=== PATIENT | female | born 1955 | race Caucasian/White ===

== ENCOUNTER → 2017-08-05 | Outpatient (CLI) | payer OTHER ==
[~2017-08-05] MED LIST: OXYC1CAP PO
[2017-08-05 12:03] LABS: AUTOMATED NEUTROPHIL # 6.1 TH/MM3 (1.8-7.7); BASOPHIL # 0.1 TH/MM3 (0-0.2); BASOPHIL % 0.9 % (0.0-2.0); EOSINOPHIL # 0.4 TH/MM3 (0-0.4); HEMATOCRIT 36.7 % (35.0-46.0); HEMOGLOBIN 12.4 GM/DL (11.6-15.3); LYMPH % 21.8 % (9.0-44.0); MEAN CELL VOLUME 89.9 FL (80.0-100.0); MEAN CORPUSCULAR HEMOGLOBIN 30.4 PG (27.0-34.0); MEAN CORPUSCULAR HGB CONC 33.9 % (32.0-36.0); MEAN PLATELET VOLUME 7.5 FL (7.0-11.0); MONO % 6.4 % (0.0-8.0); MONOCYTE # 0.6 TH/MM3 (0-0.9); NEUT % 66.9 % (16.0-70.0); PLATELET COUNT 339 TH/MM3 (150-450); RED BLOOD COUNT 4.08 MIL/MM3 (4.00-5.30); RED CELL DISTRIBUTION WIDTH 15.2 % (11.6-17.2); WHITE BLOOD COUNT 9.1 TH/MM3 (4.0-11.0)
[2017-08-05 12:08] LABS: INTERNATIONAL NORMALIZED RATIO 0.9 RATIO; PROTHROMBIN TIME - PATIENT 9.4 SEC (9.8-11.6)
[2017-08-05 12:22] LABS: BICARBONATE 25.8 MEQ/L (21.0-32.0); CALCIUM 8.8 MG/DL (8.5-10.1); CREATININE 0.81 MG/DL (0.50-1.00)
[2017-08-05 12:51] LABS: BILIRUBIN, URINE NEG (NEG); BLOOD, URINE SMALL (NEG); CALCIUM OXALATE CRYSTALS,URINE MANY /hpf; GLUCOSE,URINE NEG (NEG); HYALINE CAST, URINE 1 /lpf (RARE); KETONE, URINE NEG (NEG); MUCUS URINE MOD /lpf (OCC); NITRITE,URINE NEG (NEG); SQUAMOUS EPITHELIAL CELL URINE 4 /hpf (0-5); URINE COLOR YELLOW (YELLW/STRAW); URINE LEUKOCYTE ESTERASE NEG (NEG)
== END ==
LOC: CPRE 10:59
PROVIDERS: ATTEND Orthopaedic Surgery
DX: Z01.812 Encounter for preprocedural laboratory examination (principal)
CPT/HCPCS: 36415; 80048; 81001; 85025; 85610

== ENCOUNTER → 2017-08-06 | Day surgery (SDC) | payer OTHER ==
--- NOTE | 2017-08-04 17:47 | MH ---
cc: Robbin Gonzalez MD DATE OF ADMISSION: 08/06/2017 ADMITTING DIAGNOSES: Osteoarthritis left hip, pain left hip, gait disturbance, status post left total hip arthroplasty, wound dehiscence left hip. HISTORY OF PRESENT ILLNESS: The patient is a 61-year-old white female who had undergone a left total hip arthroplasty in June of this year for a history of osteoarthritis of the left hip with associated pain and gait disturbance. The patient was noted to have tolerated her operative procedure well and her initial postoperative course unremarkable. She was transferred to a rehab facility, where she continued with progressive mobilization, but on or about 2 weeks postoperatively, she began to develop some drainage from her wound site. She was evaluated in the office thereafter and she was found to have a minimal dehiscence of the inferior aspect of her incision, for which she was initiated into local treatment of her wound and monitored thereafter. Unfortunately, the drainage persisted, during which time the patient did remain afebrile and was later placed on a prophylactic course of antibiotics. Because of the persistence of her drainage and her failure to respond to continued conservative management, recommendation was subsequently made to undergo a thorough debridement and irrigation of her wound site with secondary closure. The patient was in full agreement to this recommendation and thus scheduled for admission at this time in order that the above be accomplished. PAST MEDICAL HISTORY, HOSPITALIZATIONS AND SURGERIES: In addition to her left total hip arthroplasty include laparoscopic cholecystectomy, bilateral carpal tunnel release, arthroscopic surgery right knee, tonsillectomy, colonoscopy. The patient denies any active medical illnesses, but had a history of thrombophlebitis of her right lower extremity extending back almost 18 years. MEDICATIONS: She takes no prescribed medications on a routine basis. ALLERGIES: THERE ARE NO INDICATED DRUG ALLERGIES. REVIEW OF SYSTEMS: No headache, seizure, or syncope. No sinus congestion or epistaxis. Diminished auditory acuity. No tinnitus. No bleeding gums or dysphagia. She does wear complete dentures. No cough, shortness of breath, upper respiratory infection, pneumonia, or tuberculosis. No angina or heart disease. Appetite good. Bowel movements regular. No hepatitis, ulcers, or hemorrhoids. No urinary tract infection, no kidney stones. No history of previous fractures. No psychiatric illness. Remaining review of systems is unremarkable and noncontributory. FAMILY HISTORY: 18 years, this being a fourth marriage. 79 years of age. He is in poor health with a history of heart disease and previous open heart surgery, diabetes, and below-knee amputee. She has 1 son and 1 daughter by previous marriage, both described as being in good health. Family history is positive for diabetes, lung and colon cancer. 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 She completed a high school education. Admits to an active use of tobacco since 1972 averaging slightly less than 1 pack per day. Denies ethanol consumption. PHYSICAL EXAMINATION: Height 5 feet 4 inches, weight 240 pounds. An alert, oriented, and responsive 61-year-old white female, sitting quietly upon examination table with no apparent distress. HEENT: Pupils are equally round and reactive to light. Extraocular movements full. Sclerae clear. External nares clear. External auditory canals clear. Edentulous. Mucous membranes pink and moist. Pharynx clear. NECK: Supple. Active range of motion without appreciable pain. Carotid pulses palpable bilaterally. Trachea midline. Thyroid without enlargement. LUNGS: Clear to auscultation and percussion. No CVA tenderness. No discomfort throughout the dorsal lumbar spine. HEART: Regular rhythm. No murmur or gallop. ABDOMEN: Soft, nontender. Bowel sounds present. PELVIC: Per primary care physician. EXTREMITIES: Left hip, localized dehiscence about the inferior aspect of an incision along the posterolateral aspect of the hip measuring at least 2-3 cm in magnitude. Serosanguineous drainage from the wound site. No associated fluctuance. No bordering erythema. No appreciable pain elicited. NEUROLOGIC: Cranial nerves 2-12 grossly intact. IMPRESSION: Osteoarthritis left hip, pain left hip, gait disturbance, status post left total hip arthroplasty, wound dehiscence left hip. PLAN: Wound debridement and irrigation with secondary closure of the wound site. The nature of the planned surgical procedure, the potential complications and risks associated, the expectations of surgery, and the consent form were thoroughly reviewed with the patient prior to admission to the hospital. In addition, it was emphasized to the patient that should the planned procedure fail to improve her symptoms and she is subsequently diagnosed as having a septic joint, the need for further disposition would be anticipated. The patient has indicated her full understanding in this regard and given consent to proceed with treatment as outlined. MD JESSA Urbano/TI , 05:16 PM , 05:45 PM
[~2017-08-06] VITALS: Ht 162.6 cm; Wt 108.5 kg
[~2017-08-06] MED LIST changes: +*RESP: ALBUTEROL 2.5 MG/3 ML NEB (PRN) PERIprocedural Use ONLY NEB ONE; +ACETAMINOPHEN 1000 MG/100 ML 100 ML IV ONE; +CHLORHEXIDINE GLUCONATE 2 % 1 PACK (2 CLOTHS) TOPICAL PRN; +DEXAMETHASONE SOD PHOS 4 MG/ML VIAL IV ONE; +DO NOT ADM ANY ANTICOAGULANT DRUGS PRN; +FAMOTIDINE 20 MG/2 ML VIAL IV ONE; +GENTAMICIN SULFATE 80 MG/2 ML VIAL ONE; +GLYCOPYRROLATE 1 MG/5 ML SYRINGE IV PUSH ONE; +LACTATED RINGER'S 1000 ML INJ 1,000 ML IV ONE; +LACTATED RINGER'S 1000 ML IV PRN; +LIDOCAINE HCL 1% PF 5 ML SYRINGE OTHER ONE; +METOPROLOL TARTRATE 25 MG TAB PO PRN; +MIDAZOLAM HCL 2 MG/2 ML VIAL IV ONE; +MIDAZOLAM HCL 2 MG/2 ML VIAL ONE; +MORPHINE SULFATE 10 MG/ML INJ IM PRN; +MORPHINE SULFATE 2 MG/ML INJ ONE; +NEOSTIGMINE 5 MG/5 ML SYRINGE IV PUSH ONE; +ONDANSETRON HCL 4 MG/2 ML VIAL IV ONE; +PHENYLEPH/NS 1000 MCG/10 ML SYR IV ONE; +POVIDONE IODINE 5% (ANTISEPSIS KIT) 4 APPLICATIONS EACH NARE PRN; +POVIDONE IODINE 7.5% SCRUB 118 ML BOTTLE TOPICAL SCH; +PROMETHAZINE INJ 25 MG/ML VIAL IM PRN; +PROPOFOL 200 MG/20 ML AMP IV ONE; +ROCURONIUM INJ 50 MG/5 ML SYRINGE IV PUSH ONE; +SODIUM CHLORID 0.9% 500 ML IV PRN; +ceFAZolin INJ 1,000 MG VIAL IV ONE; +ePHEDrine/NS 25 MG/5 ML SYRINGE IV ONE; +oxyCODONE/ACETAMINOPHEN 7.5 MG/325 MG TAB PO PRN
--- NOTE | 2017-08-06 11:50 | MP ---
cc: Robbin Gonzalez MD DATE OF OPERATION: 08/06/2017 PREOPERATIVE DIAGNOSIS: Wound dehiscence left hip, status post left total hip arthroplasty. POSTOPERATIVE DIAGNOSIS: Wound dehiscence left hip, status post left total hip arthroplasty. PROCEDURE: Wound debridement and irrigation with secondary wound closure, left hip. SURGEON: Robbin Gonzalez MD ANESTHESIA: General endotracheal. INDICATION: A 61-year-old white female who had undergone a left total hip arthroplasty within the previous 4 weeks for a history of osteoarthritis with associated pain and gait disturbance all involving her left hip. She had tolerated her operative procedure well, and her postoperative course was initially unremarkable. She was transferred to a rehab facility where she continued with progressive mobilization, but approximately 2 weeks postoperatively, she began to develop some drainage from her wound site. She was thereafter evaluated in the office, and at that time was noted to have a minimal dehiscence along the inferior aspect of her incision, through which she was initiated into local wound care treatment and monitored thereafter. Unfortunately, the drainage persisted, for which the patient did remain afebrile and was later placed on a prophylactic course with antibiotics. Because of the persistence of her drainage and her failure to respond to continued conservative management, recommendation was made to undergo a thorough wound debridement and irrigation with secondary wound closure. The patient was in full agreement to this recommendation and thus scheduled for admission at this time. FORMAT: Following induction of satisfactory general anesthesia by endotracheal intubation as completed per the department of anesthesia, the patient was positioned upon the operating table in a right lateral decubitus fashion. The left hip and lower extremity proper were isolated with a U-drape, thereafter being prepped with Betadine solute and draped into a sterile field in the routine manner. Prior to initiation of the actual procedure, the standard timeout protocol was completed. All parameters were appropriately addressed and confirmed by operating room personnel. A previous surgical scar along the lateral aspect of the left hip including a proximally 2-3 cm area of wound dehiscence was excised in a sharp manner with a removal of the inferior 2/3 of the previous surgical scar. The incision was thereafter developed, underlying subcutaneous tissue with hemostasis remaining maintained by electrocautery. Upon entering the deeper subcutaneous layer, a wound culture was obtained and submitted to the lab, the results of which were negative for any evidence of bacterial contamination. Thereafter, a generalized evacuation, wound debridement including a hematoma and what appeared to be some associated necrotic tissue was thoroughly debrided from the confines of the wound. The wound was noted to be contained to the subcutaneous layer with limited involvement of the underlying muscular layer but no suggestion for violation of the underlying hip joint. Following the debridement, the wound was thoroughly irrigated with 9 L of pulsating antibiotic solution. Finally, debridement was completed thereafter and hemostasis maintained. Closure was thereafter accomplished in a layer-type fashion with the deeper tissues being reapproximated with a running 0 Vicryl suture and remaining portion of the wound closed in layers with skin margin being reapproximated with a running subcuticular 3-0 Vicryl suture, over which Steri-Strips were applied. Xeroform gauze and a bulky dry sterile dressing were placed. The patient was repositioned into a supine orientation and anesthesia was thus discontinued. She was thereafter transferred to a hospital stretcher and returned to the recovery room in satisfactory condition, having tolerated her operative procedure well. Estimated blood loss was approximately 50 mL as determined per anesthesia. MD JESSA Urbano/ZINA , 11:30 AM , 11:48 AM
[2017-08-06 13:20] VITALS: BP 107/62; PULSE 83; RESP 16; TEMP 98.3; O2SAT 97
== END | disposition home or self-care (01) ==
LOC: HSDC 07:09
PROVIDERS: ATTEND Orthopaedic Surgery
DX: T81.30XA Disruption of wound, unspecified, initial encounter (principal); M16.12 Unilateral primary osteoarthritis, left hip; Z96.642 Presence of left artificial hip joint
CPT/HCPCS: 00400; 13160; 87205; 88304; J0131; J0690; J1100; J1580; J2250; J2270; J2370; J2405; J2710; J3010; J7120; J7613; 88305

== ENCOUNTER → 2017-09-04 | Outpatient (CLI) | payer OTHER ==
[~2017-09-04] MED LIST changes: -*RESP: ALBUTEROL 2.5 MG/3 ML NEB (PRN) PERIprocedural Use ONLY NEB ONE; -ACETAMINOPHEN 1000 MG/100 ML 100 ML IV ONE; +ASPI-183 PO; -CHLORHEXIDINE GLUCONATE 2 % 1 PACK (2 CLOTHS) TOPICAL PRN; +CLIN300C5 PO; -DEXAMETHASONE SOD PHOS 4 MG/ML VIAL IV ONE; -DO NOT ADM ANY ANTICOAGULANT DRUGS PRN; -FAMOTIDINE 20 MG/2 ML VIAL IV ONE; -GENTAMICIN SULFATE 80 MG/2 ML VIAL ONE; -GLYCOPYRROLATE 1 MG/5 ML SYRINGE IV PUSH ONE; -LACTATED RINGER'S 1000 ML INJ 1,000 ML IV ONE; -LACTATED RINGER'S 1000 ML IV PRN; -LIDOCAINE HCL 1% PF 5 ML SYRINGE OTHER ONE; -METOPROLOL TARTRATE 25 MG TAB PO PRN; -MIDAZOLAM HCL 2 MG/2 ML VIAL IV ONE; -MIDAZOLAM HCL 2 MG/2 ML VIAL ONE; -MORPHINE SULFATE 10 MG/ML INJ IM PRN; -MORPHINE SULFATE 2 MG/ML INJ ONE; -NEOSTIGMINE 5 MG/5 ML SYRINGE IV PUSH ONE; -ONDANSETRON HCL 4 MG/2 ML VIAL IV ONE; +OXYC1TAB63 PO; -PHENYLEPH/NS 1000 MCG/10 ML SYR IV ONE; -POVIDONE IODINE 5% (ANTISEPSIS KIT) 4 APPLICATIONS EACH NARE PRN; -POVIDONE IODINE 7.5% SCRUB 118 ML BOTTLE TOPICAL SCH; -PROMETHAZINE INJ 25 MG/ML VIAL IM PRN; -PROPOFOL 200 MG/20 ML AMP IV ONE; -ROCURONIUM INJ 50 MG/5 ML SYRINGE IV PUSH ONE; -SODIUM CHLORID 0.9% 500 ML IV PRN; +WALKER WHEELS/F1 MIS; -ceFAZolin INJ 1,000 MG VIAL IV ONE; -ePHEDrine/NS 25 MG/5 ML SYRINGE IV ONE; -oxyCODONE/ACETAMINOPHEN 7.5 MG/325 MG TAB PO PRN
[2017-09-04 15:19] LABS: AMORPHOUS SEDIMENT, URINE RARE; BILIRUBIN, URINE NEG (NEG); BLOOD, URINE TRACE (NEG); CALCIUM OXALATE CRYSTALS,URINE MANY /hpf; GLUCOSE,URINE NEG (NEG); HYALINE CAST, URINE 12 /lpf (RARE); KETONE, URINE NEG (NEG); MUCUS URINE MANY /lpf (OCC); NITRITE,URINE NEG (NEG); PH, URINE 5.5 (5.0-8.5); SQUAMOUS EPITHELIAL CELL URINE 2 /hpf (0-5); URINE COLOR YELLOW (YELLW/STRAW); URINE LEUKOCYTE ESTERASE NEG (NEG)
[2017-09-04 15:20] LABS: AUTOMATED NEUTROPHIL # 5.3 TH/MM3 (1.8-7.7); BASOPHIL # 0.1 TH/MM3 (0-0.2); BASOPHIL % 1.2 % (0.0-2.0); EOSINOPHIL # 0.4 TH/MM3 (0-0.4); EOSINOPHIL % 4.4 % (0.0-4.0); HEMATOCRIT 37.2 % (35.0-46.0); HEMOGLOBIN 12.1 GM/DL (11.6-15.3); LYMPH % 27.9 % (9.0-44.0); LYMPHOCYTE # 2.5 TH/MM3 (1.0-4.8); MEAN CELL VOLUME 82.9 FL (80.0-100.0); MEAN CORPUSCULAR HGB CONC 32.5 % (32.0-36.0); MEAN PLATELET VOLUME 7.6 FL (7.0-11.0); MONO % 7.8 % (0.0-8.0); MONOCYTE # 0.7 TH/MM3 (0-0.9); NEUT % 58.7 % (16.0-70.0); PLATELET COUNT 432 TH/MM3 (150-450); RED BLOOD COUNT 4.48 MIL/MM3 (4.00-5.30); RED CELL DISTRIBUTION WIDTH 15.7 % (11.6-17.2); WHITE BLOOD COUNT 9.1 TH/MM3 (4.0-11.0)
[2017-09-04 15:34] LABS: BICARBONATE 29.3 MEQ/L (21.0-32.0)
[2017-09-04 15:35] LABS: INTERNATIONAL NORMALIZED RATIO 0.9 RATIO; PROTHROMBIN TIME - PATIENT 9.6 SEC (9.8-11.6)
== END ==
LOC: CPRE 14:42
PROVIDERS: ATTEND Orthopaedic Surgery
DX: Z01.812 Encounter for preprocedural laboratory examination (principal); M16.52 Unilateral post-traumatic osteoarthritis, left hip
CPT/HCPCS: 36415; 80051; 81001; 85025; 85610

== ENCOUNTER 2017-09-07 20:01 | Emergency (ER) | payer OTHER ==
[~2017-09-07] VITALS: Ht 162.6 cm; Wt 96.0 kg
[~2017-09-07 20:01] MED LIST changes: -ASPI-183 PO; -CLIN300C5 PO; -OXYC1TAB63 PO; -WALKER WHEELS/F1 MIS
[2017-09-07 20:43] VITALS: BP 118/63; PULSE 103; RESP 18; TEMP 100.2; O2SAT 96
[2017-09-07 21:13] VITALS: BP 165/78; PULSE 94; RESP 20; O2SAT 96
[2017-09-07] MEDS ORDERED: PIPERACIL-TAZO 4.5 GM PREMIX 100 ML IV STA (21:32)
[2017-09-07] MEDS ORDERED: VANCOMYCIN INJ 1,000 MG in SODIUM CHLOR 0.9% 250 ML INJ 250 ML IV STA (21:32)
[2017-09-07 21:44] LABS: AUTOMATED NEUTROPHIL # 8.3 TH/MM3 (1.8-7.7); BASOPHIL # 0.1 TH/MM3 (0-0.2); BASOPHIL % 1.2 % (0.0-2.0); EOSINOPHIL # 0.3 TH/MM3 (0-0.4); EOSINOPHIL % 2.1 % (0.0-4.0); HEMATOCRIT 40.3 % (35.0-46.0); HEMOGLOBIN 13.2 GM/DL (11.6-15.3); LYMPH % 18.2 % (9.0-44.0); LYMPHOCYTE # 2.1 TH/MM3 (1.0-4.8); MEAN CELL VOLUME 81.9 FL (80.0-100.0); MEAN CORPUSCULAR HEMOGLOBIN 26.7 PG (27.0-34.0); MEAN CORPUSCULAR HGB CONC 32.6 % (32.0-36.0); MEAN PLATELET VOLUME 7.7 FL (7.0-11.0); MONOCYTE # 0.8 TH/MM3 (0-0.9); NEUT % 71.5 % (16.0-70.0); PLATELET COUNT 492 TH/MM3 (150-450); RED BLOOD COUNT 4.93 MIL/MM3 (4.00-5.30); RED CELL DISTRIBUTION WIDTH 16.2 % (11.6-17.2); WHITE BLOOD COUNT 11.6 TH/MM3 (4.0-11.0)
[2017-09-07] MEDS ORDERED: IBUPROFEN 800 MG TAB PO ONE (21:45)
[2017-09-07 21:57] LABS: ALBUMIN 3.4 GM/DL (3.4-5.0); AST (GOT) 18 U/L (15-37); BICARBONATE 27.9 MEQ/L (21.0-32.0); BLOOD UREA NITROGEN 9 MG/DL (7-18); CALCIUM 9.7 MG/DL (8.5-10.1); CHLORIDE 98 MEQ/L (98-107); CREATININE 0.77 MG/DL (0.50-1.00); GLOMERULAR FILTRATION RATE 76 ML/MIN (>89); GLUCOSE,RANDOM 122 MG/DL (74-106); SODIUM (NA) 132 MEQ/L (136-145)
[2017-09-07 21:58] LABS: ALT (GPT) 14 U/L (10-53)
[2017-09-07 22:01] LABS: ALKALINE PHOSPHATASE 138 U/L (45-117); PROTHROMBIN TIME - PATIENT 9.8 SEC (9.8-11.6); TOTAL BILIRUBIN ADULT 0.3 MG/DL (0.2-1.0); TOTAL PROTEIN 8.9 GM/DL (6.4-8.2)
--- NOTE | 2017-09-07 22:32 | PD ---
HPI Chief Complaint: Wound/Suture/Staple Re-Check Time Seen by Provider: 21:13 Travel History International Travel<30 days: No Contact w/Intl Traveler<30days: No Traveled to known affect area: No History of Present Illness HPI Patient is a 61-year-old female presenting to the emergency department for evaluation of left hip pain, fever, drainage. Patient states she had a hip replacement on [address] gonzalez. She states while she was in rehab immediately after the surgery the incision opened up. She had an I&D at the beginning of July. She states for several weeks she has had yellow/orange drainage. She reports max temp of 100.4 at home intermittently. She denies any shortness of breath, chest pain, abdominal pain. Patient has been unable to bear weight, this has gotten worse today. She is currently reports her pain is a 10 out of 10, she took her normal pain medication approximately 1 hour prior to arrival. Patient states she was on Keflex which was completed approximately a week and a half ago. Symptom onset was gradual, symptoms have been ongoing for several weeks. Symptoms are somewhat alleviated with pain medication. Pain is exacerbated with movement. Pain is aching in nature. PFSH Past Medical History Cancer: No Cardiovascular Problems: Yes (MURMUR) Diabetes: No Diminished Hearing: No Endocrine: No Gastrointestinal Disorders: Yes (UMBILICAL HERNIA) Genitourinary: No Hepatitis: No Hiatal Hernia: No Immune Disorder: No Medical other: Yes (blood clots in right leg in 1999) Musculoskeletal: Yes (OA, LEFT HIP PAIN) Neurologic: No Psychiatric: No Reproductive: No Respiratory: No Immunizations Current: Yes Thyroid Disease: No Tetanus Vaccination: Unknown Influenza Vaccination: No ?: Not Past Surgical History Abdominal Surgery: Yes (CHOLECYSTECTOMY) AICD: No Cardiac Surgery: No Ear Surgery: No Endocrine Surgery: No Eye Surgery: No Genitourinary Surgery: No Gynecologic Surgery: Yes (TUBAL LIGATION) Joint Replacement: Yes (LEFT HIP) Neurologic Surgery: No Oral Surgery: No Pacemaker: No Thoracic Surgery: No Other Surgery: Yes Social History Alcohol Use: No Tobacco Use: No Substance Use: No Allergies-Medications (Allergen,Severity, Reaction): Coded Allergies: No Known Allergies (Unverified , 09/07/17) Reported Meds & Prescriptions Reported Meds & Active Scripts Active Clindamycin (Clindamycin HCl) 300 Mg Cap 300 Mg PO TID Reported Oxycodone (Oxycodone HCl) 5 Mg Cap 5 Mg PO Q4H PRN Review of Systems Except as stated in HPI: all other systems reviewed are Neg Musculoskeletal: Positive: Myalgias, Arthralgias, Pain Skin: Positive Change in Pigmentation, Positive Lesions Physical Exam Narrative GENERAL: Obese, well-developed, alert female. Presenting in no acute distress. SKIN: Warm and dry. Incision to left lateral hip, there are 5 circular lesions with mucopurulent drainage noted. All less than half a centimeter wide. There is a visible stitch to the lower aspect of the incision. No induration or warmth noted. Moderately tender to palpation. HEAD: Atraumatic. Normocephalic. EYES: Pupils equal and round. No scleral icterus. No injection or drainage. ENT: No nasal bleeding or discharge. Mucous membranes pink and moist. NECK: Trachea midline. No JVD. CARDIOVASCULAR: Regular rate and rhythm. RESPIRATORY: No accessory muscle use. Clear to auscultation. Breath sounds equal bilaterally. GASTROINTESTINAL: Abdomen soft, non-tender, nondistended. Hepatic and splenic margins not palpable. MUSCULOSKELETAL: Extremities without clubbing, cyanosis, or edema. No obvious deformities. NEUROLOGICAL: Awake and alert. No obvious cranial nerve deficits. Motor grossly within normal limits. Five out of 5 muscle strength in the arms and legs. Normal speech. PSYCHIATRIC: Appropriate mood and affect; insight and judgment normal. Data Data Last Documented VS Vital Signs Date Time Temp Pulse Resp B/P (MAP) Pulse Ox O2 Delivery O2 Flow Rate FiO2 09/07/17 21:13 94 20 165/78 (107) 96 Room Air 09/07/17 20:43 100.2 Orders Orders Sepsis Workup Initiated (09/07/17 ) Complete Blood Count With Diff (09/07/17 21:22) Comprehensive Metabolic Panel (09/07/17 21:22) Prothrombin Time / Inr (Pt) (09/07/17 21:22) Act Partial Throm Time (Ptt) (09/07/17 21:22) Lactic Acid Sepsis Protocol (09/07/17 21:22) Urinalysis - C+S If Indicated (09/07/17 21:22) Blood Culture (09/07/17 21:22) Blood Glucose (09/07/17 21:22) Ecg Monitoring (09/07/17 21:22) Iv Access Insert/Monitor (09/07/17 21:22) Oximetry (09/07/17 21:22) Oxygen Administration (09/07/17 21:22) Wound Culture And Gram Stain (09/07/17 21:22) Hip, Uni(Ap&Lat) W Ap Pelvis (09/07/17 ) Ibuprofen (Motrin) (09/07/17 21:45) Piperacil-Tazo 4.5 Gm Premix (Zosyn 4.5 (09/07/17 21:32) Vancomycin Inj (Vancomycin Inj) (09/07/17 21:32) Sodium Chlor 0.9% 1000 Ml Inj (Ns 1000 M (09/07/17 23:00) Ed Discharge Order (09/07/17 23:13) Labs Laboratory Tests Test 09/07/17 21:30 White Blood Count 11.6 TH/MM3 Red Blood Count 4.93 MIL/MM3 Hemoglobin 13.2 GM/DL Hematocrit 40.3 % Mean Corpuscular Volume 81.9 FL Mean Corpuscular Hemoglobin 26.7 PG Mean Corpuscular Hemoglobin Concent 32.6 % Red Cell Distribution Width 16.2 % Platelet Count 492 TH/MM3 Mean Platelet Volume 7.7 FL Neutrophils (%) (Auto) 71.5 % Lymphocytes (%) (Auto) 18.2 % Monocytes (%) (Auto) 7.0 % Eosinophils (%) (Auto) 2.1 % Basophils (%) (Auto) 1.2 % Neutrophils # (Auto) 8.3 TH/MM3 Lymphocytes # (Auto) 2.1 TH/MM3 Monocytes # (Auto) 0.8 TH/MM3 Eosinophils # (Auto) 0.3 TH/MM3 Basophils # (Auto) 0.1 TH/MM3 CBC Comment DIFF FINAL Differential Comment Prothrombin Time 9.8 SEC Prothromb Time International Ratio 1.0 RATIO Activated Partial Thromboplast Time 26.9 SEC Blood Urea Nitrogen 9 MG/DL Creatinine 0.77 MG/DL Random Glucose 122 MG/DL Total Protein 8.9 GM/DL Albumin 3.4 GM/DL Calcium Level 9.7 MG/DL Alkaline Phosphatase 138 U/L Aspartate Amino Transf (AST/SGOT) 18 U/L Alanine Aminotransferase (ALT/SGPT) 14 U/L Total Bilirubin 0.3 MG/DL Sodium Level 132 MEQ/L Potassium Level 3.6 MEQ/L Chloride Level 98 MEQ/L Carbon Dioxide Level 27.9 MEQ/L Anion Gap 6 MEQ/L Estimat Glomerular Filtration Rate 76 ML/MIN Lactic Acid Level 1.2 mmol/L [facility] Medical Decision Making Medical Screen Exam Complete: Yes Emergency Medical Condition: Yes Medical Record Reviewed: Yes Interpretation(s) Laboratory Tests Test 09/07/17 21:30 White Blood Count 11.6 TH/MM3 Red Blood Count 4.93 MIL/MM3 Hemoglobin 13.2 GM/DL Hematocrit 40.3 % Mean Corpuscular Volume 81.9 FL Mean Corpuscular Hemoglobin 26.7 PG Mean Corpuscular Hemoglobin Concent 32.6 % Red Cell Distribution Width 16.2 % Platelet Count 492 TH/MM3 Mean Platelet Volume 7.7 FL Neutrophils (%) (Auto) 71.5 % Lymphocytes (%) (Auto) 18.2 % Monocytes (%) (Auto) 7.0 % Eosinophils (%) (Auto) 2.1 % Basophils (%) (Auto) 1.2 % Neutrophils # (Auto) 8.3 TH/MM3 Lymphocytes # (Auto) 2.1 TH/MM3 Monocytes # (Auto) 0.8 TH/MM3 Eosinophils # (Auto) 0.3 TH/MM3 Basophils # (Auto) 0.1 TH/MM3 CBC Comment DIFF FINAL Differential Comment Prothrombin Time 9.8 SEC Prothromb Time International Ratio 1.0 RATIO Activated Partial Thromboplast Time 26.9 SEC Blood Urea Nitrogen 9 MG/DL Creatinine 0.77 MG/DL Random Glucose 122 MG/DL Total Protein 8.9 GM/DL Albumin 3.4 GM/DL Calcium Level 9.7 MG/DL Alkaline Phosphatase 138 U/L Aspartate Amino Transf (AST/SGOT) 18 U/L Alanine Aminotransferase (ALT/SGPT) 14 U/L Total Bilirubin 0.3 MG/DL Sodium Level 132 MEQ/L Potassium Level 3.6 MEQ/L Chloride Level 98 MEQ/L Carbon Dioxide Level 27.9 MEQ/L Anion Gap 6 MEQ/L Estimat Glomerular Filtration Rate 76 ML/MIN Lactic Acid Level 1.2 mmol/L Vital Signs Date Time Temp Pulse Resp B/P (MAP) Pulse Ox O2 Delivery O2 Flow Rate FiO2 09/07/17 21:13 94 20 165/78 (107) 96 Room Air 09/07/17 20:43 100.2 103 18 118/63 (81) 96 Differential Diagnosis Cellulitis versus abscess versus sepsis versus other Narrative Course Patient presented for evaluation of left hip pain and drainage, upon review of medical records Dr. gonzalez is planning on performing a resection arthroplasty of the left hip with insertion of a cement spacer. Incision does not appear cellulitic, there are areas of ulcerations with scant purulent drainage. Labs and imaging ordered and pending, IV access established, patient placed on telemetry monitoring continuous pulse oximetry. Patient has a low-grade temp, Motrin was ordered for this. Patient will be started on empiric antibiotics including Zosyn and vancomycin at this time. Patient is resting comfortably, her is at bedside. She declined pain medication at this time. CBC with a white count of 11.6 Chemistry with no acute findings Lactic acid 1.2 X-ray of the hip shows no acute disease. Patient already has a plan in place for follow-up care with Dr. Gonzalez. Blood culture and wound culture pending. Patient will be discharged home, she is to follow-up with Dr. Gonzalez tomorrow. Patient will be started on clindamycin at this time. Patient ambulated to the bathroom in the emergency department. She was able to bear weight on her left leg. Sepsis Criteria SIRS Criteria (2 or more): Temp > 100.9 or < 96.8, Heart rate over 90 Sepsis Criteria (SIRS+source): Infect source susp/known Physician Communication Physician Communication Discussed with my attending physician. Diagnosis Primary Impression: Wound infection after surgery Qualified Codes: T81.4XXS - Infection following a procedure, sequela Referrals: Robbin Gonzalez MD 1 day Patient Instructions: Acute Wounds (DC), General Instructions Additional Instructions: Follow-up with Dr. gonzalez in the morning Return to emergency department for any new or worsening symptoms Take antibiotics as directed Change dressings twice daily and as needed for soiling Med/Other Pt SpecificInfo: Prescription(s) given Scripts Clindamycin (Clindamycin) 300 Mg Cap 300 MG PO TID for Infection, #21 CAP 0 Refills Prov: Mi Ventura 09/07/17 Disposition: 01 DISCHARGE HOME Condition: Stable Mi Ventura Sep 07, 2017 22:32
--- NOTE | 2017-09-07 22:37 | RADRPT ---
EXAM DATE/TIME: 09/07/2017 21:39 [facility] COMPARISON: No previous studies available for comparison. INDICATIONS : Left hip pain, surgery in June. MEDICAL HISTORY : None. SURGICAL HISTORY : Left hip replacement ENCOUNTER: Initial ACUITY: 1 day PAIN SCORE: 8/10 LOCATION: Left hip FINDINGS: There is total prosthesis seen on the left. This appears well placed. A fracture is not seen. CONCLUSION: No acute abnormality seen. Martir Guillory MD on September 07, 2017 at 22:34 Board Certified Radiologist. This report was verified electronically.
[2017-09-07] MEDS ORDERED: SODIUM CHLOR 0.9% 1000 ML INJ 1,000 ML IV ONE (23:00)
[2017-09-07] MEDS ORDERED: CLIN300C5 PO (23:11)
== END 2017-09-08 01:50 | disposition home or self-care (01) ==
LOC: NEPC 20:01
DX: T81.4XXA Infection following a procedure, initial encounter (principal); M25.552 Pain in left hip; A49.02 Methicillin resistant Staphylococcus aureus infection, unspecified site; R01.1 Cardiac murmur, unspecified
CPT/HCPCS: 73502; 80053; 83605; 85025; 85610; 85730; 86403; 87040; 87070; 87186; 96365; 96375; 99284; J2543; J3370; J7030; J7050; 87205

== ENCOUNTER 2017-09-09 11:51 | Inpatient (IN) | payer OTHER ==
--- NOTE | 2017-09-04 11:44 | MH ---
cc: Robbin Gonzalez MD, Norman B MD DATE OF ADMISSION: 09/09/2017 ADMITTING DIAGNOSIS: Sepsis of the left hip status post total hip arthroplasty. HISTORY OF PRESENT ILLNESS: The patient is a 61-year-old white female who underwent a left total hip arthroplasty in 06/2017 for history of osteoarthritis of her left hip. She had tolerated her operative procedure well and her initial postoperative course was unremarkable. She had been transferred to a rehab facility where she continued with progressive mobilization, but in the early postoperative period she did develop some drainage about her wound site with minimal wound dehiscence for which she was followed on an outpatient basis. She was treated with local wound care and was placed on a prophylactic course of antibiotics. Because of persistent drainage, she was admitted to the hospital on 08/06/2017 and, at that time, underwent an incision and drainage procedure of her left hip area with revision of her surgical incision. At the time of that procedure, intraoperative cultures were negative for any evidence of bacterial contamination and the findings at the time of surgery appeared to suggest that the involvement of the left hip wound was more superficial in nature and did not appear to violate the hip joint. Initially, the patient did experience some trend of improvement and was continued to be followed on an outpatient basis. Unfortunately, she began to develop some recurrent drainage about her hip area and, at that time, was placed back onto a course of oral antibiotics and continued to be monitored on an outpatient basis. Her laboratory studies remained concerning in that her sedimentation rate was at 53 and her white blood count at 7.1 and a C-reactive protein of 123.8. The patient continued to be monitored in this regard and was maintained on oral antibiotics in the form of Keflex 500 mg 4 times daily. A followup laboratory evaluation noted that her sedimentation rate remained unchanged at 53 and her white blood count was elevated to 9.9. Her C-reactive protein dropped to 49.9, but remained above the upper limit of normal. The patient remained symptomatic with residual drainage about her left hip wound for which findings were felt to be consistent with a septic process and, in this regard, it was recommended that the patient proceed with a resection arthroplasty of her left hip and insertion of a cement spacer. The patient was in agreement to this recommendation and currently is being admitted to the hospital in order that the above be accomplished. CURRENT MEDICATIONS: Recently included Keflex as described above, but has been stopped prior to this operative procedure. She has also been taking oxycodone 10/325 on a p.r.n. basis for pain management. ALLERGIES: SHE DENIES ANY KNOWN DRUG ALLERGIES. REVIEW OF SYSTEMS: Unremarkable for a history of headaches, seizure or syncope. There is no sinus congestion or epistaxis. Diminished auditory acuity. No tinnitus. No bleeding gums or dysphagia. She wears complete dentures. No cough, shortness of breath, upper respiratory infection, pneumonia, or tuberculosis. No angina or heart disease. Appetite is good. Bowel movements are regular. No hepatitis, ulcers or hemorrhoids. No urinary tract infection, no kidney stones, no history of fractures. No psychiatric illness. Her remaining review of systems is unremarkable and noncontributory. PAST MEDICAL HISTORY, HOSPITALIZATIONS AND SURGERIES: In addition to her procedures as described above have included a laparoscopic cholecystectomy, bilateral carpal tunnel release, arthroscopic surgery of the right knee, tonsillectomy, colonoscopy. The patient denies active medical illness. There is a positive history of thrombophlebitis of her right lower extremity many years ago. FAMILY HISTORY: The patient has been 18 years, this being a fourth marriage. Her is 79 years of age, in poor health with history of heart disease and status post open heart surgery, diabetes and below-knee amputee. She has 1 son and 1 daughter by a previous marriage both described as being in good health. FAMILY HISTORY: Positive for diabetes, lung and colon cancer. 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 She completed a high school education. She admits to active use of tobacco since 1972, averaging less than 1 pack per day. Denies ethanol consumption. PHYSICAL EXAMINATION: VITAL SIGNS: Height 5 feet 4 inches, weight 235 pounds. GENERAL: An alert, oriented, and responsive 61-year-old white female sitting quietly upon the examination table with no obvious distress. HEAD, EARS, EYES, NOSE, AND THROAT: Pupils are equally round and reactive to light. Extraocular movements full. Sclerae are clear. External nares clear. External auditory canals clear. Edentulous. Mucous membranes pink and moist. Pharynx clear. NECK: Supple. Active range of motion with no significant pain. Carotid pulse is palpable bilaterally. Trachea midline. Thyroid without enlargement. LUNGS: Clear to auscultation and percussion. No CVA tenderness. No discomfort involving the dorsolumbar spine. HEART: Regular rate and rhythm. No murmur or gallop. ABDOMEN: Soft, nontender, bowel sounds present. PELVIC: Per primary care physician. EXTREMITIES: Left hip - there is an intact surgical wound with a minimal 2 cm area of dehiscence along the inferior aspect of the incision with minimal serous drainage being noted. No significant erythema and no associated fluctuance. There is satisfactory mobility of the hip joint with no sensation of instability. Mild antalgic gait. NEUROLOGIC: Cranial nerves 2-12 grossly intact. IMPRESSION: Sepsis, left hip, status post total hip arthroplasty. PLAN: Resection arthroplasty, left hip, with insertion of cement spacer. The nature of the planned surgical procedure, the potential complications and risks associated, the expectations of surgery and the consent form were thoroughly reviewed with the patient prior to her admission to the hospital. Ana Cristina has indicated her full understanding regarding all of the above and given consent to proceed with treatment as outlined. Medical evaluation and clearance for surgery has been completed by her primary care physician, Dr. Shaina Bryant. MD JESSA Urbano//steven , 04:56 PM , 05:24 PM
[~2017-09-09] VITALS: Ht 162.6 cm; Wt 102.3 kg
[~2017-09-09 11:51] MED LIST changes: +CLIN300C5 PO; +VANCOMYCIN INJ 2,000 MG in SODIUM CHLORID 0.9% 500 ML INJ 500 ML IV SCH
[2017-09-09] MEDS ORDERED: PROPOFOL 200 MG/20 ML AMP IV ONE (12:00)
[2017-09-09] MEDS ORDERED: LIDOCAINE HCL 1% PF 5 ML SYRINGE OTHER ONE (12:00)
[2017-09-09] MEDS ORDERED: DEXAMETHASONE SOD PHOS 4 MG/ML VIAL IV ONE (12:00)
[2017-09-09] MEDS ORDERED: GLYCOPYRROLATE 1 MG/5 ML SYRINGE IV PUSH ONE (12:00)
[2017-09-09] MEDS ORDERED: ePHEDrine/NS 25 MG/5 ML SYRINGE IV ONE (12:00)
[2017-09-09] MEDS ORDERED: ROCURONIUM INJ 50 MG/5 ML SYRINGE IV PUSH ONE (12:00)
[2017-09-09] MEDS ORDERED: LACTATED RINGER'S 1000 ML INJ 2,000 ML IV ONE (12:00)
[2017-09-09] MEDS ORDERED: ONDANSETRON HCL 4 MG/2 ML VIAL IV PUSH ONE (12:00)
[2017-09-09] MEDS ORDERED: PHENYLEPH/NS 1000 MCG/10 ML SYR IV ONE (12:00)
[2017-09-09] MEDS ORDERED: NEOSTIGMINE 5 MG/5 ML SYRINGE IV PUSH ONE (12:00)
[2017-09-09] MEDS ORDERED: POVIDONE IODINE 7.5% SCRUB 118 ML BOTTLE TOPICAL SCH (12:45)
[2017-09-09] MEDS ORDERED: CHLORHEXIDINE GLUCONATE 4% SOLN 120 ML BTL TOPICAL SCH (12:45)
[2017-09-09] MEDS ORDERED: LACTATED RINGER'S 1000 ML IV PRN (12:45)
[2017-09-09] MEDS ORDERED: INSULIN HUMAN REGULAR 1,000 UNITS/10 ML VIAL SQ PRN (12:45)
[2017-09-09] MEDS ORDERED: POVIDONE IODINE 5% (ANTISEPSIS KIT) 4 APPLICATIONS EACH NARE PRN (12:45)
[2017-09-09] MEDS ORDERED: CHLORHEXIDINE GLUCONATE 2 % 1 PACK (2 CLOTHS) TOPICAL PRN (12:45)
[2017-09-09] MEDS ORDERED: SODIUM CHLORID 0.9% 500 ML IV PRN (12:45)
[2017-09-09] MEDS ORDERED: METOPROLOL TARTRATE 25 MG TAB PO PRN (12:45)
[2017-09-09] MEDS ORDERED: ACETAMINOPHEN 1000 MG/100 ML 100 ML IV ONE (12:52)
[2017-09-09] MEDS ORDERED: TRANEXAMIC ACID 1 GM PRIOR TO PROCEDURE IV SCH ×2 (13:00)
[2017-09-09] MEDS ORDERED: ceFAZolin INJ 1,000 MG VIAL ONE (13:02)
[2017-09-09] MEDS ORDERED: TOBRAMYCIN 1200 MG VIAL (for ortho/sterile core) OTHER ONE (13:02)
[2017-09-09] MEDS ORDERED: VANCOMYCIN HCL 1000 MG VIAL ONE ×2 (14:28→18:20)
[2017-09-09] MEDS ORDERED: Vancomycin Consult Pharmacy 1 EA OTHER SCH (16:00)
--- NOTE | 2017-09-09 16:03 | PD.CONS ---
History of Present Illness Service ID Consult Requested By Dr Gonzalez Reason for Consult Prosthetic hip septic arthritis Primary Care Physician Parisa Bundy D.O. Diagnoses: History of Present Illness 61 yo morbidly obese female with DJD sp L hip arthroplasty in jun Initially healed, but later developped dehiscence and drainage along with the pain worsening with weight bearing In July she underwent I+D, cultures were negative She took 2 week sof Keflex with no improvement She presented to Dr Gonzalez office and he aspirated the hip Culture is positive for coag positive staph blood cultures are negative @ 2 days and Xray was unremarkable She is to undergo removal of preostheiss ias the fiste stage of 2 stage procedure She endorses low grade fever, malaise Review of Systems Except as stated in HPI: all other systems reviewed are Neg Past Family Social History Allergies: Coded Allergies: No Known Allergies (Unverified , 09/07/17) Past Medical History obesity DJD Past Surgical History laparoscopic cholecystectomy, bilateral carpal tunnel release, arthroscopic surgery of the right knee, tonsillectomy, colonoscopy Active Ordered Medications Medications where reviewed in EMR Antibiotics Include: none Family History noncontributory reviewd with pt Social History + tobacco 7 sig/day denies ETOH no illicits Physical Exam Physical Exam CONSTITUTIONAL/GENERAL: This is an adequately nourished patient, in no apparent distress. TUBES/LINES/DRAINS: SKIN: No jaundice, rashes, or lesions. Skin temperature appropriate. Not diaphoretic. HEAD: Atraumatic. Normocephalic. EYES: Pupils equal and round and reactive. Extraocular motions intact. No scleral icterus. No injection or drainage. Fundi not examined. ENT: Hearing grossly normal. Nose without bleeding or purulent drainage. Throat without visible erythema, exudates, masses, or lesions. NECK: Trachea midline. Supple, nontender. CARDIOVASCULAR: Regular rate and rhythm without murmurs, gallops, or rubs. No JVD. Peripheral pulses symmetric. RESPIRATORY/CHEST: Symmetric, unlabored respirations. Clear to auscultation. Breath sounds equal bilaterally. No wheezes, rales, or rhonchi. GASTROINTESTINAL: Abdomen soft, non-tender, nondistended. No hepato-splenomegaly , or palpable masses. No guarding. Bowel sounds present. GENITOURINARY: Without palpable bladder distension. MUSCULOSKELETAL: Extremities without clubbing, cyanosis, or edema. No joint tenderness or effusion noted. No calf tenderness. No mottling or clubbing. STATUS LOCALIS: incision has areas of dehiscence with some rolon necrotic tissu , leaking odorless serosangious fluid + alannah to palpation + small amount of edema and erythema around LYMPHATICS: No palpable cervical or supraclavicular adenopathy. NEUROLOGICAL: Awake and alert. Motor and sensory grossly within normal limits. Follows commands. Clear speech. Moves all extremities. PSYCHIATRIC: No obvious anxiety/depression. no apparent hallucinations or other psychotic thought process. Assessment and Plan Assessment and Plan Prosthetic joint septic arthritis, L hip, coag positive staph - agree with the plan for 2 stage procedure - will start vancomycin - will fu clx Discussed Condition With Kim Todd MD Sep 09, 2017 16:03
[2017-09-09] MEDS ORDERED: TRANEXAMIC ACID INJ 1,000 MG in SODIUM CHLORIDE 0.9% INJ 100 ML IV SCH (16:49)
[2017-09-09] MEDS ORDERED: DO NOT ADM ANY ANTICOAGULANT DRUGS PRN (17:05)
[2017-09-09] MEDS ORDERED: MIDAZOLAM HCL 2 MG/2 ML VIAL ONE (17:10)
[2017-09-09] MEDS ORDERED: oxyCODONE/ACETAMINOPHEN 5 MG/325 MG TAB PO PRN (17:15)
[2017-09-09] MEDS ORDERED: DOCUSATE SODIUM 100 MG CAP PO PRN (17:15)
[2017-09-09] MEDS ORDERED: VANCOMYCIN INJ 1,000 MG in SODIUM CHLOR 0.9% 250 ML INJ 250 ML IV SCH (17:15)
[2017-09-09] MEDS ORDERED: NALOXONE HCL 0.4 MG/ML AMP IV PUSH PRN (17:15)
[2017-09-09] MEDS ORDERED: ZOLPIDEM TARTRATE 5 MG TAB PO PRN (17:15)
[2017-09-09] MEDS ORDERED: Post-op Orders (for Pharmacy) XX ONE (17:15)
[2017-09-09] MEDS ORDERED: PHARMACY INFORMATION XX ONE (17:15)
[2017-09-09] MEDS ORDERED: ACETAMINOPHEN 325 MG TAB PO PRN (17:15)
[2017-09-09] MEDS ORDERED: *morphine SULFATE 8 MG/ML PERIprocedure ONLY ONE ×2 (17:24→17:39)
[2017-09-09 17:28] LABS: HEMATOCRIT 32.6 % (35.0-46.0); HEMOGLOBIN 10.6 GM/DL (11.6-15.3)
--- NOTE | 2017-09-09 17:41 | RADRPT ---
EXAM DATE/TIME: 09/09/2017 18:23 [facility] COMPARISON: HIP LEFT (AP&LAT 2/3VWS) W AP PELVIS, September 07, 2017, 21:39. INDICATIONS : Post OP left hip. MEDICAL HISTORY : None. SURGICAL HISTORY : None. ENCOUNTER: Initial ACUITY: 1 day PAIN SCORE: Non-responsive. LOCATION: Left hip FINDINGS: Examination of the hip demonstrates apparent revision of the left total hip arthroplasty. Both the fe moral and acetabular components appear to be appropriately positioned. No obvious fracture but there is a cerclage around the proximal big sandy femur. CONCLUSION: Revision of the left total hip arthroplasty as detailed above. No fracture. Damian Regalado MD on September 09, 2017 at 17:38 Board Certified Radiologist. This report was verified electronically.
[2017-09-09 17:45] LABS: CREATININE 0.57 MG/DL (0.50-1.00)
[2017-09-09] MEDS: MORPHINE SULFATE 30 MG/30 ML PCA IV SCH ×2 (17:57→19:49)
[2017-09-09] MEDS: DEXT 5%-NACL 0.45% 1000 ML INJ 1,000 ML IV SCH (17:59)
[2017-09-09] MEDS ORDERED: VANCOMYCIN 1 GM/200 ML PREMIX IV ONE (18:00)
[2017-09-09] MEDS ORDERED: VANCOMYCIN INJ 2,000 MG in SODIUM CHLORID 0.9% 500 ML INJ 500 ML IV ONE (18:00)
--- NOTE | 2017-09-09 18:11 | MP ---
cc: Robbin Gonzalez MD DATE OF OPERATION: 09/09/2017 PREOPERATIVE DIAGNOSIS: Septic left hip, status post total hip arthroplasty. POSTOPERATIVE DIAGNOSIS: Septic left hip, status post total hip arthroplasty. PROCEDURE PERFORMED: Resection arthroplasty, left hip with insertion of cement spacer. SURGEON: Robbin Gonzalez MD ANESTHESIA: General endotracheal. INDICATIONS: A 61-year-old white female who had undergone a left total hip arthroplasty in June of this year for history of osteoarthritis. She had tolerated her operative procedure well and her initial postoperative course was unremarkable. She was transferred to a rehab facility where she continue with progressive mobilization, but in the early postoperative period, she developed some drainage of her wound with a minimal dehiscence, for which she was followed on an outpatient basis being treated with local wound care and placed on a prophylactic course of oral antibiotics. Because of persistent drainage, she was admitted to the hospital in July and at that time, underwent an incision and drainage procedure of the left hip with revision of her surgical scar. At the time of the procedure, intraoperative cultures were negative for any evidence of bacterial contamination and findings at the time of the surgery appeared to be suggestive of a more superficial involvement of the wound and did not appear to violate the hip joint. The patient initially noted some trend of improvement while continuing to be followed on an outpatient basis. Unfortunately, she began to develop recurrent drainage about her hip and was placed back onto a course of oral antibiotics and continuing to be monitored on an outpatient basis. Her laboratory studies remained concerning with elevated sedimentation rate of 53, white count 7.1, C-reactive protein of 123.8. As the patient was continued to be monitored while maintained on oral antibiotics, repeat studies noted no change in her sedimentation rate. Her white count was elevated at 9.9. Her C-reactive protein actually dropped to 49.9, but remained above the upper limits of normal. Based upon these findings, it was felt that her clinical picture was consistent with a septic process of the left hip, for which the recommendation was made to proceed with a resection arthroplasty and insertion of a cement spacer. The patient was in agreement to this recommendation and was scheduled for admission at this time in order that the above be accomplished. DESCRIPTION OF PROCEDURE: Following the induction of satisfactory general anesthesia by endotracheal intubation as completed per the Department of Anesthesia, the patient was positioned upon the operating table in a right lateral decubitus fashion. The left hip and lower extremity proper were isolated with a U-drape, thereafter being prepped with Betadine solution and draped into a sterile field in the routine manner. Prior to initiation of the actual procedure, the standard timeout protocol was completed, all parameters being appropriately addressed and confirmed by operating room personnel. The previous surgical scar was excised in its entirety and submitted as part of the pathological specimen. Progressive dissection through underlying subcutaneous tissue was initiated thereafter and a pocket of purulent material was encountered with culture being obtained for laboratory analysis. By progressive dissection down to the underlying muscular layer, significant fibrotic tissue was encountered. Progressive dissection facilitated exposure of the posterior capsular region. A limited capsulectomy was accomplished facilitating entry into the joint space. With adequate exposure obtained, an open dislocation of the hip joint was completed. The femoral head was disassociated from the trunnion and thereafter limited debridement proximally facilitated extraction of the femoral component. Attention was redirected to the acetabular region. Additional reactive tissue was progressively resected facilitating exposure of the acetabular cup in a 360-degree orientation. The acetabular liner was extracted from the confines of the acetabular shell utilizing a curved osteotome. A single fixation screw was removed from the shell region and thereafter, the shell was extracted from the confines of the acetabulum. Generalized debridement was accomplished and the acetabulum was reamed from 46 through 48 mm, the 48 sizing determined to be satisfactory. Attention was redirected to the proximal femur. The canal was progressively rasped and broached from 9 through 13 mm. The 13 mm stem was determined to be satisfactory. With all trial components being removed, the wound was copiously irrigated with pulsating antibiotic solution and thereafter, construction of the Stage[employer] Select implant was completed utilizing a 13 mm hip stem component and a 48 mm head cement spacer component. The component was fabricated utilizing a single batch of Palacos bone cement for each component with 1 gm of Ancef and 1.6 gm of vancomycin utilized per batch of cement. With cement fixation completed, the implant was noted to be fully cured and thereafter, the canal was re-irrigated and dried, and the 13 mm StageOne Select cement spacer stem was inserted. A limited crack in the calcar was observed, for which a single 2.0 mm cable was secured in place. The 48 mm cement head with -6 mm neck length adapter was attached, an open reduction completed and range of motion assessment noted good stability of the hip joint. Final irrigation was accomplished with hemostasis maintained. The posterior capsular region, which was primarily composed of fibrotic tissue, was reapproximated with a running 0 Vicryl suture. Hemovac drain tubes were inserted. The remaining portion of the wound was closed in layers in the routine manner, skin margins being reapproximated with a running subcuticular 3-0 Vicryl suture, over which Steri-Strips were applied. Xeroform gauze and a bulky dry sterile dressing were placed. The patient was repositioned into a supine orientation where an abduction splint was attached. Anesthesia was discontinued. She was thereafter transferred to a hospital bed and returned to the recovery room in satisfactory condition, having tolerated her operative procedure well. Estimated blood loss was approximately 1000 mL as determined per anesthesia. All implants were of the [employer]. MD JESSA Urbano/ESVIN , 05:02 PM , 06:11 PM
[2017-09-09] MEDS ORDERED: VANCOMYCIN INJ 1,000 MG in SODIUM CHLOR 0.9% 250 ML INJ 250 ML IV ONE (18:30)
[2017-09-09] MEDS: oxyCODONE/ACETAMINOPHEN 5 MG/325 MG TAB PO PRN (19:30)
[2017-09-09 20:00] VITALS: BP 104/56; PULSE 68; RESP 15; TEMP 97.6; O2SAT 94
[2017-09-09] MEDS: PCA - TOTAL MG MORPHINE DELIVERED PER SHIFT SCH (22:00)
[2017-09-10] VITALS (8 sets, daily range): BP systolic 100–121; BP diastolic 55–58; PULSE 80–94; RESP 18–19; TEMP 97.7–98.6; O2SAT 90–97
[2017-09-10] MEDS: oxyCODONE/ACETAMINOPHEN 5 MG/325 MG TAB PO PRN ×2 (02:05→11:05)
[2017-09-10] MEDS: DEXT 5%-NACL 0.45% 1000 ML INJ 1,000 ML IV SCH ×3 (02:06→17:14)
[2017-09-10] MEDS: VANCOMYCIN INJ 2,000 MG in SODIUM CHLORID 0.9% 500 ML INJ 500 ML IV SCH ×2 (05:44→17:14)
[2017-09-10] MEDS: PCA - TOTAL MG MORPHINE DELIVERED PER SHIFT SCH ×2 (05:55→13:47)
[2017-09-10] MEDS ORDERED: ASPI-183 PO (06:15)
[2017-09-10] MEDS ORDERED: OXYC1TAB63 PO (06:15)
--- NOTE | 2017-09-10 06:18 | HHI.FF ---
Face to Face Verification Diagnosis: (1) Septic hip Physical Therapy Gait training Hip: Total hip, Protocol: Left, Abduction pillow while in bed Left LE Weight Bearing: WB as tolerated Left LE Range of Motion: Active ROM Nursing Dressing Changes: Daily dressing change I have seen patient Ana Cristina Patino on 09/10/17. My clinical findings support the need for the requested home health care services because: Limited ability to care for self High risk of falls I certify that my clinical findings support that this patient is homebound because: Post-op weakness Unsteady gait/balance Unsafe to leave home unassisted Robbin Gonzalez MD Sep 10, 2017 06:18
[2017-09-10] MEDS ORDERED: WALKER WHEELS/F1 MIS (06:21)
[2017-09-10] MEDS: MORPHINE SULFATE 30 MG/30 ML PCA IV SCH (08:26)
[2017-09-10 09:45] LABS: HEMATOCRIT 25.2 % (35.0-46.0); HEMOGLOBIN 8.1 GM/DL (11.6-15.3)
[2017-09-10 10:13] LABS: CREATININE 0.58 MG/DL (0.50-1.00)
[2017-09-10] MEDS ORDERED: MORPHINE SULFATE 4 MG/ML INJ ONE (11:17)
--- NOTE | 2017-09-10 12:57 | PD.CONS ---
[facility] Request[facility] By DR STU GONZALEZ MD Reason for Consult MEDICAL MANAGEMENT Primary Care Physician Parisa Bundy D.O. 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 Patient previously underwent a left total hip arthroplasty in June 2017 for history of osteoarthritis of her left hip. Patient was noted to have some drainage around the wound site with minimal wound dehiscence was followed by Dr. Gonzalez regarding this. Patient was treated with antibiotics and local wound care. Patient was readmitted to the hospital on August 06, 2017 underwent an incision and drainage procedure of left hip area with revision of her surgical incision cultures were negative for any evidence of bacterial contamination. Patient had another recurrent drainage around her hip area was placed on oral antibiotics. Patient came back into the hospital for septic issues. Proceeded with resection arthroplasty of her left hip and insertion of cement spacer has had that done yesterday. Review of Systems Constitutional: DENIES: Diaphoretic episodes, Fatigue, Fever, Weight gain, Weight loss, Chills, Dizziness, Change in appetite, Night Sweats Endocrine: DENIES: Abnorml menstrual pattern, Heat/cold intolerance, Polydipsia , Polyuria, Polyphagia Eyes: DENIES: Blurred vision, Diplopia, Eye inflammation, Eye pain, Vision loss , Photosensitivity, Double Vision Ears, nose, mouth, throat: DENIES: Tinnitus, Hearing loss, Vertigo, Nasal discharge, Oral lesions, Throat pain, Hoarseness, Ear Pain, Running Nose Respiratory: DENIES: Apneas, Cough, Snoring, Wheezing, Hemoptysis, Sputum production, Shortness of breath Cardiovascular: DENIES: Chest pain, Palpitations, Syncope, Dyspnea on Exertion , PND, Lower Extremity Edema, Orthopnea, Claudication Gastrointestinal: DENIES: Abdominal pain, Black stools, Bloody stools, Constipation, Diarrhea, Nausea, Vomiting Genitourinary: DENIES: Abnormal vaginal bleeding, Dysmenorrhea, Dyspareunia, Sexual dysfunction, Vaginal discharge Musculoskeletal: COMPLAINS OF: Joint pain, Joint Swelling, DENIES: Muscle aches , Stiffness, Back pain, Neck pain Integumentary: DENIES: Abnormal pigmentation, Pruritus, Rash, Nail changes, Breast masses Hematologic/lymphatic: DENIES: Bruising, Lymphadenopathy Immunologic/allergic: DENIES: Eczema, Urticaria Neurologic: COMPLAINS OF: Abnormal gait, DENIES: Headache, Localized weakness, Paresthesias, Seizures, Speech Problems, Tremor, Poor Balance Psychiatric: DENIES: Anxiety, Confusion, Mood changes, Depression, Hallucinations, Agitation Except as stated in HPI: all other systems reviewed are Neg Past Family Social History Allergies: Coded Allergies: No Known Allergies (Unverified , 09/07/17) Past Medical History Thrombophlebitis of right lower extremity Multiple issues with the hip Past Surgical History Laparoscopic cholecystectomy Bilateral carpal tunnel release Arthroscopic surgery of the right knee Tonsillectomy Colonoscopy Reported Medications Reported Meds & Active Scripts Active Walker with Front Wheels (Device) 1 Mis Mis Ea .XX DIRECTED use as directed Aspirin 325 Mg Tab 325 Mg PO BID Oxycodone-Acetaminophen 5-325 (Oxycodone HCl/Acetaminophen) 5 Mg-325 Mg Tablet 2 Tab PO Q4H PRN 30 Days Reported Oxycodone (Oxycodone HCl) 5 Mg Cap 5 Mg PO Q4H PRN Active Ordered Medications Current Medications Lactated Ringer's 1,000 ml @ 30 mls/hr Q24H PRN IV SEE LABEL COMMENTS Last administered on 09/09/17at 12:30; Start 09/09/17 at 12:45; Stop 09/12/17 at 12:44 Sodium Chloride 500 ml @ 30 mls/hr [id number] PRN IV SEE LABEL COMMENTS; Start at 12:45; Stop 09/12/17 at 12:44 Metoprolol Tartrate (Lopressor) 25 mg CORPORATE DEVELOPMENT MANAGER PRN PO SEE LABEL COMMENTS; Start 09/09/17 at 12:45; Stop 09/12/17 at 12:44 Povidone Iodine (Betadine 5% Antisepsis Kit) 1 applic CORPORATE DEVELOPMENT MANAGER PRN EACH NARE SEE LABEL COMMENTS Last administered on 09/09/17at 12:30; Start 09/09/17 at 12:45 ; Stop 09/12/17 at 12:44 Chlorhexidine Gluconate (Chlorhexidine 2% Cloth) 3 pack CORPORATE DEVELOPMENT MANAGER PRN TOPICAL SEE LABEL COMMENTS Last administered on 09/09/17at 12:20; Start 09/09/17 at 12:45 ; Stop 09/12/17 at 12:44 Insulin Human Regular (NovoLIN R INJ) See Protocol Table ... CORPORATE DEVELOPMENT MANAGER PRN SQ SEE PROTOCOL TABLE; Start 09/09/17 at 12:45; Stop 09/12/17 at 12:44 Tranexamic Acid 1000 mg/Sodium Chloride 110 ml @ 220 mls/hr ONCE IV Last administered on 09/09/17at 13:29; Start 09/09/17 at 13:00; Stop 09/09/17 at 19:00 ; Status DC Povidone Iodine (Betadine 7.5% Scrub) 1 applic ONCE TOPICAL ; Start 09/09/17 at 12:45; Stop 09/12/17 at 12:44 Chlorhexidine Gluconate (Hibiclens 4% Top Soln) 1 applic ONCE TOPICAL ; Start at 12:45; Stop 09/12/17 at 12:44 Acetaminophen 100 ml @ As Directed STK-MED ONCE IV ; Start 09/09/17 at 12:52; Stop 09/09/17 at 12:53; Status DC Tobramycin Sulfate (Nebcin Inj) 3,600 mg STK-MED ONCE OTHER Last administered on 09/09/17at 14:30; Start 09/09/17 at 13:02; Stop 09/09/17 at 13:03; Status DC Cefazolin Sodium (Ancef Inj) 2,000 mg STK-MED ONCE .ROUTE Last administered on 09/09/17at 14:30; Start 09/09/17 at 13:02; Stop 09/09/17 at 13:03; Status DC Vancomycin HCl (Vancomycin Inj) 1,000 mg STK-MED ONCE .ROUTE Last administered on 09/09/17at 14:34; Start 09/09/17 at 14:28; Stop 09/09/17 at 14:29; Status DC Pharmacy Profile Note 0 ml @ 0 mls/hr UNSCH OTHER ; Start 09/09/17 at 16:00 Vancomycin HCl 2000 mg/Sodium Chloride 520 ml @ 250 mls/hr ONCE ONCE IV ; Start 09/09/17 at 18:00; Stop 09/09/17 at 20:04; Status Cancel Midazolam HCl (Versed Inj) 2 mg STK-MED ONCE .ROUTE ; Start 09/09/17 at 17:10; Stop 09/09/17 at 17:11; Status DC Fentanyl Citrate (fentaNYL INJ) 300 mcg STK-MED ONCE .ROUTE ; Start 09/09/17 at 17:11; Stop 09/09/17 at 17:12; Status DC Dextrose/Sodium Chloride 1,000 ml @ 125 mls/hr Q8H IV Last administered on at 02:06; Start 09/09/17 at 17:04 Vancomycin HCl 1000 mg/Sodium Chloride 250 ml @ 250 mls/hr Q12H IV ; Start at 17:15; Stop 09/09/17 at 18:07; Status DC Miscellaneous Information (Post-op Orders (for Pharmacy)) STAT ONCE XX ; Start 09/09/17 at 17:15; Stop 09/09/17 at 17:54; Status DC Rivaroxaban (Xarelto) 10 mg Q24H PO ; Start 09/10/17 at 17:00 Miscellaneous Medication ([facility] Information) ONCE ONCE XX ; Start at 17:15; Stop 09/09/17 at 17:56; Status DC Oxycodone/ Acetaminophen (Percocet 5-325 Mg) 1 tab Q4H PRN PO PAIN LESS THAN 5 ON SCALE; Start 09/09/17 at 17:15 Oxycodone/ Acetaminophen (Percocet 5-325 Mg) 2 tab Q4H PRN PO PAIN SCALE 5 TO 10 Last administered on 09/10/17at 11:05; Start 09/09/17 at 17:15 Acetaminophen (Tylenol) 650 mg Q6H PRN PO FEVER > 101; Start 09/09/17 at 17:15 Tranexamic Acid 1000 mg/Sodium Chloride 110 ml @ 200 mls/hr UNSCH IV Last administered on 09/09/17at 18:05; Start 09/09/17 at 16:49; Stop 09/09/17 at 18:01 ; Status DC Ondansetron HCl (Zofran Inj) 4 mg Q6H PRN IVP NAUSEA OR VOMITING; Start at 17:15 Docusate Sodium (Colace) 100 mg BID PRN PO CONSTIPATION; Start 09/09/17 at 17: 15 Zolpidem Tartrate (Ambien) 5 mg HS PRN PO SLEEP; Start 09/09/17 at 17:15 Naloxone HCl (Narcan Inj) 0.4 mg UNSCH PRN IV PUSH RESPIRATORY RATE LESS THAN 10; Start 09/09/17 at 17:15 Morphine Sulfate (Morphine 1 Mg/ ml FIREFIGHTER MARINE) 30 mg UNSCH IV Last administered on at 08:26; Start 09/09/17 at 17:15; Stop 09/11/17 at 17:14 FIREFIGHTER MARINE Dosage Infused (Pha) 1 Q8HR .XX Last administered on 09/10/17at 05:55; Start 09/09/17 at 22:00 Morphine Sulfate (*morphine INJ PERIprocedure ONLY) 8 mg STK-MED ONCE .ROUTE Last administered on 09/09/17at 17:24; Start 09/09/17 at 17:24; Stop 09/09/17 at 17:25; Status DC Miscellaneous Information ALL NURSING DEPARTME... UNSCH PRN .XX SEE LABEL COMMENTS; Start 09/09/17 at 17:05; Stop 09/10/17 at 17:04 Morphine Sulfate (*morphine INJ PERIprocedure ONLY) 8 mg STK-MED ONCE .ROUTE Last administered on 09/09/17at 17:39; Start 09/09/17 at 17:39; Stop 09/09/17 at 17:40; Status DC Vancomycin/Sodium Chloride 200 ml @ 200 mls/hr NOW ONCE IV ; Start 09/09/17 at 18:00; Stop 09/09/17 at 18:59; Status Cancel Vancomycin HCl 2000 mg/Sodium Chloride 520 ml @ 250 mls/hr Q12H IV ; Start at 06:00; Stop 09/09/17 at 18:19; Status DC Miscellaneous Information SPECIFIC LAB TO BE ESHA... ONCE ONCE .XX ; Start 09/11 at 05:45; Stop 09/11/17 at 05:46 Vancomycin HCl 2000 mg/Sodium Chloride 520 ml @ 250 mls/hr Q12H IV Last administered on 09/10/17at 05:44; Start 09/10/17 at 06:00 Vancomycin HCl (Vancomycin Inj) 1,000 mg STK-MED ONCE .ROUTE ; Start 09/09/17 at 18:20; Stop 09/09/17 at 18:21; Status DC Vancomycin HCl 1000 mg/Sodium Chloride 250 ml @ 250 mls/hr NOW ONCE IV Last administered on 09/09/17at 18:30; Start 09/09/17 at 18:30; Stop 09/09/17 at 19:29 ; Status DC Morphine Sulfate (Morphine Inj) 4 mg STK-MED ONCE .ROUTE ; Start 09/10/17 at 11: 17; Stop 09/10/17 at 11:18; Status DC Lactated Ringer's 2,000 ml @ As Directed STK-MED ONCE IV ; Start 09/09/17 at 12 :00; Stop 09/10/17 at 12:44; Status DC Lidocaine HCl (Xylocaine-Mpf 1% Inj) 5 ml STK-MED ONCE OTHER ; Start 09/09/17 at 12:00; Stop 09/10/17 at 12:44; Status DC Rocuronium [place] (Zemuron Inj) 100 mg STK-MED ONCE IV PUSH ; Start 09/09/17 at 12:00; Stop 09/10/17 at 12:44; Status DC Neostigmine Methylsulfate (Prostigmine Inj) 5 mg STK-MED ONCE IV PUSH ; Start at 12:00; Stop 09/10/17 at 12:44; Status DC Glycopyrrolate (Robinul Inj) 1 mg STK-MED ONCE IV PUSH ; Start 09/09/17 at 12:00 ; Stop 09/10/17 at 12:44; Status DC Phenylephrine HCl (Neosynephrine/ NS 1000 Mcg/10ml Syr) 1,000 mcg STK-MED ONCE IV ; Start 09/09/17 at 12:00; Stop 09/10/17 at 12:44; Status DC Ephedrine Sulfate (ePHEDrine/NS 25 MG/5 ML SYR) 25 mg STK-MED ONCE IV ; Start at 12:00; Stop 09/10/17 at 12:44; Status DC Dexamethasone Sodium Phosphate (Decadron Inj) 8 mg STK-MED ONCE IV ; Start 09/09 at 12:00; Stop 09/10/17 at 12:44; Status DC Ondansetron HCl (Zofran Inj) 4 mg STK-MED ONCE IV PUSH ; Start 09/09/17 at 12:00 ; Stop 09/10/17 at 12:44; Status DC Propofol (Diprivan 200 Mg/20 ml Inj) 200 mg STK-MED ONCE IV ; Start 09/09/17 at 12:00; Stop 09/10/17 at 12:44; Status DC Family History Diabetes as well as lung and colon cancer Social History Lives with her Tobacco about a pack a day for 45 years Denies any illicits Physical Exam Vital Signs Vital Signs Date Time Temp Pulse Resp B/P (MAP) Pulse Ox O2 Delivery O2 Flow Rate FiO2 09/10/17 08:31 18 09/10/17 08:26 18 09/10/17 07:46 98.3 94 18 100/55 (70) 91 09/10/17 05:55 18 09/10/17 04:00 97.7 83 18 121/57 (78) 97 09/10/17 00:05 97.8 80 19 116/57 (76) 95 09/09/17 22:00 18 09/09/17 20:00 98.3 78 13 103/51 (68) 99 Nasal Cannula 2 09/09/17 20:00 97.6 68 15 104/56 (72) 94 09/09/17 19:49 17 09/09/17 19:00 85 16 106/54 (71) 94 Nasal Cannula 2 09/09/17 18:30 68 15 116/58 (77) 97 Nasal Cannula 2 09/09/17 18:00 78 12 118/58 (78) 94 Nasal Cannula 2 09/09/17 17:57 16 09/09/17 17:45 80 15 115/79 (91) 96 Nasal Cannula 2 09/09/17 17:30 87 16 113/80 (91) 96 Nasal Cannula 2 09/09/17 17:15 81 15 128/50 (76) 100 Nasal Cannula 3 09/09/17 16:59 98.0 90 20 133/62 (85) 99 Nasal Cannula 3 Physical Exam GENERAL: This is a well-nourished, well-developed patient, in moderate distress. SKIN: No rashes, ecchymoses or lesions. Cool and dry. HEAD: Atraumatic. Normocephalic. No temporal or scalp tenderness. EYES: Pupils equal round and reactive. Extraocular motions intact. No scleral icterus. No injection or drainage. ENT: Nose without bleeding, purulent drainage or septal hematoma. Throat without erythema, tonsillar hypertrophy or exudate. Uvula midline. Airway patent. NECK: Trachea midline. No JVD or lymphadenopathy. Supple, nontender, no meningeal signs. CARDIOVASCULAR: Regular rate and rhythm without murmurs, gallops, or rubs. S1- S2 no S3 or S4 RESPIRATORY: Clear to auscultation. Breath sounds equal bilaterally. No wheezes , rales, or rhonchi. GASTROINTESTINAL: Abdomen soft, non-tender, nondistended. No hepato-splenomegaly , or palpable masses. No guarding. Obese MUSCULOSKELETAL: Extremities without clubbing, cyanosis, or edema. No joint tenderness, effusion, or edema noted. No calf tenderness. Negative Homans sign bilaterally. Hip is dressed on the left NEUROLOGICAL: Awake and alert. Cranial nerves II through XII intact. Motor and sensory grossly within normal limits. 4 out of 5 muscle strength in all muscle groups. Normal speech. Insight and judgment is good Mood and behaviors are appropriate Laboratory Laboratory Tests Test 09/09/17 17:11 09/10/17 09:17 Hemoglobin 10.6 8.1 Hematocrit 32.6 25.2 Blood Urea Nitrogen 5 5 Creatinine 0.57 0.58 Estimat Glomerular Filtration Rate 108 106 Date/Time Source Procedure Growth Status 09/09/17 14:50 Wound Hip Fungal Smear - Final NO FUNGAL ELEMENTS SEEN. Resulted 09/09/17 14:50 Wound Hip Fungal Culture Pending Resulted Result Diagram: 09/10/17 0917 09/10/17 0917 Imaging Last Impressions Hip X-Ray 09/09/17 1704 Signed Impressions: Service Date/Time: Saturday, September 09, 2017 18:23 - CONCLUSION: Revision of the left total hip arthroplasty as detailed above. No fracture. Damian Regalado MD Assessment and Plan Assessment and Plan Status post left hip spacer placement for suspected septic arthritis of the left hip Will defer to orthopedics and infectious disease Coag positive Staphylococcus positive Staphylococcus Status post prosthesis removal Degenerative joint disease Tobacco abuse recommend smoking cessation Continue antibiotics per infectious disease has been started on vancomycin already by them A.m. labs PT and OT to eval and treat Code Status Full code Discussed Condition With RN and patient and case management Fabien Lao DO Sep 10, 2017 12:57
[2017-09-10] MEDS: HYDROmorphone HCL PF 2 MG/ML VIAL IV PRN (15:12)
[2017-09-10] MEDS: CARISOPRODOL 350 MG TAB PO PRN ×2 (17:13→18:29)
[2017-09-10] MEDS: RIVAROXABAN 10 MG TAB PO SCH (17:15)
[2017-09-10] MEDS: HYDROmorphone HCL 4 MG TAB PO PRN (20:06)
[2017-09-10] MEDS: ONDANSETRON HCL 4 MG/2 ML VIAL IVP PRN (22:38)
[2017-09-11] VITALS: BP 133/78; PULSE 89; RESP 18; TEMP 98.3; O2SAT 96
[2017-09-11] MEDS: HYDROmorphone HCL 4 MG TAB PO PRN ×4 (00:19→17:06)
[2017-09-11] MEDS: CARISOPRODOL 350 MG TAB PO PRN (00:19)
[2017-09-11] MEDS: DEXT 5%-NACL 0.45% 1000 ML INJ 1,000 ML IV SCH ×3 (02:10→16:54)
[2017-09-11] MEDS: HYDROmorphone HCL PF 2 MG/ML VIAL IV PRN ×2 (02:49→23:36)
[2017-09-11 04:00] VITALS: BP 138/59; PULSE 114; RESP 18; TEMP 98.5; O2SAT 93
[2017-09-11] MEDS ORDERED: PHARMACY ORDERED LAB ONE (05:45)
[2017-09-11] MEDS: VANCOMYCIN INJ 2,000 MG in SODIUM CHLORID 0.9% 500 ML INJ 500 ML IV SCH (05:56)
[2017-09-11 06:42] LABS: AUTOMATED NEUTROPHIL # 10.2 TH/MM3 (1.8-7.7); BASOPHIL # 0.1 TH/MM3 (0-0.2); BASOPHIL % 0.6 % (0.0-2.0); EOSINOPHIL # 0.5 TH/MM3 (0-0.4); EOSINOPHIL % 3.6 % (0.0-4.0); HEMATOCRIT 26.4 % (35.0-46.0); HEMOGLOBIN 8.5 GM/DL (11.6-15.3); LYMPH % 10.4 % (9.0-44.0); LYMPHOCYTE # 1.4 TH/MM3 (1.0-4.8); MEAN CELL VOLUME 83.2 FL (80.0-100.0); MEAN CORPUSCULAR HEMOGLOBIN 26.8 PG (27.0-34.0); MEAN CORPUSCULAR HGB CONC 32.3 % (32.0-36.0); MEAN PLATELET VOLUME 7.9 FL (7.0-11.0); MONO % 7.6 % (0.0-8.0); NEUT % 77.8 % (16.0-70.0); PLATELET COUNT 381 TH/MM3 (150-450); RED BLOOD COUNT 3.17 MIL/MM3 (4.00-5.30); RED CELL DISTRIBUTION WIDTH 15.8 % (11.6-17.2)
[2017-09-11 07:13] LABS: ALBUMIN 2.2 GM/DL (3.4-5.0); ALT (GPT) 10 U/L (10-53); AST (GOT) 18 U/L (15-37); BICARBONATE 29.1 MEQ/L (21.0-32.0); BLOOD UREA NITROGEN 8 MG/DL (7-18); CALCIUM 8.6 MG/DL (8.5-10.1); CHLORIDE 101 MEQ/L (98-107); CREATININE 1.39 MG/DL (0.50-1.00); GLOMERULAR FILTRATION RATE 39 ML/MIN (>89); GLUCOSE,RANDOM 127 MG/DL (74-106); MAGNESIUM 1.8 MG/DL (1.5-2.5); PHOSPHORUS 3.9 MG/DL (2.5-4.9); SODIUM (NA) 137 MEQ/L (136-145)
[2017-09-11 07:21] LABS: ALKALINE PHOSPHATASE 93 U/L (45-117); TOTAL BILIRUBIN ADULT 0.2 MG/DL (0.2-1.0); TOTAL PROTEIN 6.1 GM/DL (6.4-8.2)
[2017-09-11 08:00] VITALS: BP 121/64; PULSE 100; RESP 18; TEMP 100.1; O2SAT 92
--- NOTE | 2017-09-11 11:27 | HHI.PR ---
Subjective Remarks Follow up hip surgery. Patient seen and seems to be in pain. She states she needs her medication. Denies any chest pain. She states she is refusing PT because she does not feel well. Objective Vitals Vital Signs Date Time Temp Pulse Resp B/P (MAP) Pulse Ox O2 Delivery O2 Flow Rate FiO2 09/11/17 08:00 100.1 100 18 121/64 (83) 92 09/11/17 08:00 92 Nasal Cannula 2.00 09/11/17 04:00 98.5 114 18 138/59 (85) 93 09/11/17 00:00 98.3 89 18 133/78 (96) 96 09/10/17 20:00 98.6 89 18 119/56 (77) 96 09/10/17 18:04 93 21 09/10/17 16:00 98.5 92 18 103/58 (73) 92 09/10/17 13:47 16 09/10/17 12:00 98.2 91 18 119/56 (77) 90 09/10/17 11:30 93 I/O 09/10/17 09/10/17 09/10/17 09/11/17 09/11/17 09/11/17 07:00 15:00 23:00 07:00 15:00 23:00 Intake Total 1240 ml 1029 ml 960 ml 1432 ml Output Total 1000 ml 40 ml 20 ml 200 ml Balance 240 ml 1029 ml 920 ml 1412 ml -200 ml Intake Oral 240 ml 960 ml 240 ml IV Total 1000 ml 1029 ml 1192 ml Output Urine Total 1000 ml 200 ml Drainage Total 40 ml 20 ml # Voids 1 3 # Bowel Movements 0 0 0 Result Diagram: 09/11/17 0500 09/11/17 0500 Imaging Objective Remarks GENERAL: In moderate amount of pain, noncompliant with physical therapy SKIN: Warm and dry. HEAD: Atraumatic. Normocephalic. EYES: Pupils equal and round. No scleral icterus. No injection or drainage. ENT: No nasal bleeding or discharge. Mucous membranes pink and moist. NECK: Trachea midline. No JVD. CARDIOVASCULAR: Regular rate and rhythm. RESPIRATORY: No accessory muscle use. Clear to auscultation. Breath sounds equal bilaterally. GASTROINTESTINAL: Abdomen soft, non-tender, nondistended. Hepatic and splenic margins not palpable. MUSCULOSKELETAL: Extremities without clubbing, cyanosis, or edema. No obvious deformities. NEUROLOGICAL: Awake and alert. No obvious cranial nerve deficits. Motor grossly within normal limits. Limited range of motion of the right hip normal speech. PSYCHIATRIC: Appropriate mood and affect; insight and judgment normal. Medications and IVs Current Medications Medications (Trade) Dose Ordered Sig/Hemanth Route Start Time Stop Time Status Last Admin Lactated Ringer's 1,000 ml @ 30 mls/hr Q24H PRN IV 09/09/17 12:45 09/12/17 12:44 09/09/17 12:30 Sodium Chloride 500 ml @ 30 mls/hr [id number] PRN IV 09/09/17 12:45 09/12/17 12:44 (Lopressor) 25 mg EMBROIDERY SPECIALIST PRN PO 09/09/17 12:45 09/12/17 12:44 (Betadine 5% Antisepsis Kit) 1 applic EMBROIDERY SPECIALIST PRN EACH NARE 09/09/17 12:45 09/12/17 12:44 09/09/17 12:30 (Chlorhexidine 2% Cloth) 3 pack EMBROIDERY SPECIALIST PRN TOPICAL 09/09/17 12:45 09/12/17 12:44 09/09/17 12:20 (NovoLIN R INJ) See Protocol Table ... EMBROIDERY SPECIALIST PRN SQ 09/09/17 12:45 09/12/17 12:44 (Betadine 7.5% Scrub) 1 applic ONCE TOPICAL 09/09/17 12:45 09/12/17 12:44 (Hibiclens 4% Top Soln) 1 applic ONCE TOPICAL 09/09/17 12:45 09/12/17 12:44 Dextrose/Sodium Chloride 1,000 ml @ 125 mls/hr Q8H IV 09/09/17 17:04 09/11/17 02:10 (Xarelto) 10 mg Q24H PO 09/10/17 17:00 09/10/17 17:15 (Tylenol) 650 mg Q6H PRN PO 09/09/17 17:15 09/11/17 09:00 (Zofran Inj) 4 mg Q6H PRN IVP 09/09/17 17:15 09/10/17 22:38 (Colace) 100 mg BID PRN PO 09/09/17 17:15 (Ambien) 5 mg HS PRN PO 09/09/17 17:15 (Dilaudid) 4 mg Q4H PRN PO 09/10/17 14:00 09/11/17 11:31 (Dilaudid Pf Inj) 2 mg Q3H PRN IV 09/10/17 14:15 09/11/17 02:49 (Soma) 350 mg Q6H PRN PO 09/10/17 14:15 09/11/17 00:19 Daptomycin 800 mg/ Sodium Chloride 100 ml @ 200 mls/hr Q24H IV 09/11/17 14:00 Urinary Catheter: No Vascular Central Line Catheter: No A/P Problem List: (1) Septic hip ICD Code: M00.9 - Pyogenic arthritis, unspecified (2) MITCH (acute kidney injury) ICD Code: N17.9 - Acute kidney failure, unspecified (3) Constipation ICD Code: K59.00 - Constipation, unspecified Assessment and Plan Status post left hip spacer placement for suspected septic arthritis of the left hip -Orthopedics following, recommend 50% weightbearing, daily dressing changes and to follow-up in 2 weeks -ID was consulted for sepsis, currently following -Coag positive Staphylococcus positive Staphylococcus -Status post prosthesis removal -Blood cultures ordered by infectious disease -Continue antibiotics per infectious disease, vancomycin has been changed to daptomycin, patient will possibly need a PICC if discharged on daptomycin -Continue physical therapy MITCH, creatine 1.3, likely due to dehydration but possible due to vancomycin -NS for IVF ordered -Labs in AM Tobacco abuse -recommend smoking cessation Constipation, likely due to pain medication -Scheduled Colace BID Discharge Planning Orthopedics plan to discharge patient to SNF on Friday Melba Davis Sep 11, 2017 11:26
[2017-09-11 11:50] VITALS: BP 149/72; PULSE 100; RESP 18; TEMP 98; O2SAT 94
--- NOTE | 2017-09-11 12:23 | HHI.PR ---
Addendum to Inpatient Note Additional Information creatinine up to 1.39 - will switch to dapto and fu Kim Ba MD Sep 11, 2017 12:23
[2017-09-11] MEDS: DAPTOmycin INJ 800 MG in SODIUM CHLORIDE 0.9% INJ 100 ML IV SCH (14:38)
[2017-09-11 16:00] VITALS: BP 160/63; PULSE 94; RESP 18; TEMP 98.5; O2SAT 94
[2017-09-11] MEDS: RIVAROXABAN 10 MG TAB PO SCH (16:54)
[2017-09-11] MEDS: ONDANSETRON HCL 4 MG/2 ML VIAL IVP PRN (17:06)
--- NOTE | 2017-09-11 17:29 | HHI.IDPN ---
Subjective Subjective Remarks ID Xcover for Dr. Crawford Patient seen and examined with Dr. Hernandez 61 yo morbidly obese female with DJD sp L hip arthroplasty in jun Initially healed, but later developped dehiscence and drainage along with the pain worsening with weight bearing In July she underwent I+D, cultures were negative She took 2 week sof Keflex with no improvement She presented to Dr Gonzalez office and he aspirated the hip Culture is positive for coag positive staph blood cultures are negative @ 2 days and Xray was unremarkable She is to undergo removal of preostheiss ias the fiste stage of 2 stage procedure Notes reviewed D/W nursing staff, patient not eating, drinking very little + fever and leukocytosis patient has nausea and vomiting. No BM in 4 days c/o of pain everywhere Cr bumped up to 1.39 Left hip wound cx positive for MRSA and group D enterococcus Blood cx pending Antibiotics IV Daptomycin Lines PIV with no e/o infection Past Medical History obesity, BMI 38.2 DJD (Radha Love) Allergies: Coded Allergies: No Known Allergies (Unverified , 09/07/17) Objective . Vital Signs Date Time Temp Pulse Resp B/P (MAP) Pulse Ox O2 Delivery O2 Flow Rate FiO2 09/11/17 11:50 98.0 100 18 149/72 (97) 94 09/11/17 08:00 100.1 100 18 121/64 (83) 92 09/11/17 08:00 92 Nasal Cannula 2.00 09/11/17 04:00 98.5 114 18 138/59 (85) 93 09/11/17 00:00 98.3 89 18 133/78 (96) 96 09/10/17 20:00 98.6 89 18 119/56 (77) 96 09/10/17 18:04 93 21 09/11/17 09/11/17 09/12/17 15:00 23:00 07:00 Output Total 200 ml Balance -200 ml Output Urine Total 200 ml . Laboratory Tests Test 09/09/17 17:11 09/10/17 09:17 09/11/17 05:00 Hemoglobin 10.6 GM/DL 8.1 GM/DL 8.5 GM/DL Hematocrit 32.6 % 25.2 % 26.4 % White Blood Count 13.0 TH/MM3 Red Blood Count 3.17 MIL/MM3 Mean Corpuscular Volume 83.2 FL Mean Corpuscular Hemoglobin 26.8 PG Mean Corpuscular Hemoglobin Concent 32.3 % Red Cell Distribution Width 15.8 % Platelet Count 381 TH/MM3 Mean Platelet Volume 7.9 FL Neutrophils (%) (Auto) 77.8 % Lymphocytes (%) (Auto) 10.4 % Monocytes (%) (Auto) 7.6 % Eosinophils (%) (Auto) 3.6 % Basophils (%) (Auto) 0.6 % Neutrophils # (Auto) 10.2 TH/MM3 Lymphocytes # (Auto) 1.4 TH/MM3 Monocytes # (Auto) 1.0 TH/MM3 Eosinophils # (Auto) 0.5 TH/MM3 Basophils # (Auto) 0.1 TH/MM3 CBC Comment DIFF FINAL Differential Comment Laboratory Tests Test 09/09/17 17:11 09/10/17 09:17 09/11/17 05:00 Blood Urea Nitrogen 5 MG/DL 5 MG/DL 8 MG/DL Creatinine 0.57 MG/DL 0.58 MG/DL 1.39 MG/DL Estimat Glomerular Filtration Rate 108 ML/MIN 106 ML/MIN 39 ML/MIN Random Glucose 127 MG/DL Total Protein 6.1 GM/DL Albumin 2.2 GM/DL Calcium Level 8.6 MG/DL Phosphorus Level 3.9 MG/DL Magnesium Level 1.8 MG/DL Alkaline Phosphatase 93 U/L Aspartate Amino Transf (AST/SGOT) 18 U/L Alanine Aminotransferase (ALT/SGPT) 10 U/L Total Bilirubin 0.2 MG/DL Sodium Level 137 MEQ/L Potassium Level 3.7 MEQ/L Chloride Level 101 MEQ/L Carbon Dioxide Level 29.1 MEQ/L Anion Gap 7 MEQ/L Free Thyroxine 1.30 NG/DL Thyroid Stimulating Hormone 3rd Gen 4.270 uIU/ML Microbiology Date/Time Source Procedure Growth Status 09/11/17 14:01 Blood Peripheral Aerobic Blood Culture Pending Received 09/11/17 14:01 Blood Peripheral Anaerobic Blood Culture Pending Received 09/11/17 13:56 Blood Peripheral Aerobic Blood Culture Pending Received 09/11/17 13:56 Blood Peripheral Anaerobic Blood Culture Pending Received 09/09/17 14:50 Wound Hip Fungal Smear - Final NO FUNGAL ELEMENTS SEEN. Resulted 09/09/17 14:50 Wound Hip Fungal Culture Pending Resulted 09/09/17 14:50 Wound Hip Acid Fast Stain - Final NO ACID FAST BACILLI SEEN Resulted 09/09/17 14:50 Wound Hip Mycobacterial Culture Pending Resulted 09/09/17 14:50 Wound Hip Gram Stain - Final Resulted 09/09/17 14:50 Wound Culture - Preliminary S. Aureus Mrsa Group D Enterococcus Resulted 09/09/17 14:50 Wound Hip Fungal Smear - Final NO FUNGAL ELEMENTS SEEN. Resulted 09/09/17 14:50 Wound Hip Fungal Culture Pending Resulted 09/09/17 14:50 Wound Hip Acid Fast Stain - Final NO ACID FAST BACILLI SEEN Resulted 09/09/17 14:50 Wound Hip Mycobacterial Culture Pending Resulted 09/09/17 14:50 Wound Hip Gram Stain - Final Complete 09/09/17 14:50 Wound Culture - Final S. Aureus Mrsa Complete 09/09/17 14:50 Wound Hip Fungal Smear - Final NO FUNGAL ELEMENTS SEEN. Resulted 09/09/17 14:50 Wound Hip Fungal Culture Pending Resulted 09/09/17 14:50 Wound Hip Acid Fast Stain - Final NO ACID FAST BACILLI SEEN Resulted 09/09/17 14:50 Wound Hip Mycobacterial Culture Pending Resulted 09/09/17 14:50 Wound Hip Gram Stain - Final Resulted 09/09/17 14:50 Wound Culture - Preliminary S. Aureus Mrsa Group D Enterococcus Resulted Imaging Last Impressions Hip X-Ray 09/09/17 1704 Signed Impressions: Service Date/Time: Saturday, September 09, 2017 18:23 - CONCLUSION: Revision of the left total hip arthroplasty as detailed above. No fracture. Damian Regalado MD Physical Exam CONSTITUTIONAL/GENERAL: Obese WDWN female, INAD. Awake. Lying supine in hospital bed. SKIN: Warm and dry. No rash. HEAD: Atraumatic. Normocephalic. EYES: Pupils equal and round and reactive. Extraocular motions intact. No scleral icterus. No injection or drainage. ENT: Nose without bleeding or purulent drainage. Throat without visible erythema , exudates, masses, or lesions. Dark vomitus noted, patient eating chocolate pudding. NECK: Trachea midline. Supple, nontender. CARDIOVASCULAR: Regular rate and rhythm without murmurs, gallops, or rubs. RESPIRATORY/CHEST: Nonlabored. Anterior auscultation reveals clear breath sounds. GASTROINTESTINAL: Abdomen soft, nondistended, diffusely tender to palpation. MUSCULOSKELETAL: Left hip dressing C/D/I per nursing staff, drain discontinued earlier today. (+)calf tenderness to palpation L>R NEUROLOGICAL: Awake and alert. Motor and sensory grossly within normal limits. Follows commands. Normal speech. PSYCHIATRIC: Calm and cooperative (Radha Love) Assessment & Plan Remarks Sepsis with elevated white count of 13.0, fever 100.1 and tachycardia Prosthetic joint septic arthritis, L hip, coag positive staph -On IVF -s/p resection arthroplasty, left hip with insertion of cement spacer. -wound cx positive for MRSA and group D enterococcus --blood cultures pending Acute renal failure on IV Vanco with elevated eosinophils -concern for AIN -Vancomycin stopped and changed to IV Daptomycin BLE edema/tenderness, r/o DVT Abdominal pain with constipation, no BM in 4 days Obesity with BMI 38.2 RECOMMENDATIONS: Patient developed fevers and elevated creatinine while on IV Vanco Vanco discontinued and changed to IV Daptomycin Monitor UOP Avoid nephrotoxic agents Monitor creatinine, if continued worsening may need Nephrology consultation Obtain KUB Obtain bilateral LE dopplers to r/o DVT Monitor clinical progress Further recommendations to follow (Radha Love) Remarks The exam, history, and the medical decision-making described in the above note were completed with the assistance of the mid-level provider. I reviewed and agree with the findings presented. I attest that I had a [id number] encounter with the patient on the same day, and personally performed and documented my assessment and findings in the medical record. Complains of pain in left thigh RN called me for fevers, tachy and WBC elevation: Sepsis alert. Cr increased, CBC with increased eosinophils. UO ok. decreased PO intake. No BM in 4 days Had vomited Exam: Left thigh dressing intact and clean Drain removed. No rash Gown soaked with vomitus. Recs Continue Dapto IV Follow Cr and UO. Check Doppler LE. Check KUB: to r/o ileus. (Franny Hernandez MD) Radha Love Sep 11, 2017 17:29 Franny Hernandez MD Sep 11, 2017 18:11
[2017-09-11 18:05] LABS: HEMOGLOBIN A1C 6.4 % (4.3-6.0)
--- NOTE | 2017-09-11 18:27 | RADRPT ---
EXAM DATE/TIME: 09/11/2017 18:16 [facility] COMPARISON: No previous studies available for comparison. INDICATIONS : Abdominal pain. MEDICAL HISTORY : None. SURGICAL HISTORY : Total Left hip ENCOUNTER: Initial ACUITY: 3 days PAIN SCORE: 10/10 LOCATION: Abdomen FINDINGS: Pronounced gaseous distention of the stomach and colon with mild gaseous distention of multiple visua lized small bowel loops. Surgical clips present right upper quadrant from previous cholecystectomy. L eft total hip arthroplasty. No suspicious calcific densities noted. CONCLUSION: Moderate gaseous distention of bowel, mainly stomach and colon. Appearance most consistent with adyna mile ileus Martir Wesley MD on September 11, 2017 at 18:24 Board Certified Radiologist. This report was verified electronically.
[2017-09-11 20:00] VITALS: BP 162/73; PULSE 89; RESP 18; TEMP 98.9; O2SAT 96
--- NOTE | 2017-09-11 22:51 | RADRPT ---
EXAM DATE/TIME: 09/11/2017 22:19 [facility] COMPARISON: ABDOMEN KUB ONLY, September 11, 2017, 18:16. INDICATIONS : NG tube placement. MEDICAL HISTORY : None. SURGICAL HISTORY : Total Left hip ENCOUNTER: Initial ACUITY: 1 day PAIN SCORE: 0/10 LOCATION: abdomen FINDINGS: NG tube descends into the stomach. Stomach is decompressed. There is mild gaseous distention of the c olon. CONCLUSION: NG tube in the stomach which is now decompressed. Martir Wesley MD on September 11, 2017 at 22:46 Board Certified Radiologist. This report was verified electronically.
--- NOTE | 2017-09-11 23:43 | RADRPT ---
EXAM DATE/TIME: 09/11/2017 22:51 [facility] COMPARISON: No previous studies available for comparison. INDICATIONS : Thrombosis. MEDICAL HISTORY : Osteoarthritis. SURGICAL HISTORY : Cholecystectomy.Tonsillectomy. Left hip arthroplasty. Bilateral Carpal Tunnel release. Colonoscopy. ENCOUNTER: Initial ACUITY: 1 day PAIN SCORE: 9/10 LOCATION: Bilateral legs. TECHNIQUE: Venous ultrasound of the left and right leg was performed from the inguinal ligament to the proximal calf. Real-time, color Doppler and spectral tracing, compression and augmentation techniques were us ed. FINDINGS: RIGHT LEG: There is normal compressibility of the deep venous system from the inguinal region to the proximal ca lf. No echogenic clot is seen in the lumen of the common femoral, femoral, popliteal, and posterior tibial veins. There is a normal response of the venous system to proximal and distal augmentation an d respiration. In the popliteal fossa is a simple Mederos's cyst that measures 2.9-2.3 x 0.7 cm. LEFT LEG: There is normal compressibility of the deep venous system from the inguinal region to the proximal ca lf. No echogenic clot is seen in the lumen of the common femoral, femoral, popliteal, and posterior tibial veins. There is a normal response of the venous system to proximal and distal augmentation an d respiration. CONCLUSION: 1. No DVT. 2. Small simple right Mederos's cyst. Karsten Singh Jr., MD on September 11, 2017 at 23:40 Board Certified Radiologist. This report was verified electronically.
[2017-09-12] VITALS (7 sets, daily range): BP systolic 96–136; BP diastolic 52–69; PULSE 86–97; RESP 11–18; TEMP 97.3–98.9; O2SAT 93–98
[2017-09-12 06:07] LABS: AUTOMATED NEUTROPHIL # 12.4 TH/MM3 (1.8-7.7); BASOPHIL % 0.3 % (0.0-2.0); EOSINOPHIL # 0.3 TH/MM3 (0-0.4); EOSINOPHIL % 2.2 % (0.0-4.0); HEMATOCRIT 24.8 % (35.0-46.0); HEMOGLOBIN 8.1 GM/DL (11.6-15.3); LYMPH % 7.2 % (9.0-44.0); LYMPHOCYTE # 1.1 TH/MM3 (1.0-4.8); MEAN CELL VOLUME 80.6 FL (80.0-100.0); MEAN CORPUSCULAR HEMOGLOBIN 26.3 PG (27.0-34.0); MEAN CORPUSCULAR HGB CONC 32.6 % (32.0-36.0); MEAN PLATELET VOLUME 7.5 FL (7.0-11.0); MONO % 6.9 % (0.0-8.0); NEUT % 83.4 % (16.0-70.0); PLATELET COUNT 432 TH/MM3 (150-450); RED BLOOD COUNT 3.08 MIL/MM3 (4.00-5.30); RED CELL DISTRIBUTION WIDTH 16.3 % (11.6-17.2); WHITE BLOOD COUNT 14.8 TH/MM3 (4.0-11.0)
[2017-09-12] MEDS: SODIUM CHLOR 0.9% 1000 ML INJ 1,000 ML IV SCH ×2 (06:10→16:50)
[2017-09-12] MEDS: HYDROmorphone HCL PF 2 MG/ML VIAL IV PRN ×5 (06:19→21:51)
[2017-09-12 06:25] LABS: BICARBONATE 25.6 MEQ/L (21.0-32.0); CALCIUM 8.6 MG/DL (8.5-10.1); CREATININE 2.93 MG/DL (0.50-1.00)
--- NOTE | 2017-09-12 07:13 | RADRPT ---
EXAM DATE/TIME: 09/12/2017 06:45 [facility] COMPARISON: HIP LEFT AP ONLY WO AP PELVIS, September 09, 2017, 18:23. INDICATIONS : Status post resection arthroplasty with insertion of cement spacer. MEDICAL HISTORY : None. SURGICAL HISTORY : None. ENCOUNTER: Subsequent ACUITY: 1 day PAIN SCORE: Non-responsive. LOCATION: Left Hip FINDINGS: Single view of the left hip demonstrates stable appearance of a total left hip prosthesis. Prosthesis appears appropriate in position. Adjacent osseous structures are unremarkable. CONCLUSION: Stable exam.. Abigail Spencer MD on September 12, 2017 at 7:10 Board Certified Radiologist. This report was verified electronically.
[2017-09-12] MEDS: DOCUSATE SODIUM 100 MG CAP PO SCH ×2 (09:00→21:00)
[2017-09-12] MEDS: DEXT 5%-NACL 0.45% 1000 ML INJ 1,000 ML IV SCH ×2 (09:04→17:04)
--- NOTE | 2017-09-12 09:51 | HHI.IDPN ---
Subjective Subjective Remarks ID Xcover for Dr. Crawford Patient seen and examined on behalf of Dr. Hernandez 61 yo morbidly obese female with DJD sp L hip arthroplasty in jun Initially healed, but later developed dehiscence and drainage along with the pain worsening with weight bearing In July she underwent I+D, cultures were negative She took 2 weeks of Keflex with no improvement She presented to Dr Gonzalez office and he aspirated the hip Culture is positive for coag positive staph blood cultures are negative @ 2 days and Xray was unremarkable She is to undergo removal of prosthesis as the first stage of 2 stage procedure Notes reviewed KUB +adynamic ileus, patient made NPO, NGT placed, repeat KUB shows stomach decompressed patient feels better this morning left hip pain controlled No N/V overnight or this morning abdominal pain has improved no fever or chills no rash she has flatus when being moved/turned still no BM in 4 days afebrile WBC up to 14.8 Cr bumped up to 2.93 Left hip wound cx positive for MRSA and Enterococcus faecalis Blood cx pending Antibiotics IV Daptomycin Current Medications Medications (Trade) Dose Ordered Sig/Hemanth Route Start Time Stop Time Status Last Admin Lactated Ringer's 1,000 ml @ 30 mls/hr Q24H PRN IV 09/09/17 12:45 09/12/17 12:44 09/09/17 12:30 Sodium Chloride 500 ml @ 30 mls/hr [id number] PRN IV 09/09/17 12:45 09/12/17 12:44 (Lopressor) 25 mg PARTS ORDER AND STOCK CLERK PRN PO 09/09/17 12:45 09/12/17 12:44 (Betadine 5% Antisepsis Kit) 1 applic PARTS ORDER AND STOCK CLERK PRN EACH NARE 09/09/17 12:45 09/12/17 12:44 09/09/17 12:30 (Chlorhexidine 2% Cloth) 3 pack PARTS ORDER AND STOCK CLERK PRN TOPICAL 09/09/17 12:45 09/12/17 12:44 09/09/17 12:20 (NovoLIN R INJ) See Protocol Table ... PARTS ORDER AND STOCK CLERK PRN SQ 09/09/17 12:45 09/12/17 12:44 (Betadine 7.5% Scrub) 1 applic ONCE TOPICAL 09/09/17 12:45 09/12/17 12:44 (Hibiclens 4% Top Soln) 1 applic ONCE TOPICAL 09/09/17 12:45 09/12/17 12:44 Dextrose/Sodium Chloride 1,000 ml @ 125 mls/hr Q8H IV 09/09/17 17:04 09/11/17 16:54 (Xarelto) 10 mg Q24H PO 09/10/17 17:00 09/11/17 16:54 (Tylenol) 650 mg Q6H PRN PO 09/09/17 17:15 09/11/17 09:00 (Zofran Inj) 4 mg Q6H PRN IVP 09/09/17 17:15 09/11/17 17:06 (Ambien) 5 mg HS PRN PO 09/09/17 17:15 (Dilaudid) 4 mg Q4H PRN PO 09/10/17 14:00 09/11/17 17:06 (Dilaudid Pf Inj) 2 mg Q3H PRN IV 09/10/17 14:15 09/12/17 06:19 (Soma) 350 mg Q6H PRN PO 09/10/17 14:15 09/11/17 00:19 Daptomycin 800 mg/ Sodium Chloride 100 ml @ 200 mls/hr Q24H IV 09/11/17 14:00 09/11/17 14:38 Sodium Chloride 1,000 ml @ 84 mls/hr [id number] IV 09/11/17 18:15 (Colace) 100 mg BID PO 09/11/17 21:00 Lines PIV with no e/o infection Past Medical History obesity, BMI 38.2 CHAGO (Radha Love) Allergies: Coded Allergies: No Known Allergies (Unverified , 09/07/17) Objective . Vital Signs Date Time Temp Pulse Resp B/P (MAP) Pulse Ox O2 Delivery O2 Flow Rate FiO2 09/12/17 08:00 98.6 97 17 113/59 (77) 93 09/12/17 07:30 Room Air 09/12/17 00:00 98.9 97 18 136/62 (86) 94 09/11/17 21:56 Nasal Cannula 2.00 09/11/17 20:00 98.9 89 18 162/73 (102) 96 09/11/17 16:00 94 Nasal Cannula 2.00 09/11/17 16:00 98.5 94 18 160/63 (95) 94 09/11/17 12:00 94 2.00 09/11/17 11:50 98.0 100 18 149/72 (97) 94 . Laboratory Tests Test 09/11/17 05:00 09/12/17 05:36 White Blood Count 13.0 TH/MM3 14.8 TH/MM3 Red Blood Count 3.17 MIL/MM3 3.08 MIL/MM3 Hemoglobin 8.5 GM/DL 8.1 GM/DL Hematocrit 26.4 % 24.8 % Mean Corpuscular Volume 83.2 FL 80.6 FL Mean Corpuscular Hemoglobin 26.8 PG 26.3 PG Mean Corpuscular Hemoglobin Concent 32.3 % 32.6 % Red Cell Distribution Width 15.8 % 16.3 % Platelet Count 381 TH/MM3 432 TH/MM3 Mean Platelet Volume 7.9 FL 7.5 FL Neutrophils (%) (Auto) 77.8 % 83.4 % Lymphocytes (%) (Auto) 10.4 % 7.2 % Monocytes (%) (Auto) 7.6 % 6.9 % Eosinophils (%) (Auto) 3.6 % 2.2 % Basophils (%) (Auto) 0.6 % 0.3 % Neutrophils # (Auto) 10.2 TH/MM3 12.4 TH/MM3 Lymphocytes # (Auto) 1.4 TH/MM3 1.1 TH/MM3 Monocytes # (Auto) 1.0 TH/MM3 1.0 TH/MM3 Eosinophils # (Auto) 0.5 TH/MM3 0.3 TH/MM3 Basophils # (Auto) 0.1 TH/MM3 0.0 TH/MM3 CBC Comment DIFF FINAL DIFF FINAL Differential Comment Laboratory Tests Test 09/11/17 05:00 09/12/17 05:36 Blood Urea Nitrogen 8 MG/DL 19 MG/DL Creatinine 1.39 MG/DL 2.93 MG/DL Random Glucose 127 MG/DL 145 MG/DL Total Protein 6.1 GM/DL Albumin 2.2 GM/DL Calcium Level 8.6 MG/DL 8.6 MG/DL Phosphorus Level 3.9 MG/DL Magnesium Level 1.8 MG/DL Alkaline Phosphatase 93 U/L Aspartate Amino Transf (AST/SGOT) 18 U/L Alanine Aminotransferase (ALT/SGPT) 10 U/L Total Bilirubin 0.2 MG/DL Sodium Level 137 MEQ/L 137 MEQ/L Potassium Level 3.7 MEQ/L 3.6 MEQ/L Chloride Level 101 MEQ/L 104 MEQ/L Carbon Dioxide Level 29.1 MEQ/L 25.6 MEQ/L Anion Gap 7 MEQ/L 7 MEQ/L Estimat Glomerular Filtration Rate 39 ML/MIN 16 ML/MIN Hemoglobin A1c 6.4 % Free Thyroxine 1.30 NG/DL Thyroid Stimulating Hormone 3rd Gen 4.270 uIU/ML Microbiology Date/Time Source Procedure Growth Status 09/11/17 14:01 Blood Peripheral Aerobic Blood Culture Pending Received 09/11/17 14:01 Blood Peripheral Anaerobic Blood Culture Pending Received 09/11/17 13:56 Blood Peripheral Aerobic Blood Culture Pending Received 09/11/17 13:56 Blood Peripheral Anaerobic Blood Culture Pending Received 09/09/17 14:50 Wound Hip Fungal Smear - Final NO FUNGAL ELEMENTS SEEN. Resulted 09/09/17 14:50 Wound Hip Fungal Culture Pending Resulted 09/09/17 14:50 Wound Hip Acid Fast Stain - Final NO ACID FAST BACILLI SEEN Resulted 09/09/17 14:50 Wound Hip Mycobacterial Culture Pending Resulted 09/09/17 14:50 Wound Hip Gram Stain - Final Complete 09/09/17 14:50 Wound Culture - Final S. Aureus Mrsa Enterococcus Faecalis Complete 09/09/17 14:50 Wound Hip Fungal Smear - Final NO FUNGAL ELEMENTS SEEN. Resulted 09/09/17 14:50 Wound Hip Fungal Culture Pending Resulted 09/09/17 14:50 Wound Hip Acid Fast Stain - Final NO ACID FAST BACILLI SEEN Resulted 09/09/17 14:50 Wound Hip Mycobacterial Culture Pending Resulted 09/09/17 14:50 Wound Hip Gram Stain - Final Complete 09/09/17 14:50 Wound Culture - Final S. Aureus Mrsa Complete 09/09/17 14:50 Wound Hip Fungal Smear - Final NO FUNGAL ELEMENTS SEEN. Resulted 09/09/17 14:50 Wound Hip Fungal Culture Pending Resulted 09/09/17 14:50 Wound Hip Acid Fast Stain - Final NO ACID FAST BACILLI SEEN Resulted 09/09/17 14:50 Wound Hip Mycobacterial Culture Pending Resulted 09/09/17 14:50 Wound Hip Gram Stain - Final Resulted 09/09/17 14:50 Wound Culture - Preliminary S. Aureus Mrsa Group D Enterococcus Resulted Imaging Last Impressions Hip X-Ray 09/12/17 0000 Signed Impressions: Service Date/Time: Tuesday, September 12, 2017 06:45 - CONCLUSION: Stable exam.. Abigail Spencer MD Abdomen X-Ray 09/11/17 1729 Signed Impressions: Service Date/Time: August 18:16 - CONCLUSION: Moderate gaseous distention of bowel, mainly stomach and colon. Appearance most consistent with adynamic ileus Martir Wesley MD Lower Extremity Ultrasound 09/11/17 0000 Signed Impressions: Service Date/Time: August 22:51 - CONCLUSION: 1. No DVT. 2. Small simple right Medreos's cyst. Karsten Singh Jr., MD Physical Exam CONSTITUTIONAL/GENERAL: Obese WDWN female, INAD. Awake and alert. Sitting up in bedside chair. Looks much better today. SKIN: Warm and dry. No rash. HEAD: Atraumatic. Normocephalic. EYES: Pupils equal and round and reactive. Extraocular motions intact. No scleral icterus. No injection or drainage. ENT: Nose without bleeding or purulent drainage. Throat without visible erythema , exudates, masses, or lesions. Dry mucus membranes. No oral thrush. NECK: Trachea midline. Supple, nontender. CARDIOVASCULAR: Regular rate and rhythm without murmurs, gallops, or rubs. RESPIRATORY/CHEST: Nonlabored. Good air entry. No wheezing, rhonchi appreciated. GASTROINTESTINAL: Abdomen soft, nondistended, nontender. (+)Hypoactive BS MUSCULOSKELETAL: Left hip dressing C/D/I per nursing staff. No LE edema appreciated. Calves supple. NEUROLOGICAL: Awake and alert. Motor and sensory grossly within normal limits. Nonfocal. Normal speech. PSYCHIATRIC: Calm and cooperative PIV site with no e/o infection (Radha Love) Assessment & Plan Remarks Sepsis with elevated white count of 13.0, fever 100.1 and tachycardia Prosthetic joint septic arthritis, L hip, coag positive staph -On IVF -s/p resection arthroplasty, left hip with insertion of cement spacer. -wound cx positive for MRSA and Enterococcus Faecalis -blood cultures pending Acute renal failure on IV Vanco with elevated eosinophils -concern for AIN -Vancomycin stopped and changed to IV Daptomycin -creatinine worsening, now 2.93 BLE edema/tenderness, r/o DVT -dopplers negative Abdominal pain with constipation, no BM in 5 days -KUB +adynamic ileus, NPO, NGT placed -patient improved but only passing flatus when moved, no BM as of yet Obesity with BMI 38.2 Anemia, acute postoperative blood loss Hyperglycemia, elevated A1C, ?diabetes RECOMMENDATIONS: Patient developed fevers and elevated creatinine while on IV Vanco Vanco discontinued and changed to IV Daptomycin Creatinine worsening, Consult Nephrology, continue to monitor BMP. Obtain UA, urine eosinophils and vanc level Monitor UOP Avoid nephrotoxic agents - recommend holding Xarelto until kidney fxn improves check CK level White count elevated, no fever, repeat CBC in am to monitor trend. Follow up on BCX results. Monitor for BM Monitor clinical progress Further recommendations to follow (Radha Loev) Remarks The exam, history, and the medical decision-making described in the above note were completed with the assistance of the mid-level provider. I reviewed and agree with the findings presented. I attest that I had a [id number] encounter with the patient on the same day, and personally performed and documented my assessment and findings in the medical record. Poor oral intake. Was on very low IVF prior to increase late in pm yday. Episode of vomiting yday. Abd distended and tender. Xray Abd with Ileus. NG tube did not help. GI consulted. Cr increased. Nephrology consult recommended earlier. Renal issues appears to be multifactorial: patient had very poor oral intake so prerenal component. Eosinophils increased in CBC ? AIN. Vanc level on higher side but above factors could have contributed to the accumulation as well. Vanco stopped yday and patient switched to Dapto. Due to declining UO Nephro consult placed earlier. At time of my visit patient was coughing violently. Concern for aspiration. A/P to additionally include Acute ARF: multifactorial (prerenal, AIN, Vanco, ? obstructive component) Ileus: vomiting yday, abd distention. GI consult for ? relistor. Continue Dapto IV follow UO and CR, CK to adjust dose. Check CXR now to see if aspirated and asp pneumonia coverage needed. to cover for me this weekend. (Franny Hernandez MD) Radha Love Sep 12, 2017 09:51 Franny Hernandez MD Sep 12, 2017 15:05
--- NOTE | 2017-09-12 10:24 | HHI.PR ---
Subjective Remarks Patient is somnolent, medicated for pain with Dilaudid. She moans to palpation of her stomach. Objective Vitals Vital Signs Date Time Temp Pulse Resp B/P (MAP) Pulse Ox O2 Delivery O2 Flow Rate FiO2 09/12/17 08:00 98.6 97 17 113/59 (77) 93 09/12/17 07:30 Room Air 09/12/17 00:00 98.9 97 18 136/62 (86) 94 09/11/17 21:56 Nasal Cannula 2.00 09/11/17 20:00 98.9 89 18 162/73 (102) 96 09/11/17 16:00 94 Nasal Cannula 2.00 09/11/17 16:00 98.5 94 18 160/63 (95) 94 09/11/17 12:00 94 2.00 09/11/17 11:50 98.0 100 18 149/72 (97) 94 I/O 09/11/17 09/11/17 09/11/17 09/12/17 09/12/17 09/12/17 07:00 15:00 23:00 07:00 15:00 23:00 Intake Total 1432 ml 650 ml 0 ml Output Total 20 ml 200 ml 200 ml Balance 1412 ml -200 ml 650 ml -200 ml Intake Oral 240 ml 650 ml 0 ml IV Total 1192 ml Output Urine Total 200 ml Gastric Drainage Total 200 ml Drainage Total 20 ml # Voids 3 4 2 # Bowel Movements 0 0 0 Result Diagram: 09/12/17 0536 09/12/17 0536 Imaging Last Impressions Renal Ultrasound 09/12/17 0000 Signed Impressions: Service Date/Time: Tuesday, September 12, 2017 10:03 - CONCLUSION: 1. Distended urinary bladder. 2. Slight prominence right renal pelvis. Harlan Cornejo MD Hip X-Ray 09/12/17 0000 Signed Impressions: Service Date/Time: Tuesday, September 12, 2017 06:45 - CONCLUSION: Stable exam.. Abigail Spencer MD Abdomen X-Ray 09/11/17 1729 Signed Impressions: Service Date/Time: August 18:16 - CONCLUSION: Moderate gaseous distention of bowel, mainly stomach and colon. Appearance most consistent with adynamic ileus Martir Wesley MD Lower Extremity Ultrasound 09/11/17 0000 Signed Impressions: Service Date/Time: August 22:51 - CONCLUSION: 1. No DVT. 2. Small simple right Mederos's cyst. Karsten Singh Jr., MD Objective Remarks GENERAL: Sleepy with pain meds SKIN: Warm and dry. HEAD: Atraumatic. Normocephalic. EYES: Pupils equal and round. No scleral icterus. No injection or drainage. ENT: No nasal bleeding or discharge. Mucous membranes pink and moist. NECK: Trachea midline. No JVD. CARDIOVASCULAR: Regular rate and rhythm. RESPIRATORY: No accessory muscle use. Clear to auscultation. Breath sounds equal bilaterally. GASTROINTESTINAL: Abdomen soft, tender, distended. Hepatic and splenic margins not palpable. MUSCULOSKELETAL: Extremities without clubbing, cyanosis, or edema. No obvious deformities. NEUROLOGICAL: Somnolent from pain meds. No obvious cranial nerve deficits. Motor grossly within normal limits. Limited range of motion of the right hip normal speech. PSYCHIATRIC: Appropriate mood and affect; insight and judgment normal. Medications and IVs Current Medications Medications (Trade) Dose Ordered Sig/Hemanth Route Start Time Stop Time Status Last Admin Dextrose/Sodium Chloride 1,000 ml @ 125 mls/hr Q8H IV 09/09/17 17:04 09/11/17 16:54 (Xarelto) 10 mg Q24H PO 09/10/17 17:00 09/11/17 16:54 (Tylenol) 650 mg Q6H PRN PO 09/09/17 17:15 09/11/17 09:00 (Zofran Inj) 4 mg Q6H PRN IVP 09/09/17 17:15 09/11/17 17:06 (Ambien) 5 mg HS PRN PO 09/09/17 17:15 (Dilaudid) 4 mg Q4H PRN PO 09/10/17 14:00 09/11/17 17:06 (Dilaudid Pf Inj) 2 mg Q3H PRN IV 09/10/17 14:15 09/12/17 10:38 (Soma) 350 mg Q6H PRN PO 09/10/17 14:15 09/11/17 00:19 Daptomycin 800 mg/ Sodium Chloride 100 ml @ 200 mls/hr Q24H IV 4/19/18 14:00 09/11/17 14:38 Sodium Chloride 1,000 ml @ 100 mls/hr Q10H IV 09/11/17 18:15 (Colace) 100 mg BID PO 09/11/17 21:00 09/12/17 09:00 Urinary Catheter: No Vascular Central Line Catheter: No A/P Problem List: (1) Septic hip ICD Code: M00.9 - Pyogenic arthritis, unspecified (2) MITCH (acute kidney injury) ICD Code: N17.9 - Acute kidney failure, unspecified (3) Constipation ICD Code: K59.00 - Constipation, unspecified Assessment and Plan Status post left hip spacer placement for suspected septic arthritis of the left hip -Orthopedics following, recommend 50% weightbearing, daily dressing changes and to follow-up in 2 weeks -ID was consulted for sepsis, currently following -Coag positive Staphylococcus positive Staphylococcus -Status post prosthesis removal -Blood cultures ordered by infectious disease -Continue antibiotics per infectious disease, vancomycin has been changed to daptomycin, patient will possibly need a PICC if discharged on daptomycin -Continue physical therapy MITCH, creatine 1.3-->2.9, likely due to dehydration but possible due to vancomycin, ID concern for acute interstitial nephritis -NS for IVF ordered -Kidney US ordered, reviewed and shows distended bladder -ID consulted nephrology and UA -Insert arzola for retention Tobacco abuse -recommend smoking cessation Ileus, likely due to pain medication, post surgical -NGT to LIWS -NPO -IVF for hydration -Consult GI for recommendations Discharge Planning Orthopedics plan to discharge patient to SNF on Friday Melba Davis Sep 12, 2017 10:24
[2017-09-12] MEDS ORDERED: SOD PHOSPHATE/SOD BIPHOSPHATE (ADULT) ENEMA 133ML RECTAL ONE (10:30)
--- NOTE | 2017-09-12 11:30 | RADRPT ---
EXAM DATE/TIME: 09/12/2017 10:03 [facility] COMPARISON: No previous studies available for comparison. INDICATIONS : Increased BUN/Creatinine. MEDICAL HISTORY : Osteoarthritis. SURGICAL HISTORY : Cholecystectomy.Tonsillectomy. Left hip arthroplasty. Bilateral Carpal Tunnel release. Colonoscopy. ENCOUNTER: Initial ACUITY: 1 day PAIN SCORE: 10/10 LOCATION: Bilateral flank MEASUREMENTS: RIGHT KIDNEY: 12.2 x 5.7 x 6.5 cm LEFT KIDNEY: 11.6 x 6.5 x 5.8 cm FINDINGS: RIGHT KIDNEY: Renal cortex is normal in thickness and echotexture. No hydronephrosis, stone, or mass. Slight prom inence of the renal pelvis. LEFT KIDNEY: Renal cortex is normal in thickness and echotexture. No hydronephrosis, stone, or mass. BLADDER: Distended urinary bladder with estimated volume of 153 cc. CONCLUSION: 1. Distended urinary bladder. 2. Slight prominence right renal pelvis. Harlan Cornejo MD on September 12, 2017 at 11:18 Board Certified Radiologist. This report was verified electronically.
--- NOTE | 2017-09-12 13:32 | PD.CONS ---
HPI Service Nephrology Consult Requested By STEPHEN Love Reason for Consult AR[facility] Primary Care Physician Unknown History of Present Illness The patient is a 61 yo [place] female who was admitted on 09/09 for left hip resection arthroplasty & placement of cement spacer secondary to infected joint. She underwent arthroplasty initially 06/2017 and developed draining from surgical incision. She was given oral antibiotics, but draining persisted. On 08/06/17 underwent I&D of incision, but unfortunately site continued to drain so it was recommended that she have hardware removed. Wound culture positive for MRSA and Enterococcus and was started on IV Vancomycin. Toxic levels in 09/11 so this was stopped and she was started on Daptomycin. On admission, her SCr was normal at 0.58 (0.78 back in July 2017) SCr paul to 1.39 on 09/11 and again to 2.93 at time of consult. Noted that she developed an ileus and had NG tube placed 09/11 We have been consulted for evaluation of ARF The patient herself is quite medicated and history unable to be obtained from her, so most of information obtained from previous notes. (Courtney Brandon) Review of Systems ROS Limitations: Clinical Condition (Courtney Brandon) Past Family Social History Allergies: Coded Allergies: No Known Allergies (Unverified , 09/07/17) Past Medical History Thrombophlebitis of right lower extremity Multiple issues with the hip Past Surgical History Laparoscopic cholecystectomy Bilateral carpal tunnel release Arthroscopic surgery of the right knee Tonsillectomy Colonoscopy Arthroplasty L hip with subsequent removal of hardware and placement of spacer Reported Medications Aspirin 325 Mg Tab 325 Mg PO BID Oxycodone-Acetaminophen 5-325 (Oxycodone HCl/Acetaminophen) 5 Mg-325 Mg Tablet 2 Tab PO Q4H PRN 30 Days Oxycodone (Oxycodone HCl) 5 Mg Cap 5 Mg PO Q4H PRN Active Ordered Medications Current Medications Medications (Trade) Dose Ordered Sig/Hemanth Route Start Time Stop Time Status Last Admin Dextrose/Sodium Chloride 1,000 ml @ 125 mls/hr Q8H IV 09/09/17 17:04 09/11/17 16:54 (Xarelto) 10 mg Q24H PO 09/10/17 17:00 09/11/17 16:54 (Tylenol) 650 mg Q6H PRN PO 09/09/17 17:15 09/11/17 09:00 (Zofran Inj) 4 mg Q6H PRN IVP 09/09/17 17:15 09/11/17 17:06 (Ambien) 5 mg HS PRN PO 09/09/17 17:15 (Dilaudid) 4 mg Q4H PRN PO 09/10/17 14:00 09/11/17 17:06 (Dilaudid Pf Inj) 2 mg Q3H PRN IV 09/10/17 14:15 09/12/17 10:38 (Soma) 350 mg Q6H PRN PO 09/10/17 14:15 09/11/17 00:19 Daptomycin 800 mg/ Sodium Chloride 100 ml @ 200 mls/hr Q24H IV 09/11/17 14:00 09/11/17 14:38 Sodium Chloride 1,000 ml @ 100 mls/hr Q10H IV 09/11/17 18:15 (Colace) 100 mg BID PO 09/11/17 21:00 09/12/17 09:00 Family History NC to current complaint Social History Lives locally with her . Tobacco use No EtOH No illicits (Courtney Brandon) Physical Exam Vital Signs Vital Signs Date Time Temp Pulse Resp B/P (MAP) Pulse Ox O2 Delivery O2 Flow Rate FiO2 09/12/17 08:00 98.6 97 17 113/59 (77) 93 09/12/17 07:30 Room Air 09/12/17 00:00 98.9 97 18 136/62 (86) 94 09/11/17 21:56 Nasal Cannula 2.00 09/11/17 20:00 98.9 89 18 162/73 (102) 96 09/11/17 16:00 94 Nasal Cannula 2.00 09/11/17 16:00 98.5 94 18 160/63 (95) 94 Physical Exam GENERAL: Layin in bed resting. Is arousable to verbal stimuli, but immediately falls back to sleep SKIN: Warm and dry. HEAD: Atraumatic. Normocephalic. EYES: Pupils equal and round. No scleral icterus. No injection or drainage. ENT: No nasal bleeding or discharge. Mucous membranes pink and moist. NECK: Trachea midline. No JVD. CARDIOVASCULAR: Regular rate and rhythm. RESPIRATORY: No accessory muscle use. Breath sounds equal bilaterally. Faint expiratory wheezing RUL GASTROINTESTINAL: Abdomen tender to palpation. Grimaces with light palpation. Distended MUSCULOSKELETAL: Extremities without clubbing, cyanosis, or edema. No obvious deformities. NEUROLOGICAL: Drowsy PSYCHIATRIC: Drowsy Laboratory Laboratory Tests Test 09/12/17 05:36 White Blood Count 14.8 Red Blood Count 3.08 Hemoglobin 8.1 Hematocrit 24.8 Mean Corpuscular Volume 80.6 Mean Corpuscular Hemoglobin 26.3 Mean Corpuscular Hemoglobin Concent 32.6 Red Cell Distribution Width 16.3 Platelet Count 432 Mean Platelet Volume 7.5 Neutrophils (%) (Auto) 83.4 Lymphocytes (%) (Auto) 7.2 Monocytes (%) (Auto) 6.9 Eosinophils (%) (Auto) 2.2 Basophils (%) (Auto) 0.3 Neutrophils # (Auto) 12.4 Lymphocytes # (Auto) 1.1 Monocytes # (Auto) 1.0 Eosinophils # (Auto) 0.3 Basophils # (Auto) 0.0 CBC Comment DIFF FINAL Differential Comment Blood Urea Nitrogen 19 Creatinine 2.93 Random Glucose 145 Calcium Level 8.6 Sodium Level 137 Potassium Level 3.6 Chloride Level 104 Carbon Dioxide Level 25.6 Anion Gap 7 Estimat Glomerular Filtration Rate 16 Total Creatine Kinase 32 Random Vancomycin Level 43.9 Date/Time Source Procedure Growth Status 09/11/17 14:01 Blood Peripheral Aerobic Blood Culture - Preliminary NO GROWTH IN 1 DAY Resulted 09/11/17 14:01 Blood Peripheral Anaerobic Blood Culture - Preliminary NO GROWTH IN 1 DAY Resulted 09/09/17 14:50 Wound Hip Fungal Smear - Final NO FUNGAL ELEMENTS SEEN. Resulted 09/09/17 14:50 Wound Hip Fungal Culture Pending Resulted (Courtney Brandon) Result Diagram: 09/12/17 0536 09/12/17 0536 Imaging Last Impressions Renal Ultrasound 09/12/17 0000 Signed Impressions: Service Date/Time: Tuesday, September 12, 2017 10:03 - CONCLUSION: 1. Distended urinary bladder. 2. Slight prominence right renal pelvis. Harlan Cornejo MD Hip X-Ray 09/12/17 0000 Signed Impressions: Service Date/Time: Tuesday, September 12, 2017 06:45 - CONCLUSION: Stable exam.. Abigail Spencer MD Abdomen X-Ray 09/11/17 0728 Signed Impressions: Service Date/Time: August 18:16 - CONCLUSION: Moderate gaseous distention of bowel, mainly stomach and colon. Appearance most consistent with adynamic ileus Martir Wesley MD Lower Extremity Ultrasound 09/11/17 0000 Signed Impressions: Service Date/Time: August 22:51 - CONCLUSION: 1. No DVT. 2. Small simple right Mederos's cyst. Karsten Singh Jr., MD (Courtney Brandon) Assessment and Plan Problem List: (1) MITCH (acute kidney injury) ICD Codes: N17.9 - Acute kidney failure, unspecified Plan: Potentially related to vancomycin toxicity given timing of decline. Also noted a slight prominence to right kidney on renal US with a distended bladder, so she may have an underlying obstructive component as well. Potentially some degree of volume depletion as well as she does mention nausea and has a ileus Vanc has been discontinued Agree with IVF Solano ordered Will repeat renal panel in the AM Medications should be adjusted for the patient's renal decline. Avoid nephrotoxic medications including NSAIDs and iodinated contrast dyes. Avoid gadolinium when GFR <30. (2) Ileus ICD Codes: K56.7 - Ileus, unspecified Plan: post surgical NG tube placed (3) Septic hip ICD Codes: M00.9 - Pyogenic arthritis, unspecified Plan: Abx as per ID BCx pending from 09/11 (4) Anemia ICD Codes: D64.9 - Anemia, unspecified Plan: Repeat CBC with Fe panel (Courtney Brandon) Assessment and Plan Solano catheter in place and a significant amount of urine has been obtained so far. Remains to be determined whether or not the patient had obstructive uropathy versus intrinsic kidney injury related to vancomycin. The exam, history, and the medical decision-making described in the above note were completed with the assistance of the PA-C. I reviewed and agree with the findings presented. I attest that I had a [id number] encounter with the patient on the same day, and personally performed and documented my assessment and findings in the medical record. (Aide Armstrong MD) Courtney Brandon Sep 12, 2017 13:32 Aide Armstrong MD Sep 12, 2017 16:55
[2017-09-12] MEDS: DAPTOmycin INJ 800 MG in SODIUM CHLORIDE 0.9% INJ 100 ML IV SCH (15:17)
--- NOTE | 2017-09-12 15:33 | RADRPT ---
EXAM DATE/TIME: 09/12/2017 14:57 [facility] COMPARISON: No previous studies available for comparison. INDICATIONS : Infiltrate. MEDICAL HISTORY : Osteoarthritis. SURGICAL HISTORY : Cholecystectomy. Tonsillectomy. left hip surgery ENCOUNTER: Initial ACUITY: 4 - 6 days PAIN SCORE: 0/10 LOCATION: Bilateral chest FINDINGS: A single view of the chest demonstrates minimal left basilar density. Endotracheal tube in distal eso phagus. The cardiomediastinal contours are unremarkable. Osseous structures are intact. CONCLUSION: Minimal left basilar density. Endotracheal tube in distal esophagus. Harlan Cornejo MD on September 12, 2017 at 15:21 Board Certified Radiologist. This report was verified electronically.
--- NOTE | 2017-09-12 16:30 | PD.CONS ---
HPI History of Present Illness This is a 61 year old F who had a total hip arthroplasty done in June of this year, was in rehab and had dehiscence to surgical site and drainage, was treated outpatient and due to continued drainage had an incision and drainage done in July. Following I&D pt continued to have drainage from site, was managed outpatient, however due to concerning labs and continued symptoms was admitted for resection arthroplasty of her left hip and insertion of a cement spacer. Pt now on third day of admission. Our service has been consulted to evaluate pt for abdominal distention, no BM in multiple days and imaging consistent with ileus. Patient appears very uncomfortable during my exam, and minimally answering questions. She does report previous EGD and colonoscopy but does not state when or who did the procedures. Will defer further history until patient more comfortable and able to answer questions. Currently with NG tube to LIWS, pt states no relief with this. (Roxane Monte) PFSH Past Medical History Unable to obtain Past Surgical History Laparoscopic cholecystectomy bilateral carpal tunnel release arthroscopic surgery right knee tonsillectomy colonoscopy EGD Total hip arthroplasty (Roxane Monte) Coded Allergies: No Known Allergies (Unverified , 09/07/17) Review of Systems Gastrointestinal: COMPLAINS OF: Abdominal pain, Constipation, Swelling of Abdomen (Roxane Monte) GI Exam Vitals I&O Vital Signs Date Time Temp Pulse Resp B/P (MAP) Pulse Ox O2 Delivery O2 Flow Rate FiO2 09/12/17 12:00 97.3 90 18 124/60 (81) 97 09/12/17 08:00 98.6 97 17 113/59 (77) 93 09/12/17 07:30 Room Air 09/12/17 00:00 98.9 97 18 136/62 (86) 94 09/11/17 21:56 Nasal Cannula 2.00 09/11/17 20:00 98.9 89 18 162/73 (102) 96 I/O 09/11/17 09/11/17 09/11/17 09/12/17 09/12/17 09/12/17 07:00 15:00 23:00 07:00 15:00 23:00 Intake Total 1432 ml 650 ml 0 ml 200 ml Output Total 20 ml 200 ml 200 ml Balance 1412 ml -200 ml 650 ml -200 ml 200 ml Intake Oral 240 ml 650 ml 0 ml IV Total 1192 ml 200 ml Output Urine Total 200 ml Gastric Drainage Total 200 ml Drainage Total 20 ml # Voids 3 4 2 # Bowel Movements 0 0 0 Imaging Last Impressions Renal Ultrasound 09/12/17 0000 Signed Impressions: Service Date/Time: Tuesday, September 12, 2017 10:03 - CONCLUSION: 1. Distended urinary bladder. 2. Slight prominence right renal pelvis. Harlan Cornejo MD Hip X-Ray 09/12/17 0000 Signed Impressions: Service Date/Time: Tuesday, September 12, 2017 06:45 - CONCLUSION: Stable exam.. Abigail Spencer MD Chest X-Ray 09/12/17 0000 Signed Impressions: Service Date/Time: Tuesday, September 12, 2017 14:57 - CONCLUSION: Minimal left basilar density. Endotracheal tube in distal esophagus. Harlan Cornejo MD Abdomen X-Ray 09/11/17 1729 Signed Impressions: Service Date/Time: August 18:16 - CONCLUSION: Moderate gaseous distention of bowel, mainly stomach and colon. Appearance most consistent with adynamic ileus Martir Wesley MD Lower Extremity Ultrasound 09/11/17 0000 Signed Impressions: Service Date/Time: August 22:51 - CONCLUSION: 1. No DVT. 2. Small simple right Mederos's cyst. Karsten Singh Jr., MD Laboratory Test 09/12/17 05:36 White Blood Count 14.8 TH/MM3 Red Blood Count 3.08 MIL/MM3 Hemoglobin 8.1 GM/DL Hematocrit 24.8 % Mean Corpuscular Volume 80.6 FL Mean Corpuscular Hemoglobin 26.3 PG Mean Corpuscular Hemoglobin Concent 32.6 % Red Cell Distribution Width 16.3 % Platelet Count 432 TH/MM3 Mean Platelet Volume 7.5 FL Neutrophils (%) (Auto) 83.4 % Lymphocytes (%) (Auto) 7.2 % Monocytes (%) (Auto) 6.9 % Eosinophils (%) (Auto) 2.2 % Basophils (%) (Auto) 0.3 % Neutrophils # (Auto) 12.4 TH/MM3 Lymphocytes # (Auto) 1.1 TH/MM3 Monocytes # (Auto) 1.0 TH/MM3 Eosinophils # (Auto) 0.3 TH/MM3 Basophils # (Auto) 0.0 TH/MM3 CBC Comment DIFF FINAL Differential Comment Blood Urea Nitrogen 19 MG/DL Creatinine 2.93 MG/DL Random Glucose 145 MG/DL Calcium Level 8.6 MG/DL Sodium Level 137 MEQ/L Potassium Level 3.6 MEQ/L Chloride Level 104 MEQ/L Carbon Dioxide Level 25.6 MEQ/L Anion Gap 7 MEQ/L Estimat Glomerular Filtration Rate 16 ML/MIN Total Creatine Kinase 32 U/L Random Vancomycin Level 43.9 COMMENT Date/Time Source Procedure Growth Status 09/11/17 14:01 Blood Peripheral Aerobic Blood Culture - Preliminary NO GROWTH IN 1 DAY Resulted 09/11/17 14:01 Blood Peripheral Anaerobic Blood Culture - Preliminary NO GROWTH IN 1 DAY Resulted 09/09/17 14:50 Wound Hip Fungal Smear - Final NO FUNGAL ELEMENTS SEEN. Resulted 09/09/17 14:50 Wound Hip Fungal Culture Pending Resulted Physical Examination HEENT: Normocephalic; atraumatic CHEST: Shallow, tachypneic CARDIAC: RRR ABDOMEN: Distended, soft, bowel sounds active SKIN: Normal; no rash; no jaundice. 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 Appearance most consistent with adynamic ileus Pt now with NGT to LIWS with 300 mL of brown colored drainage No BM documented in multiple days. On opioid medication. Pt appears uncomfortable and minimally answering questions so history is hard to obtain. Does report EGD and colonoscopy in the past. - Distended urinary bladder- possibly contributory- Solano catheter per attending Plan: - NGT to LIWS - Red rectal tube to gravity for decompression - Trial Relistor - NPO - Repeat KUB in AM - Solano catheter per attending - Further recommendations based on clinical course Patient has been seen and examined by myself and Dr. Cross and this note is written on her behalf (Roxane Monte) Physician Comments seen, examined agree with above if not better ct abdomen/pelvis, colonoscopy for decompression (Pat Cross MD) Roxane Monte Sep 12, 2017 16:30 Pat Cross MD Sep 12, 2017 17:02
[2017-09-12] MEDS ORDERED: METHYLNALTREXONE BROMIDE 12 MG/0.6 ML VIAL SQ ONE (16:45)
[2017-09-12] MEDS: RIVAROXABAN 10 MG TAB PO SCH (17:00)
[2017-09-12 17:18] LABS: COMPLEMENT C4 25 MG/DL (10-40); IRON (FE) 12 MCG/DL (50-170); PHOSPHORUS 4.7 MG/DL (2.5-4.9)
[2017-09-12 17:29] LABS: % SATURATION IRON PROFILE 4.8 % (20-50); FERRITIN 95 NG/ML (8-252); IMMUNOGLOBULIN A 226 MG/DL (85-468); IMMUNOGLOBULIN G 640 MG/DL (650-1610); IMMUNOGLOBULIN M 42 MG/DL (45-276); KAPPA LAMBDA RATIO 2.61 (1.57-3.93); KAPPA LIGHT CHAIN 201 MG/DL (170-370); LAMBDA LIGHT CHAIN 77 MG/DL (90-210); TOTAL IRON BINDING CAPACITY 248 MCG/DL (250-450)
[2017-09-13] VITALS (20 sets, daily range): BP systolic 87–148; BP diastolic 45–68; PULSE 72–90; RESP 11–21; TEMP 98–99.2; O2SAT 93–100
[2017-09-13] MEDS: DEXT 5%-NACL 0.45% 1000 ML INJ 1,000 ML IV SCH ×4 (01:03→23:34)
[2017-09-13] MEDS: SODIUM CHLOR 0.9% 1000 ML INJ 1,000 ML IV SCH ×3 (04:54→22:50)
--- NOTE | 2017-09-13 05:05 | RADRPT ---
EXAM DATE/TIME: 09/13/2017 04:04 [facility] COMPARISON: ABDOMEN SINGLE VIEW, September 11, 2017, 22:19. ABDOMEN KUB ONLY, September 11, 2017, 18:16. INDICATIONS : Abdominal distention. MEDICAL HISTORY : Osteoarthritis. SURGICAL HISTORY : Cholecystectomy. Tonsillectomy. left hip arthroplasty ENCOUNTER: Subsequent ACUITY: 4 - 6 days PAIN SCORE: 0/10 LOCATION: Bilateral abdomen FINDINGS: 2 portable supine views of the abdomen show interval placement of a nasogastric tube and rectal tube. Gas is seen throughout a normal caliber colon. The stomach is decompressed. No dilated loops of smal l or large bowel observed on the current study. Surgical clips overlie the right upper quadrant. No o rganomegaly observed. Left hip prosthesis. CONCLUSION: No dilated loops of bowel the current study. Gas throughout normal caliber colon. Karsten Singh Jr., MD on September 13, 2017 at 5:02 Board Certified Radiologist. This report was verified electronically.
[2017-09-13 07:24] LABS: AUTOMATED NEUTROPHIL # 9.4 TH/MM3 (1.8-7.7); BASOPHIL % 0.3 % (0.0-2.0); EOSINOPHIL # 0.6 TH/MM3 (0-0.4); EOSINOPHIL % 4.9 % (0.0-4.0); LYMPH % 10.5 % (9.0-44.0); LYMPHOCYTE # 1.3 TH/MM3 (1.0-4.8); MEAN CELL VOLUME 82.3 FL (80.0-100.0); MEAN CORPUSCULAR HGB CONC 32.8 % (32.0-36.0); MEAN PLATELET VOLUME 7.5 FL (7.0-11.0); MONO % 7.3 % (0.0-8.0); MONOCYTE # 0.9 TH/MM3 (0-0.9); PLATELET COUNT 380 TH/MM3 (150-450); RED BLOOD COUNT 2.47 MIL/MM3 (4.00-5.30); RED CELL DISTRIBUTION WIDTH 16.4 % (11.6-17.2); WHITE BLOOD COUNT 12.2 TH/MM3 (4.0-11.0)
[2017-09-13 07:43] LABS: BICARBONATE 24.9 MEQ/L (21.0-32.0); CALCIUM 8.4 MG/DL (8.5-10.1); CREATININE 2.35 MG/DL (0.50-1.00)
[2017-09-13 08:12] LABS: HEMATOCRIT 20.3 % (35.0-46.0); HEMOGLOBIN 6.7 GM/DL (11.6-15.3)
[2017-09-13] MEDS ORDERED: diphenhydrAMINE HCL 25 MG CAP PO PRN (08:45)
--- NOTE | 2017-09-13 08:52 | HHI.PR ---
Subjective Remarks Pt feels ok. Denies any pain at this time. Denies any nausea, no abdominal pain Discussed w RN, pt hasn't had a BM. Hb dropped to 6.7. Objective Vitals Vital Signs Date Time Temp Pulse Resp B/P (MAP) Pulse Ox O2 Delivery O2 Flow Rate FiO2 09/13/17 08:38 100 Nasal Cannula 2.00 09/13/17 06:00 79 09/13/17 04:00 98.4 79 11 91/54 (66) 100 09/13/17 04:00 79 09/13/17 02:00 90 09/13/17 00:00 99.2 83 11 93/49 (64) 99 09/13/17 00:00 83 09/12/17 22:00 87 09/12/17 20:00 98.6 86 11 96/52 (67) 97 09/12/17 20:00 86 09/12/17 19:00 96 Nasal Cannula 3.00 09/12/17 18:38 97 Nasal Cannula 3.00 09/12/17 16:00 98.9 90 18 128/69 (88) 98 09/12/17 12:00 97.3 90 18 124/60 (81) 97 09/12/17 09:40 98 Nasal Cannula 3.00 I/O 09/12/17 09/12/17 09/12/17 09/13/17 09/13/17 09/13/17 07:00 15:00 23:00 07:00 15:00 23:00 Intake Total 0 ml 200 ml 500 ml Output Total 200 ml 3100 ml 1500 ml Balance -200 ml 200 ml -2600 ml -1500 ml Intake Oral 0 ml IV Total 200 ml 500 ml Output Urine Total 3100 ml 1450 ml Gastric Drainage Total 200 ml 50 ml # Voids 2 # Bowel Movements 0 0 Result Diagram: 09/13/17 0502 09/13/17 0502 Imaging Last Impressions Abdomen X-Ray 09/13/17 0600 Signed Impressions: Service Date/Time: Wednesday, September 13, 2017 04:04 - CONCLUSION: No dilated loops of bowel the current study. Gas throughout normal caliber colon. Karsten Singh Jr., MD Renal Ultrasound 09/12/17 0000 Signed Impressions: Service Date/Time: Tuesday, September 12, 2017 10:03 - CONCLUSION: 1. Distended urinary bladder. 2. Slight prominence right renal pelvis. Harlan Cornejo MD Hip X-Ray 09/12/17 0000 Signed Impressions: Service Date/Time: Tuesday, September 12, 2017 06:45 - CONCLUSION: Stable exam.. Abigail Spencer MD Chest X-Ray 09/12/17 0000 Signed Impressions: Service Date/Time: Tuesday, September 12, 2017 14:57 - CONCLUSION: Minimal left basilar density. Endotracheal tube in distal esophagus. Harlan Cornejo MD Lower Extremity Ultrasound 09/11/17 0000 Signed Impressions: Service Date/Time: August 22:51 - CONCLUSION: 1. No DVT. 2. Small simple right Mederos's cyst. Karsten Singh Jr., MD Objective Remarks GENERAL: Sleepy with pain meds SKIN: dressing over left lower ext, d/c/i CARDIOVASCULAR: Regular rate and rhythm. RESPIRATORY: No accessory muscle use. Clear to auscultation. Breath sounds equal bilaterally. GASTROINTESTINAL: Abdomen soft, non distended, nontender at this time. MUSCULOSKELETAL: Extremities without edema. No obvious deformities. NEUROLOGICAL: Somnolent from pain meds. Limited range of motion of the right hip, normal speech. A/P Problem List: (1) Septic hip ICD Code: M00.9 - Pyogenic arthritis, unspecified (2) MITCH (acute kidney injury) ICD Code: N17.9 - Acute kidney failure, unspecified (3) Constipation ICD Code: K59.00 - Constipation, unspecified Assessment and Plan Status post left hip spacer placement for suspected septic arthritis of the left hip -Orthopedics following, recommend 50% weightbearing, daily dressing changes and to follow-up in 2 weeks -ID following for sepsis. BP's low normal -Coag positive Staphylococcus positive Staphylococcus -Status post prosthesis removal -Blood cultures neg x 1 -Continue antibiotics per infectious disease, vancomycin has been changed to daptomycin, patient will possibly need a PICC if discharged on daptomycin -Continue physical therapy -Pain management per ortho, recommend decreasing/adjusting pain meds as pt somnolent. severe Anemia post op: Hb dropped to 6.7. Will transfuse 2 units PRBC now. MITCH, creatine 1.3-->2.9-->2.35, likely due to dehydration but possible due to vancomycin, ?obstruction, ID concern for acute interstitial nephritis -NS for IVF ordered -Kidney US ordered, reviewed and shows distended bladder -Nephrology following. -Solano in place. Tobacco abuse -recommend smoking cessation Ileus, likely due to pain medication, post surgical -NGT to LIWS -NPO -IVF for hydration - GI following. appreciate recs Discharge Planning continue to monitor closely. Reina Barber MD Sep 13, 2017 08:52
[2017-09-13] MEDS ORDERED: SODIUM CHLOR 0.9% 250 ML INJ 250 ML IV ONE (09:00)
--- NOTE | 2017-09-13 09:22 | HHI.IDPN ---
Subjective Subjective Remarks ID Xcover for Dr. Crawford 61 yo morbidly obese female with DJD sp L hip arthroplasty in jun Initially healed, but later developed dehiscence and drainage along with the pain worsening with weight bearing In July she underwent I+D, cultures were negative She took 2 weeks of Keflex with no improvement She presented to Dr Gonzalez office and he aspirated the hip Culture is positive for coag positive staph blood cultures are negative @ 2 days and Xray was unremarkable She is to undergo removal of prosthesis as the first stage of 2 stage procedure Notes reviewed Temps ok Has developed abdominal distension NGT in place - has coffee ground fluid AXR this morning better - no dilated bowel seen Left hip pain controlled Abdominal pain has improved No BM No rash or itching WBC better Creatinine decreasing Good UO BP ok Left hip wound cx positive for MRSA and Enterococcus faecalis Blood C/S negative so far CXR minimal L basilar density Antibiotics IV Daptomycin Current Medications Medications (Trade) Dose Ordered Sig/Hemanth Route Start Time Stop Time Status Last Admin Dextrose/Sodium Chloride 1,000 ml @ 125 mls/hr Q8H IV 09/09/17 17:04 09/11/17 16:54 (Xarelto) 10 mg Q24H PO 09/10/17 17:00 09/12/17 17:00 (Tylenol) 650 mg Q6H PRN PO 09/09/17 17:15 09/11/17 09:00 (Zofran Inj) 4 mg Q6H PRN IVP 09/09/17 17:15 09/11/17 17:06 (Ambien) 5 mg HS PRN PO 09/09/17 17:15 (Dilaudid) 4 mg Q4H PRN PO 09/10/17 14:00 09/11/17 17:06 (Dilaudid Pf Inj) 2 mg Q3H PRN IV 09/10/17 14:15 09/12/17 21:51 (Soma) 350 mg Q6H PRN PO 09/10/17 14:15 09/11/17 00:19 Daptomycin 800 mg/ Sodium Chloride 100 ml @ 200 mls/hr Q24H IV 09/11/17 14:00 09/12/17 15:17 Sodium Chloride 1,000 ml @ 100 mls/hr Q10H IV 09/11/17 18:15 09/13/17 04:54 (Colace) 100 mg BID PO 09/11/17 21:00 09/12/17 09:00 Sodium Chloride 250 ml @ 15 mls/hr ONCE ONCE IV 09/13/17 09:00 09/14/17 01:39 (Tylenol) 650 mg Q4H PRN PO 09/13/17 08:45 09/14/17 08:44 (Benadryl) 25 mg Q4H PRN PO 09/13/17 08:45 09/14/17 08:44 Lines PIV with no e/o infection Past Medical History obesity, BMI 38.2 DJD Allergies: Coded Allergies: No Known Allergies (Unverified , 09/07/17) Objective . Vital Signs Date Time Temp Pulse Resp B/P (MAP) Pulse Ox O2 Delivery O2 Flow Rate FiO2 09/13/17 08:38 100 Nasal Cannula 2.00 09/13/17 06:00 79 09/13/17 04:00 98.4 79 11 91/54 (66) 100 09/13/17 04:00 79 09/13/17 02:00 90 09/13/17 00:00 99.2 83 11 93/49 (64) 99 09/13/17 00:00 83 09/12/17 22:00 87 09/12/17 20:00 98.6 86 11 96/52 (67) 97 09/12/17 20:00 86 09/12/17 19:00 96 Nasal Cannula 3.00 09/12/17 18:38 97 Nasal Cannula 3.00 09/12/17 16:00 98.9 90 18 128/69 (88) 98 09/12/17 12:00 97.3 90 18 124/60 (81) 97 09/12/17 09:40 98 Nasal Cannula 3.00 . Laboratory Tests Test 09/12/17 05:36 09/13/17 05:02 White Blood Count 14.8 TH/MM3 12.2 TH/MM3 Red Blood Count 3.08 MIL/MM3 2.47 MIL/MM3 Hemoglobin 8.1 GM/DL 6.7 GM/DL Hematocrit 24.8 % 20.3 % Mean Corpuscular Volume 80.6 FL 82.3 FL Mean Corpuscular Hemoglobin 26.3 PG 27.0 PG Mean Corpuscular Hemoglobin Concent 32.6 % 32.8 % Red Cell Distribution Width 16.3 % 16.4 % Platelet Count 432 TH/MM3 380 TH/MM3 Mean Platelet Volume 7.5 FL 7.5 FL Neutrophils (%) (Auto) 83.4 % 77.0 % Lymphocytes (%) (Auto) 7.2 % 10.5 % Monocytes (%) (Auto) 6.9 % 7.3 % Eosinophils (%) (Auto) 2.2 % 4.9 % Basophils (%) (Auto) 0.3 % 0.3 % Neutrophils # (Auto) 12.4 TH/MM3 9.4 TH/MM3 Lymphocytes # (Auto) 1.1 TH/MM3 1.3 TH/MM3 Monocytes # (Auto) 1.0 TH/MM3 0.9 TH/MM3 Eosinophils # (Auto) 0.3 TH/MM3 0.6 TH/MM3 Basophils # (Auto) 0.0 TH/MM3 0.0 TH/MM3 CBC Comment DIFF FINAL DIFF FINAL Differential Comment Laboratory Tests Test 09/12/17 05:36 09/12/17 16:39 09/13/17 05:02 Blood Urea Nitrogen 19 MG/DL 21 MG/DL Creatinine 2.93 MG/DL 2.35 MG/DL Random Glucose 145 MG/DL 100 MG/DL Calcium Level 8.6 MG/DL 8.4 MG/DL Sodium Level 137 MEQ/L 143 MEQ/L Potassium Level 3.6 MEQ/L 3.4 MEQ/L Chloride Level 104 MEQ/L 109 MEQ/L Carbon Dioxide Level 25.6 MEQ/L 24.9 MEQ/L Anion Gap 7 MEQ/L 9 MEQ/L Estimat Glomerular Filtration Rate 16 ML/MIN 21 ML/MIN Total Creatine Kinase 32 U/L Phosphorus Level 4.7 MG/DL Iron Level 12 MCG/DL Total Iron Binding Capacity 248 MCG/DL Percent Iron Saturation 4.8 % Ferritin 95 NG/ML Total Protein 5.7 GM/DL 25-Hydroxy Vitamin D Total 8.8 ng/ML Parathyroid Hormone (Intact) 54.3 PG/ML Magnesium Level 2.0 MG/DL Microbiology Date/Time Source Procedure Growth Status 09/11/17 14:01 Blood Peripheral Aerobic Blood Culture - Preliminary NO GROWTH IN 1 DAY Resulted 09/11/17 14:01 Blood Peripheral Anaerobic Blood Culture - Preliminary NO GROWTH IN 1 DAY Resulted 09/11/17 13:56 Blood Peripheral Aerobic Blood Culture - Preliminary NO GROWTH IN 1 DAY Resulted 09/11/17 13:56 Blood Peripheral Anaerobic Blood Culture - Preliminary NO GROWTH IN 1 DAY Resulted Imaging Last Impressions Hip X-Ray 09/12/17 0000 Signed Impressions: Service Date/Time: Tuesday, September 12, 2017 06:45 - CONCLUSION: Stable exam.. Abigail Spencer MD Abdomen X-Ray 09/11/17 1729 Signed Impressions: Service Date/Time: August 18:16 - CONCLUSION: Moderate gaseous distention of bowel, mainly stomach and colon. Appearance most consistent with adynamic ileus Martir Wesley MD Lower Extremity Ultrasound 09/11/17 0000 Signed Impressions: Service Date/Time: August 22:51 - CONCLUSION: 1. No DVT. 2. Small simple right Mederos's cyst. Karsten Singh Jr., MD Physical Exam CONSTITUTIONAL/GENERAL: Awakens easily, NAD SKIN: Warm and dry. No rash. HEAD: Atraumatic. Normocephalic. EYES: Pupils equal and round and reactive. Extraocular motions intact. No scleral icterus. No injection or drainage. ENT: Nose with NGT in place, has coffee ground fluid. Dry mucus membranes. No oral thrush. NECK: Trachea midline. Supple, nontender. CARDIOVASCULAR: Regular rate and rhythm without murmurs, gallops, or rubs. RESPIRATORY/CHEST: Nonlabored. Good air entry. No wheezing, rhonchi appreciated. GASTROINTESTINAL: Abdomen soft, nondistended, nontender. (+)Hypoactive BS MUSCULOSKELETAL: Left hip dressing dry and intact. No LE edema appreciated. No calf tenderness NEUROLOGICAL: Awake and alert. Motor and sensory grossly within normal limits. Nonfocal. Normal speech. 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 Acute renal failure on IV Vanco with elevated eosinophils -concern for AIN -Vancomycin stopped and changed to IV Daptomycin - good UO, creatinine lower Abdominal pain with constipation, no BM in 5 days - KUB +adynamic ileus, NPO, NGT placed - patient improved but only passing flatus when moved, no BM as of yet - AXR better Obesity with BMI 38.2 Anemia, acute postoperative blood loss Hyperglycemia, elevated A1C, ?diabetes RECOMMENDATIONS: Patient developed fevers and elevated creatinine while on IV Vanco Vanco discontinued and changed to IV Daptomycin Continue Daptomycin - follow CPK Nephrology following GI following for ileus - AXR better Follow CBC Follow C/S Monitor clinical progress Maricarmen Dotson MD Sep 13, 2017 09:22
[2017-09-13] MEDS: FUROSEMIDE 20 MG/2 ML VIAL IV PUSH ONE ×2 (10:02→21:41)
[2017-09-13] MEDS: ACETAMINOPHEN 325 MG TAB PO PRN ×2 (10:03→16:42)
[2017-09-13] MEDS: DOCUSATE SODIUM 100 MG CAP PO SCH ×2 (10:04→21:41)
[2017-09-13 13:42] LABS: AMORPHOUS SEDIMENT, URINE RARE; BACTERIA, URINE OCC /hpf; BILIRUBIN, URINE NEG (NEG); BLOOD, URINE NEG (NEG); GLUCOSE,URINE NEG (NEG); KETONE, URINE NEG (NEG); MUCUS URINE FEW /lpf (OCC); NITRITE,URINE NEG (NEG); SQUAMOUS EPITHELIAL CELL URINE <1 /hpf (0-5); URINE COLOR COLORLESS (YELLW/STRAW); URINE LEUKOCYTE ESTERASE MOD (NEG)
[2017-09-13] MEDS: DAPTOmycin INJ 800 MG in SODIUM CHLORIDE 0.9% INJ 100 ML IV SCH (14:57)
--- NOTE | 2017-09-13 15:50 | HHI.NPPN ---
Subjective History of Present Illness The patient is a 61 yo [place] female who was admitted on 09/09 for left hip resection arthroplasty & placement of cement spacer secondary to infected joint. She underwent arthroplasty initially 06/2017 and developed draining from surgical incision. She was given oral antibiotics, but draining persisted. On 08/06/17 underwent I&D of incision, but unfortunately site continued to drain so it was recommended that she have hardware removed. Wound culture positive for MRSA and Enterococcus and was started on IV Vancomycin. Toxic levels in 09/11 so this was stopped and she was started on Daptomycin. On admission, her SCr was normal at 0.58 (0.78 back in July 2017) SCr paul to 1.39 on 09/11 and again to 2.93 at time of consult. Noted that she developed an ileus and had NG tube placed 09/11 We have been consulted for evaluation of ARF Interval History Patient's creatinine level has improved and there was a brisk urine output after placement of Solano catheter. Patient still somewhat lethargic complaining of feeling generally weak. Objective Data Data 09/13/17 09/14/17 19:00 07:00 Intake Total 1812 ml Output Total 3400 ml Balance -1588 ml Intake Oral 30 ml IV Total 1782 ml Output Urine Total 3400 ml # Bowel Movements 0 Vital Signs Date Time Temp Pulse Resp B/P (MAP) Pulse Ox O2 Delivery O2 Flow Rate FiO2 09/13/17 08:38 100 Nasal Cannula 2.00 09/13/17 06:00 79 09/13/17 04:00 98.4 79 11 91/54 (66) 100 09/13/17 04:00 79 09/13/17 02:00 90 09/13/17 00:00 99.2 83 11 93/49 (64) 99 09/13/17 00:00 83 09/12/17 22:00 87 09/12/17 20:00 98.6 86 11 96/52 (67) 97 09/12/17 20:00 86 09/12/17 19:00 96 Nasal Cannula 3.00 09/12/17 18:38 97 Nasal Cannula 3.00 09/12/17 16:00 98.9 90 18 128/69 (88) 98 -: 09/13/17 0502 09/13/17 0502 Microbiology 09/13/17 Urine Culture, Received Pending Tubes & Lines: Solano Physical Exam General Appearance: No Acute Distress, Comfortable Pulmonary Resp Exam: Clear Bilaterally, Breath Sounds Equal, No Distress Cardiology CV Exam: Regular, Normal Sinus Rhythm Integumentary Skin Exam: Clear, Warm Extremeties Extremities Exam: No Edema Neurologic Neuro Exam: Awake Assessment/Plan Discussed Condition With: Patient Problem List: (1) MITCH (acute kidney injury) ICD Codes: N17.9 - Acute kidney failure, unspecified Plan: Given brisk urine output after Solano catheter placement with improvement in creatinine level I believe that the patient's renal insufficiency was primarily related to bladder outlet obstruction. Continue Solano catheter drainage. No other recommendations at this time. Continue to monitor renal disease and volume status. If patient's renal function continues to improve we will see patient on a as needed basis. Could consider urology opinion prior to Solano removal. Will defer to primary care physician in this regard. Medications should be adjusted for the patient's renal decline. Avoid nephrotoxic medications including NSAIDs and iodinated contrast dyes. Avoid gadolinium when GFR <30. (2) Ileus ICD Codes: K56.7 - Ileus, unspecified Plan: post surgical NG tube placed (3) Septic hip ICD Codes: M00.9 - Pyogenic arthritis, unspecified Plan: Abx as per ID BCx pending from 09/11 (4) Anemia ICD Codes: D64.9 - Anemia, unspecified Plan: Repeat CBC with Fe panel Aide Armstrong MD Sep 13, 2017 15:50
--- NOTE | 2017-09-13 16:33 | HHI.GIFU ---
Subjective Remarks Pt was transferred to [facility] last night She appears much more comfortable this morning Still with NGT to LIWS and rectal tube to gravity Has not had a BM (Roxane Monte) Objective Vitals I&O Vital Signs Date Time Temp Pulse Resp B/P (MAP) Pulse Ox O2 Delivery O2 Flow Rate FiO2 09/13/17 08:38 100 Nasal Cannula 2.00 09/13/17 06:00 79 09/13/17 04:00 98.4 79 11 91/54 (66) 100 09/13/17 04:00 79 09/13/17 02:00 90 09/13/17 00:00 99.2 83 11 93/49 (64) 99 09/13/17 00:00 83 09/12/17 22:00 87 09/12/17 20:00 98.6 86 11 96/52 (67) 97 09/12/17 20:00 86 09/12/17 19:00 96 Nasal Cannula 3.00 09/12/17 18:38 97 Nasal Cannula 3.00 I/O 09/12/17 09/12/17 09/12/17 09/13/17 09/13/17 09/13/17 07:00 15:00 23:00 07:00 15:00 23:00 Intake Total 0 ml 200 ml 500 ml 1812 ml Output Total 200 ml 3100 ml 1500 ml 3400 ml Balance -200 ml 200 ml -2600 ml -1500 ml -1588 ml Intake Oral 0 ml 30 ml IV Total 200 ml 500 ml 1782 ml Output Urine Total 3100 ml 1450 ml 3400 ml Gastric Drainage Total 200 ml 50 ml # Voids 2 # Bowel Movements 0 0 0 Laboratory Laboratory Tests Test 09/12/17 16:39 09/13/17 05:02 09/13/17 11:25 Phosphorus Level 4.7 Iron Level 12 Total Iron Binding Capacity 248 Percent Iron Saturation 4.8 Ferritin 95 Total Protein 5.7 25-Hydroxy Vitamin D Total 8.8 Parathyroid Hormone (Intact) 54.3 Immunoglobulin G Total 640 Immunoglobulin A 226 Immunoglobulin M 42 Immunoglobulin [place]/Lambda Ratio 2.61 Complement C3 144 Complement C4 25 [place] Light Chain Analysis 201 Lambda Light Chain Analysis 77 Hepatitis C IgG Antibody NONREACTIVE White Blood Count 12.2 Red Blood Count 2.47 Hemoglobin 6.7 Hematocrit 20.3 Mean Corpuscular Volume 82.3 Mean Corpuscular Hemoglobin 27.0 Mean Corpuscular Hemoglobin Concent 32.8 Red Cell Distribution Width 16.4 Platelet Count 380 Mean Platelet Volume 7.5 Neutrophils (%) (Auto) 77.0 Lymphocytes (%) (Auto) 10.5 Monocytes (%) (Auto) 7.3 Eosinophils (%) (Auto) 4.9 Basophils (%) (Auto) 0.3 Neutrophils # (Auto) 9.4 Lymphocytes # (Auto) 1.3 Monocytes # (Auto) 0.9 Eosinophils # (Auto) 0.6 Basophils # (Auto) 0.0 CBC Comment DIFF FINAL Differential Comment Blood Urea Nitrogen 21 Creatinine 2.35 Random Glucose 100 Calcium Level 8.4 Magnesium Level 2.0 Sodium Level 143 Potassium Level 3.4 Chloride Level 109 Carbon Dioxide Level 24.9 Anion Gap 9 Estimat Glomerular Filtration Rate 21 Urine Color COLORLESS Urine Turbidity CLEAR Urine pH 6.0 Urine Specific [place] 1.004 Urine Protein NEG Urine Glucose (UA) NEG Urine Ketones NEG Urine Occult Blood NEG Urine Nitrite NEG Urine Bilirubin NEG Urine Urobilinogen LESS THAN 2.0 Urine Leukocyte Esterase MOD Urine RBC 3 Urine WBC 10 Urine Squamous Epithelial Cells <1 Urine Amorphous Sediment RARE Urine Bacteria OCC Urine Mucus FEW Microscopic Urinalysis Comment CULTURE INDICATED Urine Eosinophils NONE SEEN Urine Random Creatinine LESS THAN 5 Urine Random Total Protein 5 Urine Protein/Creatinine Ratio 1.00 Date/Time Source Procedure Growth Status 09/11/17 14:01 Blood Peripheral Aerobic Blood Culture - Preliminary NO GROWTH IN 2 DAYS Resulted 09/11/17 14:01 Blood Peripheral Anaerobic Blood Culture - Preliminary NO GROWTH IN 2 DAYS Resulted 09/13/17 11:25 Urine Clean Catch Urine Culture Pending Received 09/09/17 14:50 Wound Hip Fungal Smear - Final NO FUNGAL ELEMENTS SEEN. Resulted 09/09/17 14:50 Wound Hip Fungal Culture Pending Resulted Imaging Last Impressions Abdomen X-Ray 09/13/17 0600 Signed Impressions: Service Date/Time: Wednesday, September 13, 2017 04:04 - CONCLUSION: No dilated loops of bowel the current study. Gas throughout normal caliber colon. Karsten Singh Jr., MD Renal Ultrasound 09/12/17 0000 Signed Impressions: Service Date/Time: Tuesday, September 12, 2017 10:03 - CONCLUSION: 1. Distended urinary bladder. 2. Slight prominence right renal pelvis. Harlan Cornejo MD Hip X-Ray 09/12/17 0000 Signed Impressions: Service Date/Time: Tuesday, September 12, 2017 06:45 - CONCLUSION: Stable exam.. Abigail Spencer MD Chest X-Ray 09/12/17 0000 Signed Impressions: Service Date/Time: Tuesday, September 12, 2017 14:57 - CONCLUSION: Minimal left basilar density. Endotracheal tube in distal esophagus. Harlan Cornejo MD Lower Extremity Ultrasound 09/11/17 0000 Signed Impressions: Service Date/Time: August 22:51 - CONCLUSION: 1. No DVT. 2. Small simple right Mederos's cyst. Karsten Singh Jr., MD Physical Exam HEENT: Normocephalic; atraumatic CHEST: Even/unlabored CARDIAC: RRR ABDOMEN: Soft, nondistended, nontender; bowel sounds active- rectal tube to arzola bag with no output SKIN: Normal; no rash; no jaundice. BUSINESS REPRESENTATIVE: Lethargic, answers questions appropriately (Roxane Monte) Assessment and Plan Plan Assessment: - Abdominal distention with imaging consistent with ileus Pt S/P resection arthroplasty of her left hip and insertion of a cement spacer KUB (09/11) --> Moderate gaseous distention of bowel, mainly stomach and colon. Appearance most consistent with adynamic ileus Pt now with NGT to LIWS with 300 mL of brown colored drainage No BM documented in multiple days. On opioid medication. Pt appears uncomfortable and minimally answering questions so history is hard to obtain. Does report EGD and colonoscopy multiple years ago, states both exams were normal. - Distended urinary bladder- possibly contributory- Arzola catheter per attending (09/13) Pt appears much more comfortable today. Still with NGT to LIWS and rectal tube to gravity with no stool output. Now with Arzola catheter Repeat KUB (09/13) --> No dilated loops of small bowel. Gas throughout normal caliber colon. Drop in H/H noted over night- no obvious GIB- tx per attending Plan: - CT abdomen and pelvis W/O IV contrast - NPO - NGT to LIWS - Red rectal tube to gravity - Based on CT findings can consider clamping NGT and advancing to clear liquid diet - Further recommendations based on clinical course Patient has been seen and examined by myself and Dr. Singh and this note is written on his behalf (Roxane Monte) Physician Comments Patient seen and examined Agree with above Continue with current supportive care Monitor labs Await CT Further recommendations shall depend on findings and hospital course (Bird Singh MD) Roxane Monte Sep 13, 2017 16:33 Bird Singh MD Sep 13, 2017 22:09
[2017-09-13] MEDS: RIVAROXABAN 10 MG TAB PO SCH (17:00)
[2017-09-13] MEDS ORDERED: BENZOCAINE 20% ORAL SPR 60 ML CAN OROPHARYNG PRN (20:30)
[2017-09-13] MEDS ORDERED: FUROSEMIDE 20 MG/2 ML VIAL IV PUSH SCH (21:30)
[2017-09-14] VITALS (19 sets, daily range): BP systolic 130–176; BP diastolic 65–85; PULSE 63–82; RESP 16–18; TEMP 98.2–98.7; O2SAT 92–98
[2017-09-14 07:20] LABS: AUTOMATED NEUTROPHIL # 8.7 TH/MM3 (1.8-7.7); BASOPHIL % 0.4 % (0.0-2.0); EOSINOPHIL # 0.8 TH/MM3 (0-0.4); HEMATOCRIT 30.2 % (35.0-46.0); HEMOGLOBIN 9.9 GM/DL (11.6-15.3); LYMPH % 9.1 % (9.0-44.0); LYMPHOCYTE # 1.1 TH/MM3 (1.0-4.8); MEAN CELL VOLUME 81.4 FL (80.0-100.0); MEAN CORPUSCULAR HEMOGLOBIN 26.8 PG (27.0-34.0); MEAN CORPUSCULAR HGB CONC 32.9 % (32.0-36.0); MONO % 8.1 % (0.0-8.0); MONOCYTE # 0.9 TH/MM3 (0-0.9); NEUT % 75.4 % (16.0-70.0); PLATELET COUNT 454 TH/MM3 (150-450); RED BLOOD COUNT 3.71 MIL/MM3 (4.00-5.30); RED CELL DISTRIBUTION WIDTH 16.3 % (11.6-17.2); WHITE BLOOD COUNT 11.6 TH/MM3 (4.0-11.0)
[2017-09-14 07:50] LABS: BICARBONATE 28.7 MEQ/L (21.0-32.0); CALCIUM 8.7 MG/DL (8.5-10.1); CREATININE 1.67 MG/DL (0.50-1.00)
[2017-09-14] MEDS ORDERED: POTASSIUM CHLORIDE 20 MEQ CONTROLLED RELEASE TAB PO ONE (09:00)
[2017-09-14] MEDS: DEXT 5%-NACL 0.45% 1000 ML INJ 1,000 ML IV SCH (09:04)
--- NOTE | 2017-09-14 09:17 | RADRPT ---
EXAM DATE/TIME: 09/14/2017 08:47 [facility] COMPARISON: No previous studies available for comparison. INDICATIONS : Abdominal distention, status post recent hip surgery. ORAL CONTRAST: No oral contrast ingested. RADIATION DOSE: 16.93 CTDIvol (mGy) MEDICAL HISTORY : Cardiovascular disease. Blood clots rt leg SURGICAL HISTORY : Cholecystectomy. Implanted device, Umbiblical hernia ENCOUNTER: Initial ACUITY: 1 day PAIN SCALE: 7/10 LOCATION: diffuse abdomen TECHNIQUE: Volumetric scanning of the abdomen and pelvis was performed. Using automated exposure control and ad justment of the mA and/or kV according to patient size, radiation dose was kept as low as reasonably achievable to obtain optimal diagnostic quality images. DICOM format image data is available electro nically for review and comparison. FINDINGS: LOWER LUNGS: There are minimal pleural effusions with mild consolidation in the left posterior lung base. LIVER: Homogeneous density without lesion. There is no dilation of the biliary tree. There is mild hepatic steatosis. The patient is status post cholecystectomy with surgical clips present. SPLEEN: Normal size without lesion. PANCREAS: Within normal limits. KIDNEYS: Normal in size and shape. There is no mass, stone, or hydronephrosis. ADRENAL GLANDS: Within normal limits. VASCULAR: There is no aortic aneurysm. BOWEL/MESENTERY: No oral contrast was given limiting the sensitivity of the exam. A nasogastric tube is seen coursing into the stomach with the tip in the proximal duodenum.. Scattered diverticula are noted in the colo n. There are multiple loops of nondilated air-containing small bowel several small air-fluid levels. There is no focal wall thickening or inflammatory change. The terminal ileum appears unremarkable. Th ere is no free intraperitoneal air or fluid. A rectal catheter is present. ABDOMINAL WALL: There is an anterior abdominal wall hernia just the right of midline containing mesenteric fat. This best seen on axial image #54. RETROPERITONEUM: There is no lymphadenopathy. BLADDER: No wall thickening or mass. A Solano catheter is present as well as a small amount of air. REPRODUCTIVE: Within normal limits. INGUINAL: There is no lymphadenopathy or hernia. MUSCULOSKELETAL: Status post left hip arthroplasty with streak artifact. There are mild degenerative changes. CONCLUSION: 1. Mild diverticulosis with nonspecific, nonobstructive bowel gas pattern most characteristic of a mi ld ileus. 2. Minimal pleural effusions with mild consolidation in the left lower lobe. 3. Status post cholecystectomy. 4. Small anterior abdominal wall hernia containing mesenteric fat. 5. Rectal tube in place as well as nasogastric tube in place with the tip proximal duodenum. Yunior Olivarez MD on September 14, 2017 at 9:04 Board Certified Radiologist. This report was verified electronically.
[2017-09-14] MEDS: DOCUSATE SODIUM 100 MG CAP PO SCH ×2 (09:59→21:00)
[2017-09-14] MEDS: SODIUM CHLOR 0.9% 1000 ML INJ 1,000 ML IV SCH ×3 (09:59→20:13)
--- NOTE | 2017-09-14 11:20 | HHI.GIFU ---
Subjective Remarks Pt resting in bed States feeling better today NGT currently clamped Rectal tube remains in place (Roxane Monte) Objective Vitals I&O Vital Signs Date Time Temp Pulse Resp B/P (MAP) Pulse Ox O2 Delivery O2 Flow Rate FiO2 09/14/17 10:48 73 09/14/17 09:19 95 Nasal Cannula 3.00 09/14/17 09:00 66 09/14/17 08:30 97 Nasal Cannula 2.00 09/14/17 08:30 78 09/14/17 08:30 98.2 66 16 148/74 (98) 97 09/14/17 00:00 81 09/14/17 00:00 82 16 130/65 (86) 92 09/13/17 22:03 98.4 78 16 128/64 93 09/13/17 22:00 87 09/13/17 22:00 Nasal Cannula 3.00 09/13/17 22:00 78 16 148/68 (94) 96 09/13/17 21:47 98.4 76 16 94 09/13/17 20:43 Nasal Cannula 3.00 09/13/17 19:00 78 13 129/60 (83) 97 09/13/17 19:00 78 09/13/17 18:11 18 09/13/17 18:00 77 11 117/55 (75) 98 09/13/17 18:00 77 09/13/17 17:12 98.8 81 16 122/60 99 09/13/17 17:00 81 09/13/17 17:00 98.8 81 16 122/60 (80) 97 09/13/17 14:00 80 09/13/17 14:00 80 15 116/57 (76) 99 09/13/17 13:00 83 09/13/17 13:00 83 21 129/63 (85) 98 09/13/17 12:00 79 15 113/57 (75) 98 09/13/17 12:00 79 I/O 09/13/17 09/13/17 09/13/17 09/14/17 09/14/17 09/14/17 07:00 15:00 23:00 07:00 15:00 23:00 Intake Total 2062 ml 650 ml Output Total 1500 ml 3600 ml Balance -1500 ml -1538 ml 650 ml Intake Oral 30 ml IV Total 1782 ml Packed Cells 400 ml Blood Product IV Normal Saline Flush 250 ml 250 ml Output Urine Total 1450 ml 3600 ml Gastric Drainage Total 50 ml # Bowel Movements 0 0 0 Laboratory Laboratory Tests Test 09/13/17 11:25 09/14/17 06:40 Urine Color COLORLESS Urine Turbidity CLEAR Urine pH 6.0 Urine Specific [place] 1.004 Urine Protein NEG Urine Glucose (UA) NEG Urine Ketones NEG Urine Occult Blood NEG Urine Nitrite NEG Urine Bilirubin NEG Urine Urobilinogen LESS THAN 2.0 Urine Leukocyte Esterase MOD Urine RBC 3 Urine WBC 10 Urine Squamous Epithelial Cells <1 Urine Amorphous Sediment RARE Urine Bacteria OCC Urine Mucus FEW Microscopic Urinalysis Comment CULTURE INDICATED Urine Eosinophils NONE SEEN Urine Random Creatinine LESS THAN 5 Urine Random Total Protein 5 Urine Protein/Creatinine Ratio 1.00 White Blood Count 11.6 Red Blood Count 3.71 Hemoglobin 9.9 Hematocrit 30.2 Mean Corpuscular Volume 81.4 Mean Corpuscular Hemoglobin 26.8 Mean Corpuscular Hemoglobin Concent 32.9 Red Cell Distribution Width 16.3 Platelet Count 454 Mean Platelet Volume 7.0 Neutrophils (%) (Auto) 75.4 Lymphocytes (%) (Auto) 9.1 Monocytes (%) (Auto) 8.1 Eosinophils (%) (Auto) 7.0 Basophils (%) (Auto) 0.4 Neutrophils # (Auto) 8.7 Lymphocytes # (Auto) 1.1 Monocytes # (Auto) 0.9 Eosinophils # (Auto) 0.8 Basophils # (Auto) 0.0 CBC Comment DIFF FINAL Differential Comment Blood Urea Nitrogen 22 Creatinine 1.67 Random Glucose 105 Calcium Level 8.7 Sodium Level 144 Potassium Level 2.7 Chloride Level 103 Carbon Dioxide Level 28.7 Anion Gap 12 Estimat Glomerular Filtration Rate 31 Date/Time Source Procedure Growth Status 09/11/17 14:01 Blood Peripheral Aerobic Blood Culture - Preliminary NO GROWTH IN 3 DAYS Resulted 09/11/17 14:01 Blood Peripheral Anaerobic Blood Culture - Preliminary NO GROWTH IN 3 DAYS Resulted 09/13/17 11:25 Urine Clean Catch Urine Culture Pending Received 09/09/17 14:50 Wound Hip Fungal Smear - Final NO FUNGAL ELEMENTS SEEN. Resulted 09/09/17 14:50 Wound Hip Fungal Culture Pending Resulted Imaging Last Impressions Abdomen/Pelvis CT 09/14/17 0000 Signed Impressions: Service Date/Time: Thursday, September 14, 2017 08:47 - CONCLUSION: 1. Mild diverticulosis with nonspecific, nonobstructive bowel gas pattern most characteristic of a mild ileus. 2. Minimal pleural effusions with mild consolidation in the left lower lobe. 3. Status post cholecystectomy. 4. Small anterior abdominal wall hernia containing mesenteric fat. 5. Rectal tube in place as well as nasogastric tube in place with the tip proximal duodenum. Yunior Olivarez MD Abdomen X-Ray 09/13/17 0600 Signed Impressions: Service Date/Time: Wednesday, September 13, 2017 04:04 - CONCLUSION: No dilated loops of bowel the current study. Gas throughout normal caliber colon. Karsten Singh Jr., MD Renal Ultrasound 09/12/17 0000 Signed Impressions: Service Date/Time: Tuesday, September 12, 2017 10:03 - CONCLUSION: 1. Distended urinary bladder. 2. Slight prominence right renal pelvis. Harlan Cornejo MD Hip X-Ray 09/12/17 0000 Signed Impressions: Service Date/Time: Tuesday, September 12, 2017 06:45 - CONCLUSION: Stable exam.. Abigail Spencer MD Chest X-Ray 09/12/17 0000 Signed Impressions: Service Date/Time: Tuesday, September 12, 2017 14:57 - CONCLUSION: Minimal left basilar density. Endotracheal tube in distal esophagus. Harlan Cornejo MD Lower Extremity Ultrasound 09/11/17 0000 Signed Impressions: Service Date/Time: August 22:51 - CONCLUSION: 1. No DVT. 2. Small simple right Mederos's cyst. Karsten Singh Jr., MD Physical Exam HEENT: Normocephalic; atraumatic CHEST: Even/unlabored CARDIAC: RRR ABDOMEN: Soft, nondistended, nontender; bowel sounds active- rectal tube to arzola bag with no output. NGT clamped SKIN: Normal; no rash; no jaundice. WEIGHT LOSS COUNSELOR: Alert and oriented x 3 (Roxane Monte) Assessment and Plan Plan Assessment: - Abdominal distention with imaging consistent with ileus Pt S/P resection arthroplasty of her left hip and insertion of a cement spacer KUB (09/11) --> Moderate gaseous distention of bowel, mainly stomach and colon. Appearance most consistent with adynamic ileus Pt now with NGT to LIWS with 300 mL of brown colored drainage No BM documented in multiple days. On opioid medication. Pt appears uncomfortable and minimally answering questions so history is hard to obtain. Does report EGD and colonoscopy multiple years ago, states both exams were normal. - Distended urinary bladder- possibly contributory- Arzola catheter per attending (09/13) Pt appears much more comfortable today. Still with NGT to LIWS and rectal tube to gravity with no stool output. Now with Arzola catheter Repeat KUB (09/13) --> No dilated loops of small bowel. Gas throughout normal caliber colon. Drop in H/H noted over night- no obvious GIB- tx per attending (09/15) Pt reports she feels better today. NGT currently clamped. Still with rectal tube to gravity CT abdomen and pelvis W/O IV contrast (09/14) --> . Mild diverticulosis with nonspecific, nonobstructive bowel gas pattern most characteristic of a mild ileus. Minimal pleural effusions with mild consolidation in the left lower lobe. Status post cholecystectomy. Small anterior abdominal wall hernia containing mesenteric fat. Rectal tube in place as well as nasogastric tube in place with the tip proximal duodenum. Receive 2 U PRBCs yesterday, H/H improved from 6.7/20.3 to 9.9/30.2 Plan: - NGT clamped - Start on clear liquid diet - If tolerating can DC NG and rectal tube - Monitor stool count - Relistor can be considered given opioids during hospitalization - Further recommendations based on clinical course Patient has been seen and examined by myself and Dr. Singh and this note is written on his behalf (Roxane Monte) Physician Comments Patient seen and examined Agree with above Continue with current supportive care Monitor labs (Bird Singh MD) Roxane Monte Sep 14, 2017 11:20 Bird Singh MD Sep 15, 2017 00:30
[2017-09-14] MEDS: MORPHINE SULFATE 2 MG/ML SYRINGE IV PRN ×2 (11:38→20:13)
[2017-09-14] MEDS: DAPTOmycin INJ 800 MG in SODIUM CHLORIDE 0.9% INJ 100 ML IV SCH (13:27)
--- NOTE | 2017-09-14 14:44 | HHI.IDPN ---
Subjective Subjective Remarks ID Xcover for Dr. Crawford 61 yo morbidly obese female with DJD sp L hip arthroplasty in jun Initially healed, but later developed dehiscence and drainage along with the pain worsening with weight bearing In July she underwent I+D, cultures were negative She took 2 weeks of Keflex with no improvement She presented to Dr Gonzalez office and he aspirated the hip Culture is positive for coag positive staph blood cultures are negative @ 2 days and Xray was unremarkable She is to undergo removal of prosthesis as the first stage of 2 stage procedure Notes reviewed Temps ok Abdomen feels better NGT in place -clamped Left hip pain controlled No BM No rash or itching WBC better Creatinine decreasing Good UO BP ok Left hip wound cx positive for MRSA and Enterococcus faecalis Blood C/S negative so far CXR minimal L basilar density Antibiotics IV Daptomycin Current Medications Medications (Trade) Dose Ordered Sig/Hemanth Route Start Time Stop Time Status Last Admin (Xarelto) 10 mg Q24H PO 09/10/17 17:00 09/13/17 17:00 (Tylenol) 650 mg Q6H PRN PO 09/09/17 17:15 09/11/17 09:00 (Zofran Inj) 4 mg Q6H PRN IVP 09/09/17 17:15 09/11/17 17:06 (Ambien) 5 mg HS PRN PO 09/09/17 17:15 (Soma) 350 mg Q6H PRN PO 09/10/17 14:15 09/11/17 00:19 Daptomycin 800 mg/ Sodium Chloride 100 ml @ 200 mls/hr Q24H IV 09/11/17 14:00 09/14/17 13:27 Sodium Chloride 1,000 ml @ 100 mls/hr Q10H IV 09/11/17 18:15 09/14/17 09:59 (Colace) 100 mg BID PO 09/11/17 21:00 09/14/17 09:59 (Morphine Inj) 2 mg Q2H PRN IV 09/13/17 09:45 09/14/17 11:38 (Hurricaine 20% Oral Spr) 1 spray Q2H PRN OROPHARYNG 09/13/17 20:30 Lines PIV with no e/o infection Past Medical History obesity, BMI 38.2 DJD Allergies: Coded Allergies: No Known Allergies (Unverified , 09/07/17) Objective . Vital Signs Date Time Temp Pulse Resp B/P (MAP) Pulse Ox O2 Delivery O2 Flow Rate FiO2 09/14/17 14:25 73 09/14/17 13:19 78 09/14/17 11:44 16 09/14/17 11:30 69 09/14/17 11:30 97 Nasal Cannula 2.00 09/14/17 11:30 98.4 69 16 166/78 (107) 97 09/14/17 10:48 73 09/14/17 09:19 95 Nasal Cannula 3.00 09/14/17 09:00 66 09/14/17 08:30 97 Nasal Cannula 2.00 09/14/17 08:30 78 09/14/17 08:30 98.2 66 16 148/74 (98) 97 09/14/17 00:00 81 09/14/17 00:00 82 16 130/65 (86) 92 09/13/17 22:03 98.4 78 16 128/64 93 09/13/17 22:00 87 09/13/17 22:00 Nasal Cannula 3.00 09/13/17 22:00 78 16 148/68 (94) 96 09/13/17 21:47 98.4 76 16 94 09/13/17 20:43 Nasal Cannula 3.00 09/13/17 19:00 78 13 129/60 (83) 97 09/13/17 19:00 78 09/13/17 18:11 18 09/13/17 18:00 77 11 117/55 (75) 98 09/13/17 18:00 77 09/13/17 17:12 98.8 81 16 122/60 99 09/13/17 17:00 81 09/13/17 17:00 98.8 81 16 122/60 (80) 97 09/14/17 09/14/17 09/15/17 15:00 23:00 07:00 Intake Total 100 ml Balance 100 ml IV Total 100 ml # Bowel Movements 0 . Laboratory Tests Test 09/13/17 05:02 09/14/17 06:40 White Blood Count 12.2 TH/MM3 11.6 TH/MM3 Red Blood Count 2.47 MIL/MM3 3.71 MIL/MM3 Hemoglobin 6.7 GM/DL 9.9 GM/DL Hematocrit 20.3 % 30.2 % Mean Corpuscular Volume 82.3 FL 81.4 FL Mean Corpuscular Hemoglobin 27.0 PG 26.8 PG Mean Corpuscular Hemoglobin Concent 32.8 % 32.9 % Red Cell Distribution Width 16.4 % 16.3 % Platelet Count 380 TH/MM3 454 TH/MM3 Mean Platelet Volume 7.5 FL 7.0 FL Neutrophils (%) (Auto) 77.0 % 75.4 % Lymphocytes (%) (Auto) 10.5 % 9.1 % Monocytes (%) (Auto) 7.3 % 8.1 % Eosinophils (%) (Auto) 4.9 % 7.0 % Basophils (%) (Auto) 0.3 % 0.4 % Neutrophils # (Auto) 9.4 TH/MM3 8.7 TH/MM3 Lymphocytes # (Auto) 1.3 TH/MM3 1.1 TH/MM3 Monocytes # (Auto) 0.9 TH/MM3 0.9 TH/MM3 Eosinophils # (Auto) 0.6 TH/MM3 0.8 TH/MM3 Basophils # (Auto) 0.0 TH/MM3 0.0 TH/MM3 CBC Comment DIFF FINAL DIFF FINAL Differential Comment Laboratory Tests Test 09/12/17 16:39 09/13/17 05:02 09/14/17 06:40 Phosphorus Level 4.7 MG/DL Iron Level 12 MCG/DL Total Iron Binding Capacity 248 MCG/DL Percent Iron Saturation 4.8 % Ferritin 95 NG/ML Total Protein 5.7 GM/DL 25-Hydroxy Vitamin D Total 8.8 ng/ML Parathyroid Hormone (Intact) 54.3 PG/ML Blood Urea Nitrogen 21 MG/DL 22 MG/DL Creatinine 2.35 MG/DL 1.67 MG/DL Random Glucose 100 MG/DL 105 MG/DL Calcium Level 8.4 MG/DL 8.7 MG/DL Magnesium Level 2.0 MG/DL Sodium Level 143 MEQ/L 144 MEQ/L Potassium Level 3.4 MEQ/L 2.7 MEQ/L Chloride Level 109 MEQ/L 103 MEQ/L Carbon Dioxide Level 24.9 MEQ/L 28.7 MEQ/L Anion Gap 9 MEQ/L 12 MEQ/L Estimat Glomerular Filtration Rate 21 ML/MIN 31 ML/MIN Microbiology Date/Time Source Procedure Growth Status 09/13/17 11:25 Urine Clean Catch Urine Culture - Preliminary NO GROWTH IN 24 HOURS. Resulted Imaging Last Impressions Hip X-Ray 4/20/18 0000 Signed Impressions: Service Date/Time: Tuesday, September 12, 2017 06:45 - CONCLUSION: Stable exam.. Abigail Spencer MD Abdomen X-Ray 09/11/17 1729 Signed Impressions: Service Date/Time: August 18:16 - CONCLUSION: Moderate gaseous distention of bowel, mainly stomach and colon. Appearance most consistent with adynamic ileus Martir Wesley MD Lower Extremity Ultrasound 09/11/17 0000 Signed Impressions: Service Date/Time: August 22:51 - CONCLUSION: 1. No DVT. 2. Small simple right Mederos's cyst. Karsten Singh Jr., MD Physical Exam CONSTITUTIONAL/GENERAL: Awake and alert, NAD SKIN: Warm and dry. No rash. HEAD: Atraumatic. Normocephalic. EYES: Pupils equal and round and reactive. Extraocular motions intact. No scleral icterus. No injection or drainage. ENT: Nose with NGT in place, currently clamped. Dry oral mucosa. No oral thrush. NECK: Trachea midline. Supple, nontender. CARDIOVASCULAR: Regular rate and rhythm without murmurs, gallops, or rubs. RESPIRATORY/CHEST: Nonlabored. Good air entry. No wheezing, rhonchi appreciated. GASTROINTESTINAL: Abdomen soft, nondistended, nontender. (+)Hypoactive BS MUSCULOSKELETAL: Left hip dressing dry and intact. No LE edema appreciated. No calf tenderness NEUROLOGICAL: Awake and alert. Motor and sensory grossly within normal limits. Nonfocal. Normal speech. 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 Acute renal failure on IV Vanco with elevated eosinophils -concern for AIN -Vancomycin stopped and changed to IV Daptomycin - good UO, creatinine lower Abdominal pain with constipation, no BM in 5 days - KUB +adynamic ileus, NPO, NGT placed - patient improved but only passing flatus when moved, no BM as of yet - AXR better Obesity with BMI 38.2 Anemia, acute postoperative blood loss Hyperglycemia, elevated A1C, ?diabetes RECOMMENDATIONS: Vanco discontinued and changed to IV Daptomycin Continue Daptomycin - follow CPK Nephrology following GI following for ileus - AXR better - NG tube currently clamped Follow CBC Follow C/S Monitor clinical progress Maricarmen Dotson MD Sep 14, 2017 14:44
[2017-09-14] MEDS ORDERED: POTASSIUM CHLORIDE 10 MEQ CONTROLLED RELEASE TAB PO ONE (17:15)
[2017-09-14] MEDS: RIVAROXABAN 10 MG TAB PO SCH (17:21)
--- NOTE | 2017-09-14 18:15 | HHI.PR ---
Subjective Remarks Patient states she still feels very weak, she finds her NG tube and knowing, she would like to try to eat more solid foods and clear liquid diet. Objective Vitals Vital Signs Date Time Temp Pulse Resp B/P (MAP) Pulse Ox O2 Delivery O2 Flow Rate FiO2 09/14/17 18:04 69 09/14/17 17:15 74 09/14/17 16:40 71 09/14/17 15:05 98.7 71 16 163/75 (104) 98 09/14/17 15:05 98 Nasal Cannula 2.00 09/14/17 15:05 69 09/14/17 14:25 73 09/14/17 13:19 78 09/14/17 11:44 16 09/14/17 11:30 69 09/14/17 11:30 97 Nasal Cannula 2.00 09/14/17 11:30 98.4 69 16 166/78 (107) 97 09/14/17 10:48 73 09/14/17 09:19 95 Nasal Cannula 3.00 09/14/17 09:00 66 09/14/17 08:30 97 Nasal Cannula 2.00 09/14/17 08:30 78 09/14/17 08:30 98.2 66 16 148/74 (98) 97 09/14/17 00:00 81 09/14/17 00:00 82 16 130/65 (86) 92 09/13/17 22:03 98.4 78 16 128/64 93 09/13/17 22:00 87 09/13/17 22:00 Nasal Cannula 3.00 09/13/17 22:00 78 16 148/68 (94) 96 09/13/17 21:47 98.4 76 16 94 09/13/17 20:43 Nasal Cannula 3.00 09/13/17 19:00 78 13 129/60 (83) 97 09/13/17 19:00 78 09/13/17 18:11 18 I/O 09/13/17 09/13/17 09/13/17 09/14/17 09/14/17 09/14/17 07:00 15:00 23:00 07:00 15:00 23:00 Intake Total 2062 ml 650 ml 100 ml 690 ml Output Total 1500 ml 3600 ml 1250 ml Balance -1500 ml -1538 ml 650 ml 100 ml -560 ml Intake Oral 30 ml 690 ml IV Total 1782 ml 100 ml Packed Cells 400 ml Blood Product IV Normal Saline Flush 250 ml 250 ml Output Urine Total 1450 ml 3600 ml 1250 ml Gastric Drainage Total 50 ml # Bowel Movements 0 0 0 0 Result Diagram: 09/14/17 0640 09/14/17 1501 Objective Remarks GENERAL: Weak appearing female, NG tube in place SKIN: Warm and dry. HEAD: Normocephalic. EYES: No scleral icterus. No injection or drainage. NECK: Supple, trachea midline. No JVD or lymphadenopathy. CARDIOVASCULAR: Regular rate and rhythm without murmurs, gallops, or rubs. RESPIRATORY: Breath sounds equal bilaterally. No accessory muscle use. GASTROINTESTINAL: Abdomen soft, non-tender, nondistended. EXTREMITIES: No cyanosis, or edema. NEUROLOGICAL: Awake, alert, and oriented x 3. Non-focal. A/P Problem List: (1) Septic hip ICD Code: M00.9 - Pyogenic arthritis, unspecified (2) MITCH (acute kidney injury) ICD Code: N17.9 - Acute kidney failure, unspecified (3) Constipation ICD Code: K59.00 - Constipation, unspecified Assessment and Plan Septic arthritis left hip Status post left hip spacer placement Orthopedics recommends 50% weightbearing, daily dressing changes and to follow- up in 2 weeks Cultures grew coag positive Staphylococcus positive Staphylococcus, Blood cultures neg x 1 Continue Daptomycin, patient will possibly need a PICC on discharge Continue physical therapy Postop anemia Hb dropped to 6.7 post op. Transfused 2 units of packed red blood cells Hemoglobin 9.9 today Acute renal failure Creatinine increased to 2.35, vancomycin suspected Antibiotic changed to daptomycin and now creatinine is 1.67 (baseline 1.3) Ultrasound showed distended bladder Appreciate nephrology consult Tobacco abuse Recommend smoking cessation Ileus Resolving, patient still has NG tube, tolerating clears Advance diet as tolerated, will graduate to soft foods Remove NG tube DVT prophylaxis Koby Hunt MD Sep 14, 2017 18:15
[2017-09-14] MEDS: ONDANSETRON HCL 4 MG/2 ML VIAL IVP PRN (21:57)
[2017-09-15] VITALS (25 sets, daily range): BP systolic 137–163; BP diastolic 72–83; PULSE 50–78; RESP 16–18; TEMP 98.1–98.5; O2SAT 96–98
[2017-09-15] MEDS: MORPHINE SULFATE 2 MG/ML SYRINGE IV PRN (03:56)
[2017-09-15] MEDS: SODIUM CHLOR 0.9% 1000 ML INJ 1,000 ML IV SCH ×2 (05:59→15:55)
[2017-09-15 06:24] LABS: HEMATOCRIT 28.8 % (35.0-46.0); HEMOGLOBIN 9.5 GM/DL (11.6-15.3); MEAN CELL VOLUME 81.1 FL (80.0-100.0); MEAN CORPUSCULAR HEMOGLOBIN 26.7 PG (27.0-34.0); MEAN CORPUSCULAR HGB CONC 32.9 % (32.0-36.0); MEAN PLATELET VOLUME 7.1 FL (7.0-11.0); PLATELET COUNT 469 TH/MM3 (150-450); RED BLOOD COUNT 3.54 MIL/MM3 (4.00-5.30); RED CELL DISTRIBUTION WIDTH 16.4 % (11.6-17.2); WHITE BLOOD COUNT 11.2 TH/MM3 (4.0-11.0)
[2017-09-15 06:53] LABS: BICARBONATE 28.3 MEQ/L (21.0-32.0); CALCIUM 8.4 MG/DL (8.5-10.1); CREATININE 1.23 MG/DL (0.50-1.00)
[2017-09-15] MEDS: DOCUSATE SODIUM 100 MG CAP PO SCH ×2 (09:06→20:53)
--- NOTE | 2017-09-15 13:02 | HHI.GIFU ---
Subjective Remarks Pt resting in bed. c/o that she tried to eat eggs this morning and felt like they got stuck and took awhile to go down. No regurgitation. No painful swallowing. No abd pain, feeling better. Still no BM. (Elzbieta Bello) Objective Vitals I&O Vital Signs Date Time Temp Pulse Resp B/P (MAP) Pulse Ox O2 Delivery O2 Flow Rate FiO2 09/15/17 11:00 98.2 66 18 161/81 (107) 98 09/15/17 10:39 97 Nasal Cannula 2.00 09/15/17 07:00 98 Nasal Cannula 2.00 09/15/17 07:00 98.1 60 16 137/72 (93) 98 09/15/17 07:00 56 09/15/17 06:00 62 09/15/17 05:00 56 09/15/17 04:00 97 Nasal Cannula 2.00 09/15/17 04:00 66 16 141/83 (102) 97 09/15/17 04:00 68 09/15/17 03:00 65 09/15/17 02:00 60 09/15/17 01:00 68 09/15/17 00:00 70 09/14/17 23:00 64 09/14/17 23:00 71 16 160/79 (106) 98 09/14/17 23:00 98 Nasal Cannula 2.00 09/14/17 22:00 66 09/14/17 21:00 72 09/14/17 20:19 96 Nasal Cannula 2.00 09/14/17 20:00 93 Nasal Cannula 2.00 09/14/17 20:00 68 09/14/17 20:00 98.7 63 16 176/85 (115) 93 09/14/17 19:00 70 09/14/17 18:04 69 09/14/17 17:15 74 09/14/17 16:40 71 09/14/17 15:05 98.7 71 16 163/75 (104) 98 09/14/17 15:05 98 Nasal Cannula 2.00 09/14/17 15:05 69 09/14/17 14:25 73 09/14/17 13:19 78 I/O 09/14/17 09/14/17 09/14/17 09/15/17 09/15/17 09/15/17 07:00 15:00 23:00 07:00 15:00 23:00 Intake Total 650 ml 100 ml 1690 ml 1240 ml Output Total 1250 ml 800 ml Balance 650 ml 100 ml 440 ml 440 ml Intake Oral 690 ml 240 ml IV Total 100 ml 1000 ml 1000 ml Packed Cells 400 ml Blood Product IV Normal Saline Flush 250 ml Output Urine Total 1250 ml 800 ml # Bowel Movements 0 0 0 Laboratory Laboratory Tests Test 09/14/17 15:01 09/15/17 04:47 Potassium Level 2.8 2.9 White Blood Count 11.2 Red Blood Count 3.54 Hemoglobin 9.5 Hematocrit 28.8 Mean Corpuscular Volume 81.1 Mean Corpuscular Hemoglobin 26.7 Mean Corpuscular Hemoglobin Concent 32.9 Red Cell Distribution Width 16.4 Platelet Count 469 Mean Platelet Volume 7.1 Blood Urea Nitrogen 19 Creatinine 1.23 Random Glucose 91 Calcium Level 8.4 Sodium Level 143 Chloride Level 104 Carbon Dioxide Level 28.3 Anion Gap 11 Estimat Glomerular Filtration Rate 45 Date/Time Source Procedure Growth Status 09/11/17 14:01 Blood Peripheral Aerobic Blood Culture - Preliminary NO GROWTH IN 4 DAYS Resulted 09/11/17 14:01 Blood Peripheral Anaerobic Blood Culture - Preliminary NO GROWTH IN 4 DAYS Resulted 09/13/17 11:25 Urine Clean Catch Urine Culture - Preliminary Yeast-Id To Follow Resulted 09/09/17 14:50 Wound Hip Fungal Smear - Final NO FUNGAL ELEMENTS SEEN. Resulted 09/09/17 14:50 Wound Hip Fungal Culture Pending Resulted Imaging Last Impressions Abdomen/Pelvis CT 09/14/17 0000 Signed Impressions: Service Date/Time: Thursday, September 14, 2017 08:47 - CONCLUSION: 1. Mild diverticulosis with nonspecific, nonobstructive bowel gas pattern most characteristic of a mild ileus. 2. Minimal pleural effusions with mild consolidation in the left lower lobe. 3. Status post cholecystectomy. 4. Small anterior abdominal wall hernia containing mesenteric fat. 5. Rectal tube in place as well as nasogastric tube in place with the tip proximal duodenum. Yunior Olivarez MD Abdomen X-Ray 09/13/17 0600 Signed Impressions: Service Date/Time: Wednesday, September 13, 2017 04:04 - CONCLUSION: No dilated loops of bowel the current study. Gas throughout normal caliber colon. Karsten Singh Jr., MD Renal Ultrasound 09/12/17 0000 Signed Impressions: Service Date/Time: Tuesday, September 12, 2017 10:03 - CONCLUSION: 1. Distended urinary bladder. 2. Slight prominence right renal pelvis. Harlan Cornejo MD Hip X-Ray 09/12/17 Signed Impressions: Service Date/Time: Tuesday, September 12, 2017 06:45 - CONCLUSION: Stable exam.. Abigail Spencer MD Chest X-Ray 09/12/17 Signed Impressions: Service Date/Time: Tuesday, September 12, 2017 14:57 - CONCLUSION: Minimal left basilar density. Endotracheal tube in distal esophagus. Harlan Cornejo MD Lower Extremity Ultrasound 09/11/17 0000 Signed Impressions: Service Date/Time: August 22:51 - CONCLUSION: 1. No DVT. 2. Small simple right Mederos's cyst. Karsten Singh Jr., MD Physical Exam HEENT: Normocephalic; atraumatic CHEST: Even/unlabored CARDIAC: RRR ABDOMEN: Soft, nondistended, nontender; bowel sounds active SKIN: erythema and excoriations bilat calves HIGH SCHOOL MUSIC DIRECTOR: Alert and oriented x 3 (Elzbieta Bello GOVERNMENT SALES MANAGER) Assessment and Plan Plan Assessment: - Abdominal distention with imaging consistent with ileus Pt S/P resection arthroplasty of her left hip and insertion of a cement spacer KUB (09/11) --> Moderate gaseous distention of bowel, mainly stomach and colon. Appearance most consistent with adynamic ileus Pt now with NGT to LIWS with 300 mL of brown colored drainage No BM documented in multiple days. On opioid medication. Pt appears uncomfortable and minimally answering questions so history is hard to obtain. Does report EGD and colonoscopy multiple years ago, states both exams were normal. - Distended urinary bladder- possibly contributory- Solano catheter per attending (09/13) Pt appears much more comfortable today. Still with NGT to LIWS and rectal tube to gravity with no stool output. Now with Solano catheter Repeat KUB (09/13) --> No dilated loops of small bowel. Gas throughout normal caliber colon. Drop in H/H noted over night- no obvious GIB- tx per attending (09/15) Pt reports she feels better today. NGT currently clamped. Still with rectal tube to gravity CT abdomen and pelvis W/O IV contrast (09/14) --> . Mild diverticulosis with nonspecific, nonobstructive bowel gas pattern most characteristic of a mild ileus. Minimal pleural effusions with mild consolidation in the left lower lobe. Status post cholecystectomy. Small anterior abdominal wall hernia containing mesenteric fat. Rectal tube in place as well as nasogastric tube in place with the tip proximal duodenum. Receive 2 U PRBCs yesterday, H/H improved from 6.7/20.3 to 9.9/30.2 09/15/17 having some difficulty swallowing, 2/2 edema from NGT?? unclear etiology. No prior problems with dysphagia. will try puree consistency and would consider EGD if this difficulty does persist. abd soft, BS +, nontender HH stable Plan: - pureed consistency, advance as tolerated - supportive care Patient has been seen and examined by myself and Dr. Singh and this note is written on his behalf (Elzbieta Bello) Physician Comments patient seen and examined agree with above monitor labs continue present supportive care (Bird Singh MD) Elzbieta Bello Sep 15, 2017 13:02 Bird Singh MD Sep 15, 2017 21:15
[2017-09-15] MEDS: DAPTOmycin INJ 800 MG in SODIUM CHLORIDE 0.9% INJ 100 ML IV SCH (14:22)
[2017-09-15] MEDS: RIVAROXABAN 10 MG TAB PO SCH (18:07)
--- NOTE | 2017-09-15 18:07 | HHI.IDPN ---
Subjective Subjective Remarks sp L hip arthroplasty in jun sp removal of prosthesis as the first stage of 2 stage procedure Left hip wound cx positive for MRSA and Enterococcus faecalis developped post op ileus and MITCH Now better creatinine dowin to near normal + having BMs, abd pain distension improved Antibiotics IV Daptomycin Lines PIV with no e/o infection Past Medical History obesity, BMI 38.2 DJD Allergies: Coded Allergies: No Known Allergies (Unverified , 09/07/17) Objective . Vital Signs Date Time Temp Pulse Resp B/P (MAP) Pulse Ox O2 Delivery O2 Flow Rate FiO2 09/15/17 11:00 98.2 66 18 161/81 (107) 98 09/15/17 10:39 97 Nasal Cannula 2.00 09/15/17 07:00 98 Nasal Cannula 2.00 09/15/17 07:00 98.1 60 16 137/72 (93) 98 09/15/17 07:00 56 09/15/17 06:00 62 09/15/17 05:00 56 09/15/17 04:00 97 Nasal Cannula 2.00 09/15/17 04:00 66 16 141/83 (102) 97 09/15/17 04:00 68 09/15/17 03:00 65 09/15/17 02:00 60 09/15/17 01:00 68 09/15/17 00:00 70 09/14/17 23:00 64 09/14/17 23:00 71 16 160/79 (106) 98 09/14/17 23:00 98 Nasal Cannula 2.00 09/14/17 22:00 66 09/14/17 21:00 72 09/14/17 20:19 96 Nasal Cannula 2.00 09/14/17 20:00 93 Nasal Cannula 2.00 09/14/17 20:00 68 09/14/17 20:00 98.7 63 16 176/85 (115) 93 09/14/17 19:00 70 09/14/17 18:04 69 . Laboratory Tests Test 09/14/17 06:40 09/15/17 04:47 White Blood Count 11.6 TH/MM3 11.2 TH/MM3 Red Blood Count 3.71 MIL/MM3 3.54 MIL/MM3 Hemoglobin 9.9 GM/DL 9.5 GM/DL Hematocrit 30.2 % 28.8 % Mean Corpuscular Volume 81.4 FL 81.1 FL Mean Corpuscular Hemoglobin 26.8 PG 26.7 PG Mean Corpuscular Hemoglobin Concent 32.9 % 32.9 % Red Cell Distribution Width 16.3 % 16.4 % Platelet Count 454 TH/MM3 469 TH/MM3 Mean Platelet Volume 7.0 FL 7.1 FL Neutrophils (%) (Auto) 75.4 % Lymphocytes (%) (Auto) 9.1 % Monocytes (%) (Auto) 8.1 % Eosinophils (%) (Auto) 7.0 % Basophils (%) (Auto) 0.4 % Neutrophils # (Auto) 8.7 TH/MM3 Lymphocytes # (Auto) 1.1 TH/MM3 Monocytes # (Auto) 0.9 TH/MM3 Eosinophils # (Auto) 0.8 TH/MM3 Basophils # (Auto) 0.0 TH/MM3 CBC Comment DIFF FINAL Differential Comment Laboratory Tests Test 09/14/17 06:40 09/14/17 15:01 09/15/17 04:47 Blood Urea Nitrogen 22 MG/DL 19 MG/DL Creatinine 1.67 MG/DL 1.23 MG/DL Random Glucose 105 MG/DL 91 MG/DL Calcium Level 8.7 MG/DL 8.4 MG/DL Sodium Level 144 MEQ/L 143 MEQ/L Potassium Level 2.7 MEQ/L 2.8 MEQ/L 2.9 MEQ/L Chloride Level 103 MEQ/L 104 MEQ/L Carbon Dioxide Level 28.7 MEQ/L 28.3 MEQ/L Anion Gap 12 MEQ/L 11 MEQ/L Estimat Glomerular Filtration Rate 31 ML/MIN 45 ML/MIN Microbiology Date/Time Source Procedure Growth Status 09/13/17 11:25 Urine Clean Catch Urine Culture - Preliminary Yeast-Id To Follow Resulted Imaging Last Impressions Abdomen/Pelvis CT 09/14/17 0000 Signed Impressions: Service Date/Time: Thursday, September 14, 2017 08:47 - CONCLUSION: 1. Mild diverticulosis with nonspecific, nonobstructive bowel gas pattern most characteristic of a mild ileus. 2. Minimal pleural effusions with mild consolidation in the left lower lobe. 3. Status post cholecystectomy. 4. Small anterior abdominal wall hernia containing mesenteric fat. 5. Rectal tube in place as well as nasogastric tube in place with the tip proximal duodenum. Yunior Olivarez MD Abdomen X-Ray 09/13/17 0600 Signed Impressions: Service Date/Time: Wednesday, September 13, 2017 04:04 - CONCLUSION: No dilated loops of bowel the current study. Gas throughout normal caliber colon. Karsten Singh Jr., MD Renal Ultrasound 09/12/17 0000 Signed Impressions: Service Date/Time: Tuesday, September 12, 2017 10:03 - CONCLUSION: 1. Distended urinary bladder. 2. Slight prominence right renal pelvis. Harlan Cornejo MD Hip X-Ray 09/12/17 Signed Impressions: Service Date/Time: Tuesday, September 12, 2017 06:45 - CONCLUSION: Stable exam.. Abigail Spencer MD Chest X-Ray 09/12/17 Signed Impressions: Service Date/Time: Tuesday, September 12, 2017 14:57 - CONCLUSION: Minimal left basilar density. Endotracheal tube in distal esophagus. Harlan Cornejo MD Lower Extremity Ultrasound 09/11/17 0000 Signed Impressions: Service Date/Time: August 22:51 - CONCLUSION: 1. No DVT. 2. Small simple right Mederos's cyst. Karsten Singh Jr., MD Physical Exam CONSTITUTIONAL/GENERAL: Awake and alert, NAD SKIN: Warm and dry. No rash. HEAD: Atraumatic. Normocephalic. EYES: Pupils equal and round and reactive. Extraocular motions intact. No scleral icterus. No injection or drainage. ENT: Moist oral mucosa. No oral thrush. CARDIOVASCULAR: Regular rate and rhythm without murmurs, gallops, or rubs. RESPIRATORY/CHEST: Nonlabored. Good air entry. No wheezing, rhonchi appreciated. GASTROINTESTINAL: Abdomen soft, nondistended, minimlalay tender LLQ (+) BS MUSCULOSKELETAL: No LE edema appreciated. No calf tenderness NEUROLOGICAL: Awake and alert. Motor and sensory grossly within normal limits. Nonfocal. Normal speech. 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 Acute renal failure on IV Vanco with elevated eosinophils -concern for AIN -Vancomycin stopped and changed to IV Daptomycin - resolving Post op ileus - resolving Obesity with BMI 38.2 Anemia, acute postoperative blood loss Hyperglycemia, elevated A1C, ?diabetes RECOMMENDATIONS: Continue Daptomycin x 6 weeks from post op day; then wait at least 2 weeks off before 2nd stage - follow CPK weekly , along with CRP and ESR Follow CBC Follow C/S Monitor clinical progress PICC Kim Crawford MD Sep 15, 2017 18:07
--- NOTE | 2017-09-15 18:15 | HHI.FF ---
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 [] May leave port accessed during therapy. [] May leave peripheral site accessed for duration of therapy. [x] If patient has SOB or respiratory distress, check oxygen saturation. If less than 90% or clinical signs of respiratory distress, administer oxygen at 2 L/min. via nasal cannula and notify physician. [x] Anaphylaxis/Reaction orders: * Stop infusion. * Keep IV line open with saline flush. * Notify physician. * Monitor vital signs every 15 minutes until symptoms resolve. * Check Oxygen saturation; Oxygen at 2 L/min. via nasal cannula if less than 90% or clinical signs of respiratory distress. * Administer diphenhydramine (Benadryl) 25 mg IV STAT, (unless patient has received as pre-med). May repeat once, if necessary. * Solu-Cortef 250 mg IVP over 30-60 seconds, use 100 mg vials for each dissolution. * Epinephrine (1mg/1 ml) 0.3 mg subcutaneously or IVP now with any signs of respiratory distress. * Check with physician for new additional pre-med orders if patient is re- challenged or re-treated. [x] May remove PICC line when treatment complete, after confirming with Physician. [x] If the patient is admitted to the hospital, the ED, or transferred via [facility] , complete transfer form including medication reconciliation order sheet. Laboratory Tests Weekly Labs: CBC w/diff, Creatinine, CRP, LFT's (Hepatic function test), SED Rate Kim Crawford MD Sep 15, 2017 18:15
--- NOTE | 2017-09-15 19:14 | HHI.PR ---
Subjective Remarks Patient c/o of itchy rash on abdomen, chest, back, armpits. Patient states is tolerating diet and had a large BM Denies abdominal pain, nausea or vomiting K low Patient having difficulty swallowing Objective Vitals Vital Signs Date Time Temp Pulse Resp B/P (MAP) Pulse Ox O2 Delivery O2 Flow Rate FiO2 09/15/17 15:00 97 Nasal Cannula 2.00 09/15/17 15:00 98.1 65 16 163/79 (107) 97 09/15/17 11:00 98.2 66 18 161/81 (107) 98 09/15/17 11:00 98 Nasal Cannula 2.00 09/15/17 10:39 97 Nasal Cannula 2.00 09/15/17 07:00 98 Nasal Cannula 2.00 09/15/17 07:00 98.1 60 16 137/72 (93) 98 09/15/17 07:00 56 09/15/17 06:00 62 09/15/17 05:00 56 09/15/17 04:00 97 Nasal Cannula 2.00 09/15/17 04:00 66 16 141/83 (102) 97 09/15/17 04:00 68 09/15/17 03:00 65 09/15/17 02:00 60 09/15/17 01:00 68 09/15/17 00:00 70 09/14/17 23:00 64 09/14/17 23:00 71 16 160/79 (106) 98 09/14/17 23:00 98 Nasal Cannula 2.00 09/14/17 22:00 66 09/14/17 21:00 72 09/14/17 20:19 96 Nasal Cannula 2.00 09/14/17 20:00 93 Nasal Cannula 2.00 09/14/17 20:00 68 09/14/17 20:00 98.7 63 16 176/85 (115) 93 I/O 09/14/17 09/14/17 09/14/17 09/15/17 09/15/17 09/15/17 07:00 15:00 23:00 07:00 15:00 23:00 Intake Total 650 ml 100 ml 1690 ml 1240 ml 800 ml Output Total 1250 ml 800 ml 1100 ml Balance 650 ml 100 ml 440 ml 440 ml -300 ml Intake Oral 690 ml 240 ml 800 ml IV Total 100 ml 1000 ml 1000 ml Packed Cells 400 ml Blood Product IV Normal Saline Flush 250 ml Output Urine Total 1250 ml 800 ml 1100 ml # Bowel Movements 0 0 0 Result Diagram: 09/15/1744609/15/17446 Imaging Last Impressions Abdomen/Pelvis CT 09/14/17 0000 Signed Impressions: Service Date/Time: Thursday, September 14, 2017 08:47 - CONCLUSION: 1. Mild diverticulosis with nonspecific, nonobstructive bowel gas pattern most characteristic of a mild ileus. 2. Minimal pleural effusions with mild consolidation in the left lower lobe. 3. Status post cholecystectomy. 4. Small anterior abdominal wall hernia containing mesenteric fat. 5. Rectal tube in place as well as nasogastric tube in place with the tip proximal duodenum. Yunior Olivarez MD Abdomen X-Ray 09/13/17 0600 Signed Impressions: Service Date/Time: Wednesday, September 13, 2017 04:04 - CONCLUSION: No dilated loops of bowel the current study. Gas throughout normal caliber colon. Karsten Singh Jr., MD Renal Ultrasound 09/12/17 0000 Signed Impressions: Service Date/Time: Tuesday, September 12, 2017 10:03 - CONCLUSION: 1. Distended urinary bladder. 2. Slight prominence right renal pelvis. Harlan Cornejo MD Hip X-Ray 09/12/17 0000 Signed Impressions: Service Date/Time: Tuesday, September 12, 2017 06:45 - CONCLUSION: Stable exam.. Abigail Spencer MD Chest X-Ray 09/12/17 0000 Signed Impressions: Service Date/Time: Tuesday, September 12, 2017 14:57 - CONCLUSION: Minimal left basilar density. Endotracheal tube in distal esophagus. Harlan Cornejo MD Lower Extremity Ultrasound 09/11/17 0000 Signed Impressions: Service Date/Time: August 22:51 - CONCLUSION: 1. No DVT. 2. Small simple right Mederos's cyst. Karsten Singh Jr., MD Objective Remarks GENERAL: Weak appearing female, NG tube in place SKIN: Warm and dry. Morbiliform rash in chest, back, abdomen, legs and armpits. HEAD: Normocephalic. EYES: No scleral icterus. No injection or drainage. NECK: Supple, trachea midline. No JVD or lymphadenopathy. CARDIOVASCULAR: Regular rate and rhythm without murmurs, gallops, or rubs. RESPIRATORY: Breath sounds equal bilaterally. No accessory muscle use. GASTROINTESTINAL: Abdomen soft, non-tender, nondistended. EXTREMITIES: No cyanosis, or edema. NEUROLOGICAL: Awake, alert, and oriented x 3. Non-focal. A/P Problem List: (1) Septic hip ICD Code: M00.9 - Pyogenic arthritis, unspecified Status: Acute (2) MITCH (acute kidney injury) ICD Code: N17.9 - Acute kidney failure, unspecified Status: Acute (3) Ileus ICD Code: K56.7 - Ileus, unspecified Status: Resolved (4) Constipation ICD Code: K59.00 - Constipation, unspecified Status: Resolved (5) Rash ICD Code: R21 - Rash and other nonspecific skin eruption Status: Acute Assessment and Plan Septic arthritis left hip Status post left hip spacer placement Orthopedics recommends 50% weightbearing, daily dressing changes and to follow- up in 2 weeks Cultures grew coag positive Staphylococcus positive Staphylococcus, Blood cultures neg x 1 Continue Daptomycin, patient will possibly need a PICC on discharge Continue physical therapy Postop anemia Hb dropped to 6.7 post op. Transfused 2 units of packed red blood cells Hemoglobin 9.9 today Acute renal failure Creatinine increased to 2.35, vancomycin suspected Antibiotic changed to daptomycin and now creatinine is 1.67 (baseline 1.3) Ultrasound showed distended bladder Appreciate nephrology consult 09/15 Creatinine is trending down. Continue to monitor BUN/Creatinine, strict I' s and O's. Tobacco abuse Recommend smoking cessation Ileus Resolving, patient still has NG tube, tolerating clears Advance diet as tolerated, will graduate to soft foods 09/15 NG tube discontinued.Patient had BM. Rash Suspect drug rash. Discussed with Dr Crwaford who will follow up. Will Rx Benhadryl. DVT prophylaxis Xarelto Discharge Planning Continue to monitor in the medical floor. Needs ID clearance, resolution of rash. Dimas Atkinson MD Sep 15, 2017 19:14
[2017-09-15] MEDS ORDERED: POTASSIUM CHLOR 20 MEQ PREMIX 100 ML IV ONE (19:15)
[2017-09-15] MEDS ORDERED: POTASSIUM CHLORIDE 10 MEQ CONTROLLED RELEASE TAB PO ONE (19:15)
[2017-09-16] VITALS (26 sets, daily range): BP systolic 155–168; BP diastolic 65–84; PULSE 61–78; RESP 16–18; TEMP 97.9–98.6; O2SAT 93–97
[2017-09-16] MEDS: MORPHINE SULFATE 2 MG/ML SYRINGE IV PRN ×2 (00:39→15:14)
[2017-09-16] MEDS ORDERED: diphenhydrAMINE HCL 25 MG CAP PO ONE (01:00)
[2017-09-16] MEDS: SODIUM CHLOR 0.9% 1000 ML INJ 1,000 ML IV SCH ×2 (04:08→15:15)
[2017-09-16 06:36] LABS: ALBUMIN 1.8 GM/DL (3.4-5.0); ALT (GPT) 11 U/L (10-53); AST (GOT) 18 U/L (15-37); BICARBONATE 26.8 MEQ/L (21.0-32.0); BLOOD UREA NITROGEN 14 MG/DL (7-18); CALCIUM 8.1 MG/DL (8.5-10.1); CHLORIDE 106 MEQ/L (98-107); CREATININE 1.11 MG/DL (0.50-1.00); GLOMERULAR FILTRATION RATE 50 ML/MIN (>89); GLUCOSE,RANDOM 101 MG/DL (74-106); MAGNESIUM 1.8 MG/DL (1.5-2.5); PHOSPHORUS 2.4 MG/DL (2.5-4.9); SODIUM (NA) 142 MEQ/L (136-145)
[2017-09-16 06:37] LABS: AUTOMATED NEUTROPHIL # 8.4 TH/MM3 (1.8-7.7); BASOPHIL % 0.2 % (0.0-2.0); EOSINOPHIL % 8.4 % (0.0-4.0); HEMATOCRIT 30.5 % (35.0-46.0); HEMOGLOBIN 9.9 GM/DL (11.6-15.3); LYMPH % 12.5 % (9.0-44.0); LYMPHOCYTE # 1.5 TH/MM3 (1.0-4.8); MEAN CELL VOLUME 81.8 FL (80.0-100.0); MEAN CORPUSCULAR HEMOGLOBIN 26.6 PG (27.0-34.0); MEAN CORPUSCULAR HGB CONC 32.5 % (32.0-36.0); MEAN PLATELET VOLUME 7.1 FL (7.0-11.0); MONO % 7.8 % (0.0-8.0); MONOCYTE # 0.9 TH/MM3 (0-0.9); NEUT % 71.1 % (16.0-70.0); PLATELET COUNT 473 TH/MM3 (150-450); RED BLOOD COUNT 3.72 MIL/MM3 (4.00-5.30); WHITE BLOOD COUNT 11.8 TH/MM3 (4.0-11.0)
[2017-09-16 06:40] LABS: ALKALINE PHOSPHATASE 100 U/L (45-117); TOTAL BILIRUBIN ADULT 0.3 MG/DL (0.2-1.0); TOTAL PROTEIN 5.9 GM/DL (6.4-8.2)
[2017-09-16] MEDS: DOCUSATE SODIUM 100 MG CAP PO SCH ×2 (09:00→21:00)
[2017-09-16] MEDS ORDERED: SODIUM CHLORIDE 0.9% FLUSH 10 ML FLUSH IV FLUSH PRN (10:00)
--- NOTE | 2017-09-16 11:30 | HHI.GIFU ---
Subjective Remarks Pt resting in bed. Still having difficulty swallowing, this is new since this admission. She is on bed gonzalez, expecting BM. No abd pain. (Elzbieta Bello) Objective Vitals I&O Vital Signs Date Time Temp Pulse Resp B/P (MAP) Pulse Ox O2 Delivery O2 Flow Rate FiO2 09/16/17 11:00 98.2 67 18 155/83 (107) 95 09/16/17 11:00 95 Room Air 09/16/17 07:00 97.9 67 16 164/84 (110) 96 09/16/17 07:00 96 Room Air 09/16/17 06:00 61 09/16/17 05:00 64 09/16/17 04:00 98.6 70 16 157/83 (107) 94 09/16/17 04:00 62 09/16/17 04:00 93 Room Air 09/16/17 03:00 67 09/16/17 02:00 69 09/16/17 01:00 68 09/16/17 00:00 94 Room Air 09/16/17 00:00 98.6 70 16 158/83 (108) 94 09/16/17 00:00 66 09/15/17 23:00 66 09/15/17 22:00 66 09/15/17 21:00 66 09/15/17 20:00 96 Room Air 09/15/17 20:00 66 09/15/17 20:00 98.5 68 16 146/81 (102) 96 09/15/17 19:00 70 09/15/17 18:00 68 09/15/17 17:00 64 09/15/17 16:00 70 09/15/17 15:00 50 09/15/17 15:00 97 Nasal Cannula 2.00 09/15/17 15:00 98.1 65 16 163/79 (107) 97 09/15/17 14:00 56 09/15/17 13:00 54 09/15/17 12:00 78 I/O 09/15/17 09/15/17 09/15/17 09/16/17 09/16/17 09/16/17 06:59 14:59 22:59 06:59 14:59 22:59 Intake Total 1240 ml 800 ml 580 ml Output Total 800 ml 1100 ml 1150 ml Balance 440 ml -300 ml -570 ml Intake Oral 240 ml 800 ml 480 ml IV Total 1000 ml 100 ml Output Urine Total 800 ml 1100 ml 1150 ml # Bowel Movements 0 0 Laboratory Laboratory Tests Test 09/15/17 21:45 09/16/17 05:59 Erythrocyte Sedimentation Rate 78 White Blood Count 11.8 Red Blood Count 3.72 Hemoglobin 9.9 Hematocrit 30.5 Mean Corpuscular Volume 81.8 Mean Corpuscular Hemoglobin 26.6 Mean Corpuscular Hemoglobin Concent 32.5 Red Cell Distribution Width 16.0 Platelet Count 473 Mean Platelet Volume 7.1 Neutrophils (%) (Auto) 71.1 Lymphocytes (%) (Auto) 12.5 Monocytes (%) (Auto) 7.8 Eosinophils (%) (Auto) 8.4 Basophils (%) (Auto) 0.2 Neutrophils # (Auto) 8.4 Lymphocytes # (Auto) 1.5 Monocytes # (Auto) 0.9 Eosinophils # (Auto) 1.0 Basophils # (Auto) 0.0 CBC Comment DIFF FINAL Differential Comment Blood Urea Nitrogen 14 Creatinine 1.11 Random Glucose 101 Total Protein 5.9 Albumin 1.8 Calcium Level 8.1 Phosphorus Level 2.4 Magnesium Level 1.8 Alkaline Phosphatase 100 Aspartate Amino Transf (AST/SGOT) 18 Alanine Aminotransferase (ALT/SGPT) 11 Total Bilirubin 0.3 Sodium Level 142 Potassium Level 3.5 Chloride Level 106 Carbon Dioxide Level 26.8 Anion Gap 9 Estimat Glomerular Filtration Rate 50 Total Creatine Kinase 29 Date/Time Source Procedure Growth Status 09/11/17 14:01 Blood Peripheral Aerobic Blood Culture - Final NO GROWTH IN 5 DAYS Complete 09/11/17 14:01 Blood Peripheral Anaerobic Blood Culture - Final NO GROWTH IN 5 DAYS Complete 09/13/17 11:25 Urine Clean Catch Urine Culture - Final Vi Glabrata Complete 09/09/17 14:50 Wound Hip Fungal Smear - Final NO FUNGAL ELEMENTS SEEN. Resulted 09/09/17 14:50 Wound Hip Fungal Culture Pending Resulted Imaging Last Impressions Abdomen/Pelvis CT 09/14/17 0000 Signed Impressions: Service Date/Time: Thursday, September 14, 2017 08:47 - CONCLUSION: 1. Mild diverticulosis with nonspecific, nonobstructive bowel gas pattern most characteristic of a mild ileus. 2. Minimal pleural effusions with mild consolidation in the left lower lobe. 3. Status post cholecystectomy. 4. Small anterior abdominal wall hernia containing mesenteric fat. 5. Rectal tube in place as well as nasogastric tube in place with the tip proximal duodenum. Yunior Olivarez MD Abdomen X-Ray 09/13/17 0600 Signed Impressions: Service Date/Time: Wednesday, September 13, 2017 04:04 - CONCLUSION: No dilated loops of bowel the current study. Gas throughout normal caliber colon. Karsten Singh Jr., MD Renal Ultrasound 09/12/17 0000 Signed Impressions: Service Date/Time: Tuesday, September 12, 2017 10:03 - CONCLUSION: 1. Distended urinary bladder. 2. Slight prominence right renal pelvis. Harlan Cornejo MD Hip X-Ray 09/12/17 0000 Signed Impressions: Service Date/Time: Tuesday, September 12, 2017 06:45 - CONCLUSION: Stable exam.. Abigail Spencer MD Chest X-Ray 09/12/17 0000 Signed Impressions: Service Date/Time: Tuesday, September 12, 2017 14:57 - CONCLUSION: Minimal left basilar density. Endotracheal tube in distal esophagus. Harlan Cornejo MD Lower Extremity Ultrasound 09/11/17 0000 Signed Impressions: Service Date/Time: August 22:51 - CONCLUSION: 1. No DVT. 2. Small simple right Mederos's cyst. Karsten Singh Jr., MD Physical Exam HEENT: Normocephalic; atraumatic CHEST: Even/unlabored CARDIAC: RRR ABDOMEN: Soft, nondistended, nontender; bowel sounds active SKIN: erythema and excoriations bilat calves WRIST HEMMER: Alert and oriented x 3 (Elzbieta Bello LENS GRINDER APPRENTICE) Assessment and Plan Plan Assessment: - Abdominal distention with imaging consistent with ileus Pt S/P resection arthroplasty of her left hip and insertion of a cement spacer KUB (09/11) --> Moderate gaseous distention of bowel, mainly stomach and colon. Appearance most consistent with adynamic ileus Pt now with NGT to LIWS with 300 mL of brown colored drainage No BM documented in multiple days. On opioid medication. Pt appears uncomfortable and minimally answering questions so history is hard to obtain. Does report EGD and colonoscopy multiple years ago, states both exams were normal. - Distended urinary bladder- possibly contributory- Solano catheter per attending (09/13) Pt appears much more comfortable today. Still with NGT to LIWS and rectal tube to gravity with no stool output. Now with Solano catheter Repeat KUB (09/13) --> No dilated loops of small bowel. Gas throughout normal caliber colon. Drop in H/H noted over night- no obvious GIB- tx per attending (09/15) Pt reports she feels better today. NGT currently clamped. Still with rectal tube to gravity CT abdomen and pelvis W/O IV contrast (09/14) --> . Mild diverticulosis with nonspecific, nonobstructive bowel gas pattern most characteristic of a mild ileus. Minimal pleural effusions with mild consolidation in the left lower lobe. Status post cholecystectomy. Small anterior abdominal wall hernia containing mesenteric fat. Rectal tube in place as well as nasogastric tube in place with the tip proximal duodenum. Receive 2 U PRBCs yesterday, H/H improved from 6.7/20.3 to 9.9/30.2 09/15/17 having some difficulty swallowing, 2/2 edema from NGT?? unclear etiology. No prior problems with dysphagia. will try puree consistency and would consider EGD if this difficulty does persist. abd soft, BS +, nontender HH stable 09/16/17 still having difficulty swallowing, bolus sensation. on pureed diet. working on BM abd benign Plan: - full liquid diet - EGD in am - obtain consent - NPO after midnight - full liquid diet - barium swallow - supportive care pt seen by myself and Dr Singh and this note is on his behalf (Elzbieta Bello) Physician Comments Patient seen and examined Agree with above Continue with current supportive care Monitor lab Plan on an EGD tomorrow (Bird Singh MD) Elzbieta Bello Sep 16, 2017 11:30 Bird Singh MD Sep 16, 2017 18:47
[2017-09-16] MEDS: ONDANSETRON HCL 4 MG/2 ML VIAL IVP PRN (12:24)
[2017-09-16] MEDS: CARISOPRODOL 350 MG TAB PO PRN (12:42)
--- NOTE | 2017-09-16 14:56 | RADRPT ---
EXAM DATE/TIME: 09/16/2017 14:03 [facility] COMPARISON: No previous studies available for comparison. INDICATIONS : Dysphagia, solids only since being intubated for hip surgery on 09/09/17 FLUORO TIME: 1.6 minutes IMAGE COUNT: 15 CONTRAST: 1. Liquid E-Z Paque Barium Sulfate (60% w/v, 41% w.w) MEDICAL HISTORY : None. SURGICAL HISTORY : left hip ENCOUNTER: Subsequent ACUITY: 1 week PAIN SCORE: 0/10 LOCATION: Bilateral esophagus FINDINGS: Patient swallowed thin barium suspension. Multiple digital spot images were obtained. Patient was daniele ble to stand or roll onto her side for procedure. Therefore limited semi-upright AP views were obtain ed. Contrast passes through the esophagus without significant delay. No focal narrowing or dilatation jose ntified. Small hiatal hernia. Patient swallowed barium tablet. The tablet sticks in the distal esophagus several centimeters above the gastroesophageal junction. No focal narrowing in this area is seen. CONCLUSION: 1. Passage of barium tablet is delayed in the distal esophagus. No focal narrowing is identified salas gavi. 2. Small hiatal hernia. Gareth Valenzuela MD on September 16, 2017 at 14:50 Board Certified Radiologist. This report was verified electronically.
[2017-09-16] MEDS: DAPTOmycin INJ 800 MG in SODIUM CHLORIDE 0.9% INJ 100 ML IV SCH (15:15)
[2017-09-16] MEDS: RIVAROXABAN 10 MG TAB PO SCH (17:12)
--- NOTE | 2017-09-16 18:28 | HHI.IDPN ---
Subjective Subjective Remarks now co pruritic rash started yday No fever rash is mostly on the back but also spread to abdomen, pelvis no abdominal pain, having BMs Antibiotics IV Daptomycin Lines PIV with no e/o infection Past Medical History obesity, BMI 38.2 DJD Allergies: Coded Allergies: No Known Allergies (Unverified , 09/07/17) Objective . Vital Signs Date Time Temp Pulse Resp B/P (MAP) Pulse Ox O2 Delivery O2 Flow Rate FiO2 09/16/17 15:30 18 09/16/17 15:00 98.2 78 16 155/76 (102) 96 09/16/17 14:41 95 09/16/17 13:45 18 09/16/17 11:00 98.2 67 18 155/83 (107) 95 09/16/17 11:00 95 Room Air 09/16/17 07:00 97.9 67 16 164/84 (110) 96 09/16/17 07:00 96 Room Air 09/16/17 06:00 61 09/16/17 05:00 64 09/16/17 04:00 98.6 70 16 157/83 (107) 94 09/16/17 04:00 62 09/16/17 04:00 93 Room Air 09/16/17 03:00 67 09/16/17 02:00 69 09/16/17 01:00 68 09/16/17 00:00 94 Room Air 09/16/17 00:00 98.6 70 16 158/83 (108) 94 09/16/17 00:00 66 09/15/17 23:00 66 09/15/17 22:00 66 09/15/17 21:00 66 09/15/17 20:00 96 Room Air 09/15/17 20:00 66 09/15/17 20:00 98.5 68 16 146/81 (102) 96 09/15/17 19:00 70 09/16/17 09/16/17 09/17/17 15:00 23:00 07:00 Intake Total 2580 ml Output Total 1875 ml Balance 705 ml Intake Oral 1480 ml IV Total 1100 ml Output Urine Total 1875 ml . Laboratory Tests Test 09/15/17 04:47 09/15/17 21:45 09/16/17 05:59 White Blood Count 11.2 TH/MM3 11.8 TH/MM3 Red Blood Count 3.54 MIL/MM3 3.72 MIL/MM3 Hemoglobin 9.5 GM/DL 9.9 GM/DL Hematocrit 28.8 % 30.5 % Mean Corpuscular Volume 81.1 FL 81.8 FL Mean Corpuscular Hemoglobin 26.7 PG 26.6 PG Mean Corpuscular Hemoglobin Concent 32.9 % 32.5 % Red Cell Distribution Width 16.4 % 16.0 % Platelet Count 469 TH/MM3 473 TH/MM3 Mean Platelet Volume 7.1 FL 7.1 FL Erythrocyte Sedimentation Rate 78 mm/hr Neutrophils (%) (Auto) 71.1 % Lymphocytes (%) (Auto) 12.5 % Monocytes (%) (Auto) 7.8 % Eosinophils (%) (Auto) 8.4 % Basophils (%) (Auto) 0.2 % Neutrophils # (Auto) 8.4 TH/MM3 Lymphocytes # (Auto) 1.5 TH/MM3 Monocytes # (Auto) 0.9 TH/MM3 Eosinophils # (Auto) 1.0 TH/MM3 Basophils # (Auto) 0.0 TH/MM3 CBC Comment DIFF FINAL Differential Comment Laboratory Tests Test 09/15/17 04:47 09/16/17 05:59 Blood Urea Nitrogen 19 MG/DL 14 MG/DL Creatinine 1.23 MG/DL 1.11 MG/DL Random Glucose 91 MG/DL 101 MG/DL Calcium Level 8.4 MG/DL 8.1 MG/DL Sodium Level 143 MEQ/L 142 MEQ/L Potassium Level 2.9 MEQ/L 3.5 MEQ/L Chloride Level 104 MEQ/L 106 MEQ/L Carbon Dioxide Level 28.3 MEQ/L 26.8 MEQ/L Anion Gap 11 MEQ/L 9 MEQ/L Estimat Glomerular Filtration Rate 45 ML/MIN 50 ML/MIN Total Protein 5.9 GM/DL Albumin 1.8 GM/DL Phosphorus Level 2.4 MG/DL Magnesium Level 1.8 MG/DL Alkaline Phosphatase 100 U/L Aspartate Amino Transf (AST/SGOT) 18 U/L Alanine Aminotransferase (ALT/SGPT) 11 U/L Total Bilirubin 0.3 MG/DL Total Creatine Kinase 29 U/L Imaging Last Impressions Barium Swallow X-Ray 09/16/17 0000 Signed Impressions: Service Date/Time: Saturday, September 16, 2017 14:03 - CONCLUSION: 1. Passage of barium tablet is delayed in the distal esophagus. No focal narrowing is identified however. 2. Small hiatal hernia. Gareth Valenzuela MD Abdomen/Pelvis CT 09/14/17 0000 Signed Impressions: Service Date/Time: Thursday, September 14, 2017 08:47 - CONCLUSION: 1. Mild diverticulosis with nonspecific, nonobstructive bowel gas pattern most characteristic of a mild ileus. 2. Minimal pleural effusions with mild consolidation in the left lower lobe. 3. Status post cholecystectomy. 4. Small anterior abdominal wall hernia containing mesenteric fat. 5. Rectal tube in place as well as nasogastric tube in place with the tip proximal duodenum. Yunior Olivarez MD Abdomen X-Ray 09/13/17 0600 Signed Impressions: Service Date/Time: Wednesday, September 13, 2017 04:04 - CONCLUSION: No dilated loops of bowel the current study. Gas throughout normal caliber colon. Karsten Singh Jr., MD Renal Ultrasound 09/12/17 0000 Signed Impressions: Service Date/Time: Tuesday, September 12, 2017 10:03 - CONCLUSION: 1. Distended urinary bladder. 2. Slight prominence right renal pelvis. Harlan Cornejo MD Hip X-Ray 09/12/17 0000 Signed Impressions: Service Date/Time: Tuesday, September 12, 2017 06:45 - CONCLUSION: Stable exam.. Abigail Spencer MD Chest X-Ray 09/12/17 0000 Signed Impressions: Service Date/Time: Tuesday, September 12, 2017 14:57 - CONCLUSION: Minimal left basilar density. Endotracheal tube in distal esophagus. Harlan Cornejo MD Lower Extremity Ultrasound 09/11/17 0000 Signed Impressions: Service Date/Time: August 22:51 - CONCLUSION: 1. No DVT. 2. Small simple right Mederos's cyst. Karsten Singh Jr., MD Physical Exam CONSTITUTIONAL/GENERAL: Awake and alert, NAD SKIN: Warm and dry. Diffuse eythematous morbiliform rash on back, abdomen, extremeties HEAD: Atraumatic. Normocephalic. EYES: Pupils equal and round and reactive. Extraocular motions intact. No scleral icterus. No injection or drainage. ENT: Moist oral mucosa. No oral thrush. CARDIOVASCULAR: Regular rate and rhythm without murmurs, gallops, or rubs. RESPIRATORY/CHEST: Nonlabored. Good air entry. No wheezing, rhonchi appreciated. GASTROINTESTINAL: Abdomen soft, nondistended, minimlalay tender LLQ (+) BS MUSCULOSKELETAL: No LE edema appreciated. No calf tenderness L hip with clean well approximated dry incision, no erythema around NEUROLOGICAL: Awake and alert. Motor and sensory grossly within normal limits. Nonfocal. Normal speech. 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 Acute renal failure on IV Vanco with elevated eosinophils -concern for AIN -Vancomycin stopped and changed to IV Daptomycin - resolving Post op ileus - resolving New issue: rash, most likely 2/2 abx (daptomycin) Cant use vanco 2/2 MITCH aw vanco used earlier RECOMMENDATIONS: dc Daptomycin start zyvox po cont abx x 6 weeks from post op day; then wait at least 2 weeks off before 2nd stage - CBC and bicarb weekly on zyvox (BMP) moniotr rash Follow CBC Follow C/S Monitor clinical progress PICC Kim Crawford MD Sep 16, 2017 18:28
--- NOTE | 2017-09-16 18:55 | HHI.PR ---
Subjective Remarks PaThe patient still complains of rash especially in the abdominal area in the back. Rash is itchy. Denies chest pain or shortness of breath. Patient states is having difficulty swallowing. Objective Vitals Vital Signs Date Time Temp Pulse Resp B/P (MAP) Pulse Ox O2 Delivery O2 Flow Rate FiO2 09/16/17 18:00 68 09/16/17 17:00 78 09/16/17 16:00 72 09/16/17 16:00 72 09/16/17 15:30 18 09/16/17 15:00 98.2 78 16 155/76 (102) 96 09/16/17 15:00 95 Room Air 09/16/17 14:41 95 09/16/17 13:45 18 09/16/17 13:00 62 09/16/17 12:00 72 09/16/17 11:00 98.2 67 18 155/83 (107) 95 09/16/17 11:00 95 Room Air 09/16/17 10:00 64 09/16/17 09:00 66 09/16/17 08:00 64 09/16/17 07:00 97.9 67 16 164/84 (110) 96 09/16/17 07:00 96 Room Air 09/16/17 06:00 61 09/16/17 05:00 64 09/16/17 04:00 98.6 70 16 157/83 (107) 94 09/16/17 04:00 62 09/16/17 04:00 93 Room Air 09/16/17 03:00 67 09/16/17 02:00 69 09/16/17 01:00 68 09/16/17 00:00 94 Room Air 09/16/17 00:00 98.6 70 16 158/83 (108) 94 09/16/17 00:00 66 09/15/17 23:00 66 09/15/17 22:00 66 09/15/17 21:00 66 09/15/17 20:00 96 Room Air 09/15/17 20:00 66 09/15/17 20:00 98.5 68 16 146/81 (102) 96 09/15/17 19:00 70 I/O 09/15/17 09/15/17 09/15/17 09/16/17 09/16/17 09/16/17 07:00 15:00 23:00 07:00 15:00 23:00 Intake Total 1240 ml 1900 ml 580 ml 2580 ml Output Total 800 ml 1100 ml 1150 ml 1875 ml Balance 440 ml 800 ml -570 ml 705 ml Intake Oral 240 ml 800 ml 480 ml 1480 ml IV Total 1000 ml 1100 ml 100 ml 1100 ml Output Urine Total 800 ml 1100 ml 1150 ml 1875 ml # Bowel Movements 0 0 Result Diagram: 09/16/17 0559 09/16/17 0559 Imaging Last Impressions Barium Swallow X-Ray 09/16/17 0000 Signed Impressions: Service Date/Time: Saturday, September 16, 2017 14:03 - CONCLUSION: 1. Passage of barium tablet is delayed in the distal esophagus. No focal narrowing is identified however. 2. Small hiatal hernia. Gareth Valenzuela MD Abdomen/Pelvis CT 09/14/17 0000 Signed Impressions: Service Date/Time: Thursday, September 14, 2017 08:47 - CONCLUSION: 1. Mild diverticulosis with nonspecific, nonobstructive bowel gas pattern most characteristic of a mild ileus. 2. Minimal pleural effusions with mild consolidation in the left lower lobe. 3. Status post cholecystectomy. 4. Small anterior abdominal wall hernia containing mesenteric fat. 5. Rectal tube in place as well as nasogastric tube in place with the tip proximal duodenum. Yunior Olivarez MD Abdomen X-Ray 09/13/17 0600 Signed Impressions: Service Date/Time: Wednesday, September 13, 2017 04:04 - CONCLUSION: No dilated loops of bowel the current study. Gas throughout normal caliber colon. Karsten Singh Jr., MD Renal Ultrasound 09/12/17 0000 Signed Impressions: Service Date/Time: Tuesday, September 12, 2017 10:03 - CONCLUSION: 1. Distended urinary bladder. 2. Slight prominence right renal pelvis. Harlan Cornejo MD Hip X-Ray 09/12/17 0000 Signed Impressions: Service Date/Time: Tuesday, September 12, 2017 06:45 - CONCLUSION: Stable exam.. Abigail Spencer MD Chest X-Ray 09/12/17 0000 Signed Impressions: Service Date/Time: Tuesday, September 12, 2017 14:57 - CONCLUSION: Minimal left basilar density. Endotracheal tube in distal esophagus. Harlan Cornejo MD Lower Extremity Ultrasound 09/11/17 0000 Signed Impressions: Service Date/Time: August 22:51 - CONCLUSION: 1. No DVT. 2. Small simple right Mederos's cyst. Karsten Singh Jr., MD Objective Remarks GENERAL: Weak appearing female, NG tube in place SKIN: Warm and dry. Morbiliform rash in chest, back, abdomen, legs and armpits. HEAD: Normocephalic. EYES: No scleral icterus. No injection or drainage. NECK: Supple, trachea midline. No JVD or lymphadenopathy. CARDIOVASCULAR: Regular rate and rhythm without murmurs, gallops, or rubs. RESPIRATORY: Breath sounds equal bilaterally. No accessory muscle use. GASTROINTESTINAL: Abdomen soft, non-tender, nondistended. EXTREMITIES: No cyanosis, or edema. NEUROLOGICAL: Awake, alert, and oriented x 3. Non-focal. Medications and IVs Current Medications Medications (Trade) Dose Ordered Sig/Hemanth Route Start Time Stop Time Status Last Admin (Xarelto) 10 mg Q24H PO 09/10/17 17:00 09/16/17 17:12 (Tylenol) 650 mg Q6H PRN PO 09/09/17 17:15 09/11/17 09:00 (Zofran Inj) 4 mg Q6H PRN IVP 09/09/17 17:15 09/16/17 12:24 (Ambien) 5 mg HS PRN PO 09/09/17 17:15 (Soma) 350 mg Q6H PRN PO 09/10/17 14:15 09/16/17 12:42 Sodium Chloride 1,000 ml @ 100 mls/hr Q10H IV 09/11/17 18:15 09/16/17 15:15 (Colace) 100 mg BID PO 09/11/17 21:00 09/15/17 09:06 (Morphine Inj) 2 mg Q2H PRN IV 09/13/17 09:45 09/16/17 15:14 (Hurricaine 20% Oral Spr) 1 spray Q2H PRN OROPHARYNG 09/13/17 20:30 (Benadryl) 25 mg Q4H PRN PO 09/16/17 01:00 (NS Flush) See Protocol DAILY IV FLUSH 09/17/17 09:00 (NS Flush) See Protocol UNSCH PRN IV FLUSH 09/16/17 10:00 (Heparin Central Flush) See Protocol DAILY IV FLUSH 09/17/17 09:00 (Heparin Central Flush) See Protocol UNSCH PRN IV FLUSH 09/16/17 10:00 (NS Flush) UNSCH PRN IV FLUSH 09/16/17 10:00 (Zyvox) 600 mg Q12HR PO 09/16/17 18:30 A/P Problem List: (1) Septic hip ICD Code: M00.9 - Pyogenic arthritis, unspecified Status: Acute (2) MITCH (acute kidney injury) ICD Code: N17.9 - Acute kidney failure, unspecified Status: Acute (3) Ileus ICD Code: K56.7 - Ileus, unspecified Status: Resolved (4) Constipation ICD Code: K59.00 - Constipation, unspecified Status: Resolved (5) Rash ICD Code: R21 - Rash and other nonspecific skin eruption Status: Acute Assessment and Plan Septic arthritis left hip Status post left hip replacement Orthopedics recommends 50% weightbearing, daily dressing changes and to follow- up in 2 weeks Cultures grew coag positive Staphylococcus positive Staphylococcus, Blood cultures neg x 1 Continue physical therapy 09/16 discussed the case with Dr. Crawford from infectious disease. Rash is likely allergic. DC daptomycin and start the patient on Zyvox. Will monitor for side effects. Postop anemia Hb dropped to 6.7 post op. Transfused 2 units of packed red blood cells Hemoglobin 9.9 today Acute renal failure Creatinine increased to 2.35, vancomycin suspected Antibiotic changed to daptomycin and now creatinine is 1.67 (baseline 1.3) Ultrasound showed distended bladder Appreciate nephrology consult 09/15 Creatinine is trending down. Continue to monitor BUN/Creatinine, strict I' s and O's. Tobacco abuse Recommend smoking cessation Ileus Resolving, patient still has NG tube, tolerating clears Advance diet as tolerated, will graduate to soft foods 09/15 NG tube discontinued.Patient had BM. 09/16 patient is tolerating diet. On pured diet. It is resolving. Rash Continue Benadryl as needed. DC daptomycin and start the patient on oral Zyvox. Dysphagia Patient status post barium swallow with delayed passage of barium tablet, however no focal narrowing was identified. Small hiatal hernia. Speech therapy consulted. Recommended mechanical soft with thin liquids. DVT prophylaxis Xarelto Discharge Planning Continue to monitor in the medical floor. Needs ID clearance. Dimas Atkinson MD Sep 16, 2017 18:55
[2017-09-16] MEDS: diphenhydrAMINE HCL 25 MG CAP PO PRN (18:56)
[2017-09-16] MEDS: LINEZOLID 600 MG TAB PO SCH (18:56)
[2017-09-17] VITALS (23 sets, daily range): BP systolic 158–178; BP diastolic 72–95; PULSE 48–95; RESP 12–20; TEMP 97.9–99.1; O2SAT 92–98
[2017-09-17] MEDS: MORPHINE SULFATE 2 MG/ML SYRINGE IV PRN ×3 (00:05→20:24)
[2017-09-17] MEDS: diphenhydrAMINE HCL 25 MG CAP PO PRN ×2 (00:05→14:46)
[2017-09-17] MEDS: SODIUM CHLOR 0.9% 1000 ML INJ 1,000 ML IV SCH ×3 (02:19→20:23)
[2017-09-17] MEDS ORDERED: POVIDONE IODINE 5% (ANTISEPSIS KIT) 4 APPLICATIONS EACH NARE PRN (02:45)
[2017-09-17] MEDS ORDERED: LACTATED RINGER'S 1000 ML IV PRN (02:45)
[2017-09-17] MEDS ORDERED: CHLORHEXIDINE GLUCONATE 2 % 1 PACK (2 CLOTHS) TOPICAL PRN (02:45)
[2017-09-17] MEDS ORDERED: SODIUM CHLORID 0.9% 500 ML IV PRN (02:45)
[2017-09-17 04:20] LABS: AUTOMATED NEUTROPHIL # 8.7 TH/MM3 (1.8-7.7); BASOPHIL # 0.1 TH/MM3 (0-0.2); BASOPHIL % 0.7 % (0.0-2.0); EOSINOPHIL # 0.9 TH/MM3 (0-0.4); EOSINOPHIL % 7.9 % (0.0-4.0); HEMATOCRIT 28.6 % (35.0-46.0); HEMOGLOBIN 9.3 GM/DL (11.6-15.3); LYMPH % 12.1 % (9.0-44.0); LYMPHOCYTE # 1.5 TH/MM3 (1.0-4.8); MEAN CELL VOLUME 81.4 FL (80.0-100.0); MEAN CORPUSCULAR HEMOGLOBIN 26.6 PG (27.0-34.0); MEAN CORPUSCULAR HGB CONC 32.6 % (32.0-36.0); MEAN PLATELET VOLUME 7.1 FL (7.0-11.0); MONO % 7.2 % (0.0-8.0); MONOCYTE # 0.9 TH/MM3 (0-0.9); NEUT % 72.1 % (16.0-70.0); PLATELET COUNT 450 TH/MM3 (150-450); RED BLOOD COUNT 3.52 MIL/MM3 (4.00-5.30); RED CELL DISTRIBUTION WIDTH 16.4 % (11.6-17.2)
[2017-09-17 04:34] LABS: ALBUMIN 1.8 GM/DL (3.4-5.0); AST (GOT) 20 U/L (15-37); BICARBONATE 28.1 MEQ/L (21.0-32.0); BLOOD UREA NITROGEN 11 MG/DL (7-18); CALCIUM 7.9 MG/DL (8.5-10.1); CHLORIDE 106 MEQ/L (98-107); CREATININE 1.09 MG/DL (0.50-1.00); GLOMERULAR FILTRATION RATE 51 ML/MIN (>89); GLUCOSE,RANDOM 111 MG/DL (74-106); MAGNESIUM 1.7 MG/DL (1.5-2.5); SODIUM (NA) 141 MEQ/L (136-145)
[2017-09-17 04:35] LABS: ALT (GPT) 10 U/L (10-53); PHOSPHORUS 2.9 MG/DL (2.5-4.9)
[2017-09-17 04:37] LABS: ALKALINE PHOSPHATASE 101 U/L (45-117); TOTAL BILIRUBIN ADULT 0.3 MG/DL (0.2-1.0); TOTAL PROTEIN 5.6 GM/DL (6.4-8.2)
[2017-09-17] MEDS: SODIUM CHLORIDE 0.9% FLUSH 10 ML FLUSH IV FLUSH SCH (08:56)
[2017-09-17] MEDS: DOCUSATE SODIUM 100 MG CAP PO SCH ×2 (08:56→20:22)
[2017-09-17] MEDS: LINEZOLID 600 MG TAB PO SCH ×2 (08:56→20:21)
[2017-09-17] MEDS ORDERED: PROPOFOL 200 MG/20 ML AMP IV ONE (12:00)
[2017-09-17] MEDS ORDERED: LIDOCAINE HCL 1% PF 5 ML SYRINGE OTHER ONE (12:00)
--- NOTE | 2017-09-17 14:07 | PD.PROCEDR ---
GI Procedure PROCEDURE PERFORMED EGD with biopsies INDICATION FOR PROCEDURE Dysphagia PROCEDURE: The procedure, risks and benefits were discussed with Patient/POA and informed consent was obtained. Anesthesia sedated Patient with Diprivan. Patient was placed in the left lateral decubitus position. EGD: The Pentax videoscope was introduced through the oropharynx and advanced to the second portion of the duodenum under direct visualization. Retroflexion was performed in the stomach. FINDINGS: The esophagus there was distal esophageal mucosal erythema with ulcerations and punctate whitish exudates consistent with erosive reflux esophagitis and probable Vi esophagitis biopsies were taken there was the beginnings of a mild Schatzki ring also noted The stomach there was a small to medium size antral ulcer this was clean base no visible vessel with patchy erythema in the antrum and superficial erosions multiple biopsies were taken from the antrum and the ulcer site the rest of the stomach was unremarkable There were duodenum was also normal ESTIMATED BLOOD LOSS: None SPECIMENS REMOVED: Esophageal and antral biopsies COMPLICATIONS: None IMPRESSION: Erosive esophagitis Vi esophagitis Erosive gastritis Antral ulcer PLAN: Await biopsies Avoid NSAIDs and aspirin Start Protonix 40 mg twice daily Recommend EGD in 2 months Follow-up with GI post discharge Soft mechanical diet Bird Singh MD Sep 17, 2017 14:07
[2017-09-17] MEDS: CARISOPRODOL 350 MG TAB PO PRN (14:46)
[2017-09-17] MEDS: PANTOPRAZOLE SOD 40 MG DELAYED RELEASE TAB PO SCH ×2 (14:46→20:23)
[2017-09-17] MEDS: RIVAROXABAN 10 MG TAB PO SCH (16:43)
--- NOTE | 2017-09-17 18:02 | HHI.PR ---
Subjective Remarks Still has rash on abdominal area itchy rash Denies abdominal pain , nausea or vomiting. Objective Vitals Vital Signs Date Time Temp Pulse Resp B/P (MAP) Pulse Ox O2 Delivery O2 Flow Rate FiO2 09/17/17 17:10 20 09/17/17 17:00 62 09/17/17 16:28 20 09/17/17 16:00 65 09/17/17 15:00 64 09/17/17 15:00 96 Room Air 09/17/17 15:00 98.6 64 18 160/80 (106) 96 09/17/17 14:36 56 16 178/82 (114) 94 09/17/17 14:30 58 09/17/17 14:05 98.3 61 18 170/73 (105) 99 09/17/17 11:00 98 Room Air 09/17/17 11:00 98.0 95 20 159/82 (107) 95 09/17/17 11:00 64 09/17/17 10:00 68 09/17/17 09:00 65 09/17/17 08:00 98.8 68 12 176/89 (118) 96 09/17/17 08:00 96 Room Air 09/17/17 08:00 68 09/17/17 07:00 66 09/17/17 06:00 72 09/17/17 05:00 65 09/17/17 04:00 65 09/17/17 03:30 99.1 70 16 159/72 (101) 92 09/17/17 03:30 92 Room Air 09/17/17 03:00 68 09/17/17 02:00 67 09/17/17 01:00 74 09/17/17 00:00 68 09/16/17 23:30 98.0 69 16 168/84 (112) 93 09/16/17 23:30 93 Room Air 09/16/17 23:00 68 09/16/17 22:00 68 09/16/17 21:09 97 21 09/16/17 21:00 70 09/16/17 20:00 68 09/16/17 20:00 94 Room Air 09/16/17 20:00 98.5 72 16 158/65 (96) 94 09/16/17 19:00 66 09/16/17 18:00 68 I/O 4/09/16/17 09/16/17 09/17/17 09/17/17 09/17/17 07:00 15:00 23:00 07:00 15:00 23:00 Intake Total 580 ml 2580 ml 240 ml 200 ml 360 ml Output Total 1150 ml 1875 ml 425 ml 650 ml Balance -570 ml 705 ml -185 ml 200 ml -290 ml Intake Oral 480 ml 1480 ml 240 ml 360 ml IV Total 100 ml 1100 ml Other 200 ml Output Urine Total 1150 ml 1875 ml 425 ml 650 ml # Voids 1 2 # Bowel Movements 0 1 1 Result Diagram: 09/17/17 0410 09/17/17 0410 Imaging Last Impressions Barium Swallow X-Ray 09/16/17 0000 Signed Impressions: Service Date/Time: Saturday, September 16, 2017 14:03 - CONCLUSION: 1. Passage of barium tablet is delayed in the distal esophagus. No focal narrowing is identified however. 2. Small hiatal hernia. Gareth Valenzuela MD Abdomen/Pelvis CT 09/14/17 0000 Signed Impressions: Service Date/Time: Thursday, September 14, 2017 08:47 - CONCLUSION: 1. Mild diverticulosis with nonspecific, nonobstructive bowel gas pattern most characteristic of a mild ileus. 2. Minimal pleural effusions with mild consolidation in the left lower lobe. 3. Status post cholecystectomy. 4. Small anterior abdominal wall hernia containing mesenteric fat. 5. Rectal tube in place as well as nasogastric tube in place with the tip proximal duodenum. Yunior Olivarez MD Abdomen X-Ray 09/13/17 0600 Signed Impressions: Service Date/Time: Wednesday, September 13, 2017 04:04 - CONCLUSION: No dilated loops of bowel the current study. Gas throughout normal caliber colon. Karsten Singh Jr., MD Renal Ultrasound 09/12/17 0000 Signed Impressions: Service Date/Time: Tuesday, September 12, 2017 10:03 - CONCLUSION: 1. Distended urinary bladder. 2. Slight prominence right renal pelvis. Harlan Cornejo MD Hip X-Ray 09/12/17 0000 Signed Impressions: Service Date/Time: Tuesday, September 12, 2017 06:45 - CONCLUSION: Stable exam.. Abigail Spencer MD Chest X-Ray 09/12/17 0000 Signed Impressions: Service Date/Time: Tuesday, September 12, 2017 14:57 - CONCLUSION: Minimal left basilar density. Endotracheal tube in distal esophagus. Harlan Cornejo MD Lower Extremity Ultrasound 09/11/17 0000 Signed Impressions: Service Date/Time: August 22:51 - CONCLUSION: 1. No DVT. 2. Small simple right Mederos's cyst. Karsten Singh Jr., MD Objective Remarks GENERAL: Weak appearing female, NG tube in place SKIN: Warm and dry. Morbiliform rash in chest, back, abdomen, legs and armpits. HEAD: Normocephalic. EYES: No scleral icterus. No injection or drainage. NECK: Supple, trachea midline. No JVD or lymphadenopathy. CARDIOVASCULAR: Regular rate and rhythm without murmurs, gallops, or rubs. RESPIRATORY: Breath sounds equal bilaterally. No accessory muscle use. GASTROINTESTINAL: Abdomen soft, non-tender, nondistended. EXTREMITIES: No cyanosis, or edema. NEUROLOGICAL: Awake, alert, and oriented x 3. Non-focal. Medications and IVs Current Medications Medications (Trade) Dose Ordered Sig/Hemanth Route Start Time Stop Time Status Last Admin (Xarelto) 10 mg Q24H PO 09/10/17 17:00 09/17/17 16:43 (Tylenol) 650 mg Q6H PRN PO 09/09/17 17:15 09/11/17 09:00 (Zofran Inj) 4 mg Q6H PRN IVP 09/09/17 17:15 09/16/17 12:24 (Ambien) 5 mg HS PRN PO 09/09/17 17:15 (Soma) 350 mg Q6H PRN PO 09/10/17 14:15 09/17/17 14:46 Sodium Chloride 1,000 ml @ 100 mls/hr Q10H IV 09/11/17 18:15 09/17/17 02:19 (Colace) 100 mg BID PO 09/11/17 21:00 09/15/17 09:06 (Morphine Inj) 2 mg Q2H PRN IV 09/13/17 09:45 09/17/17 16:44 (Hurricaine 20% Oral Spr) 1 spray Q2H PRN OROPHARYNG 09/13/17 20:30 (Benadryl) 25 mg Q4H PRN PO 09/16/17 01:00 09/17/17 14:46 (NS Flush) See Protocol DAILY IV FLUSH 09/17/17 09:00 (NS Flush) See Protocol UNSCH PRN IV FLUSH 09/16/17 10:00 (Heparin Central Flush) See Protocol DAILY IV FLUSH 09/17/17 09:00 (Heparin Central Flush) See Protocol UNSCH PRN IV FLUSH 09/16/17 10:00 09/17/17 03:48 (NS Flush) UNSCH PRN IV FLUSH 09/16/17 10:00 (Zyvox) 600 mg Q12HR PO 09/16/17 18:30 09/17/17 08:56 Lactated Ringer's 1,000 ml @ 30 mls/hr Q24H PRN IV 09/17/17 02:45 09/20/17 02:44 09/17/17 12:20 Sodium Chloride 500 ml @ 30 mls/hr [id number] PRN IV 09/17/17 02:45 09/20/17 02:44 (Betadine 5% Antisepsis Kit) 1 applic ASSISTANT COMMISSIONER PRN EACH NARE 09/17/17 02:45 09/20/17 02:44 (Chlorhexidine 2% Cloth) 3 pack ASSISTANT COMMISSIONER PRN TOPICAL 09/17/17 02:45 09/20/17 02:44 (Protonix) 40 mg Q12HR PO 09/17/17 14:15 09/17/17 14:46 A/P Problem List: (1) Septic hip ICD Code: M00.9 - Pyogenic arthritis, unspecified Status: Acute (2) MITCH (acute kidney injury) ICD Code: N17.9 - Acute kidney failure, unspecified Status: Acute (3) Ileus ICD Code: K56.7 - Ileus, unspecified Status: Resolved (4) Constipation ICD Code: K59.00 - Constipation, unspecified Status: Resolved (5) Rash ICD Code: R21 - Rash and other nonspecific skin eruption Status: Acute Assessment and Plan Septic arthritis left hip Status post left hip replacement Orthopedics recommends 50% weightbearing, daily dressing changes and to follow- up in 2 weeks Cultures grew coag positive Staphylococcus positive Staphylococcus, Blood cultures neg x 1 Continue physical therapy 09/16 discussed the case with Dr. Ty from infectious disease. Rash is likely allergic. DC daptomycin and start the patient on Zyvox. Will monitor for side effects. 09/17 Continue Zyvox orally. Postop anemia Hb dropped to 6.7 post op. Transfused 2 units of packed red blood cells Hemoglobin 9.9 today Acute renal failure Creatinine increased to 2.35, vancomycin suspected Antibiotic changed to daptomycin and now creatinine is 1.67 (baseline 1.3) Ultrasound showed distended bladder Appreciate nephrology consult 09/15 Creatinine is trending down. Continue to monitor BUN/Creatinine, strict I' s and O's. Tobacco abuse Recommend smoking cessation Ileus Resolving, patient still has NG tube, tolerating clears Advance diet as tolerated, will graduate to soft foods 09/15 NG tube discontinued.Patient had BM. 09/16 patient is tolerating diet. On pured diet. It is resolving. Rash Continue Benadryl as needed. DC daptomycin and start the patient on oral Zyvox. 09/17 Discussed with RN Dysphagia Patient status post barium swallow with delayed passage of barium tablet, however no focal narrowing was identified. Small hiatal hernia. Speech therapy consulted. Recommended mechanical soft with thin liquids. 09/17 Sp EGD with findings of Erosive gastritis, Vi esophagitis, Erosive gastritis, antral ulcer. Agree with Protonix BID, avoid NSAID's, will start treatment with oral fluconazole 200 mg po once and after that 100 mg po daily for 2 weeks. DVT prophylaxis Xarelto Discharge Planning DC in am if rash improving. Dimas Atkinson MD Sep 17, 2017 18:02
[2017-09-17] MEDS ORDERED: FLUCONAZOLE 100 MG TAB PO ONE (18:30)
[2017-09-18] VITALS (24 sets, daily range): BP systolic 127–159; BP diastolic 71–87; PULSE 41–82; RESP 17–18; TEMP 97.6–98.2; O2SAT 95–100
[2017-09-18 06:41] LABS: HEMATOCRIT 28.3 % (35.0-46.0); HEMOGLOBIN 9.3 GM/DL (11.6-15.3); MEAN CELL VOLUME 80.9 FL (80.0-100.0); MEAN CORPUSCULAR HEMOGLOBIN 26.6 PG (27.0-34.0); MEAN CORPUSCULAR HGB CONC 32.9 % (32.0-36.0); MEAN PLATELET VOLUME 7.7 FL (7.0-11.0); PLATELET COUNT 454 TH/MM3 (150-450); RED BLOOD COUNT 3.49 MIL/MM3 (4.00-5.30); RED CELL DISTRIBUTION WIDTH 16.6 % (11.6-17.2); WHITE BLOOD COUNT 11.5 TH/MM3 (4.0-11.0)
[2017-09-18] MEDS: MORPHINE SULFATE 2 MG/ML SYRINGE IV PRN (08:27)
[2017-09-18] MEDS: PANTOPRAZOLE SOD 40 MG DELAYED RELEASE TAB PO SCH ×2 (08:27→20:13)
[2017-09-18] MEDS: FLUCONAZOLE 100 MG TAB PO SCH (08:27)
[2017-09-18] MEDS: LINEZOLID 600 MG TAB PO SCH ×2 (08:27→20:13)
[2017-09-18] MEDS: DOCUSATE SODIUM 100 MG CAP PO SCH ×2 (08:28→20:12)
[2017-09-18] MEDS: SODIUM CHLORIDE 0.9% FLUSH 10 ML FLUSH IV FLUSH SCH (08:28)
[2017-09-18] MEDS ORDERED: POTASSIUM CHLORIDE 10 MEQ CONTROLLED RELEASE TAB PO ONE (09:30)
[2017-09-18] MEDS: SODIUM CHLOR 0.9% 1000 ML INJ 1,000 ML IV SCH ×2 (11:03→20:13)
--- NOTE | 2017-09-18 11:20 | HHI.GIFU ---
Subjective Remarks Pt OOB to chair. Still has bolus sensation but otherwise tolerating diet. + BM. (Elzbieta Bello) Objective Vitals I&O Vital Signs Date Time Temp Pulse Resp B/P (MAP) Pulse Ox O2 Delivery O2 Flow Rate FiO2 09/18/17 10:13 63 09/18/17 09:41 54 09/18/17 08:42 18 09/18/17 08:15 97 Room Air 09/18/17 08:15 45 09/18/17 08:15 97.6 54 18 127/87 (100) 97 09/18/17 06:00 44 09/18/17 05:00 62 09/18/17 04:00 Room Air 09/18/17 04:00 97.9 58 18 151/78 (102) 97 09/18/17 04:00 46 09/18/17 03:00 50 09/18/17 02:00 82 09/18/17 01:00 50 09/18/17 00:00 Room Air 09/18/17 00:00 98.0 53 18 149/78 (101) 95 09/18/17 00:00 53 09/17/17 23:00 48 09/17/17 22:00 56 09/17/17 21:00 62 09/17/17 20:00 98.7 61 18 160/74 (102) 96 09/17/17 20:00 77 09/17/17 20:00 Room Air 09/17/17 18:00 80 09/17/17 17:00 62 09/17/17 16:28 20 09/17/17 16:00 65 09/17/17 15:00 64 09/17/17 15:00 96 Room Air 09/17/17 15:00 98.6 64 18 160/80 (106) 96 09/17/17 14:36 56 16 178/82 (114) 94 09/17/17 14:30 58 09/17/17 14:05 98.3 61 18 170/73 (105) 99 I/O 09/17/17 09/17/17 09/17/17 09/18/17 09/18/17 09/18/17 07:00 15:00 23:00 07:00 15:00 23:00 Intake Total 240 ml 200 ml 360 ml 480 ml Output Total 425 ml 650 ml 550 ml Balance -185 ml 200 ml -290 ml -70 ml Intake Oral 240 ml 360 ml 480 ml Other 200 ml Output Urine Total 425 ml 650 ml 550 ml # Voids 1 2 # Bowel Movements 1 1 1 Laboratory Laboratory Tests Test 09/18/17 05:15 White Blood Count 11.5 Red Blood Count 3.49 Hemoglobin 9.3 Hematocrit 28.3 Mean Corpuscular Volume 80.9 Mean Corpuscular Hemoglobin 26.6 Mean Corpuscular Hemoglobin Concent 32.9 Red Cell Distribution Width 16.6 Platelet Count 454 Mean Platelet Volume 7.7 Blood Urea Nitrogen 12 Date/Time Source Procedure Growth Status 09/11/17 14:01 Blood Peripheral Aerobic Blood Culture - Final NO GROWTH IN 5 DAYS Complete 09/11/17 14:01 Blood Peripheral Anaerobic Blood Culture - Final NO GROWTH IN 5 DAYS Complete 09/13/17 11:25 Urine Clean Catch Urine Culture - Final Keven Glabrata Complete 09/09/17 14:50 Wound Hip Fungal Smear - Final NO FUNGAL ELEMENTS SEEN. Resulted 09/09/17 14:50 Wound Hip Fungal Culture - Preliminary NO GROWTH IN 1 WEEK Resulted Imaging Last Impressions Barium Swallow X-Ray 09/16/17 0000 Signed Impressions: Service Date/Time: Saturday, September 16, 2017 14:03 - CONCLUSION: 1. Passage of barium tablet is delayed in the distal esophagus. No focal narrowing is identified however. 2. Small hiatal hernia. Gareth Valenzuela MD Abdomen/Pelvis CT 09/14/17 0000 Signed Impressions: Service Date/Time: Thursday, September 14, 2017 08:47 - CONCLUSION: 1. Mild diverticulosis with nonspecific, nonobstructive bowel gas pattern most characteristic of a mild ileus. 2. Minimal pleural effusions with mild consolidation in the left lower lobe. 3. Status post cholecystectomy. 4. Small anterior abdominal wall hernia containing mesenteric fat. 5. Rectal tube in place as well as nasogastric tube in place with the tip proximal duodenum. Yunior Olivarez MD Abdomen X-Ray 09/13/17 0600 Signed Impressions: Service Date/Time: Wednesday, September 13, 2017 04:04 - CONCLUSION: No dilated loops of bowel the current study. Gas throughout normal caliber colon. Karsten Singh Jr., MD Renal Ultrasound 09/12/17 0000 Signed Impressions: Service Date/Time: Tuesday, September 12, 2017 10:03 - CONCLUSION: 1. Distended urinary bladder. 2. Slight prominence right renal pelvis. Harlan Cornejo MD Hip X-Ray 09/12/17 0000 Signed Impressions: Service Date/Time: Tuesday, September 12, 2017 06:45 - CONCLUSION: Stable exam.. Abigail Spencer MD Chest X-Ray 09/12/17 0000 Signed Impressions: Service Date/Time: Tuesday, September 12, 2017 14:57 - CONCLUSION: Minimal left basilar density. Endotracheal tube in distal esophagus. Harlan Cornejo MD Lower Extremity Ultrasound 09/11/17 0000 Signed Impressions: Service Date/Time: August 22:51 - CONCLUSION: 1. No DVT. 2. Small simple right Mederos's cyst. 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 Appearance most consistent with adynamic ileus Pt now with NGT to LIWS with 300 mL of brown colored drainage No BM documented in multiple days. On opioid medication. Pt appears uncomfortable and minimally answering questions so history is hard to obtain. Does report EGD and colonoscopy multiple years ago, states both exams were normal. - Distended urinary bladder- possibly contributory- Solano catheter per attending (09/13) Pt appears much more comfortable today. Still with NGT to LIWS and rectal tube to gravity with no stool output. Now with Solano catheter Repeat KUB (09/13) --> No dilated loops of small bowel. Gas throughout normal caliber colon. Drop in H/H noted over night- no obvious GIB- tx per attending (09/15) Pt reports she feels better today. NGT currently clamped. Still with rectal tube to gravity CT abdomen and pelvis W/O IV contrast (09/14) --> . Mild diverticulosis with nonspecific, nonobstructive bowel gas pattern most characteristic of a mild ileus. Minimal pleural effusions with mild consolidation in the left lower lobe. Status post cholecystectomy. Small anterior abdominal wall hernia containing mesenteric fat. Rectal tube in place as well as nasogastric tube in place with the tip proximal duodenum. Receive 2 U PRBCs yesterday, H/H improved from 6.7/20.3 to 9.9/30.2 09/15/17 having some difficulty swallowing, 2/2 edema from NGT?? unclear etiology. No prior problems with dysphagia. will try puree consistency and would consider EGD if this difficulty does persist. abd soft, BS +, nontender HH stable 09/16/17 still having difficulty swallowing, bolus sensation. on pureed diet. working on BM abd benign 09/18/17 s/p EGD revealing erosive gastritis, keven esophagitis, erosive esophagitis, antral ulcer. BA swallow showed delay of passage of barium in diatal esophagus but no narrowing. Plan: - mech soft diet - await bx - BID protonix - EGD in 2 months - supportive care pt seen by myself and Dr Singh and this note is on his behalf (Elzbieta Bello) Physician Comments Patient seen and examined Agree with above Continue with current supportive care Monitor labs Follow-up with GI post discharge Not much to add at this point from a GI perspective we will sign off (Bird Singh MD) Elzbieta Bello Sep 18, 2017 11:20 Bird Singh MD Sep 18, 2017 21:30
[2017-09-18] MEDS ORDERED: predniSONE 20 MG TAB PO ONE (14:00)
--- NOTE | 2017-09-18 15:37 | HHI.PR ---
Subjective Remarks Patient still has rash in back which is very itchy. Denies cp/sob Afebrile Objective Vitals Vital Signs Date Time Temp Pulse Resp B/P (MAP) Pulse Ox O2 Delivery O2 Flow Rate FiO2 09/18/17 14:18 50 09/18/17 13:12 55 09/18/17 12:06 65 09/18/17 11:38 97.8 53 18 159/71 (100) 100 09/18/17 11:38 100 Room Air 09/18/17 11:38 55 09/18/17 10:13 63 09/18/17 09:41 54 09/18/17 08:42 18 09/18/17 08:15 97 Room Air 09/18/17 08:15 45 09/18/17 08:15 97.6 54 18 127/87 (100) 97 09/18/17 06:00 44 09/18/17 05:00 62 09/18/17 04:00 Room Air 09/18/17 04:00 97.9 58 18 151/78 (102) 97 09/18/17 04:00 46 09/18/17 03:00 50 09/18/17 02:00 82 09/18/17 01:00 50 09/18/17 00:00 Room Air 09/18/17 00:00 98.0 53 18 149/78 (101) 95 09/18/17 00:00 53 09/17/17 23:00 48 09/17/17 22:00 56 09/17/17 21:00 62 09/17/17 20:00 98.7 61 18 160/74 (102) 96 09/17/17 20:00 77 09/17/17 20:00 Room Air 09/17/17 18:00 80 09/17/17 17:00 62 09/17/17 16:28 20 09/17/17 16:00 65 I/O 09/17/17 09/17/17 09/17/17 09/18/17 09/18/17 09/18/17 07:00 15:00 23:00 07:00 15:00 23:00 Intake Total 240 ml 200 ml 360 ml 480 ml Output Total 425 ml 650 ml 550 ml Balance -185 ml 200 ml -290 ml -70 ml Intake Oral 240 ml 360 ml 480 ml Other 200 ml Output Urine Total 425 ml 650 ml 550 ml # Voids 1 2 # Bowel Movements 1 1 1 Result Diagram: 09/18/17 0515 09/18/17 0515 Imaging Last Impressions Barium Swallow X-Ray 09/16/17 0000 Signed Impressions: Service Date/Time: Saturday, September 16, 2017 14:03 - CONCLUSION: 1. Passage of barium tablet is delayed in the distal esophagus. No focal narrowing is identified however. 2. Small hiatal hernia. Gareth Valenzuela MD Abdomen/Pelvis CT 09/14/17 0000 Signed Impressions: Service Date/Time: Thursday, September 14, 2017 08:47 - CONCLUSION: 1. Mild diverticulosis with nonspecific, nonobstructive bowel gas pattern most characteristic of a mild ileus. 2. Minimal pleural effusions with mild consolidation in the left lower lobe. 3. Status post cholecystectomy. 4. Small anterior abdominal wall hernia containing mesenteric fat. 5. Rectal tube in place as well as nasogastric tube in place with the tip proximal duodenum. Yunior Olivarez MD Abdomen X-Ray 09/13/17 0600 Signed Impressions: Service Date/Time: Wednesday, September 13, 2017 04:04 - CONCLUSION: No dilated loops of bowel the current study. Gas throughout normal caliber colon. Karsten Singh Jr., MD Renal Ultrasound 09/12/17 0000 Signed Impressions: Service Date/Time: Tuesday, September 12, 2017 10:03 - CONCLUSION: 1. Distended urinary bladder. 2. Slight prominence right renal pelvis. Harlan Cornejo MD Hip X-Ray 09/12/17 0000 Signed Impressions: Service Date/Time: Tuesday, September 12, 2017 06:45 - CONCLUSION: Stable exam.. Abigail Spencer MD Chest X-Ray 09/12/17 0000 Signed Impressions: Service Date/Time: Tuesday, September 12, 2017 14:57 - CONCLUSION: Minimal left basilar density. Endotracheal tube in distal esophagus. Harlan Cornejo MD Lower Extremity Ultrasound 09/11/17 0000 Signed Impressions: Service Date/Time: August 22:51 - CONCLUSION: 1. No DVT. 2. Small simple right Mederos's cyst. Karsten Singh Jr., MD Objective Remarks GENERAL: Weak appearing female, NG tube in place SKIN: Warm and dry. Morbiliform rash in chest, back, abdomen, legs and armpits which is improving, however rash on back still present. HEAD: Normocephalic. EYES: No scleral icterus. No injection or drainage. NECK: Supple, trachea midline. No JVD or lymphadenopathy. CARDIOVASCULAR: Regular rate and rhythm without murmurs, gallops, or rubs. RESPIRATORY: Breath sounds equal bilaterally. No accessory muscle use. GASTROINTESTINAL: Abdomen soft, non-tender, nondistended. EXTREMITIES: No cyanosis, or edema. NEUROLOGICAL: Awake, alert, and oriented x 3. Non-focal. Medications and IVs Current Medications Medications (Trade) Dose Ordered Sig/Hemanth Route Start Time Stop Time Status Last Admin (Xarelto) 10 mg Q24H PO 09/10/17 17:00 09/18/17 16:54 (Tylenol) 650 mg Q6H PRN PO 09/09/17 17:15 09/11/17 09:00 (Zofran Inj) 4 mg Q6H PRN IVP 09/09/17 17:15 09/16/17 12:24 (Ambien) 5 mg HS PRN PO 09/09/17 17:15 (Soma) 350 mg Q6H PRN PO 09/10/17 14:15 09/17/17 14:46 Sodium Chloride 1,000 ml @ 100 mls/hr Q10H IV 09/11/17 18:15 09/17/17 20:23 (Colace) 100 mg BID PO 09/11/17 21:00 09/18/17 08:28 (Hurricaine 20% Oral Spr) 1 spray Q2H PRN OROPHARYNG 09/13/17 20:30 (Benadryl) 25 mg Q4H PRN PO 09/16/17 01:00 09/17/17 14:46 (NS Flush) See Protocol DAILY IV FLUSH 09/17/17 09:00 09/18/17 08:28 (NS Flush) See Protocol UNSCH PRN IV FLUSH 09/16/17 10:00 (Heparin Central Flush) See Protocol DAILY IV FLUSH 09/17/17 09:00 09/18/17 08:28 (Heparin Central Flush) See Protocol UNSCH PRN IV FLUSH 09/16/17 10:00 09/17/17 03:48 (NS Flush) UNSCH PRN IV FLUSH 09/16/17 10:00 (Zyvox) 600 mg Q12HR PO 09/16/17 18:30 09/18/17 08:27 Lactated Ringer's 1,000 ml @ 30 mls/hr Q24H PRN IV 09/17/17 02:45 09/20/17 02:44 09/17/17 12:20 Sodium Chloride 500 ml @ 30 mls/hr [id number] PRN IV 09/17/17 02:45 09/20/17 02:44 (Betadine 5% Antisepsis Kit) 1 applic AUTO DRIVER PRN EACH NARE 09/17/17 02:45 09/20/17 02:44 (Chlorhexidine 2% Cloth) 3 pack AUTO DRIVER PRN TOPICAL 09/17/17 02:45 09/20/17 02:44 (Protonix) 40 mg Q12HR PO 09/17/17 14:15 09/18/17 08:27 (Diflucan) 100 mg DAILY PO 09/18/17 09:00 09/18/17 08:27 A/P Problem List: (1) Septic hip ICD Code: M00.9 - Pyogenic arthritis, unspecified Status: Acute (2) MITCH (acute kidney injury) ICD Code: N17.9 - Acute kidney failure, unspecified Status: Acute (3) Ileus ICD Code: K56.7 - Ileus, unspecified Status: Resolved (4) Constipation ICD Code: K59.00 - Constipation, unspecified Status: Resolved (5) Rash ICD Code: R21 - Rash and other nonspecific skin eruption Status: Acute Assessment and Plan Septic arthritis left hip Status post left hip replacement Orthopedics recommends 50% weightbearing, daily dressing changes and to follow- up in 2 weeks Cultures grew coag positive Staphylococcus positive Staphylococcus, Blood cultures neg x 1 Continue physical therapy 09/16 discussed the case with Dr. Crawford from infectious disease. Rash is likely allergic. DC daptomycin and start the patient on Zyvox. Will monitor for side effects. 09/18 Continue Zyvox orally for a total of 6 weeks. Monito cbc and bicarb weekly while on Zyvox. Postop anemia Hb dropped to 6.7 post op. Transfused 2 units of packed red blood cells Hemoglobin 9.9 today Acute renal failure Creatinine increased to 2.35, vancomycin suspected Antibiotic changed to daptomycin and now creatinine is 1.67 (baseline 1.3) Ultrasound showed distended bladder Appreciate nephrology consult 09/15 Creatinine is trending down. Continue to monitor BUN/Creatinine, strict I' s and O's. Tobacco abuse Recommend smoking cessation Ileus Resolving, patient still has NG tube, tolerating clears Advance diet as tolerated, will graduate to soft foods 09/15 NG tube discontinued.Patient had BM. 09/16 patient is tolerating diet. On pured diet. It is resolving. Rash Continue Benadryl as needed. DC daptomycin and start the patient on oral Zyvox. 09/18 Rash still present will start the patient on prednisone and monitor for response. Dysphagia Patient status post barium swallow with delayed passage of barium tablet, however no focal narrowing was identified. Small hiatal hernia. Speech therapy consulted. Recommended mechanical soft with thin liquids. 09/17 Sp EGD with findings of Erosive gastritis, Vi esophagitis, Erosive gastritis, antral ulcer. Agree with Protonix BID, avoid NSAID's, will start treatment with oral fluconazole 200 mg po once and after that 100 mg po daily for 2 weeks. Kalemia Continue to replace and monitor BMP. DVT prophylaxis Xarelto Discharge Planning DC in am if rash improving. Dimas Atkinson MD Sep 18, 2017 15:37
[2017-09-18] MEDS: RIVAROXABAN 10 MG TAB PO SCH (16:54)
[2017-09-18] MEDS ORDERED: DIFL100T PO (18:36)
[2017-09-18] MEDS ORDERED: ZYVO600T PO (18:36)
[2017-09-18] MEDS ORDERED: oxyCODONE/ACETAMINOPHEN 5 MG/325 MG TAB PO PRN (18:45)
[2017-09-18] MEDS: oxyCODONE/ACETAMINOPHEN 5 MG/325 MG TAB PO PRN (20:19)
[2017-09-19] VITALS (30 sets, daily range): BP systolic 121–180; BP diastolic 64–87; PULSE 38–85; RESP 16–18; TEMP 97–98.3; O2SAT 96–98
[2017-09-19 04:51] LABS: BICARBONATE 27.4 MEQ/L (21.0-32.0); CALCIUM 8.4 MG/DL (8.5-10.1); CREATININE 1.42 MG/DL (0.50-1.00)
--- NOTE | 2017-09-19 08:53 | HHI.PR ---
Subjective Remarks Complaining of pain on her left hip, she has requested pain medication. Denies any chest pain, shortness of breath, nausea or vomiting. Feels that the rash is improving and at least one on her chest is completely gone. She is not itchy as much. Objective Vitals Vital Signs Date Time Temp Pulse Resp B/P (MAP) Pulse Ox O2 Delivery O2 Flow Rate FiO2 09/19/17 07:30 97.5 45 18 162/87 (112) 98 09/19/17 06:00 39 09/19/17 05:00 38 09/19/17 04:18 97.0 43 16 123/69 (87) 97 09/19/17 04:00 42 09/19/17 04:00 40 09/19/17 03:57 Room Air 09/19/17 02:00 40 09/19/17 01:00 44 09/19/17 00:07 Room Air 09/19/17 00:07 97.2 46 16 121/64 (83) 96 09/19/17 00:00 42 09/19/17 00:00 42 09/18/17 23:00 42 09/18/17 22:00 46 09/18/17 21:00 52 09/18/17 20:10 98.1 53 17 137/78 (97) 98 09/18/17 20:10 47 09/18/17 20:10 98 Room Air 09/18/17 20:00 46 09/18/17 19:00 58 09/18/17 18:05 53 09/18/17 17:11 43 09/18/17 16:23 41 09/18/17 15:30 50 09/18/17 15:30 98 Room Air 09/18/17 15:30 98.2 54 18 147/72 (97) 98 09/18/17 14:18 50 09/18/17 13:12 55 09/18/17 12:06 65 09/18/17 11:38 97.8 53 18 159/71 (100) 100 09/18/17 11:38 100 Room Air 09/18/17 11:38 55 09/18/17 10:13 63 09/18/17 09:41 54 I/O 09/18/17 09/18/17 09/18/17 09/19/17 09/19/17 09/19/17 07:00 15:00 23:00 07:00 15:00 23:00 Intake Total 480 ml 600 ml 1240 ml Output Total 550 ml 700 ml 300 ml Balance -70 ml -100 ml 940 ml Intake Oral 480 ml 600 ml 240 ml IV Total 1000 ml Output Urine Total 550 ml 700 ml 300 ml # Bowel Movements 1 0 Result Diagram: 09/18/17 0515 09/19/17 0425 Imaging Last Impressions Barium Swallow X-Ray 09/16/17 0000 Signed Impressions: Service Date/Time: Saturday, September 16, 2017 14:03 - CONCLUSION: 1. Passage of barium tablet is delayed in the distal esophagus. No focal narrowing is identified however. 2. Small hiatal hernia. Gareth Valenzuela MD Abdomen/Pelvis CT 09/14/17 0000 Signed Impressions: Service Date/Time: Thursday, September 14, 2017 08:47 - CONCLUSION: 1. Mild diverticulosis with nonspecific, nonobstructive bowel gas pattern most characteristic of a mild ileus. 2. Minimal pleural effusions with mild consolidation in the left lower lobe. 3. Status post cholecystectomy. 4. Small anterior abdominal wall hernia containing mesenteric fat. 5. Rectal tube in place as well as nasogastric tube in place with the tip proximal duodenum. Yunior Olivarez MD Abdomen X-Ray 09/13/17 0600 Signed Impressions: Service Date/Time: Wednesday, September 13, 2017 04:04 - CONCLUSION: No dilated loops of bowel the current study. Gas throughout normal caliber colon. Karsten Singh Jr., MD Renal Ultrasound 09/12/17 0000 Signed Impressions: Service Date/Time: Tuesday, September 12, 2017 10:03 - CONCLUSION: 1. Distended urinary bladder. 2. Slight prominence right renal pelvis. Harlan Cornejo MD Hip X-Ray 09/12/17 0000 Signed Impressions: Service Date/Time: Tuesday, September 12, 2017 06:45 - CONCLUSION: Stable exam.. Abigail Spencer MD Chest X-Ray 09/12/17 0000 Signed Impressions: Service Date/Time: Tuesday, September 12, 2017 14:57 - CONCLUSION: Minimal left basilar density. Endotracheal tube in distal esophagus. Harlan Cornejo MD Lower Extremity Ultrasound 09/11/17 0000 Signed Impressions: Service Date/Time: August 22:51 - CONCLUSION: 1. No DVT. 2. Small simple right Mederos's cyst. Karsten Singh Jr., MD Objective Remarks GENERAL: Awake and alert SKIN: dressing over left lower ext, d/c/i CARDIOVASCULAR: Regular rate and rhythm. RESPIRATORY: No accessory muscle use. Clear to auscultation. Breath sounds equal bilaterally. GASTROINTESTINAL: Abdomen soft, non distended, nontender at this time. MUSCULOSKELETAL: Extremities without edema. No obvious deformities. NEUROLOGICAL: Limited range of motion of the right hip, normal speech. A/P Problem List: (1) Septic hip ICD Code: M00.9 - Pyogenic arthritis, unspecified Status: Acute (2) MITCH (acute kidney injury) ICD Code: N17.9 - Acute kidney failure, unspecified Status: Acute (3) Ileus ICD Code: K56.7 - Ileus, unspecified Status: Resolved (4) Constipation ICD Code: K59.00 - Constipation, unspecified Status: Resolved (5) Rash ICD Code: R21 - Rash and other nonspecific skin eruption Status: Acute Assessment and Plan Septic arthritis left hip Status post left hip replacement Orthopedics recommends 50% weightbearing, daily dressing changes and to follow- up in 2 weeks Cultures grew coag positive Staphylococcus positive Staphylococcus, Blood cultures neg x 1 Continue physical therapy 09/16 discussed the case with Dr. Crawford from infectious disease. Rash is likely allergic. DC daptomycin and start the patient on Zyvox. Will monitor for side effects. 09/18 Continue Zyvox orally for a total of 6 weeks. Monito cbc and bicarb weekly while on Zyvox. 09/19 rash much improved almost gone per patient. Still present on her back but mild. Continue antibiotics and continue prednisone for an additional 4 days Postop anemia Hb dropped to 6.7 post op. Transfused 2 units of packed red blood cells Hemoglobin 9.9 today Acute renal failure Creatinine increased to 2.35, vancomycin suspected Antibiotic changed to daptomycin and now creatinine is 1.67 (baseline 1.3) Ultrasound showed distended bladder Appreciate nephrology consult 09/15 Creatinine is trending down. Continue to monitor BUN/Creatinine, strict I' s and O's. 09/19 monitor her creatinine levels closely. Creatinine today 1.42 which is trending up. Continue IV fluids. Encourage p.o. hydration. replace arzola to monitor I's &O's. There was previous concerns for bladder outlet obstruction. Will consult urology for further eval and recs. Tobacco abuse Recommend smoking cessation Ileus Resolving, patient still has NG tube, tolerating clears Advance diet as tolerated, will graduate to soft foods 09/15 NG tube discontinued.Patient had BM. 09/16 patient is tolerating diet. On pured diet. It is resolving. Rash Continue Benadryl as needed. DC daptomycin and start the patient on oral Zyvox. 09/18 Rash still present will start the patient on prednisone and monitor for response. 09/19 much improved. continue prednisone for 4 more days then d/c Dysphagia Patient status post barium swallow with delayed passage of barium tablet, however no focal narrowing was identified. Small hiatal hernia. Speech therapy consulted. Recommended mechanical soft with thin liquids. 09/17 Sp EGD with findings of Erosive gastritis, Vi esophagitis, Erosive gastritis, antral ulcer. Protonix BID, avoid NSAID's, oral fluconazole 200 mg po once and after that 100 mg po daily for 2 weeks. HypoKalemia Continue to replace and monitor BMP. DVT prophylaxis Xarelto Discharge Planning worsening Cr levels this morning. Re-insert arzola, consult urology for further recs. continue IVFs. May need to reconsult nephrology if no improvement. Reina Barber MD Sep 19, 2017 08:53
[2017-09-19] MEDS: SODIUM CHLORIDE 0.9% FLUSH 10 ML FLUSH IV FLUSH SCH (09:00)
[2017-09-19] MEDS: predniSONE 20 MG TAB PO SCH ×2 (09:11→20:55)
[2017-09-19] MEDS: DOCUSATE SODIUM 100 MG CAP PO SCH ×2 (09:11→20:55)
[2017-09-19] MEDS: LINEZOLID 600 MG TAB PO SCH ×2 (09:12→20:54)
[2017-09-19] MEDS: PANTOPRAZOLE SOD 40 MG DELAYED RELEASE TAB PO SCH ×2 (09:13→20:54)
[2017-09-19] MEDS: FLUCONAZOLE 100 MG TAB PO SCH (09:13)
[2017-09-19] MEDS: SODIUM CHLOR 0.9% 1000 ML INJ 1,000 ML IV SCH ×2 (09:15→18:19)
--- NOTE | 2017-09-19 13:01 | PD.CONS ---
[facility] Service Urology Consult Requested By Dr. Barber Reason for Consult Possible bladder outlet obstruction. Primary Care Physician Unknown Diagnosis: (1) Septic hip ICD Code: M00.9 - Pyogenic arthritis, unspecified (2) MITCH (acute kidney injury) ICD Code: N17.9 - Acute kidney failure, unspecified (3) Ileus ICD Code: K56.7 - Ileus, unspecified (4) Constipation ICD Code: K59.00 - Constipation, unspecified (5) Rash ICD Code: R21 - Rash and other nonspecific skin eruption History of Present Illness 61-year-old female who is status post a total left hip arthroplasty in June of this year who is now admitted for management of left hip sepsis. During the course of the patient's hospitalization she has been on multiple antibiotics and has had a rise in her serum BUN and creatinine. This has recently improved however after her Solano catheter was discontinued her serum creatinine levels have once again slowly began to rise. A urology consult was placed to consider the possibility for bladder outlet obstruction. At the time of consultation, the patient reports that she has been urinating without any difficulty. She reports no history of voiding dysfunction in the past. She did have a renal ultrasound study performed on September 20 of this year which demonstrated a distended urinary bladder however a subsequent CT scan from September 14 demonstrated normal upper tracts and a nondistended bladder. There was no evidence of any renal masses hydronephrosis or calculi. The bladder itself was not thickened. Review of Systems Respiratory: DENIES: Shortness of breath Cardiovascular: DENIES: Chest pain Gastrointestinal: DENIES: Abdominal pain Genitourinary: DENIES: Urinary incontinence, Hematuria, Dysuria Except as stated in HPI: all other systems reviewed are Neg Past Family Social History Past Medical History Osteoarthritis left hip Carpal tunnel syndrome History right lower extremity thrombophlebitis Past Surgical History Status post recent left hip arthroplasty Status post laparoscopic cholecystectomy Status post carpal tunnel surgery Status post tonsillectomy Reported Medications Refer to EMR Allergies: Coded Allergies: daptomycin (Verified Allergy, Intermediate, rash, 09/16/17) Active Ordered Medications Refer to EMR Family History Reviewed and noncontributory Social History Smoker of less than one pack per day since 1972 Denies excessive alcohol or intravenous drug abuse Physical Exam Vital Signs Date Time Temp Pulse Resp B/P (MAP) Pulse Ox O2 Delivery O2 Flow Rate FiO2 09/19/17 10:30 18 09/19/17 07:30 98 Room Air 09/19/17 07:30 97.5 45 18 162/87 (112) 98 09/19/17 06:00 39 09/19/17 05:00 38 09/19/17 04:18 97.0 43 16 123/69 (87) 97 09/19/17 04:00 42 09/19/17 04:00 40 09/19/17 03:57 Room Air 09/19/17 02:00 40 09/19/17 01:00 44 09/19/17 00:07 Room Air 09/19/17 00:07 97.2 46 16 121/64 (83) 96 09/19/17 00:00 42 09/19/17 00:00 42 09/18/17 23:00 42 09/18/17 22:00 46 09/18/17 21:00 52 09/18/17 20:10 98.1 53 17 137/78 (97) 98 09/18/17 20:10 47 09/18/17 20:10 98 Room Air 09/18/17 20:00 46 09/18/17 19:00 58 09/18/17 18:05 53 09/18/17 17:11 43 09/18/17 16:23 41 09/18/17 15:30 50 09/18/17 15:30 98 Room Air 09/18/17 15:30 98.2 54 18 147/72 (97) 98 09/18/17 14:18 50 09/18/17 13:12 55 Physical Exam GENERAL: This is a well-nourished, well-developed patient, in no apparent distress. SKIN: No rashes, ecchymoses or lesions. Cool and dry. HEAD: Atraumatic. Normocephalic. No temporal or scalp tenderness. EYES: Pupils equal round and reactive. Extraocular motions intact. No scleral icterus. No injection or drainage. ENT: Nose without bleeding, purulent drainage or septal hematoma. Throat without erythema, tonsillar hypertrophy or exudate. Uvula midline. Airway patent. NECK: Trachea midline. No JVD or lymphadenopathy. Supple, nontender, no meningeal signs.. GASTROINTESTINAL: Abdomen soft, non-tender, nondistended. No hepato-splenomegaly , or palpable masses. No guarding. GENITOURINARY: No CVA tenderness, bladder not distended MUSCULOSKELETAL: Evaluation consistent with recent left hip surgery NEUROLOGICAL: Awake and alert. Cranial nerves II through XII intact.Normal speech. Laboratory Tests Test 09/19/17 04:25 Blood Urea Nitrogen 16 Creatinine 1.42 Random Glucose 143 Calcium Level 8.4 Sodium Level 142 Potassium Level 4.0 Chloride Level 106 Carbon Dioxide Level 27.4 Anion Gap 9 Estimat Glomerular Filtration Rate 38 Date/Time Source Procedure Growth Status 09/11/17 14:01 Blood Peripheral Aerobic Blood Culture - Final NO GROWTH IN 5 DAYS Complete 09/11/17 14:01 Blood Peripheral Anaerobic Blood Culture - Final NO GROWTH IN 5 DAYS Complete 09/13/17 11:25 Urine Clean Catch Urine Culture - Final Vi Glabrata Complete 09/09/17 14:50 Wound Hip Fungal Smear - Final NO FUNGAL ELEMENTS SEEN. Resulted 09/09/17 14:50 Wound Hip Fungal Culture - Preliminary NO GROWTH IN 1 WEEK Resulted Result Diagram: 09/18/17 0515 09/19/17 0425 Personally reviewed images: Yes Imaging Last Impressions Barium Swallow X-Ray 09/16/17 0000 Signed Impressions: Service Date/Time: Saturday, September 16, 2017 14:03 - CONCLUSION: 1. Passage of barium tablet is delayed in the distal esophagus. No focal narrowing is identified however. 2. Small hiatal hernia. Gareth Valenzuela MD Abdomen/Pelvis CT 09/14/17 0000 Signed Impressions: Service Date/Time: Thursday, September 14, 2017 08:47 - CONCLUSION: 1. Mild diverticulosis with nonspecific, nonobstructive bowel gas pattern most characteristic of a mild ileus. 2. Minimal pleural effusions with mild consolidation in the left lower lobe. 3. Status post cholecystectomy. 4. Small anterior abdominal wall hernia containing mesenteric fat. 5. Rectal tube in place as well as nasogastric tube in place with the tip proximal duodenum. Yunior Olivarez MD Abdomen X-Ray 09/13/17 0600 Signed Impressions: Service Date/Time: Wednesday, September 13, 2017 04:04 - CONCLUSION: No dilated loops of bowel the current study. Gas throughout normal caliber colon. Karsten Singh Jr., MD Renal Ultrasound 09/12/17 0000 Signed Impressions: Service Date/Time: Tuesday, September 12, 2017 10:03 - CONCLUSION: 1. Distended urinary bladder. 2. Slight prominence right renal pelvis. Harlan Cornejo MD Hip X-Ray 09/12/17 0000 Signed Impressions: Service Date/Time: Tuesday, September 12, 2017 06:45 - CONCLUSION: Stable exam.. Abigail Spencer MD Chest X-Ray 09/12/17 0000 Signed Impressions: Service Date/Time: Tuesday, September 12, 2017 14:57 - CONCLUSION: Minimal left basilar density. Endotracheal tube in distal esophagus. Harlan Cornejo MD Lower Extremity Ultrasound 09/11/17 0000 Signed Impressions: Service Date/Time: August 22:51 - CONCLUSION: 1. No DVT. 2. Small simple right Mederos's cyst. Karsten Singh Jr., MD Assessment and Plan Assessment and Plan Urologic impression: Based on clinical history examination and laboratory studies bladder outlet obstruction unlikely. Recommendations: 1. Would not replace Solano catheter as long as patient continues to void spontaneously without difficulty 2. Will be available as needed Cy Mcgowan MD Sep 19, 2017 13:00
[2017-09-19] MEDS ORDERED: ENALAPRILAT 1.25 MG/ML VIAL IV PUSH PRN (13:30)
[2017-09-19] MEDS ORDERED: hydrALAZINE HCL 10 MG TAB PO PRN (13:30)
[2017-09-19] MEDS: oxyCODONE/ACETAMINOPHEN 5 MG/325 MG TAB PO PRN ×2 (15:51→20:58)
[2017-09-19] MEDS: RIVAROXABAN 10 MG TAB PO SCH (16:55)
[2017-09-20] VITALS (32 sets, daily range): BP systolic 134–170; BP diastolic 7–87; PULSE 38–97; RESP 16–17; TEMP 97.7–98.1; O2SAT 96–98
[2017-09-20] MEDS: SODIUM CHLOR 0.9% 1000 ML INJ 1,000 ML IV SCH ×2 (04:14→17:13)
[2017-09-20] MEDS: oxyCODONE/ACETAMINOPHEN 5 MG/325 MG TAB PO PRN ×4 (04:14→18:47)
[2017-09-20 04:56] LABS: BICARBONATE 29.3 MEQ/L (21.0-32.0); CALCIUM 8.2 MG/DL (8.5-10.1); CREATININE 1.48 MG/DL (0.50-1.00)
--- NOTE | 2017-09-20 09:09 | HHI.PR ---
Subjective Remarks Patient seen and examined this am. BP is elevated. Sitting in chair, legs elevated. She feels comfortable. Denies any chest pain or shortness of breath. Is tolerating soup. She states her appetite is poor. She wants to know when she is going to be ready to go to rehab. Objective Vital Signs Date Time Temp Pulse Resp B/P (MAP) Pulse Ox O2 Delivery O2 Flow Rate FiO2 09/20/17 07:26 97.9 44 16 170/87 (114) 98 09/20/17 07:26 Room Air 09/20/17 06:00 39 09/20/17 05:00 38 09/20/17 04:00 40 09/20/17 04:00 42 09/20/17 03:45 98.0 49 17 151/76 (101) 98 09/20/17 03:42 Room Air 09/20/17 03:00 38 09/20/17 02:00 82 09/20/17 01:00 38 09/20/17 00:10 97.7 45 16 134/71 (92) 96 09/20/17 00:10 Room Air 09/20/17 00:00 42 09/20/17 00:00 42 09/19/17 23:00 50 09/19/17 22:00 50 09/19/17 21:00 56 09/19/17 20:40 98 Room Air 09/19/17 20:40 97.9 60 18 135/77 (96) 98 09/19/17 20:40 48 09/19/17 20:00 52 09/19/17 19:00 58 09/19/17 18:19 98 21 09/19/17 18:00 56 09/19/17 17:00 62 09/19/17 16:53 18 09/19/17 16:00 60 09/19/17 15:15 98 Room Air 09/19/17 15:15 98.3 68 18 180/85 (116) 98 09/19/17 15:00 44 09/19/17 14:00 42 09/19/17 13:00 62 09/19/17 12:00 38 09/19/17 11:45 98.1 43 18 150/78 (102) 98 09/19/17 11:45 98 Room Air 09/19/17 11:00 38 09/19/17 10:30 18 4/27/18 10:00 48 I/O 09/19/17 09/19/17 09/19/17 09/20/17 09/20/17 09/20/17 07:00 15:00 23:00 07:00 15:00 23:00 Intake Total 1240 ml 1320 ml 1770 ml Output Total 300 ml 550 ml 650 ml Balance 940 ml 770 ml 1120 ml Intake Oral 240 ml 1320 ml 720 ml IV Total 1000 ml 1050 ml Output Urine Total 300 ml 550 ml 650 ml # Voids 2 # Bowel Movements 1 Result Diagram: 09/18/17 0515 09/20/17 0420 Imaging Last Impressions Barium Swallow X-Ray 09/16/17 0000 Signed Impressions: Service Date/Time: Saturday, September 16, 2017 14:03 - CONCLUSION: 1. Passage of barium tablet is delayed in the distal esophagus. No focal narrowing is identified however. 2. Small hiatal hernia. Gareth Valenzuela MD Abdomen/Pelvis CT 09/14/17 0000 Signed Impressions: Service Date/Time: Thursday, September 14, 2017 08:47 - CONCLUSION: 1. Mild diverticulosis with nonspecific, nonobstructive bowel gas pattern most characteristic of a mild ileus. 2. Minimal pleural effusions with mild consolidation in the left lower lobe. 3. Status post cholecystectomy. 4. Small anterior abdominal wall hernia containing mesenteric fat. 5. Rectal tube in place as well as nasogastric tube in place with the tip proximal duodenum. Yunior Olivarez MD Abdomen X-Ray 09/13/17 0600 Signed Impressions: Service Date/Time: Wednesday, September 13, 2017 04:04 - CONCLUSION: No dilated loops of bowel the current study. Gas throughout normal caliber colon. Karsten Singh Jr., MD Renal Ultrasound 09/12/17 0000 Signed Impressions: Service Date/Time: Tuesday, September 12, 2017 10:03 - CONCLUSION: 1. Distended urinary bladder. 2. Slight prominence right renal pelvis. Harlan Cornejo MD Hip X-Ray 09/12/17 0000 Signed Impressions: Service Date/Time: Tuesday, September 12, 2017 06:45 - CONCLUSION: Stable exam.. Abigail Spencer MD Chest X-Ray 09/12/17 0000 Signed Impressions: Service Date/Time: Tuesday, September 12, 2017 14:57 - CONCLUSION: Minimal left basilar density. Endotracheal tube in distal esophagus. Harlan Cornejo MD Lower Extremity Ultrasound 09/11/17 0000 Signed Impressions: Service Date/Time: August 22:51 - CONCLUSION: 1. No DVT. 2. Small simple right Mederos's cyst. Karsten Singh Jr., MD Objective Remarks GENERAL: Well-appearing, no acute distress SKIN: Warm and dry. HEAD: Normocephalic. EYES: No scleral icterus. No injection or drainage. NECK: Supple, trachea midline. No JVD or lymphadenopathy. CARDIOVASCULAR: Regular rate and rhythm without murmurs, gallops, or rubs. RESPIRATORY: Breath sounds equal bilaterally. No accessory muscle use. GASTROINTESTINAL: Abdomen soft, non-tender, nondistended. MUSCULOSKELETAL: No cyanosis, or edema. Limited range of motion of right hip. A/P Problem List: (1) MITCH (acute kidney injury) ICD Code: N17.9 - Acute kidney failure, unspecified Status: Acute (2) Septic hip ICD Code: M00.9 - Pyogenic arthritis, unspecified Status: Acute (3) Ileus ICD Code: K56.7 - Ileus, unspecified Status: Resolved (4) Rash ICD Code: R21 - Rash and other nonspecific skin eruption Status: Acute Assessment and Plan Septic arthritis left hip Status post left hip replacement Orthopedics recommends 50% weightbearing, daily dressing changes and to follow- up in 2 weeks Cultures grew coag positive Staphylococcus positive Staphylococcus, Blood cultures neg x 1 Continue physical therapy 09/16 discussed the case with Dr. Crawford from infectious disease. Rash is likely allergic. DC daptomycin and start the patient on Zyvox. Will monitor for side effects. 09/18 Continue Zyvox orally for a total of 6 weeks. Monito cbc and bicarb weekly while on Zyvox. 09/19 rash much improved almost gone per patient. Still present on her back but mild. Continue antibiotics and continue prednisone for an additional 4 days Postop anemia Hb dropped to 6.7 post op, s/p 2 units of packed red blood cells Hemoglobin Acute renal failure Creatinine increased to 2.35, vancomycin suspected Antibiotic changed to daptomycin and Cr intially downtrended (baseline 1.3), but on 09/19 started to uptrend. Urology has ruled out obstruction. Will consult nephrology. Ultrasound showed distended bladder Dr. Mcgowan felt obstruction not likely, does not recommend replacing arzola. Tobacco abuse Recommend smoking cessation Ileus Resolving, patient still has NG tube Rash Continue Benadryl as needed. DC daptomycin and start the patient on oral Zyvox. Continues improved. continue prednisone for 3 more days then d/c Dysphagia Patient status post barium swallow with delayed passage of barium tablet, however no focal narrowing was identified. Small hiatal hernia. Speech therapy consulted. Recommended mechanical soft with thin liquids. 09/17 Sp EGD with findings of Erosive gastritis, Vi esophagitis, Erosive gastritis, antral ulcer. Protonix BID, avoid NSAID's, oral fluconazole 200 mg po once then 100 mg po daily for 2 weeks. HypoKalemia Continue to replace and monitor BMP. DVT prophylaxis Xarelto Discharge Planning We will need to have creatinine downtrending. Nephrology has been consulted. Repeat creatinine tomorrow and nephro evaluation is pending. Likely home tomorrow or Friday. Ayana Mederos MD Sep 20, 2017 09:09
[2017-09-20] MEDS: DOCUSATE SODIUM 100 MG CAP PO SCH ×2 (09:15→21:36)
[2017-09-20] MEDS: SODIUM CHLORIDE 0.9% FLUSH 10 ML FLUSH IV FLUSH SCH (09:15)
[2017-09-20] MEDS: FLUCONAZOLE 100 MG TAB PO SCH (09:15)
[2017-09-20] MEDS: PANTOPRAZOLE SOD 40 MG DELAYED RELEASE TAB PO SCH ×2 (09:15→21:36)
[2017-09-20] MEDS: predniSONE 20 MG TAB PO SCH ×2 (09:16→21:36)
[2017-09-20] MEDS: LINEZOLID 600 MG TAB PO SCH ×2 (09:16→21:36)
[2017-09-20] MEDS: RIVAROXABAN 10 MG TAB PO SCH (17:13)
[2017-09-21] VITALS (18 sets, daily range): BP systolic 136–167; BP diastolic 74–88; PULSE 40–58; RESP 16; TEMP 97.7–97.9; O2SAT 94–99
[2017-09-21] MEDS: oxyCODONE/ACETAMINOPHEN 5 MG/325 MG TAB PO PRN ×3 (04:19→12:23)
[2017-09-21] MEDS: SODIUM CHLOR 0.9% 1000 ML INJ 1,000 ML IV SCH (05:16)
[2017-09-21 06:04] LABS: BICARBONATE 27.3 MEQ/L (21.0-32.0); CALCIUM 8.3 MG/DL (8.5-10.1); CREATININE 1.41 MG/DL (0.50-1.00)
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
[2017-09-21] MEDS: PANTOPRAZOLE SOD 40 MG DELAYED RELEASE TAB PO SCH (08:53)
[2017-09-21] MEDS: DOCUSATE SODIUM 100 MG CAP PO SCH (08:53)
[2017-09-21] MEDS: LINEZOLID 600 MG TAB PO SCH (08:53)
[2017-09-21] MEDS: predniSONE 20 MG TAB PO SCH (08:53)
[2017-09-21] MEDS: FLUCONAZOLE 100 MG TAB PO SCH (08:53)
[2017-09-21] MEDS: SODIUM CHLORIDE 0.9% FLUSH 10 ML FLUSH IV FLUSH SCH (08:54)
--- NOTE | 2017-09-21 13:59 | HHI.NPPN ---
Subjective History of Present Illness The patient is a 61 yo [place] female who was admitted on 09/09 for left hip resection arthroplasty & placement of cement spacer secondary to infected joint. She underwent arthroplasty initially 06/2017 and developed draining from surgical incision. She was given oral antibiotics, but draining persisted. On 08/06/17 underwent I&D of incision, but unfortunately site continued to drain so it was recommended that she have hardware removed. Wound culture positive for MRSA and Enterococcus and was started on IV Vancomycin. Toxic levels in 09/11 so this was stopped and she was started on Daptomycin. On admission, her SCr was normal at 0.58 (0.78 back in July 2017) SCr paul to 1.39 on 09/11 and again to 2.93 at time of consult. Initial renal ultrasound indicated by the distention and mention of mild hydronephrosis. Urine output was brisk after Solano catheter placement and creatinine level improved progressively. I signed out. However creatinine level fell to 1.09 on September 17, 2017 but has subsequently risen to a level of 1.41 today and I was recalled. Noted patient developed rash and daptomycin was discontinued and the patient started on Zosyn. Solano catheter also removed since my last visit. Interval History Patient had no verbal complaints except for lower extremity edema. Indicating she had no difficulty voiding. Review of Systems Cardiovascular Cardiac: Edema Objective Data Data Vital Signs Date Time Temp Pulse Resp B/P (MAP) Pulse Ox O2 Delivery O2 Flow Rate FiO2 09/21/17 13:01 42 09/21/17 12:07 97.9 53 16 164/86 (112) 98 09/21/17 12:00 46 09/21/17 11:00 46 09/21/17 10:00 49 09/21/17 09:00 50 09/21/17 08:00 40 09/21/17 07:22 99 Room Air 09/21/17 07:22 97.7 49 16 167/88 (114) 99 09/21/17 07:00 46 09/21/17 06:00 44 09/21/17 05:00 42 09/21/17 04:20 51 16 158/85 (109) 98 09/21/17 04:00 54 09/21/17 03:00 42 09/21/17 02:00 44 09/21/17 01:00 44 09/21/17 00:01 58 16 136/74 (94) 94 09/21/17 00:00 42 09/20/17 23:00 54 09/20/17 22:00 48 09/20/17 21:00 44 09/20/17 20:10 97 Room Air 09/20/17 20:10 97.7 46 16 152/76 (101) 97 09/20/17 20:00 48 09/20/17 19:00 61 09/20/17 18:00 50 09/20/17 17:36 98 21 09/20/17 17:00 46 09/20/17 16:00 46 09/20/17 15:03 98 Room Air 09/20/17 15:03 98.1 60 16 147/75 (99) 98 09/20/17 15:00 66 09/20/17 14:00 48 -: 09/18/17 0515 09/21/17 0515 Tubes & Lines: Solano Physical Exam General Appearance: No Acute Distress, Comfortable Eyes Eye Exam: Sclera White Pulmonary Resp Exam: Clear Bilaterally, Breath Sounds Equal, No Distress Cardiology CV Exam: Regular, Normal Sinus Rhythm Gastrointestinal/Abdomen GI Exam: Soft, Non-Tender Integumentary Skin Exam: Clear, Warm Extremeties Extremities Exam: No Edema (2+ pitting edema of legs and feet.), Moderate Edema Neurologic Neuro Exam: Awake Assessment/Plan Discussed Condition With: Patient Problem List: (1) MITCH (acute kidney injury) ICD Codes: N17.9 - Acute kidney failure, unspecified Status: Acute Plan: Status post acute renal insufficiency with improvement in renal indices however creatinine level now deteriorating again. Patient does not appear to be clinically dehydrated in fact appears to have evidence of fluid retention. Differential diagnosis would include possible recurrence of bladder outlet obstruction or possible acute renal insufficiency related to interstitial nephritis given history of recent rash most likely related to daptomycin. Check urine for eosinophils. Bladder scan is ordered. Renal ultrasound. Repeat renal indices. Clinically I doubt rhabdomyolysis but apparently daptomycin can be associated with same. Check CK level as well as urinalysis. Medications should be adjusted for the patient's renal decline. Avoid nephrotoxic medications including NSAIDs and iodinated contrast dyes. Avoid gadolinium when GFR <30. (2) Ileus ICD Codes: K56.7 - Ileus, unspecified Status: Resolved Plan: post surgical NG tube placed (3) Septic hip ICD Codes: M00.9 - Pyogenic arthritis, unspecified Status: Acute Plan: Abx as per ID BCx pending from 09/11 (4) Anemia ICD Codes: D64.9 - Anemia, unspecified Plan: Repeat CBC with Fe panel Aide Armstrong MD Sep 21, 2017 13:59
== END 2017-09-21 14:20 | DRG 463 ==
LOC: HSDI 11:51 → N06B 20:24 → HIME 09-12 18:15 → HCIS 09-13 19:54
PROVIDERS: ADMIT Orthopaedic Surgery; ATTEND Orthopaedic Surgery
PROC: 0SHB08Z Insertion of Spacer into Left Hip Joint, Open Approach (ICD-10-PCS; 2017-09-09)
PROC: 0SPB0JZ Removal of Synthetic Substitute from Left Hip Joint, Open Approach (ICD-10-PCS; principal; 2017-09-09 13:29)
PROC: 0D9670Z Drainage of Stomach with Drainage Device, Via Natural or Artificial Opening (ICD-10-PCS; 2017-09-11)
PROC: 30233N1 Transfusion of Nonautologous Red Blood Cells into Peripheral Vein, Percutaneous Approach (ICD-10-PCS; 2017-09-13)
PROC: 0DB38ZX Excision of Lower Esophagus, Via Natural or Artificial Opening Endoscopic, Diagnostic (ICD-10-PCS; 2017-09-17)
PROC: 0DB78ZX Excision of Stomach, Pylorus, Via Natural or Artificial Opening Endoscopic, Diagnostic (ICD-10-PCS; 2017-09-17)
DX: T84.52XA Infection and inflammatory reaction due to internal left hip prosthesis, initial encounter (principal); A41.02 Sepsis due to Methicillin resistant Staphylococcus aureus; N17.9 Acute kidney failure, unspecified; M00.052 Staphylococcal arthritis, left hip; D62 Acute posthemorrhagic anemia; K56.0 Paralytic ileus; B37.81 Candidal esophagitis; K22.10 Ulcer of esophagus without bleeding; E66.01 Morbid (severe) obesity due to excess calories; K22.2 Esophageal obstruction; Z68.38 Body mass index [BMI] 38.0-38.9, adult; R13.10 Dysphagia, unspecified; F17.210 Nicotine dependence, cigarettes, uncomplicated; B95.62 Methicillin resistant Staphylococcus aureus infection as the cause of diseases classified elsewhere; Y83.8 Other surgical procedures as the cause of abnormal reaction of the patient, or of later complication, without mention of misadventure at the time of the procedure; K25.9 Gastric ulcer, unspecified as acute or chronic, without hemorrhage or perforation; K21.0 Gastro-esophageal reflux disease with esophagitis; L27.0 Generalized skin eruption due to drugs and medicaments taken internally; T36.8X5A Adverse effect of other systemic antibiotics, initial encounter; E86.0 Dehydration; K59.03 Drug induced constipation; T39.95XA Adverse effect of unspecified nonopioid analgesic, antipyretic and antirheumatic, initial encounter; K57.90 Diverticulosis of intestine, part unspecified, without perforation or abscess without bleeding; K44.9 Diaphragmatic hernia without obstruction or gangrene; K43.9 Ventral hernia without obstruction or gangrene; E87.6 Hypokalemia; R73.9 Hyperglycemia, unspecified; Z86.72 Personal history of thrombophlebitis
CPT/HCPCS: 36430; 36569; 71045; 73501; 74018; 74176; 74230; 76775; 76937; 80048; 80053; 80202; 81001; 82306; 82550; 82565; 82570; 82728; 82784; 83036; 83540; 83550; 83735; 83883; 83970; 84100; 84132; 84156; 84165; 84439; 84443; 84520; 85014; 85018; 85025; 85027; 85652; 86160; 86334; 86403; 86803; 86850; 86900; 86901; 86920; 87015; 87040; 87070; 87077; 87086; 87102; 87116; 87176; 87186; 87205; 87206; 88305; 88312; 93970; 94150; C1776; J0131; J0690; J0878; J1100; J1170; J1642; J1940; J2212; J2250; J2270; J2370; J2405; J2710; J3010; J3370; J3480; J7030; J7040; J7050; J7120; J7512; P9016

== ENCOUNTER 2017-12-17 06:46 | Inpatient (IN) ==
--- NOTE | 2017-12-11 17:12 | MH ---
cc: Robbin Gonzalez MD DATE OF ADMISSION: 12/17/2017 SCHEDULED TO BE ADMITTED ON: 12/17/2017. ADMITTING DIAGNOSIS: History of sepsis, left hip, status post total hip arthroplasty. HISTORY OF PRESENT ILLNESS: The patient is a 62-year-old white female who underwent a left total hip arthroplasty in June of this year for history of osteomyelitis. She subsequently developed some drainage and limited dehiscence about her left wound for which she was later readmitted to the hospital and underwent wound debridement and irrigation. At that time, her cultures were negative and the overall findings were felt to be superficial in nature. Following the procedure, however, she developed recurrent drainage from her wound site that was felt to be consistent with an infection of the hip joint and, thus, she was readmitted to the hospital in August and, at that time, underwent a resection arthroplasty with insertion of a cement spacer. The patient tolerated the procedure well and following the surgery, she was monitored on an outpatient basis with ongoing medical and infectious disease management, including ongoing antibiotic treatment. Her initial followup studies did reveal her white blood count to be within normal limits at 7.7, but her sedimentation rate and C-reactive protein did remain elevated at 38 and 39.5 respectively. She continued to be maintained on her antibiotic management and her wound subsequently appeared to be healing favorably, with no residual drainage being noted. Her more recent laboratory studies revealed all parameters to be within normal limits, with her white blood count being at 7. Her sedimentation rate at 9 and her C-reactive protein at 5.5. Based upon these findings, the infectious disease specialist felt that she had satisfactorily completed her course of antibiotic management and was cleared to proceed with operative treatment as had previously been planned. The patient was quite eager to proceed accordingly and in compliance with her wishes, she has been scheduled to be readmitted at this time for a second stage reimplantation of her left hip. PAST MEDICAL HISTORY AND HOSPITALIZATIONS: Have included laparoscopic cholecystectomy, bilateral carpal tunnel release, arthroscopic surgery of her right knee, tonsillectomy, colonoscopy. The patient denies active medical illnesses, but does note a positive history of thrombophlebitis of her right lower extremity many years ago. CURRENT MEDICATIONS: Have included doxycycline and oxycodone taken on a p.r.n. basis for pain management. ALLERGIES: SHE DENIES ANY KNOWN DRUG ALLERGIES. REVIEW OF SYSTEMS: There is no history of headaches, seizure or syncope. No sinus congestion or epistaxis, diminished auditory acuity. No tinnitus. No bleeding gums or dysphagia. She wears complete dentures. No cough, shortness of breath, upper respiratory infection, pneumonia or tuberculosis. No angina or heart disease. Appetite good. Bowel movements regular. No hepatitis, ulcers or hemorrhoids. She is status post cholecystectomy, history of urinary tract infection, no kidney stones, no fractures, no psychiatric illness. Her remaining review of systems is unremarkable and noncontributory. FAMILY HISTORY: The patient has been approximately 19 years. This being a fourth marriage. Her is 80 years of age, in poor health, with a history of heart disease, being status post open heart surgery, diabetes and a [id number] amputee. She has 1 son and 1 daughter by previous marriage, both indicated to be in good health. FAMILY HISTORY: Positive for diabetes, lung and colon cancer. 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 She completed a high school education. She admits to active use of tobacco since 1972, averaging less than 1 pack per day. Denies ethanol consumption. PHYSICAL EXAMINATION: VITAL SIGNS: Height 5 feet 4 inches, weight 230 pounds. GENERAL: An alert, oriented, responsive 62-year-old white female who sits quietly upon the examination table with no apparent distress. HEAD, EARS, EYES, NOSE AND THROAT: Pupils are equally round and reactive to light. Extraocular movements full. Sclerae are clear. External nares clear. External auditory canals clear. Edentulous. Mucous membranes pink and moist. Pharynx clear. NECK: Supple. Active mobility, with no appreciable pain. Carotid pulse palpable bilaterally. Trachea midline. Thyroid without thyroid enlargement. LUNGS: Clear to auscultation and percussion. No CVA tenderness. No discomfort throughout the dorsolumbar spine. HEART: Regular rate and rhythm. No murmur or gallop. ABDOMEN: Soft, nontender, bowel sounds present. PELVIC: Per primary care physician. EXTREMITIES: Left hip, a well-healed surgical wound about the posterolateral aspect of the hip, without appreciable swelling, discoloration or obvious drainage. There is no localizing tenderness or suggestion for fluctuance. There is limited mobility of the hip joint in all ranges assessed with pain associated. No sensation of instability. Distal sensory grossly intact. Antalgic gait. NEUROLOGIC: Cranial nerves 2-12 grossly intact. IMPRESSION: Sepsis, left hip, status post total hip arthroplasty. PLAN: Second stage reimplantation, left hip. The nature of the planned surgical procedure, the potential complications and risks associated, the expectations of surgery and the consent form were thoroughly reviewed with the patient prior to admission to the hospital. Ana Cristina has indicated her full understanding regarding all of the above and given consent to proceed with treatment as outlined. MD JESSA Urbano/ADRIANA , 04:45 PM , 05:11 PM
[2017-12-17] MEDS ORDERED: Chlorhexidine Gluconate 2% 1 Pack (2 Cloths) TOPICAL SCH (07:30)
[2017-12-17] MEDS ORDERED: Metoprolol Tartrate 25 MG Tablet PO SCH (07:30)
[2017-12-17] MEDS ORDERED: Sodium Chlor 0.9% Inj 500 ML IV.SIG SCH (08:00)
[2017-12-17] MEDS ORDERED: Tranexamic Acid Inj 1,000 MG in Sodium Chlor 0.9% Inj 100 ML IV.SIG SCH ×2 (08:00→10:17)
[2017-12-17] MEDS ORDERED: Glycopyrrolate Inj 1 MG/5 ML Syringe IV.PUSH ONE (09:17)
[2017-12-17] MEDS ORDERED: Lidocaine PF 1% Inj 5 ML Syringe INFILTRATN ONE (09:17)
[2017-12-17] MEDS ORDERED: Phenylephrine/NS 1000 MCG/10ML Syringe IV.PUSH ONE (09:17)
[2017-12-17] MEDS ORDERED: Neostigmine Inj 5 MG/5 ML Syringe IV.PUSH ONE (09:17)
[2017-12-17] MEDS ORDERED: ceFAZolin 2 GM Premix Inj 2 GM/50 ML PIGGYBACK IV.SIG ONE (09:45)
[2017-12-17 11:55] LABS: Hematocrit 33.4 % (35.0-46.0); Hemoglobin 10.7 gm/dL (11.6-15.3)
[2017-12-17] MEDS ORDERED: Post-op Orders (for Pharmacy) OTHER STA (12:25)
[2017-12-17] MEDS ORDERED: Tranexamic Acid Inj 1,000 MG in Sodium Chlor 0.9% Inj 100 ML IV.SIG ONE (12:25)
[2017-12-17] MEDS ORDERED: Naloxone Inj 0.4 MG/ML Vial IV.PUSH PRN (12:25)
[2017-12-17] MEDS ORDERED: Aluminum/Magnesium/Simethacone Susp 30 ML UDC PO PRN (12:25)
[2017-12-17] MEDS ORDERED: Bisacodyl 10 MG Supp RECTAL PRN (12:25)
[2017-12-17] MEDS ORDERED: Zolpidem Tartrate 5 MG Tablet PO PRN (12:25)
[2017-12-17] MEDS ORDERED: Acetaminophen 325 MG Tablet PO PRN (12:25)
[2017-12-17] MEDS ORDERED: *Meperidine Inj 25 MG/ML Vial PERIprocedural Use ONLY ONE (12:28)
[2017-12-17] MEDS ORDERED: Morphine Inj 30 MG/30 ML PCA.VIAL PCA ONE (12:43)
--- NOTE | 2017-12-17 12:45 | P.DCO ---
- Diagnosis (1) S/P total hip arthroplasty - Physical Therapy Order: Evaluate and treat - Home Health Nursing Order: Wound care and dressing changes (remove claudette left hip wound on POD # 10 and apply steri strips) - Home Health Aide Order: To assist in: Bathing and personal care - Certification I have seen patient Ana Cristina Patino on 12/17/17. My clinical findings support the need for the requested home health care services because: Limited ability to care for self, High risk of falls I certify that my clinical findings support that this patient is homebound because: Post-op weakness, Unsteady gait/balance, Unsafe to leave home unassisted (1) S/P total hip arthroplasty Qualifiers: Laterality: left Qualified Code(s): Z96.642 - Presence of left artificial hip joint
[2017-12-17] MEDS ORDERED: fentaNYL Citrate Inj 100 MCG/2 ML Ampul ONE (13:10)
[2017-12-17] MEDS: Morphine Inj 30 MG/30 ML PCA.VIAL PCA PRN (13:11)
[2017-12-17 13:15] LABS: Hematocrit 36.3 % (35.0-46.0); Hemoglobin 11.4 gm/dL (11.6-15.3)
--- NOTE | 2017-12-17 13:40 | XR ---
EXAM DATE: 12/17/2017 1:30 PM EDT AGE/SEX: 62 years / Female INDICATIONS: Post op left hip. CLINICAL DATA: This is the patient's initial encounter. Patient reports that signs and symptoms have been present for 1 day and indicates a pain score of Nonresponsive. MEDICAL/SURGICAL HISTORY: Non-responsive. Non-responsive. [place] [facility] [place]AP&LAT 2/3VWS[place] W AP PELVIS, 09/26/2017. . FINDINGS: AP and crosstable lateral views of the left hip were obtained and demonstrate the patient is status p ost interval revision arthroplasty. The femoral and acetabular components are intact and in normal al ignment. There is mild osteopenia. CONCLUSION: Expected postoperative changes status post left revision arthroplasty. Electronically signed by: Yunior Olivarez MD 12/17/2017 1:39 PM EDT
[2017-12-17] MEDS ORDERED: Morphine Inj 4 MG/ML Vial IV.SIG ONE (13:45)
--- NOTE | 2017-12-17 15:16 | P.CONIM ---
History of Present Illness Primary Care Provider: Parisa Bundy DO Family Provider: Parisa Bundy DO History of Present Illness: Mrs. Patino is a 62 year old female who is hospitalized for a left hip replacement surgery. At baseline she reports no medical problems other than osteoarthritis. She has a hip replacement surgery today with removal of spacer which had been in place due to a prior hip surgery infection. When seen she is doing well without nausea and with good pain control. Vitals are stable. Review of Systems Constitutional: Denies chills, Denies fatigue, Denies fever(s), Denies weakness Eyes: Denies blind spots, Denies blurry vision, Denies change in vision, Denies double vision Ears, Nose, Mouth, and Throat: Denies abnormal hearing, Denies lip swelling, Denies nosebleed Cardiovascular: Denies chest pain, Denies chest pain at rest, Denies chest pain with activity Respiratory: Denies cough, Denies shortness of breath, Denies wheezing Gastrointestinal: Denies abdominal pain, Denies black, tarry stools, Denies bloating, Denies bright, red blood in stools Musculoskeletal: Reports abnormal walking, Reports joint pain, Denies deformity Skin/Breast: Denies rash, Denies skin pain, Denies skin ulcer, Denies sores Neurologic: Denies abnormal hearing, Denies abnormal movements, Denies abnormal speech PMFSH - History History Provided By: Patient - Medical History Medical History: Medical History (Last Reviewed 12/17/17 @ 08:21 by Almas Jara RN) Arthritis Diminished hearing Fluid collection of middle ear Full dentures GERD (gastroesophageal reflux disease) History of MRSA infection Joint pain Murmur, cardiac - Surgical History Surgical History: Surgical History (Last Updated 12/17/17 @ 08:22 by Almas Jara RN) H/O arthroscopy of right knee History of bilateral carpal tunnel release History of cholecystectomy History of left hip replacement History of tubal ligation - Family History Family History: Family History (Last Updated 12/17/17 @ 15:09 by Jarrell Nichole MD) Other Colon cancer Diabetes Lung cancer - Tobacco History Second Hand Smoke Exposure: Yes Tobacco Use In Past 30 Days: Yes Smoking Status: Current every day smoker Tobacco Type: Cigarettes - Alcohol History How Often Do You Have a Drink Containing Alcohol: Never - Substance Use History Substance History: No History of Abuse - Travel History Recent Travel in the [place] Within the Last 8 Weeks: No Recent Travel Out of the Country Within the Last 8 Weeks: No Medications and Allergies Active Medications: Active Medications Acetaminophen (Tylenol) 650 mg PO Q6H PRN PRN Reason: FEVER > 102 F Hydrocodone Bitart/Acetaminophen (Tyrone 5/325) 1 tab PO Q4H PRN PRN Reason: PAIN LESS THAN 5 ON SCALE Hydrocodone Bitart/Acetaminophen (Tyrone 5/325) 2 tab PO Q6H PRN PRN Reason: PAIN SCALE 5 TO 10 Al Hydrox/Mg Hydrox/Simethicone (Mag-Al Plus Susp Liq) 30 ml PO Q6H PRN PRN Reason: INDIGESTION Al Hydroxide/Mg Hydroxide (Milk Of Magnesia Liq) 30 ml PO BID PRN PRN Reason: Mild Constipation Aspirin (Aspirin) 325 mg PO BID ER[facility]STINE Bisacodyl (Dulcolax Supp) 10 mg RECTAL DAILY PRN PRN Reason: SEVERE CONSITIPATION Chlorhexidine Gluconate (Chlorhexidine 2% Cloth) 3 pack TOPICAL PUMP SERVICER ERNESTINE Stop: 12/20/17 07:19 Last Admin: 12/17/17 08:00 Dose: 3 pack Tranexamic Acid 1,000 mg/ (Sodium Chloride) 110 mls @ 200 mls/hr IV.SIG ONCE ERNESTINE Stop: 12/18/17 07:59 Last Infusion: 12/17/17 11:02 Dose: Infused Tranexamic Acid 1,000 mg/ (Sodium Chloride) 110 mls @ 200 mls/hr IV.SIG ONCE ERNESTINE Stop: 12/18/17 10:16 Lactated Ringer's (Lr 1000 Ml Inj) 1,000 mls @ 30 mls/hr IV.SIG .Q24H ERNESTINE Stop: 12/20/17 07:19 Last Infusion: 12/17/17 10:51 Dose: Infused Sodium Chloride (Ns Inj) 500 mls @ 30 mls/hr IV.SIG .Q10H [facility] Stop: 12/20/17 07:19 Cefazolin Sodium 1,000 mg/ (Sodium Chloride) 100 mls @ 200 mls/hr IV.SIG Q6H [facility] Stop: 12/18/17 05:29 Lactated Ringer's (Lr 1000 Ml Inj) 1,000 mls @ 80 mls/hr IV.CONT .[id number] [facility] Last Infusion: 12/17/17 14:47 Dose: 80 mls/hr Morphine Sulfate (Morphine Inj) 30 mg in 30 mls @ 0 mls/hr COMMUNITY LIAISON UNSCH PRN PRN Reason: per COMMUNITY LIAISON parameters Stop: 12/18/17 12:24 Last Admin: 12/17/17 13:11 Dose: 0 mls/hr Lactulose (Lactulose Liq) 30 ml PO DAILY PRN PRN Reason: SEVERE CONSITIPATION Metoprolol Tartrate (Lopressor) 25 mg PO PUMP SERVICER [facility] Stop: 12/20/17 07:19 Miscellaneous Information ([facility]) 0 each OTHER UNSCH PRN PRN Reason: SEE DOSE INSTRUCTIONS Naloxone HCl (Narcan Inj) 0.4 mg IV.PUSH PRN PRN PRN Reason: Resp rate < 10 Ondansetron HCl (Zofran Inj) 4 mg IV.PUSH Q6H PRN PRN Reason: NAUSEA OR VOMITING Pantoprazole Sodium (Protonix) 20 mg PO DAILY [facility] Povidone Iodine (Betadine 5% Antisepsis Kit) 1 applicatio EACH NARE PUMP SERVICER [facility] Stop: 12/20/17 07:19 Last Admin: 12/17/17 08:20 Dose: 1 applicatio Senna/Docusate Sodium (Monica-Colace) 1 tab PO BID [facility] Sennosides (Senokot) 17.2 mg PO BID PRN PRN Reason: Moderate Constipation Sodium Chloride (Ns Flush) 2 ml IV.FLUSH BID [facility] Sodium Chloride (Ns Flush) 2 ml IV.FLUSH PRN PRN PRN Reason: FLUSH AFTER USING IV ACCESS Zolpidem Tartrate (Ambien) 5 mg PO HS PRN PRN Reason: INSOMNIA Allergies Allergy/AdvReac Type Severity Reaction Status Date / Time daptomycin Allergy Intermediate rash Verified 09/16/17 18:30 Home Medications Medication Instructions Recorded Confirmed Type doxycycline hyclate 100 mg PO BID 12/10/17 12/17/17 History omeprazole 20 mg PO DAILY 12/10/17 12/17/17 History Exam Vital signs: Vital Signs 12/17/17 08:23 12/17/17 12:21 12/17/17 12:30 Temperature 98.9 F 97.6 F Pulse Rate 83 81 76 Respiratory Rate 20 20 16 Blood Pressure 152/80 H 137/63 140/73 Pulse Oximetry 96 100 100 12/17/17 12:45 12/17/17 13:00 12/17/17 13:15 Temperature Pulse Rate 60 56 L 54 L Respiratory Rate 15 14 13 Blood Pressure 125/61 133/66 135/65 Pulse Oximetry 100 100 99 12/17/17 13:30 12/17/17 13:36 12/17/17 14:00 Temperature Pulse Rate 53 L 55 L Respiratory Rate 13 15 Blood Pressure 131/61 131/62 Pulse Oximetry 97 99 97 Intake & Output 12/16/17 12/17/17 12/17/17 18:59 06:59 18:59 Intake Total 2473 / 2473 Output Total 740 / 740 Balance 1733 / 1733 Weight 97.3 kg Intake: IV 1303 / 1303 LR 1000 mL Inj 1,000 ML @ 80 143 / 143 mls/hr IV.CONT .[id number] ERNESTINE Rx# :[id number] LR 1000 mL Inj 1,000 ML @ 30 1000 / 1000 mls/hr IV.SIG .Q24H ERNESTINE Rx#: [id number] Cyklokapron Inj 1,000 MG In NS 110 / 110 Inj 100 ML @ 200 mls/hr IV.SIG ONCE ERNESTINE Rx#:[id number] Ancef 2 GM Premix Inj 2 gm In 50 / 50 50 ml @ 0 mls/hr IV.SIG .STK- MED ONE Rx#:[id number] Oral 20 / 20 Anesthesia Amount 1150 / 1150 Output: Estimated Blood Loss 700 / 700 Wound Drainage 40 / 40 # 1 Left Hip Hemovac 40 / 40 Other: Weight On Admission 97.3 kg Narrative: GENERAL: NAD, A&Ox3 HEAD: Normocephalic. NECK: Supple, trachea midline. No lymphadenopathy. EYES: No scleral icterus. No injection or drainage. CARDIOVASCULAR: Regular rate and rhythm without murmurs, gallops, or rubs. RESPIRATORY: Breath sounds equal bilaterally. No accessory muscle use. GASTROINTESTINAL: Abdomen soft, non-tender, nondistended. MUSCULOSKELETAL: No cyanosis, or edema. SKIN: Warm and dry. NEURO: No focal neurological deficits. Results - Labs CBC & Chem 7: 12/17/17 13:09 Labs: Laboratory Results - last 24 hr 12/17/17 12/17/17 12/17/17 08:18 10:45 10:45 Hgb 10.7 L Hct 33.4 L Blood Type O Positive Antibody Screen Negative MTS Gel Crossmatch See Detail 12/17/17 13:09 Hgb 11.4 L Hct 36.3 Blood Type Antibody Screen MTS Gel Crossmatch - Imaging Impressions Hip X-Ray 12/17/17 12:21 CONCLUSION: Expected postoperative changes status post left revision arthroplasty. Assessment and Plan - Assessment (1) S/P total hip arthroplasty Code(s): Z96.649 - Presence of unspecified artificial hip joint Status: Acute - Plan 62-year-old female admitted for left hip surgery/replacement Status post hip replacement surgery Continue pain treatments Start physical therapy Follow CBC Orthopedic surgeons following History of Left Hip joint infection Continue treatments per ID recommendations Cefazolin has been provided DVT prophylaxis Post op, per surgical discretion (1) S/P total hip arthroplasty Qualifiers: Laterality: left Qualified Code(s): Z96.642 - Presence of left artificial hip joint
--- NOTE | 2017-12-17 16:26 | MP ---
cc: Robbin Gonzalez MD DATE OF OPERATION: 12/17/2017 PREOPERATIVE DIAGNOSIS: History of sepsis, left hip, status post total hip arthroplasty. POSTOPERATIVE DIAGNOSIS: History of sepsis, left hip, status post total hip arthroplasty. PROCEDURE PERFORMED: Second stage reimplantation, left hip. SURGEON: Robbin Gonzalez MD ANESTHESIA: General endotracheal. INDICATIONS: A 62-year-old white female who had undergone a left total hip arthroplasty in June of this year for history of osteoarthritis. The patient was noted to have tolerated her operative procedure well, and her initial postoperative recovery was unremarkable. She later developed some drainage about her wound site, which was treated conservatively while being maintained on oral antibiotics. The drainage persisted, and the patient later underwent an incision and drainage procedure, at which time all cultures were noted to be without evidence of bacterial contamination. The patient was maintained on antibiotic coverage, but unfortunately her drainage persisted, and subsequent diagnostic studies noted elevated sedimentation rate and C-reactive protein. In spite of continued antibiotic management, her drainage persisted and the patient later underwent a resection arthroplasty of her left hip with insertion of a cement spacer. She continued to be maintained on antibiotic management during this interval of time while being followed by Infectious Disease and monitored from a laboratory standpoint. Her laboratory values subsequently returned to normal, with a white blood count at 7, sedimentation rate at 9, and C-reactive protein at 5.5. The patient's wound was noted to be intact at that time, and she was quite eager to proceed with her reimplantation, given her continued limitations. In compliance with her wishes, she was scheduled for admission at this time in order that the above be accomplished. DESCRIPTION OF PROCEDURE: Following the induction of satisfactory general anesthesia by endotracheal intubation as completed per the Department of Anesthesia, the patient was positioned upon the operating table in a right lateral decubitus fashion. The left hip and lower extremity proper were isolated with a U-drape, thereafter being prepped with Betadine solution and draped into a sterile field in the routine manner. Prior to initiation of the actual procedure, the standard timeout protocol was completed. All parameters were appropriately addressed and confirmed by operating room personnel. The previous surgical scar about the left hip was excised in its entirety, and thereafter progressive dissection was facilitated into the underlying subcutaneous tissue. By deepening dissection through the gluteus musculature, the posterior capsular region was identified, and immediately upon entering the capsule, a fluid specimen was obtained and sent to the lab for stat laboratory analysis, the results of which were negative for evidence of white blood cells or bacterial contamination. Based upon this finding, it was elected to proceed with the reimplantation as planned. The cement spacer was thereafter identified, the head component being dislocated from the confines of the acetabulum, and the head itself thereafter being disassociated from the femoral stem. The stem was thereafter removed from the confines of the femoral canal, and thereafter generalized debridement of reactive tissue was accomplished. Greater reaming of the acetabulum was completed from 46 through 51 mm. A 52 trial shell was positioned and determined to be satisfactory. The trial component being removed, attention was redirected to the femoral canal. Pulsating antibiotic lavage with brushing was accomplished, and thereafter sequential rasping and broaching was completed from 10 through 14 mm. The 14 mm stem was determined to be a favorable fit. With all trial components being removed, repeat pulsating antibiotic irrigation was completed, and thereafter a 52 mm RingLoc acetabular shell was firmly seated into the acetabulum in approximately 45 degrees inclination to horizontal and slight anteversion. A single 25 mm 6.5 cancellous screw was inserted superiorly to augment fixation. The permanent high wall acetabular liner was affixed to the acetabular shell. Attention returned to the proximal femur. The size 14 trial femoral broach was repositioned, and a trial reduction followed utilizing a 36 mm modular head with -6 mm neck length adaptor. The hip readily reduced and carried through a passive range of motion with stability demonstrated at 90 degrees flexion and 45 degrees internal rotation. An open dislocation was thereafter completed, and the femoral components being removed, final irrigation of the canal was completed, and thereafter a 14 mm Echo Biometric standard femoral stem was firmly seated, to which a 36 mm ceramic head with -6 mm neck length adapter was attached. Open reduction completed, and repeat range of motion again noted stability as previously described. Final irrigation was accomplished with hemostasis maintained. The posterior capsular tissue was reapproximated with a 0 Vicryl suture. Hemovac drain tubes were inserted through superior stab wounds. The remaining portion of the wound was closed in layers in the routine manner, skin margins being reapproximated with metallic claudette. Xeroform gauze and a bulky dry sterile dressing were placed. The patient was repositioned into a supine orientation, where an abduction splint was attached. Anesthesia was discontinued. The patient thereafter transferred to a hospital bed and returned to the recovery room in satisfactory condition, having tolerated her operative procedure well. Estimated blood loss was approximately 700 mL, as determined per Anesthesia. All implants were of the [employer] marine oiler. MD JESSA Urbano/kb/ll , 01:12 PM , 01:26 PM
[2017-12-17] MEDS: Aspirin 325 MG Tablet PO SCH (20:14)
[2017-12-17] MEDS: Senna/Docusate Sodium 8.6/50 MG Tablet PO SCH (20:14)
[2017-12-18 05:22] LABS: Baso # (Auto) 0.1 th/mm3 (0.0-0.2); Baso % (Auto) 0.4 % (0.0-2.0); Eos # (Auto) 0.1 th/mm3 (0.0-0.4); Eos % (Auto) 0.6 % (0.0-4.0); Lymph % (Auto) 13.6 % (9.0-44.0); Mean Corpuscular HGB Conc 32.1 % (32.0-36.0); Mean Corpuscular Hemoglobin 26.8 pg (27.0-34.0); Mean Corpuscular Volume 83.6 fL (80.0-100.0); Mean Platelet Volume 8.5 fL (7.0-11.0); Mono # (Auto) 0.9 th/mm3 (0.0-0.9); Mono % (Auto) 6.1 % (0.0-8.0); Neut # (Auto) 11.9 th/mm3 (1.8-7.7); Neut % (Auto) 79.3 % (16.0-70.0); Platelet Count 255 th/mm3 (150-450); Red Blood Count 3.34 mil/mm3 (4.00-5.30); Red Cell Distribution Width 19.9 % (11.6-17.2)
[2017-12-18 05:38] LABS: Albumin 2.7 g/dL (3.4-5.0); Anion Gap 11 meq/L (5-15); Aspartate Aminotransferase 14 U/L (15-37); Blood Urea Nitrogen 13 mg/dL (7-18); Calcium 9.1 mg/dL (8.5-10.1); Carbon Dioxide 25.2 meq/L (21.0-32.0); Chloride 104 meq/L (98-107); Glomerular Filtration Rate 70 mL/min (>89); Glucose,Random 136 mg/dL (74-106); Potassium 4.7 meq/L (3.5-5.1); Sodium 140 meq/L (136-145)
[2017-12-18 05:42] LABS: Alanine Aminotransferase 13 U/L (10-53); Alkaline Phosphatase 74 U/L (45-117); Total Protein 5.8 g/dL (6.4-8.2)
[2017-12-18] MEDS: Pantoprazole Sodium 20 MG DR Tablet PO SCH (08:09)
[2017-12-18] MEDS: Aspirin 325 MG Tablet PO SCH ×2 (08:09→21:03)
[2017-12-18] MEDS: Senna/Docusate Sodium 8.6/50 MG Tablet PO SCH ×2 (08:09→21:03)
[2017-12-18] MEDS: Morphine Inj 30 MG/30 ML PCA.VIAL PCA PRN (10:47)
--- NOTE | 2017-12-18 11:12 | P.PN ---
Subjective Interval history: Follow-up visit status post left hip reimplantation. Patient seen and examined today. Reports she is doing well up sitting in a chair. States that she has walked around physical therapy in the unit. States she is feeling great. States that as per Orth O she might go home tomorrow. Denies pain and discomfort. Denies SOB/ dyspnea. Denies chest pain, palpitations, headaches, dizziness. Denies fevers, chills, n/v/d. Denies hematuria, dysuria. Physical Exam Vital signs: Vital Signs 12/17/17 12:21 12/17/17 12:30 12/17/17 12:45 Temperature 97.6 F Pulse Rate 81 76 60 Respiratory Rate 20 16 15 Blood Pressure 137/63 140/73 125/61 Pulse Oximetry 100 100 100 12/17/17 13:00 12/17/17 13:15 12/17/17 13:30 Temperature Pulse Rate 56 L 54 L 53 L Respiratory Rate 14 13 13 Blood Pressure 133/66 135/65 131/61 Pulse Oximetry 100 99 97 12/17/17 13:36 12/17/17 14:00 12/17/17 15:00 Temperature Pulse Rate 55 L 88 Respiratory Rate 15 17 Blood Pressure 131/62 129/62 Pulse Oximetry 99 97 97 12/17/17 18:00 12/17/17 20:00 12/18/17 00:00 Temperature 98.1 F 97.5 F L 97.4 F L Pulse Rate 77 111 H 83 Respiratory Rate 18 18 18 Blood Pressure 119/63 106/59 L 120/63 Pulse Oximetry 100 94 L 93 L 12/18/17 04:00 12/18/17 08:00 Temperature 97.3 F L 97.6 F Pulse Rate 102 H 107 H Respiratory Rate 19 17 Blood Pressure 120/66 124/67 Pulse Oximetry 95 94 L Intake & Output 12/17/17 12/18/17 12/18/17 18:59 06:59 18:59 Intake Total 3073 / 3073 1507 / 1507 Output Total 740 / 740 55 / 55 Balance 2333 / 2333 1507 / 1507 -55 / -55 Weight 97.3 kg Intake: IV 1403 / 1403 957 / 957 LR 1000 mL Inj 1,000 ML @ 80 143 / 143 857 / 857 mls/hr IV.CONT .[id number] ERNESTINE Rx# :[id number] LR 1000 mL Inj 1,000 ML @ 30 1000 / 1000 mls/hr IV.SIG .Q24H ERNESTINE Rx#: [id number] Cyklokapron Inj 1,000 MG In NS 110 / 110 Inj 100 ML @ 200 mls/hr IV.SIG ONCE ERNESTINE Rx#:[id number] Ancef 2 GM Premix Inj 2 gm In 50 / 50 50 ml @ 0 mls/hr IV.SIG .STK- MED ONE Rx#:[id number] Ancef Inj 1,000 MG In NS Inj 100 / 100 100 / 100 100 ML @ 200 mls/hr IV.SIG Q6H ERNESTINE Rx#:[id number] Oral 520 / 520 550 / 550 Anesthesia Amount 1150 / 1150 Output: Estimated Blood Loss 700 / 700 Wound Drainage 55 / 55 # 1 Left Hip Hemovac 55 Other: # Voids 1 2 Weight On Admission 97.3 kg Narrative: GENERAL: This is a well-nourished, well-developed patient, in no apparent distress. SKIN: Warm and dry. HEENT: Normocephalic. Pupils equal round and reactive. Nose without bleeding. Airway patent. NECK: Trachea midline. No JVD. Supple. CARDIOVASCULAR: Regular rate and rhythm without murmurs, gallops, or rubs. RESPIRATORY: Clear to auscultation. Breath sounds equal bilaterally. No wheezes , rales, or rhonchi. GASTROINTESTINAL: Abdomen soft, non-tender, nondistended. Bowel Sounds normoactive x4. MUSCULOSKELETAL: Extremities without clubbing, cyanosis. Left hip incision site with dressing clean dry and intact. 2 drains have been removed. NEUROLOGICAL: Awake and alert. Oriented to time, place, person. No focal neuro deficit. Moves all extremities. Normal speech. Results - Labs CBC & Chem 7: 12/18/17 04:34 12/18/17 04:34 Laboratory Results - last 24 hr 12/17/17 12/17/17 12/17/17 10:45 10:45 13:09 WBC RBC Hgb 10.7 L 11.4 L Hct 33.4 L 36.3 MCV MCH MCHC RDW Plt Count MPV Neut % (Auto) Lymph % (Auto) Pacific % (Auto) Eos % (Auto) Baso % (Auto) Neut # (Auto) Lymph # (Auto) [place] # (Auto) Eos # (Auto) Baso # (Auto) WBC Differential Differential Comment Sodium Potassium Chloride Carbon Dioxide Anion Gap BUN Creatinine Estimated GFR Random Glucose Calcium Total Bilirubin AST ALT Alkaline Phosphatase Total Protein Albumin MTS Gel Crossmatch See Detail 12/18/17 12/18/17 04:34 04:34 WBC 15.0 H RBC 3.34 L Hgb 9.0 L D Hct 28.0 L MCV 83.6 MCH 26.8 L MCHC 32.1 RDW 19.9 H Plt Count 255 MPV 8.5 Neut % (Auto) 79.3 H Lymph % (Auto) 13.6 Pacific % (Auto) 6.1 Eos % (Auto) 0.6 Baso % (Auto) 0.4 Neut # (Auto) 11.9 H Lymph # (Auto) 2.0 Pacific # (Auto) 0.9 Eos # (Auto) 0.1 Baso # (Auto) 0.1 WBC Differential . Differential Comment Auto diff final Sodium 140 Potassium 4.7 Chloride 104 Carbon Dioxide 25.2 Anion Gap 11 BUN 13 Creatinine 0.83 Estimated GFR 70 L Random Glucose 136 H Calcium 9.1 Total Bilirubin 0.3 AST 14 L ALT 13 Alkaline Phosphatase 74 Total Protein 5.8 L Albumin 2.7 L MTS Gel Crossmatch Microbiology 12/17/17 10:40 Wound - Hip Gram Stain - Final - Imaging Impressions Hip X-Ray 12/17/17 12:21 CONCLUSION: Expected postoperative changes status post left revision arthroplasty. Assessment and Plan - Assessment (1) S/P total hip arthroplasty Code(s): Z96.649 - Presence of unspecified artificial hip joint Status: Acute - Plan 62 year old female who is hospitalized for a left hip replacement surgery in June who developed left infection. She is status post cement spacer placement with removal. On prolonged antibiotic use -doxycycline. Readmitted to the hospital for hip reimplantation. Status post left hip second stage reimplantation -Dr. Gonzalez following -Pain management with bowel regimen -Given Ancef IV -PT eval and treat -Follow-up labs DVT prop aspirin 325mg twice daily Code Status: Full Code Discussed Condition With: Patient, nursing, Dr. Ng Discharge Planning: Discharge disposition by orthopedic surgeon. (1) S/P total hip arthroplasty Qualifiers: Laterality: left Qualified Code(s): Z96.642 - Presence of left artificial hip joint
--- NOTE | 2017-12-19 07:17 | MD ---
cc: Robbin Gonzalez MD, Gail DO DATE OF DISCHARGE: 12/20/2017 ADMITTING DIAGNOSIS: Sepsis, left hip, status post total hip arthroplasty. DISCHARGE DIAGNOSIS: Sepsis, left hip, status post total hip arthroplasty. HISTORY: A 62-year-old white female who had undergone a left total hip arthroplasty in June of this year for a history of osteoarthritis and subsequently developed drainage from her wound site that was initially managed in a conservative fashion, but later on undergoing a wound debridement and irrigation. At that time, her cultures were negative and overall findings were felt to be more superficial in nature. Unfortunately, she developed recurrent drainage from her wound site that was felt to be more consistent with a deeper wound infection and thus she was readmitted to the hospital in August and at that time underwent a resection arthroplasty with insertion of a cement spacer. She was thereafter followed by infectious disease for ongoing medical management including antibiotic coverage and being monitored by serial laboratory studies. Her lab values subsequently returned to a normal range with her white blood count is 7, sedimentation rate at 9 and C-reactive protein 5.5. At that time, the patient indicated her desire to proceed with additional treatment, which would include a reimplantation of her hip prosthesis and in compliance with her wishes, she was scheduled for admission in order that the above be accomplished. Physical exam revealed a well-healed surgical wound about her left hip. There was no swelling, discoloration, or obvious drainage. There was no localizing tenderness or suggestion for fluctuance. There was limited mobility of the hip joint in all ranges assessed with pain associated and a sensation of instability. Distal sensory grossly intact. Antalgic gait. HOSPITAL COURSE: Prior to admission to the hospital, the patient had undergone medical evaluation and clearance for surgery as completed by her primary care physician, Dr. Shaina Abdi. She was taken to the operating room on 17 December 2017 and on that date underwent a second stage reimplantation of her left hip. The patient was noted to have tolerated her operative procedure well. Her postoperative course, stable thereafter. Hemoglobin and hematocrit assessment postoperatively was 9 and 28.0 respectively. The patient was progressively mobilized under the guidance of physical therapy being permitted weightbearing to tolerance about the left lower extremity. Followup examination of her surgical wound noted to be intact, healing favorably with no evidence of infection. Medical followup per the hospitalist service. DVT prophylaxis initiated. Presentation Specialist consulted to assist with discharge planning. The patient indicated her desire to be discharged home and continue her rehabilitation on an outpatient basis. Plans were finalized in this regard and pending medical clearance, she was scheduled for discharge on the second postoperative day at which time she was noted to be making favorable progress with regard to her rehabilitation program. She was scheduled to be seen in office followup in approximately 4 weeks, but additional orders were given indicating home health care to remove metallic claudette from the patient's left hip wound and apply Steri-Strips at postoperative day 10. The patient was advised that if this is not accomplished, she was to contact the office to facilitate having this completed prior to her scheduled followup appointment. DISCHARGE MEDICATIONS: Her discharge medications otherwise included hydrocodone 7.5/325 #30, aspirin 325 mg 1 tab twice daily for 4 weeks and the patient was to continue with doxycycline 100 mg twice daily as taken preoperatively. MD JESSA Urbano/RENETTA , 06:51 AM , 07:06 AM
[2017-12-19] MEDS: Pantoprazole Sodium 20 MG DR Tablet PO SCH (08:13)
[2017-12-19] MEDS: Senna/Docusate Sodium 8.6/50 MG Tablet PO SCH (08:14)
[2017-12-19] MEDS: Aspirin 325 MG Tablet PO SCH (08:14)
== END 2017-12-19 09:18 | disposition home health service (06) ==
LOC: HSDI 06:46 → N06 17:34
PROVIDERS: ADMIT Orthopaedic Surgery; ATTEND Orthopaedic Surgery

== ENCOUNTER 2018-01-05 12:39 | Inpatient (IN) ==
[2018-01-05] MEDS ORDERED: Sod Chloride 0.9% Inj 1,000 ML IV.SIG ONE ×5 (13:00→17:20)
[2018-01-05] MEDS ORDERED: Acetaminophen 650 MG Supp RECTAL ONE (13:00)
--- NOTE | 2018-01-05 13:24 | ED ---
HPI General Chief Complaint: Altered Mental Status Stated Complaint: Hip pain Time Seen by Provider: 01/05/18 12:52 Source: patient and family Mode of arrival: ambulatory Limitations: altered mental status History of Present Illness HPI narrative: Patient is a 62-year-old female presented to emerge department via private vehicle for evaluation of altered mental status. Per family's report patient became nauseated and vomited approximately 1-2 hours prior to arrival. She then was reportedly blankly staring at her phone for 45 minutes. She then told her family that she needed to go use the restroom. She was in there for another 45 minutes, she was unable to get herself out of the bathroom due to weakness, EMS was called and assessed patient's vital signs. She was febrile and tachycardic. They helped her to her private vehicle and she was brought to the emergency department. Patient states that she felt shaky and she feels weak and tired at this time. She denies any chest pain, abdominal pain, shortness of breath, headache, dizziness, back pain. Patient had a left hip replacement 2 weeks ago. It was initially replaced in June of this year secondary to osteomyelitis. Patient then had to have a cement spacer placed, she has been on antibiotics since that time. She denies any increased pain in her left hip. She states that it had increased amount of drainage 2 days ago but none since that time. Past medical history significant for colon cancer, diabetes, lung cancer, osteomyelitis, sepsis. Patient did take oxycodone for pain this morning, she has been taking this since her surgery. MD complaint: altered mental status and weakness Onset (ago): hour(s) Timing confirmed by: spouse and family member Severity: moderate Consistency of symptoms: waxing and waning Context: recent fever Associated symptoms: nausea/vomiting and difficulty walking Related Data Home Medications Medication Instructions Recorded Confirmed omeprazole 20 mg PO DAILY 12/10/17 01/05/18 Previous Rx's Medication Instructions Recorded aspirin 325 mg PO BID #60 tab 12/17/17 doxycycline hyclate 100 mg PO BID #60 mg 12/17/17 oxycodone-acetaminophen 1 tab PO Q6H PRN #30 mg 12/17/17 Allergies Allergy/AdvReac Type Severity Reaction Status Date / Time daptomycin Allergy Intermediate rash Verified 12/19/17 16:56 Review of Systems ROS: all other systems reviewed are negative [facility] Medical History Medical History Arthritis (Acute) Diminished hearing (Acute) Fluid collection of middle ear (Acute) Full dentures (Acute) GERD (gastroesophageal reflux disease) (Acute) History of MRSA infection (Acute) Joint pain (Acute) Murmur, cardiac (Acute) Osteomyelitis (Acute) Colon cancer (Chronic) Lung cancer (Chronic) Type 2 diabetes mellitus (Chronic) Surgical History Surgical History H/O arthroscopy of right knee (Acute) History of bilateral carpal tunnel release (Acute) History of cholecystectomy (Acute) History of left hip replacement (Acute) History of tubal ligation (Acute) Family History Family History Other Colon cancer Diabetes Lung cancer Social History Social History Substance History: No History of Abuse Second Hand Smoke Exposure: Yes Smoking Status: Current every day smoker Tobacco Type: Cigarettes How Often Do You Have a Drink Containing Alcohol: Never Recent Travel in [facility] within the Last 8 Weeks: No Recent Out of Country Travel within the Last 8 Weeks: No Exam Narrative Exam Narrative: GENERAL: Obese, well-developed, drowsy but arousable female. Presenting in no acute distress. SKIN: Focused skin assessment warm/dry. Healing incision to the lateral aspect of left hip, incision is well approximated, there is no erythema or drainage noted. Nontender to palpation. HEAD: Atraumatic. Normocephalic. EYES: Pupils equal and round. No scleral icterus. No injection or drainage. ENT: No nasal bleeding or discharge. Mucous membranes pink and moist. NECK: Trachea midline. No JVD. CARDIOVASCULAR: Tachycardic. No murmur appreciated. RESPIRATORY: No accessory muscle use. Clear to auscultation. Breath sounds equal bilaterally. GASTROINTESTINAL: Abdomen soft, non-tender, nondistended. Hepatic and splenic margins not palpable. Positive bowel sounds, no rebound, no guarding MUSCULOSKELETAL: No obvious deformities. No clubbing. No cyanosis. No edema. NEUROLOGICAL: Drowsy but arousable, oriented 3. No obvious cranial nerve deficits. Motor grossly within normal limits. Normal speech. PSYCHIATRIC: Appropriate mood and affect; insight and judgment normal. Course Initial Documented Vital Signs Temperature 102.8 F H 01/05/18 12:48 Pulse Rate 121 H 01/05/18 12:48 Respiratory Rate 18 01/05/18 12:48 Blood Pressure 139/63 01/05/18 12:48 Pulse Oximetry 96 01/05/18 12:48 Last Documented Vital Signs Temperature 99.8 F H 01/05/18 17:08 Pulse Rate 92 H 01/05/18 17:08 Respiratory Rate 18 01/05/18 17:08 Blood Pressure 89/48 L 01/05/18 17:08 Pulse Oximetry 98 01/05/18 17:08 Critical Care Time Critical Care Time: Yes Total Critical Care Time: 30 Attestation: Aggregate critical care time was 30 minutes. Time to perform other separately billable procedures was not included in the critical care time. My time did not include minutes spent treating any other patients simultaneously or on activities that did not directly contribute to the patient's treatment. The services I provided to this patient were to treat and/or prevent clinically significant deterioration that could result in: , decompensation, deterioration I provided critical care services requiring my management, as noted below: Chart data review, documentation time, medication orders and management, vital sign assessments/reviewing monitor data, ordering and reviewing lab tests, ordering and interpreting/reviewing x-rays and diagnostic studies, care of the patient and discussion of the patient with the admitting physicians. Medical Decision Making MARY Attestation MARY supervised visit: Yes Attestation: I, Dr. Jay, have reviewed the advance practice practitioner's documentation and am in agreement, met with the patient face to face, made the diagnosis, and the medical decision making was done by me. *My assessment and Findings: Sepsis Patient is a 62-year-old female who presents to the emergency room for evaluation of altered mental status. Patient recently was admitted to the hospital for left hip sepsis. Patient reports that she underwent surgery again to her left hip for third time due to infection. Patient's family member reports that today, she had an episode where she was not acting like her normal self. Patient is tachycardic and febrile with temperature of 102.6. WBC 22.4, lactate is 3.7 Patient has been given a dose of vancomycin as well as zosyn. She is septic, 30cc/kg bolus of ivf was ordered. Patient's surgical site with no drainage, it is very hot to touch - I am concerned about a possible septic joint I did talk to Dr. Gonzalez - request ID consult with Dr. Crawford and admission to medicine service MDM Narrative Medical decision making narrative: Patient is a 62-year-old female presenting to emergency department for evaluation of weakness, nausea vomiting, fever. Sepsis protocol initiated. IV fluids and IV acetaminophen ordered. Family is at bedside. Patient was started on Zosyn and vancomycin empirically. Labs reviewed, white blood cell count is 22.4 with left shift. Lactic acid is 3.7. Patient was given an additional 2 L of IV fluids. Temperature was reassessed, patient still febrile, ibuprofen 800 mg 1 dose ordered. Temp has trended down to 101.[address] Jay discussed patient with Dr. Gonzalez. She also placed a consult to ID. [place] [facility] [place]. Family and patient aware of plan. Medical Records Medical records reviewed: Yes I reviewed the patient's medical records. Lab Data Result diagrams: 01/05/18 13:10 01/05/18 13:10 Lab Results 01/05/18 01/05/18 01/05/18 Range/Units 13:10 13:10 13:10 WBC 22.4 H (4.0-11.0) th/mm3 RBC 3.68 L (4.00-5.30) mil/mm3 Hgb 9.2 L (11.6-15.3) gm/dL Hct 29.5 L (35.0-46.0) % MCV 80.1 (80.0-100.0) fL MCH 24.9 L (27.0-34.0) pg MCHC 31.1 L (32.0-36.0) % RDW 20.4 H (11.6-17.2) % Plt Count 426 D (150-450) th/mm3 MPV 7.8 (7.0-11.0) fL Prelim Diff (Auto) Slide review pending Neut % (Auto) 94.8 H (16.0-70.0) % Lymph % (Auto) 2.8 L (9.0-44.0) % Crosby % (Auto) 2.1 (0.0-8.0) % Eos % (Auto) 0.0 (0.0-4.0) % Baso % (Auto) 0.3 (0.0-2.0) % Neut # (Auto) 21.2 H (1.8-7.7) th/mm3 Lymph # (Auto) 0.6 L (1.0-4.8) th/mm3 Crosby # (Auto) 0.5 (0.0-0.9) th/mm3 Eos # (Auto) 0.0 (0.0-0.4) th/mm3 Baso # (Auto) 0.1 (0.0-0.2) th/mm3 WBC Differential Manual diff final Seg Neuts % (Manual) 80 H (16-70) % Band Neuts % (Manual) 9 H (0-6) % Lymphocytes % (Manual) 7 L (9-44) % Monocytes % (Manual) 3 (0-8) % Myelocytes % (Man) 1 H (0-0) % Abs Neuts (Manual) 20.2 H (1.8-7.7) th/mm3 Differential Comment . Platelet Estimate Normal (Normal) Platelet Morphology Normal (Normal) Stomatocytes 2+ H (None) ESR (0-30) mm/hr PT 9.7 L (9.8-11.6) sec INR 1.0 Ratio APTT 17.8 L (24.3-30.1) sec Sodium 134 L (136-145) meq/L Potassium 3.7 (3.5-5.1) meq/L Chloride 102 (98-107) meq/L Carbon Dioxide 21.3 (21.0-32.0) meq/L Anion Gap 11 (5-15) meq/L BUN 15 (7-18) mg/dL Creatinine 1.08 H (0.50-1.00) mg/dL Estimated GFR 52 L (>89) mL/min Random Glucose 164 H (74-106) mg/dL Lactic Acid (0.4-2.0) mmol/L Calcium 8.9 (8.5-10.1) mg/dL Magnesium 1.4 L (1.5-2.5) mg/dL Total Bilirubin 0.6 (0.2-1.0) mg/dL AST 24 (15-37) U/L ALT 16 (10-53) U/L Alkaline Phosphatase 162 H (45-117) U/L Total Creatine Kinase 67 (26-192) U/L Troponin I Less than 0.02 L (0.02-0.05) ng/mL C-Reactive Protein (0.00-0.30) mg/dL Total Protein 7.0 (6.4-8.2) g/dL Albumin 3.3 L (3.4-5.0) g/dL Lipase 78 (73-393) U/L Urine Color (Yellw/Straw) Urine Clarity (Clear) Urine pH (5.0-8.5) Ur Specific Byron (1.002-1.035) Urine Protein (Neg-Trace) mg/dL Urine Glucose (UA) (Negative) mg/dL Urine Ketones (Negative) mg/dL Urine Occult Blood (Negative) Urine Nitrate (Negative) Urine Bilirubin (Negative) Urine Urobilinogen (Less than 2) mg/dL Ur Leukocyte Esterase (Negative) Urine RBC (0-3) /hpf Urine WBC (0-5) /hpf Ur Squamous Epith Cells (0-5) /hpf Micro UA Comment Urine Culture Comments 01/05/18 01/05/18 01/05/18 Range/Units 13:10 13:10 13:10 WBC (4.0-11.0) th/mm3 RBC (4.00-5.30) mil/mm3 Hgb (11.6-15.3) gm/dL Hct (35.0-46.0) % MCV (80.0-100.0) fL MCH (27.0-34.0) pg MCHC (32.0-36.0) % RDW (11.6-17.2) % Plt Count (150-450) th/mm3 MPV (7.0-11.0) fL Prelim Diff (Auto) Neut % (Auto) (16.0-70.0) % Lymph % (Auto) (9.0-44.0) % Crosby % (Auto) (0.0-8.0) % Eos % (Auto) (0.0-4.0) % Baso % (Auto) (0.0-2.0) % Neut # (Auto) (1.8-7.7) th/mm3 Lymph # (Auto) (1.0-4.8) th/mm3 Crosby # (Auto) (0.0-0.9) th/mm3 Eos # (Auto) (0.0-0.4) th/mm3 Baso # (Auto) (0.0-0.2) th/mm3 WBC Differential Seg Neuts % (Manual) (16-70) % Band Neuts % (Manual) (0-6) % Lymphocytes % (Manual) (9-44) % Monocytes % (Manual) (0-8) % Myelocytes % (Man) (0-0) % Abs Neuts (Manual) (1.8-7.7) th/mm3 Differential Comment Platelet Estimate (Normal) Platelet Morphology (Normal) Stomatocytes (None) ESR 42 H (0-30) mm/hr PT (9.8-11.6) sec INR Ratio APTT (24.3-30.1) sec Sodium (136-145) meq/L Potassium (3.5-5.1) meq/L Chloride (98-107) meq/L Carbon Dioxide (21.0-32.0) meq/L Anion Gap (5-15) meq/L BUN (7-18) mg/dL Creatinine (0.50-1.00) mg/dL Estimated GFR (>89) mL/min Random Glucose (74-106) mg/dL Lactic Acid 3.7 H (0.4-2.0) mmol/L Calcium (8.5-10.1) mg/dL Magnesium (1.5-2.5) mg/dL Total Bilirubin (0.2-1.0) mg/dL AST (15-37) U/L ALT (10-53) U/L Alkaline Phosphatase (45-117) U/L Total Creatine Kinase (26-192) U/L Troponin I (0.02-0.05) ng/mL C-Reactive Protein 3.32 H (0.00-0.30) mg/dL Total Protein (6.4-8.2) g/dL Albumin (3.4-5.0) g/dL Lipase (73-393) U/L Urine Color (Yellw/Straw) Urine Clarity (Clear) Urine pH (5.0-8.5) Ur Specific Byron (1.002-1.035) Urine Protein (Neg-Trace) mg/dL Urine Glucose (UA) (Negative) mg/dL Urine Ketones (Negative) mg/dL Urine Occult Blood (Negative) Urine Nitrate (Negative) Urine Bilirubin (Negative) Urine Urobilinogen (Less than 2) mg/dL Ur Leukocyte Esterase (Negative) Urine RBC (0-3) /hpf Urine WBC (0-5) /hpf Ur Squamous Epith Cells (0-5) /hpf Micro UA Comment Urine Culture Comments 01/05/18 01/05/18 Range/Units 13:15 15:47 WBC (4.0-11.0) th/mm3 RBC (4.00-5.30) mil/mm3 Hgb (11.6-15.3) gm/dL Hct (35.0-46.0) % MCV (80.0-100.0) fL MCH (27.0-34.0) pg MCHC (32.0-36.0) % RDW (11.6-17.2) % Plt Count (150-450) th/mm3 MPV (7.0-11.0) fL Prelim Diff (Auto) Neut % (Auto) (16.0-70.0) % Lymph % (Auto) (9.0-44.0) % Crosby % (Auto) (0.0-8.0) % Eos % (Auto) (0.0-4.0) % Baso % (Auto) (0.0-2.0) % Neut # (Auto) (1.8-7.7) th/mm3 Lymph # (Auto) (1.0-4.8) th/mm3 Crosby # (Auto) (0.0-0.9) th/mm3 Eos # (Auto) (0.0-0.4) th/mm3 Baso # (Auto) (0.0-0.2) th/mm3 WBC Differential Seg Neuts % (Manual) (16-70) % Band Neuts % (Manual) (0-6) % Lymphocytes % (Manual) (9-44) % Monocytes % (Manual) (0-8) % Myelocytes % (Man) (0-0) % Abs Neuts (Manual) (1.8-7.7) th/mm3 Differential Comment Platelet Estimate (Normal) Platelet Morphology (Normal) Stomatocytes (None) ESR (0-30) mm/hr PT (9.8-11.6) sec INR Ratio APTT (24.3-30.1) sec Sodium (136-145) meq/L Potassium (3.5-5.1) meq/L Chloride (98-107) meq/L Carbon Dioxide (21.0-32.0) meq/L Anion Gap (5-15) meq/L BUN (7-18) mg/dL Creatinine (0.50-1.00) mg/dL Estimated GFR (>89) mL/min Random Glucose (74-106) mg/dL Lactic Acid 2.6 H (0.4-2.0) mmol/L Calcium (8.5-10.1) mg/dL Magnesium (1.5-2.5) mg/dL Total Bilirubin (0.2-1.0) mg/dL AST (15-37) U/L ALT (10-53) U/L Alkaline Phosphatase (45-117) U/L Total Creatine Kinase (26-192) U/L Troponin I (0.02-0.05) ng/mL C-Reactive Protein (0.00-0.30) mg/dL Total Protein (6.4-8.2) g/dL Albumin (3.4-5.0) g/dL Lipase (73-393) U/L Urine Color Yellow (Yellw/Straw) Urine Clarity Clear (Clear) Urine pH 5.0 (5.0-8.5) Ur Specific Byron 1.013 (1.002-1.035) Urine Protein Negative (Neg-Trace) mg/dL Urine Glucose (UA) 50 (Negative) mg/dL Urine Ketones Negative (Negative) mg/dL Urine Occult Blood Small H (Negative) Urine Nitrate Negative (Negative) Urine Bilirubin Negative (Negative) Urine Urobilinogen Less than 2 (Less than 2) mg/dL Ur Leukocyte Esterase Negative (Negative) Urine RBC 1 (0-3) /hpf Urine WBC 1 (0-5) /hpf Ur Squamous Epith Cells 1 (0-5) /hpf Micro UA Comment Cath-culture not ind Urine Culture Comments Cath-cult not ind Imaging Data Radiologist's impression: Chest X-Ray 01/05/18 13:00 CONCLUSION: No acute cardiopulmonary findings. Head CT 01/05/18 13:08 CONCLUSION: 1. Acute sinusitis, left sphenoid. 2. Otherwise negative. . Hip X-Ray 01/05/18 13:10 CONCLUSION: Orthopedic hardware in good position. Degenerative changes in the sacroiliac joints and the right hip. No acute bony abnormality. Discharge Plan Discharge Disposition Patient Disposition: 30 Still Patient Discharge Condition Condition: Serious Discharge Details Diagnosis: Sepsis Physicians Team ED Provider: Jocelynn Jay ED Midlevel Provider: Mi Ventura Primary Care Provider: Parisa Bundy Attending Provider: Robbie Rojas Other Providers: Robbin Gonzalez ; Franny Hernandez ; James Hernandez Status ED Status: Admitted Patient
[2018-01-05 13:51] LABS: Baso # (Auto) 0.1 th/mm3 (0.0-0.2); Baso % (Auto) 0.3 % (0.0-2.0); Hematocrit 29.5 % (35.0-46.0); Hemoglobin 9.2 gm/dL (11.6-15.3); Lymph # (Auto) 0.6 th/mm3 (1.0-4.8); Lymph % (Auto) 2.8 % (9.0-44.0); Mean Corpuscular HGB Conc 31.1 % (32.0-36.0); Mean Corpuscular Hemoglobin 24.9 pg (27.0-34.0); Mean Corpuscular Volume 80.1 fL (80.0-100.0); Mean Platelet Volume 7.8 fL (7.0-11.0); Mono # (Auto) 0.5 th/mm3 (0.0-0.9); Mono % (Auto) 2.1 % (0.0-8.0); Neut # (Auto) 21.2 th/mm3 (1.8-7.7); Neut % (Auto) 94.8 % (16.0-70.0); Platelet Count 426 th/mm3 (150-450); Red Blood Count 3.68 mil/mm3 (4.00-5.30); Red Cell Distribution Width 20.4 % (11.6-17.2); White Blood Count 22.4 th/mm3 (4.0-11.0)
--- NOTE | 2018-01-05 13:57 | XR ---
EXAM DATE: 01/05/2018 1:48 PM EDT AGE/SEX: 62 years / Female INDICATIONS: Fever; AMS. CLINICAL DATA: This is the patient's initial encounter. Patient reports that signs and symptoms have been present for 1 day and indicates a pain score of 0/10. MEDICAL/SURGICAL HISTORY: Carcinoma, colon. Carcinoma, lung. Diabetes mellitus type II. Arth ritis. Cholecystectomy. Tubal ligation. Left total hip replacement. COMPARISON: [facility] [place], CHEST 1V SINGLE AP, 12/19/2017. . FINDINGS: The cardiac and mediastinal contours are within normal limits. There is no focal or segmental pneumon ia seen within the pulmonary parenchyma. There are mild chronic appearing interstitial changes. No pl eural effusion is identified. The visualized bony structures are grossly intact. CONCLUSION: No acute cardiopulmonary findings. Electronically signed by: Jarrell Stephens MD 01/05/2018 1:55 PM EDT
[2018-01-05] MEDS ORDERED: Piperacil/Tazo 3.375 GM Premix 50 ML IV.SIG ONE (13:58)
[2018-01-05] MEDS ORDERED: Sod Chloride 0.9% Inj 2,000 ML IV.SIG ONE (13:59)
--- NOTE | 2018-01-05 13:59 | XR ---
EXAM DATE: 01/05/2018 1:50 PM EDT AGE/SEX: 62 years / Female INDICATIONS: Left hip pain. CLINICAL DATA: This is the patient's initial encounter. Patient reports that signs and symptoms have been present for 2 weeks and indicates a pain score of 6/10. MEDICAL/SURGICAL HISTORY: Carcinoma, colon. Carcinoma, lung. Diabetes mellitus type II. Arth ritis. Tubal ligation. Left total hip replacement. COMPARISON: [facility], HIP LAT ONLY LEFT W AP PELVIS, 12/17/2017. . FINDINGS: The patient is post left hip arthroplasty. Orthopedic hardware is in excellent position. There are degenerative changes in the sacroiliac joints bilaterally and within the right hip. These a re mild in severity. No acute fracture or destructive lesion is seen. CONCLUSION: Orthopedic hardware in good position. Degenerative changes in the sacroiliac joints and the right hip. No acute bony abnormality. Electronically signed by: Jarrell Stephens MD 01/05/2018 1:58 PM EDT
[2018-01-05] MEDS ORDERED: Vancomycin Inj 1 GM/200 ML PIGGYBACK IV.SIG SCH (14:00)
[2018-01-05 14:07] LABS: Bilirubin,Urine Negative (Negative); Clarity,Urine Clear (Clear); Color,Urine Yellow (Yellw/Straw); Glucose,Urine (UA) 50 mg/dL (Negative); Leukocyte Esterase,Urine Negative (Negative); Nitrite,Urine Negative (Negative); Specific Gravity,Urine 1.013 (1.002-1.035); Squamous Epithelial Cell,Urine 1 /hpf (0-5)
[2018-01-05 14:12] LABS: Activated Partial Thrombo Time 17.8 sec (24.3-30.1); Prothrombin Time 9.7 sec (9.8-11.6)
[2018-01-05 14:27] LABS: Albumin 3.3 g/dL (3.4-5.0); Anion Gap 11 meq/L (5-15); Aspartate Aminotransferase 24 U/L (15-37); Blood Urea Nitrogen 15 mg/dL (7-18); Calcium 8.9 mg/dL (8.5-10.1); Carbon Dioxide 21.3 meq/L (21.0-32.0); Chloride 102 meq/L (98-107); Glomerular Filtration Rate 52 mL/min (>89); Glucose,Random 164 mg/dL (74-106); Lipase 78 U/L (73-393); Magnesium 1.4 mg/dL (1.5-2.5); Potassium 3.7 meq/L (3.5-5.1); Sodium 134 meq/L (136-145)
[2018-01-05] MEDS ORDERED: Mag Sulf 1 gm/100 ml Premix 100 ML IV.SIG ONE (14:32)
[2018-01-05 14:36] LABS: Alanine Aminotransferase 16 U/L (10-53); Alkaline Phosphatase 162 U/L (45-117); Lymphocytes 7 % (9-44); Monocytes 3 % (0-8); Myelocytes 1 % (0-0)
[2018-01-05 14:37] LABS: Creatine Kinase 67 U/L (26-192); Stomatocytes 2+
[2018-01-05 14:39] LABS: Platelet Estimate Normal (Normal); Platelet Morphology Normal (Normal)
--- NOTE | 2018-01-05 15:11 | CT ---
EXAM DATE: 01/05/2018 2:48 PM EDT AGE/SEX: 62 years / Female INDICATIONS: Altered mental status. CLINICAL DATA: This is the patient's initial encounter. Patient reports that signs and symptoms have been present for 1 day and indicates a pain score of 0/10. MEDICAL/SURGICAL HISTORY: Cardiovascular disease. Tubal ligation. RADIATION DOSE: 37.05 CTDI (mGy) COMPARISON: No prior exams available for comparison. TECHNIQUE: CT of the head without contrast. Using automated exposure control and adjustment of the mA and/or kV according to patient size, radiation dose was kept as low as reasonably achievable to ob tain optimal diagnostic quality images. DICOM format image data is available electronically for revi ew and comparison. FINDINGS: Cerebrum: The ventricles are normal for age. No evidence of midline shift, mass lesion, hemorrhage or acute infarction. No extraaxial fluid collections are seen. Posterior Fossa: The cerebellum and brainstem are intact. The 4th ventricle is midline. The cerebe llopontine angle is unremarkable. Extracranial: The visualized portion of the orbits is intact. Air-fluid level in the left sphenoid. Skull: The calvaria is intact. No evidence of skull fracture. CONCLUSION: 1. Acute sinusitis, left sphenoid. 2. Otherwise negative. . Electronically signed by: Damian Regalado MD 01/05/2018 3:09 PM EDT
--- NOTE | 2018-01-05 15:30 | ECG ---
Date Performed: 01/05/2018 Time Performed: 13:00:20 PTAGE: 62 years EKG: SINUS TACHYCARDIA INCOMPLETE RIGHT BUNDLE BRANCH BLOCK ABNORMAL RHYTHM ECG No significant c hange from prior electrocardiogram. PREVIOUS TRACING : 12/19/2017 17.03 DOCTOR: Zia Kyle Interpretating Date/Time 01/05/2018 15:28:58
--- NOTE | 2018-01-05 15:51 | P.HP ---
History of Present Illness Primary Care Physician: Parisa Bundy DO History of Present Illness: 61 WF being admitted for septic shock. Patient was in her usual state of health until a few days ago to be experiencing worsening left hip pain. Pain was worse with ambulation and weight-bearing. This morning patient was experiencing profound intermittent fever and chills. Family thought that she had some altered mental status and thats brought her to the emergency department. Patient herself denies having any shortness of breath or new cough. Denies having any diarrhea, does report having some nausea and vomiting, non-bloody emesis. In the ER the patient had a temperature of 102.8 and tachycardia w/ lactate > 3. White count was elevated at 22k with the bandemia present. EKG shows sinus tachycardia. Bc's obtained, started on vancomcyin and zosyn. Review of Systems All other systems reviewed negative except as stated in HPI PMFSH - History History Provided By: Patient, Family Member, Significant Other - Medical History Medical History: Medical History (Last Reviewed 01/06/18 @ 07:57 by Ayana Abbasi) Arthritis Diminished hearing Fluid collection of middle ear Full dentures GERD (gastroesophageal reflux disease) History of MRSA infection Joint pain Murmur, cardiac Osteomyelitis Colon cancer Lung cancer Type 2 diabetes mellitus - Surgical History Surgical History: Surgical History (Last Reviewed 01/06/18 @ 07:57 by Ayana Abbasi) H/O arthroscopy of right knee History of bilateral carpal tunnel release History of cholecystectomy History of left hip replacement History of tubal ligation - Family History Family History: Family History (Last Reviewed 01/05/18 @ 17:14 by Robbie Rojas MD) Other Colon cancer Diabetes Lung cancer - Tobacco History Second Hand Smoke Exposure: Yes Tobacco Use In Past 30 Days: Yes Smoking Status: Current every day smoker Tobacco Type: Cigarettes - Alcohol History How Often Do You Have a Drink Containing Alcohol: Never - Substance Use History Substance History: No History of Abuse - Travel History Recent Travel in the [place] Within the Last 8 Weeks: No Recent Travel Out of the Country Within the Last 8 Weeks: No - Immunization History Tetanus Immunization: Unsure Hx Influenza Vaccine This Season: Yes Medications and Allergies Active Medications: Active Medications Vancomycin HCl 1,000 mg/ (Sodium Chloride) 250 mls @ 200 mls/hr IV.SIG ONCE ONE Stop: 01/05/18 17:14 Last Admin: 01/05/18 15:38 Dose: 200 mls/hr Sodium Chloride (Ns Inj) 1,000 mls @ 100 mls/hr IV.CONT .Q10H [facility] Pharmacy Profile Note (Vancomycin Consult Pharmacy) 0 mls @ 0 mls/hr OTHER UNSCH [facility] Piperacillin/Tazobactam/Dextrose (Zosyn 3.375 Gm Premix) 50 mls @ 100 mls/hr IV.SIG Q6H [facility] Non-Formulary Medication (Omeprazole [Omeprazole]) 20 mg PO DAILY [facility] Oxycodone/Acetaminophen (Percocet 7.5/325 Mg) 1 tab PO Q6H PRN PRN Reason: Acute Pain Sodium Chloride (Ns Flush) 2 ml IV.FLUSH PRN PRN PRN Reason: FLUSH AFTER USING IV ACCESS Sodium Chloride (Ns Flush) 2 ml IV.FLUSH BID [facility] Allergies Allergy/AdvReac Type Severity Reaction Status Date / Time daptomycin Allergy Intermediate rash Verified 12/19/17 16:56 Home Medications Medication Instructions Recorded Confirmed Type omeprazole 20 mg PO DAILY 12/10/17 01/05/18 History Exam Vital signs: Vital Signs 01/05/18 12:48 01/05/18 13:07 01/05/18 13:51 Temperature 102.8 F H Pulse Rate 121 H 118 H 109 H Respiratory Rate 18 20 20 Blood Pressure 139/63 117/51 L 117/51 L Pulse Oximetry 96 94 L 96 01/05/18 14:21 01/05/18 15:22 01/05/18 15:27 Temperature 102.6 F H 101.1 F H Pulse Rate 104 H 96 H 97 H Respiratory Rate 22 16 18 Blood Pressure 102/47 L 93/50 L 93/50 L Pulse Oximetry 98 95 94 L Intake & Output 01/04/18 01/05/18 01/05/18 18:59 06:59 18:59 Weight 96.615 kg Narrative: VS: afebrile GENERAL: Lying in bed, awake, alert, no acute distress SKIN: Warm and dry. EYES: No scleral icterus. No injection or drainage. ENT: No nasal bleeding or discharge. Mucous membranes pink and moist. CARDIOVASCULAR: Regular rate and rhythm. no murmurs RESPIRATORY: No accessory muscle use. Clear to auscultation. Breath sounds equal bilaterally. GASTROINTESTINAL: Abdomen soft, non-tender, nondistended. Hepatic and splenic margins not palpable. Extremities: No clubbing, cyanosis, or edema. No obvious deformities. MUSCULOSKELETAL: right hip good ROM w/ no pain Has pain on left hip abd and adduction, no pain on hip flexion; adequate muscle bulk and tone for age and habitus NEUROLOGICAL: Awake and alert. No obvious cranial nerve deficits. No facial droop nor slurred speech noted. PSYCHIATRIC: Appropriate mood and affect; insight and judgment normal. Results - Labs CBC & Chem 7: 01/06/18 06:45 01/06/18 02:01 Labs: Laboratory Results - last 24 hr 01/05/18 01/05/18 01/05/18 13:10 13:10 13:10 WBC 22.4 H RBC 3.68 L Hgb 9.2 L Hct 29.5 L MCV 80.1 MCH 24.9 L MCHC 31.1 L RDW 20.4 H Plt Count 426 D MPV 7.8 Prelim Diff (Auto) Slide review pending Neut % (Auto) 94.8 H Lymph % (Auto) 2.8 L Mitchell % (Auto) 2.1 Eos % (Auto) 0.0 Baso % (Auto) 0.3 Neut # (Auto) 21.2 H Lymph # (Auto) 0.6 L Mitchell # (Auto) 0.5 Eos # (Auto) 0.0 Baso # (Auto) 0.1 WBC Differential Manual diff final Seg Neuts % (Manual) 80 H Band Neuts % (Manual) 9 H Lymphocytes % (Manual) 7 L Monocytes % (Manual) 3 Myelocytes % (Man) 1 H Abs Neuts (Manual) 20.2 H Differential Comment . Platelet Estimate Normal Platelet Morphology Normal Stomatocytes 2+ H ESR PT 9.7 L INR 1.0 APTT 17.8 L Sodium 134 L Potassium 3.7 Chloride 102 Carbon Dioxide 21.3 Anion Gap 11 BUN 15 Creatinine 1.08 H Estimated GFR 52 L Random Glucose 164 H Lactic Acid Calcium 8.9 Magnesium 1.4 L Total Bilirubin 0.6 AST 24 ALT 16 Alkaline Phosphatase 162 H Total Creatine Kinase 67 Troponin I Less than 0.02 L C-Reactive Protein Total Protein 7.0 Albumin 3.3 L Lipase 78 Urine Color Urine Clarity Urine pH Ur Specific [place] Urine Protein Urine Glucose (UA) Urine Ketones Urine Occult Blood Urine Nitrate Urine Bilirubin Urine Urobilinogen Ur Leukocyte Esterase Urine RBC Urine WBC Ur Squamous Epith Cells Micro UA Comment Urine Culture Comments 01/05/18 01/05/18 01/05/18 13:10 13:10 13:10 WBC RBC Hgb Hct MCV MCH MCHC RDW Plt Count MPV Prelim Diff (Auto) Neut % (Auto) Lymph % (Auto) Mitchell % (Auto) Eos % (Auto) Baso % (Auto) Neut # (Auto) Lymph # (Auto) Mitchell # (Auto) Eos # (Auto) Baso # (Auto) WBC Differential Seg Neuts % (Manual) Band Neuts % (Manual) Lymphocytes % (Manual) Monocytes % (Manual) Myelocytes % (Man) Abs Neuts (Manual) Differential Comment Platelet Estimate Platelet Morphology Stomatocytes ESR 42 H PT INR APTT Sodium Potassium Chloride Carbon Dioxide Anion Gap BUN Creatinine Estimated GFR Random Glucose Lactic Acid 3.7 H Calcium Magnesium Total Bilirubin AST ALT Alkaline Phosphatase Total Creatine Kinase Troponin I C-Reactive Protein 3.32 H Total Protein Albumin Lipase Urine Color Urine Clarity Urine pH Ur Specific [place] Urine Protein Urine Glucose (UA) Urine Ketones Urine Occult Blood Urine Nitrate Urine Bilirubin Urine Urobilinogen Ur Leukocyte Esterase Urine RBC Urine WBC Ur Squamous Epith Cells Micro UA Comment Urine Culture Comments 01/05/18 13:15 WBC RBC Hgb Hct MCV MCH MCHC RDW Plt Count MPV Prelim Diff (Auto) Neut % (Auto) Lymph % (Auto) Mitchell % (Auto) Eos % (Auto) Baso % (Auto) Neut # (Auto) Lymph # (Auto) Mitchell # (Auto) Eos # (Auto) Baso # (Auto) WBC Differential Seg Neuts % (Manual) Band Neuts % (Manual) Lymphocytes % (Manual) Monocytes % (Manual) Myelocytes % (Man) Abs Neuts (Manual) Differential Comment Platelet Estimate Platelet Morphology Stomatocytes ESR PT INR APTT Sodium Potassium Chloride Carbon Dioxide Anion Gap BUN Creatinine Estimated GFR Random Glucose Lactic Acid Calcium Magnesium Total Bilirubin AST ALT Alkaline Phosphatase Total Creatine Kinase Troponin I C-Reactive Protein Total Protein Albumin Lipase Urine Color Yellow Urine Clarity Clear Urine pH 5.0 Ur Specific [place] 1.013 Urine Protein Negative Urine Glucose (UA) 50 Urine Ketones Negative Urine Occult Blood Small H Urine Nitrate Negative Urine Bilirubin Negative Urine Urobilinogen Less than 2 Ur Leukocyte Esterase Negative Urine RBC 1 Urine WBC 1 Ur Squamous Epith Cells 1 Micro UA Comment Cath-culture not ind Urine Culture Comments Cath-cult not ind - Imaging Impressions Chest X-Ray 01/05/18 13:00 CONCLUSION: No acute cardiopulmonary findings. Head CT 01/05/18 13:08 CONCLUSION: 1. Acute sinusitis, left sphenoid. 2. Otherwise negative. . Hip X-Ray 01/05/18 13:10 CONCLUSION: Orthopedic hardware in good position. Degenerative changes in the sacroiliac joints and the right hip. No acute bony abnormality. Caprini VTE Risk Assessment Caprini VTE Risk Assessment: Moderate/High Risk (score >= 2) VTE Pharmacological Exception Reason: Postop bleeding VTE Mechanical Exception: LE injury/wound Caprini Risk Assessment Model: Point Value = 1 Point Value = 2 Point Value = 3 Point Value = 5 Age 41-60 Minor surgery BMI > 25 kg/m2 Swollen legs Varicose veins or History of unexplained or recurrent spontaneous Oral contraceptives or hormone replacement Sepsis (< 1 month) Serious lung disease, including pneumonia (< 1 month) Abnormal pulmonary function Acute myocardial infarction Congestive heart failure (< 1 month) History of inflammatory bowel disease Medical patient at bed rest Age 61-74 Arthroscopic surgery Major open surgery (> 45 min) Laparoscopic surgery (> 45 min) Malignancy Confined to bed (> 72 hours) Immobilizing plaster cast Central venous access Age >= 75 History of VTE Family history of VTE Factor V Leiden Prothrombin [id number] Lupus anticoagulant Anticardiolipin antibodies Elevated serum homocysteine Heparin-induced thrombocytopenia Other congenital or acquired thrombophilia Stroke (< 1 month) Elective arthroplasty Hip, pelvis, or leg fracture Acute spinal cord injury (< 1 month) Prophylaxis Regimen: Total Risk Factor Score Risk Level Prophylaxis Regimen 0-1 Low Early ambulation 2 Moderate Order ONE of the following: *Sequential Compression Device (SCD) *Heparin 5000 units SQ BID 3-4 Higher Order ONE of the following medications: *Heparin 5000 units SQ TID *Enoxaparin/Lovenox 40 mg SQ daily (WT < 150 kg, CrCl > 30 mL/min) *Enoxaparin/Lovenox 30 mg SQ daily (WT < 150 kg, CrCl > 10-29 mL/min) *Enoxaparin/Lovenox 30 mg SQ BID (WT < 150 kg, CrCl > 30 mL/min) AND/OR *Sequential Compression Device (SCD) 5 or more Highest Order ONE of the following medications: *Heparin 5000 units SQ TID (Preferred with Epidurals) *Enoxaparin/Lovenox 40 mg SQ daily (WT < 150 kg, CrCl > 30 mL/min) *Enoxaparin/Lovenox 30 mg SQ daily (WT < 150 kg, CrCl > 10-29 mL/min) *Enoxaparin/Lovenox 30 mg SQ BID (WT < 150 kg, CrCl > 30 mL/min) AND *Sequential Compression Device (SCD) Assessment and Plan - Plan Will admit the patient to ICU for septic shock. Initially patient was borderline stable for Hosp service but then her blood pressure begin dropping into the 80 systolic despite receiving three whole liters of normal saline bolus. Will continue with further boluses, case discussed with brake press operator who will take over. I will start levophed. Case discussed with orthopedic surgeon who has recommended a white blood cell scan for now. Infectious disease has been consulted. Blood cultures ordered, broad-spectrum antibiotics have been started
[2018-01-05] MEDS ORDERED: Vancomycin Inj 1,000 MG in Sodium Chlor 0.9% Inj 250 ML IV.SIG ONE (16:00)
[2018-01-05] MEDS ORDERED: Vancomycin Consult Pharmacy 1 EACH OTHER SCH (16:00)
[2018-01-05] MEDS ORDERED: Magnesium Sulfate Inj 4 GM in Sodium Chlor 0.9% Inj 92 ML IV.SIG PRN (18:22)
[2018-01-05] MEDS ORDERED: Sodium Phosphate Inj 30 MMOL in Sodium Chlor 0.9% Inj 250 ML IV.SIG PRN (18:22)
[2018-01-05] MEDS ORDERED: Magnesium Oxide 400 MG Tablet PO PRN (18:22)
[2018-01-05] MEDS ORDERED: Potassium Phosphate 500 MG Soluble Tablet PO PRN ×2 (18:22)
[2018-01-05] MEDS ORDERED: Potassium Chlor 20 mEq Premix 20 MEQ/100 ML PIGGYBACK IV.SIG PRN ×2 (18:22)
[2018-01-05] MEDS ORDERED: Potassium Chlor 40 mEq Premix 40 MEQ/100 ML PIGGYBACK IV.SIG PRN ×2 (18:22)
[2018-01-05] MEDS ORDERED: Potassium Chloride 25 MEQ Effervescent Tablet PO PRN (18:22)
[2018-01-05] MEDS ORDERED: Magnesium Sulfate Inj 2 GM in Sodium Chlor 0.9% Inj 96 ML IV.SIG PRN (18:22)
[2018-01-05] MEDS ORDERED: Potassium Phosphate Inj 30 MMOL in Sodium Chlor 0.9% Inj 250 ML IV.SIG PRN (18:22)
[2018-01-05] MEDS ORDERED: Dextrose 50% in Water 50 ML Vial IV.PUSH PRN (18:22)
[2018-01-05] MEDS ORDERED: Acetaminophen 325 MG Tablet PO PRN (18:24)
[2018-01-05] MEDS ORDERED: Bisacodyl 10 MG Supp RECTAL PRN (18:24)
--- NOTE | 2018-01-05 18:34 | P.CONCC ---
History of Present Illness Service: Critical care medicine Consult date: 01/05/18 Requesting Physician: Robbie Rojas Reason for Consult: Critical care management Primary Care Provider: Parisa Bundy DO Family Provider: Guy verdugo and Chief Complaint: Hypotension History of Present Illness: This is a 62-year-old female. Date of admission 01/05/2018. Date of consultation 01/05/2018. Past medical history includes morbid obesity, hard of hearing, gastroesophageal reflux disease, osteomyelitis, chronic narcotic use. Patient is a 2 day history of not feeling with left hip pain/drainage from left hip. Patient was originally admitted to the hospital service with consultation infectious disease and orthopedics. On 09/09/2017, the patient had left hip resection with cement spacer. The hospitalization was complicated by an ileus and urinary retention. Patient was eventually sent to rehab later that month. Since that time, she has had 2 additional hip surgeries In the ED, patient received 3 L normal saline. Lactic acid 3.6 for leukocytosis of 22,000. Despite that, patient remained hypotensive requiring vasopressors. Patient currently norepinephrine drip at 8 mcg/min. Lactic acid is currently 2.6. Patient does not appear septic. There is small serosanguineous drainage to the incision from left hip site from previous surgery. She is currently pleasant awake and alert and oriented to person place and time. Review of Systems Constitutional: Reports chills, Reports fever(s), Denies anorexia, Denies body ache(s), Denies excessive sweating, Denies fatigue, Denies headache(s) Eyes: Denies blind spots, Denies blurry vision, Denies sensitivity to light Ears, Nose, Mouth, and Throat: Denies abnormal hearing, Denies headache(s), Denies mouth lesions Cardiovascular: Denies chest pain, Denies fainting Respiratory: Denies chest congestion Gastrointestinal: Denies abdominal pain, Denies incontinent of stools Genitourinary: Denies abnormal periods Musculoskeletal: Denies abnormal walking Skin/Breast: Denies acne, Denies bleeding lesions Neurologic: Reports abnormal hearing, Reports abnormal walking Psychiatric: Denies anxiety Endocrine: Denies cold intolerance, Denies excessive sweating Hematologic/Lymphatic: Denies easy bleeding, Denies easy bruising PMFSH - History History Provided By: Patient, Family Member, Significant Other - Medical History Medical History: Medical History (Last Reviewed 01/05/18 @ 18:33 by Jordy Salinas MD) Arthritis Diminished hearing Fluid collection of middle ear Full dentures GERD (gastroesophageal reflux disease) History of MRSA infection Joint pain Murmur, cardiac Osteomyelitis Colon cancer Lung cancer Type 2 diabetes mellitus - Surgical History Surgical History: Surgical History (Last Reviewed 01/05/18 @ 18:33 by Jordy Salinas MD) H/O arthroscopy of right knee History of bilateral carpal tunnel release History of cholecystectomy History of left hip replacement History of tubal ligation - Family History Family History: Family History (Last Reviewed 01/05/18 @ 18:33 by Jordy Salinas MD) Other Colon cancer Diabetes Lung cancer - Tobacco History Second Hand Smoke Exposure: Yes Tobacco Use In Past 30 Days: Yes Smoking Status: Current every day smoker Tobacco Type: Cigarettes - Alcohol History How Often Do You Have a Drink Containing Alcohol: Never - Substance Use History Substance History: No History of Abuse - Travel History Recent Travel in the [place] Within the Last 8 Weeks: No Recent Travel Out of the Country Within the Last 8 Weeks: No - Immunization History Tetanus Immunization: Unsure Hx Influenza Vaccine This Season: Yes Medications and Allergies Active Medications: Active Medications Acetaminophen (Tylenol) 650 mg PO Q6H PRN PRN Reason: PAIN 1-10 AND/OR FEVER >101F Hydrocodone Bitart/Acetaminophen ([place] 5/325) 1 tab PO Q4H PRN PRN Reason: PAIN SCALE 1 TO 5 Al Hydroxide/Mg Hydroxide (Milk Of [place] Liq) 30 ml PO Q12H PRN PRN Reason: Mild Constipation Albuterol (Albuterol Neb (Hemanth)) 2.5 mg NEB Q2HR NEB PRN PRN Reason: SHORTNESS OF BREATH/WHEEZING Bisacodyl (Dulcolax Supp) 10 mg RECTAL DAILY PRN PRN Reason: SEVERE CONSITIPATION Chlorhexidine Gluconate (Chlorhexidine 2% Cloth) 3 pack TOPICAL DAILY@0400 [facility] Stop: 01/11/18 03:59 Chlorhexidine Gluconate (Chlorhexidine 2% Cloth) 3 pack TOPICAL DAILY@0400 PRN PRN Reason: Extra cloth needed Stop: 01/11/18 03:59 Dextrose (D50w Vial) 50 ml IV.PUSH UNSCH PRN PRN Reason: PER HYPOGLYCEMIA PROTOCOL Glucagon (Glucagon Inj) 1 mg OTHER PRN PRN PRN Reason: for Hypoglycemia Protocol Sodium Chloride (Ns Inj) 1,000 mls @ 100 mls/hr IV.CONT .Q10H [facility] Pharmacy Profile Note (Vancomycin Consult Pharmacy) 0 mls @ 0 mls/hr OTHER UNSCH [facility] Piperacillin/Tazobactam/Dextrose (Zosyn 3.375 Gm Premix) 50 mls @ 100 mls/hr IV.SIG Q6H [facility] Vancomycin HCl 1,250 mg/ (Sodium Chloride) 262.5 mls @ 250 mls/hr IV.SIG Q18H [facility] Norepinephrine Bitartrate (Levophed-Dextrose 4 Mg/250 Ml Drip) 4 mg in 250 mls @ 7.5 mls/hr IV.SIG TITRATE PRN; Protocol PRN Reason: Per Protocol Last Admin: 01/05/18 17:26 Dose: 8 mcg/min, 30 mls/hr Magnesium Sulfate Inj 4 gm/ (Sodium Chloride) 100 mls @ 50 mls/hr IV.SIG UNSCH PRN PRN Reason: For Magnesium 0.9 - 1.1 mg/dL Magnesium Sulfate Inj 2 gm/ (Sodium Chloride) 100 mls @ 50 mls/hr IV.SIG UNSCH PRN PRN Reason: For Magnesium 1.2 - 1.6 mg/dL Potassium Chloride (Kcl 20 Meq Premix Inj) 20 meq in 100 mls @ 50 mls/hr IV.SIG Q2H PRN PRN Reason: For Potassium 3.3 - 3.5 mEq/L Potassium Chloride (Kcl 40 Meq Premix Inj) 40 meq in 100 mls @ 25 mls/hr IV.SIG UNSCH PRN PRN Reason: For Potassium 3.3 - 3.5 mEq/L Potassium Chloride (Kcl 20 Meq Premix Inj) 20 meq in 100 mls @ 50 mls/hr IV.SIG Q2H PRN PRN Reason: For Potassium 2.8 - 3.2 mEq/L Sodium Phosphate 30 mmol/ (Sodium Chloride) 260 mls @ 42 mls/hr IV.SIG UNSCH PRN PRN Reason: For Phosphorus < 2.5 mg/dL Potassium Chloride (Kcl 40 Meq Premix Inj) 40 meq in 100 mls @ 25 mls/hr IV.SIG Q2H PRN PRN Reason: For Potassium 2.8 - 3.2 mEq/L Potassium Phosphate 30 mmol/ (Sodium Chloride) 260 mls @ 42 mls/hr IV.SIG UNSCH PRN PRN Reason: SEE LABEL COMMENTS Sodium Chloride (Ns Inj) 1,000 mls @ 84 mls/hr IV.CONT .[id number] [facility] Insulin Aspart (Novolog Insulin Correctional Sugar Inj) 0 unit SQ Q6HR [facility]; Protocol Lactulose (Lactulose Liq) 30 ml PO DAILY PRN PRN Reason: SEVERE CONSITIPATION Magnesium Oxide (Mag-Ox) 800 mg PO UNSCH PRN PRN Reason: For Magnesium 1.2 - 1.6 mg/dL Miscellaneous Information ([facility] Ordered Lab Info) 0 each OTHER ONCE ONE Stop: 01/07/18 17:46 Morphine Sulfate (Morphine Inj) 2 mg IV.PUSH Q2H PRN PRN Reason: PAIN SCALE 6 TO 10 Ondansetron HCl (Zofran Inj) 4 mg IV.PUSH Q6H PRN PRN Reason: NAUSEA OR VOMITING Pantoprazole Sodium (Protonix) 40 mg PO DAILY [facility] Potassium Bicarb/Potassium Chloride (K-Lyte Cl Eff) 50 meq PO UNSCH PRN PRN Reason: For Potassium 3.3 - 3.5 mEq/L Potassium Phosphate (K-Phos Original) 2,000 mg PO Q4H PRN PRN Reason: Phosphorus Less Than 2.5 mg/dL Potassium Phosphate (K-Phos Original) 2,000 mg PO UNSCH PRN PRN Reason: SEE LABEL COMMENTS Senna/Docusate Sodium (Monica-Colace) 1 tab PO BID [facility] Sennosides (Senokot) 17.2 mg PO Q12H PRN PRN Reason: Moderate Constipation Sodium Chloride (Ns Flush) 2 ml IV.FLUSH PRN PRN PRN Reason: FLUSH AFTER USING IV ACCESS Sodium Chloride (Ns Flush) 2 ml IV.FLUSH BID [facility] Sodium Chloride (Ns Flush) 2 ml IV.FLUSH BID [facility] Sodium Chloride (Ns Flush) 2 ml IV.FLUSH PRN PRN PRN Reason: FLUSH AFTER USING IV ACCESS Temazepam (Restoril) 15 mg PO HS PRN PRN Reason: INSOMNIA Terbutaline Sulfate (Brethine Inj) 1 mg SQ UNSCH PRN PRN Reason: For Extravasation Allergies Allergy/AdvReac Type Severity Reaction Status Date / Time daptomycin Allergy Intermediate rash Verified 12/19/17 16:56 Home Medications Medication Instructions Recorded Confirmed Type omeprazole 20 mg PO DAILY 12/10/17 01/05/18 History Physical Exam Vital signs: Vital Signs 01/05/18 12:48 01/05/18 13:07 01/05/18 13:51 Temperature 102.8 F H Pulse Rate 121 H 118 H 109 H Respiratory Rate 18 20 20 Blood Pressure 139/63 117/51 L 117/51 L Pulse Oximetry 96 94 L 96 01/05/18 14:21 01/05/18 15:00 01/05/18 15:22 Temperature 102.6 F H 101.1 F H Pulse Rate 104 H 98 H 96 H Respiratory Rate 22 18 16 Blood Pressure 102/47 L 91/45 L 93/50 L Pulse Oximetry 98 98 95 01/05/18 15:27 01/05/18 15:30 01/05/18 16:00 Temperature Pulse Rate 97 H 92 H 90 Respiratory Rate 18 18 Blood Pressure 93/50 L 93/50 L 96/49 L Pulse Oximetry 94 L 97 18 L 01/05/18 16:43 01/05/18 16:45 01/05/18 17:00 Temperature Pulse Rate 91 H 92 H 92 H Respiratory Rate 20 Blood Pressure 82/53 L Pulse Oximetry 95 01/05/18 17:08 Temperature 99.8 F H Pulse Rate 92 H Respiratory Rate 18 Blood Pressure 89/48 L Pulse Oximetry 98 Intake & Output 01/04/18 01/05/18 01/05/18 18:59 06:59 18:59 Weight 104 kg Other: Weight On Admission 104 kg - Constitutional no acute distress - Routine HEENT Exam Head: Present: normocephalic, atraumatic Eye: Present: EOMI, PERRL ENT: Present: mucous membranes moist - Routine Neck Exam Present: supple. Absent: JVD, carotid bruit - Routine Respiratory Exam Present: CTA bilaterally. Absent: rhonchi, stridor, wheezes, crackles - Routine Cardiovascular Exam Present: S1, S2, murmur, tachycardia. Absent: gallop, S3, S4 - Routine Abdominal Exam Present: soft, normoactive bowel sounds. Absent: tenderness - Routine Exam Patient deferred: external exam, groin exam, perineal exam - Routine Extremities Exam Present: edema. Absent: cyanosis, clubbing - Routine Skin Exam Present: intact - Routine Neurological Exam Present: alert, oriented X3, CN II-XII intact. Absent: sensory deficit, motor deficit - Routine Psychiatric Exam Present: normal affect Septic Shock Reassessment Septic shock perfusion: reassessment completed Assessment and Plan - Assessment and Plan Plan: Neuro/Psych: Hard of hearing Chronic opioid use CT brain 01/05 revealed left sphenoid sinusitis. No acute intracranial normality is Acetaminophen 650 p.o. every 6 hours as needed fever Hydrocodone/acetaminophen 5/325 one tablet every 4 hours as needed pain 1 through 5 Morphine sulfate 2 mg IV every 2 hours as needed pain 6 or 10 CV: Severe sepsis Lactic acidosis Received 3 L normal saline in ED. Currently normal saline at 84 cc an hour Lactic acid 3.3-2.6. Repeat until cleared Currently on norepinephrine drip at 8 mcg been to maintain mean arterial pressure greater or equal to 65 EKG revealed incomplete right bundle branch block. Sinus tachycardia. CPK and troponin repeat pending. Currently holding aspirin 325 mg daily. Resume clinically indicated Resp: History of lung cancer Nasal cannula to maintain saturations greater than equal to 92% Incentive spirometry while awake Chest exam revealed no acute cardiopulmonary findings GI: History of colon cancer Gastroesophageal reflux disease History of erosive gastritis History of Vi esophagitis Hypoalbuminemia Clear liquid diet Pantoprazole 40 mg p.o. daily. On omeprazole 20 mg daily at home Docusate sodium/senna 1 tablet twice daily for bowel regimen : Patient history of urinary retention Solano catheter if indicated. Straight catheter now Endo: Sliding scale insulin Accu-Cheks every 6 hours to maintain euglycemia/aspart insulin medium regimen Renal: Acute kidney injury Monitor BMP daily. Monitor urine output Accurate I's and O's Heme: Leukocytosis Normocytic anemia Monitor CBC daily. Follow trends. No indication for transfusion of blood products at this time. ID: Likely septic left hip Blood cultures 2, wound cultures 01/05 pending Currently on piperacillin/tazobactam vancomycin day #1. Noted allergy to daptomycin. Infectious disease consultation MSK: Elevated BMI Osteoporosis History of osteomyelitis Weight loss encouraged. PT evaluate and treat Orthopedics consultation FEN: Hyponatremia Hypomagnesia Replace electrolytes as clinically indicated per ICU electrolyte protocol Access -We will place central line. Peripheral IVs Prophylaxis -GI -pantoprazole -DVT-SCD/heparin subcu 35 minutes critical care time
--- NOTE | 2018-01-05 19:25 | P.PCN ---
Date of procedure: 01/05/18 Pre-op diagnosis: Severe sepsis Post-op diagnosis: same (01/05/2018) Procedure: DATE: 01/05/2018 CENTRAL LINE PLACEMENT: Left internal jugular vein. Ultrasound-guided INDICATION: Central venous access CONSENT Informed consent for procedure was obtained from patient. DESCRIPTION OF THE PROCEDURE The patient was placed in supine position. The skin was cleansed with Chloraprep. Additional barrier precautions included large sterile drape, sterile gloves, sterile gown, face mask, and hat. 1 % lidocaine was used for local anesthesia. Under direct ultrasound guidance and on initial attempt, the vein was accessed with an introducer needle. The guide wire was advanced and the tract was dilated. Using Seldinger technique a 7 [place] 20 cm antimicrobial coated triple-lumen catheter was advanced to a depth of 20 centimeters. The guide wire was removed. All ports had good return of dark venous blood and flushed easily with saline. The central line was secured with 2.0 silk. A sterile dressing with antibiotic disc was applied. ESTIMATED BLOOD LOSS: Minimal COMPLICATIONS: No apparent complications. STAT chest x-ray pending at time of dictation
--- NOTE | 2018-01-05 19:52 | XR ---
EXAM DATE: 01/05/2018 7:44 PM EDT AGE/SEX: 62 years / Female INDICATIONS: Evaluate central line placement CLINICAL DATA: This is the patient's subsequent encounter. Patient reports that signs and symptoms h ave been present for 1 week and indicates a pain score of 0/10. MEDICAL/SURGICAL HISTORY: . Carcinoma, colon. Carcinoma, lung. Diabetes mellitus type II. Arthr itis. . Cholecystectomy. Tubal ligation. Left total hip replacement COMPARISON: [facility] – [place], CHEST 1V SINGLE AP, 01/05/2018. . FINDINGS: A single AP view of the chest demonstrates the lungs to be symmetrically aerated without evidence of mass, infiltrate or effusion. The cardiomediastinal contours are unremarkable. Osseous structures a re intact. There has been interval placement of a left internal jugular central venous line. Air is n o pneumothorax. The patient is mildly rotated to the right. CONCLUSION: Interval placement of left internal jugular central venous line with no pneumothorax.. Electronically signed by: Yunior Olivarez MD 01/05/2018 7:50 PM EDT
[2018-01-05] MEDS ORDERED: Temazepam 15 MG Capsule PO PRN (21:00)
[2018-01-05] MEDS: Heparin - SQ 10,000 UNITS/ML Vial SQ SCH (21:00)
[2018-01-05] MEDS: Piperacil/Tazo 3.375 GM Premix 50 ML IV.SIG SCH (21:01)
[2018-01-05] MEDS: Sod Chloride 0.9% Inj 1,000 ML IV.CONT SCH (21:02)
[2018-01-05] MEDS: Senna/Docusate Sodium 8.6/50 MG Tablet PO SCH (21:02)
[2018-01-06] MEDS: Insulin NovoLOG Aspart Correctional Sugar Inj SQ SCH ×3 (00:44→18:26)
[2018-01-06] MEDS: Piperacil/Tazo 3.375 GM Premix 50 ML IV.SIG SCH ×2 (01:35→09:06)
[2018-01-06 03:49] LABS: Anion Gap 6 meq/L (5-15); Blood Urea Nitrogen 11 mg/dL (7-18); Carbon Dioxide 24.1 meq/L (21.0-32.0); Chloride 115 meq/L (98-107); Glomerular Filtration Rate 77 mL/min (>89); Glucose,Random 147 mg/dL (74-106); Magnesium 1.9 mg/dL (1.5-2.5); Phosphorus 2.9 mg/dL (2.5-4.9); Potassium 3.7 meq/L (3.5-5.1); Sodium 145 meq/L (136-145)
[2018-01-06 03:50] LABS: Creatine Kinase 46 U/L (26-192)
[2018-01-06] MEDS ORDERED: Chlorhexidine Gluconate 2% 1 Pack (2 Cloths) TOPICAL PRN ×2 (04:00)
[2018-01-06] MEDS ORDERED: Chlorhexidine Gluconate 2% 1 Pack (2 Cloths) TOPICAL SCH (04:00)
[2018-01-06] MEDS: Chlorhexidine Gluconate 2% 1 Pack (2 Cloths) TOPICAL SCH (04:07)
[2018-01-06] MEDS: Sod Chloride 0.9% Inj 1,000 ML IV.CONT SCH ×2 (06:08→20:28)
[2018-01-06] MEDS: Vancomycin Inj 1,250 MG in Sodium Chlor 0.9% Inj 250 ML IV.SIG SCH (06:18)
[2018-01-06 07:02] LABS: Baso # (Auto) 0.2 th/mm3 (0.0-0.2); Baso % (Auto) 0.6 % (0.0-2.0); Eos # (Auto) 0.3 th/mm3 (0.0-0.4); Eos % (Auto) 1.3 % (0.0-4.0); Hematocrit 22.9 % (35.0-46.0); Hemoglobin 7.1 gm/dL (11.6-15.3); Lymph % (Auto) 7.8 % (9.0-44.0); Mean Corpuscular Volume 80.5 fL (80.0-100.0); Mean Platelet Volume 7.7 fL (7.0-11.0); Mono # (Auto) 1.1 th/mm3 (0.0-0.9); Mono % (Auto) 4.2 % (0.0-8.0); Neut % (Auto) 86.1 % (16.0-70.0); Platelet Count 349 th/mm3 (150-450); Red Blood Count 2.85 mil/mm3 (4.00-5.30); Red Cell Distribution Width 20.4 % (11.6-17.2); White Blood Count 25.6 th/mm3 (4.0-11.0)
[2018-01-06 07:24] LABS: Activated Partial Thrombo Time 19.5 sec (24.3-30.1); INR 1.1 Ratio
[2018-01-06] MEDS ORDERED: Pantoprazole Sodium 20 MG DR Tablet PO SCH (09:00)
[2018-01-06] MEDS: Morphine Inj 4 MG/ML Vial IV.PUSH PRN ×3 (09:05→15:30)
[2018-01-06] MEDS: Heparin - SQ 10,000 UNITS/ML Vial SQ SCH ×2 (09:06→19:55)
[2018-01-06] MEDS: Senna/Docusate Sodium 8.6/50 MG Tablet PO SCH ×2 (09:07→21:55)
--- NOTE | 2018-01-06 10:38 | MB ---
cc: Robbin Gonzalez MD DATE: 01/06/2018 HISTORY OF PRESENT ILLNESS: This is a 62-year-old white female, who is well known to me, having undergone previous orthopedic treatment. Her history dates back to June of this year, at which time the patient underwent a left total hip arthroplasty for history of degenerative joint disease of her left hip. She had tolerated her operative procedure well, and her initial postoperative recovery was unremarkable. She, however, began to develop some drainage about her wound site, for which she was initially treated conservatively with her initial cultures being negative. Unfortunately, her drainage persisted, and she later underwent an incision and drainage procedure, at which time clinical findings were felt to be more superficial in nature with not appearing to violate the joint space. The patient was evaluated by infectious disease at that time, who assisted with regard to antibiotic management. Unfortunately, drainage persisted, and the patient later underwent a resection arthroplasty of her left hip, followed by an extensive course of antibiotic intervention, while being monitored by the infectious disease department. Her lab studies gradually improved as her treatment continued, and subsequent clinical assessment in this regard noted her white blood count, sedimentation rate, and C-reactive protein, all being within normal limits. Based upon this finding and the clinical assessment of the patient, who was eager to undergo reimplantation, she was readmitted to the hospital on 12/17/2017, and at that time, underwent a second stage reimplantation of her left hip. Findings at the time of surgery noted culture specimens to be unremarkable for evidence of white blood cells or bacterial contamination. Once again, the patient was noted to have tolerated the operative procedure without difficulty and was able to experience an almost immediate of improvement of discomfort about the hip. She was allowed progressive mobilization and seemed to be doing reasonably well, until the past 48 hours or so, at which time she became symptomatic with soreness about her left hip, and began running a fever and having a generalized feeling of an absence of well-being. She subsequently presented to the emergency room on 01/05/2018, and at that time, she was noted to be febrile with a temperature of 102.8. Her white blood cell count was markedly elevated at 22.4, and her sedimentation rate elevated at 42. Hemoglobin and hematocrit assessment was 9.2 and 29.5 respectively. The x-ray studies of her left hip were essentially unremarkable with overall appearance of the implant appearing unremarkable. The patient was noted to have some serosanguineous type drainage from her hip wound, for which blood cultures have been obtained. Results pending at this time. The patient was subsequently admitted to the hospital under the care of the email operations manager for septic condition, and based upon her orthopedic history, consultation was requested of the undersigned. As of this morning, the patient is noting an overall trend of improvement. She has returned to afebrile state and the discomfort about her left hip is markedly diminished. She has continued to have some sanguinous drainage from her wound site. PAST MEDICAL HISTORY: In addition to the orthopedic procedures as described, have included laparoscopic cholecystectomy, bilateral carpal tunnel release, arthroscopic surgery of the right knee, tonsillectomy, and colonoscopy. The patient denies any active medical illnesses. She had been maintained on doxycycline 100 mg twice daily following discharge from the hospital. Since being admitted, additional antibiotic treatment has been initiated including vancomycin and Zosyn. ALLERGIES: THE PATIENT DENIES ANY KNOWN DRUG ALLERGIES. REVIEW OF SYSTEMS: Unremarkable for headache, seizure, or syncope. No sinus congestion or epistaxis. She does have diminished auditory acuity. No tinnitus. No bleeding gums or dysphagia. Edentulous, utilizing complete dentures. No cough, shortness of breath, upper respiratory infection, pneumonia, or tuberculosis. No angina, heart disease. Appetite is good. Bowel movements regular. No hepatitis, ulcers or hemorrhoids. She is status post cholecystectomy. She does report having undergone recent upper endoscopy within the past week or 2 for gastric irritation. No urinary tract infection, no kidney stones, no fractures. No psychiatric illness. Remaining review of systems is unremarkable and noncontributory. SOCIAL HISTORY: 19 years, this being a fourth marriage. 80 years of age in poor health with history of heart disease, status post open heart surgery, as well as being a diabetic, and a below-knee amputee. She has 1 son and 1 daughter by a previous marriage, both described as being in good health. 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 She completed a high school education. She admits to active use of tobacco since 1972, averaging less than 1 pack per day. Denies ethanol consumption. FAMILY HISTORY: Positive for diabetes, lung and colon cancer. PHYSICAL EXAMINATION: GENERAL: At this time, reveals an alert and oriented 62-year-old white female, resting quietly in bed with no apparent distress. EXTREMITIES: Examination is localized to her left hip wound, where the wound itself appears to be intact with a localized area of serosanguineous drainage about the proximal portion of the incision. There is no significant erythema, No localizing fluctuance. Slight limitation in mobility about the hip joint without sensation of instability. Distal sensory grossly intact. No attempt at ambulatory assessment is made at this time. 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 PLAN: The patient is scheduled to undergo a white blood cell nuclear scan later today as additional diagnostic studies. In addition, infectious disease consultation is pending at this time. Upon completion of the above, I will confer with Dr. Crawford of the infectious disease department, to assess her clinical impression as to whether or not her current septic condition might be managed by aggressive antibiotic intervention or whether the patient will require additional operative intervention. Robbin Gonzalez MD NBS/rh , 08:10 AM , 08:24 AM
--- NOTE | 2018-01-06 13:42 | P.CONID ---
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 Pt developped renal failure to vancomycin and had allergic reaction to zyvox and ended up completing treatment with zyvox She undewent 2nd stage of her 2 stage procedure on 12/17 and she was doing fine all the way untill y am when she developped fever, shaking chills and pain, pressure in her L n hip On presentation hypotensive with BP 70/40s, fever up to 102 WBC up to 25K and lactic acidosis During the night incision opened and she started t drain large amount of merky looking serosangious fluid Shw was stated on empiric abx (vancomycin, zosyn) and she feels much better She was started on pressors and they are being weaned down She also developped UTI 2/2 ESBL + Kleb and PSAE during her last hospitalisation and received tx for it Her w/u on admission included negative UA and CXR No toher complaints Review of Systems All other systems reviewed negative except as stated in HPI PMFSH - History History Provided By: Patient, Family Member, Significant Other - Medical History Medical History: Medical History (Last Reviewed 01/06/18 @ 13:45 by Kim Crawford MD) Arthritis Diminished hearing Fluid collection of middle ear Full dentures GERD (gastroesophageal reflux disease) History of MRSA infection Joint pain Murmur, cardiac Osteomyelitis Colon cancer Lung cancer Type 2 diabetes mellitus - Surgical History Surgical History: Surgical History (Last Reviewed 01/06/18 @ 13:45 by Kim Crawford MD) H/O arthroscopy of right knee History of bilateral carpal tunnel release History of cholecystectomy History of left hip replacement History of tubal ligation - Family History Family History: Family History (Last Reviewed 01/06/18 @ 13:45 by Kim Crawford MD) Other Colon cancer Diabetes Lung cancer - Tobacco History Second Hand Smoke Exposure: Yes Tobacco Use In Past 30 Days: Yes Smoking Status: Current every day smoker Tobacco Type: Cigarettes - Alcohol History How Often Do You Have a Drink Containing Alcohol: Never - Substance Use History Substance History: No History of Abuse - Travel History Recent Travel in the [place] Within the Last 8 Weeks: No Recent Travel Out of the Country Within the Last 8 Weeks: No - Immunization History Tetanus Immunization: Unsure Hx Influenza Vaccine This Season: Yes Medications and Allergies Active Medications: Active Medications Acetaminophen (Tylenol) 650 mg PO Q6H PRN PRN Reason: PAIN 1-10 AND/OR FEVER >101F Hydrocodone Bitart/Acetaminophen ([place] 5/325) 1 tab PO Q4H PRN PRN Reason: PAIN SCALE 1 TO 5 Al Hydroxide/Mg Hydroxide (Milk Of [place] Liq) 30 ml PO Q12H PRN PRN Reason: Mild Constipation Albuterol (Albuterol Neb (Prn)) 2.5 mg NEB Q2HR NEB PRN PRN Reason: SHORTNESS OF BREATH/WHEEZING Bisacodyl (Dulcolax Supp) 10 mg RECTAL DAILY PRN PRN Reason: SEVERE CONSITIPATION Chlorhexidine Gluconate (Chlorhexidine 2% Cloth) 3 pack TOPICAL DAILY@0400 [facility] Stop: 01/11/18 03:59 Last Admin: 01/06/18 04:07 Dose: 3 pack Chlorhexidine Gluconate (Chlorhexidine 2% Cloth) 3 pack TOPICAL DAILY@0400 PRN PRN Reason: Extra cloth needed Stop: 01/11/18 03:59 Dextrose (D50w Vial) 50 ml IV.PUSH UNSCH PRN PRN Reason: PER HYPOGLYCEMIA PROTOCOL Glucagon (Glucagon Inj) 1 mg OTHER PRN PRN PRN Reason: for Hypoglycemia Protocol Heparin Sodium (Porcine) (Heparin Inj) 5,000 units SQ Q12H [facility] Last Admin: 01/06/18 09:06 Dose: Not Given Sodium Chloride (Ns Inj) 1,000 mls @ 100 mls/hr IV.CONT .Q10H [facility] Pharmacy Profile Note (Vancomycin Consult Pharmacy) 0 mls @ 0 mls/hr OTHER UNSCH [facility] Piperacillin/Tazobactam/Dextrose (Zosyn 3.375 Gm Premix) 50 mls @ 100 mls/hr IV.SIG Q6H [facility] Last Admin: 01/06/18 09:06 Dose: 100 mls/hr Vancomycin HCl 1,250 mg/ (Sodium Chloride) 262.5 mls @ 250 mls/hr IV.SIG Q18H [facility] Last Infusion: 01/06/18 07:26 Dose: Infused Norepinephrine Bitartrate (Levophed-Dextrose 4 Mg/250 Ml Drip) 4 mg in 250 mls @ 7.5 mls/hr IV.SIG TITRATE PRN; Protocol PRN Reason: Per Protocol Last Titration: 01/06/18 06:56 Dose: 6 mcg/min, 22.5 mls/hr Magnesium Sulfate Inj 4 gm/ (Sodium Chloride) 100 mls @ 50 mls/hr IV.SIG UNSCH PRN PRN Reason: For Magnesium 0.9 - 1.1 mg/dL Magnesium Sulfate Inj 2 gm/ (Sodium Chloride) 100 mls @ 50 mls/hr IV.SIG UNSCH PRN PRN Reason: For Magnesium 1.2 - 1.6 mg/dL Potassium Chloride (Kcl 20 Meq Premix Inj) 20 meq in 100 mls @ 50 mls/hr IV.SIG Q2H PRN PRN Reason: For Potassium 3.3 - 3.5 mEq/L Potassium Chloride (Kcl 40 Meq Premix Inj) 40 meq in 100 mls @ 25 mls/hr IV.SIG UNSCH PRN PRN Reason: For Potassium 3.3 - 3.5 mEq/L Potassium Chloride (Kcl 20 Meq Premix Inj) 20 meq in 100 mls @ 50 mls/hr IV.SIG Q2H PRN PRN Reason: For Potassium 2.8 - 3.2 mEq/L Sodium Phosphate 30 mmol/ (Sodium Chloride) 260 mls @ 42 mls/hr IV.SIG UNSCH PRN PRN Reason: For Phosphorus < 2.5 mg/dL Potassium Chloride (Kcl 40 Meq Premix Inj) 40 meq in 100 mls @ 25 mls/hr IV.SIG Q2H PRN PRN Reason: For Potassium 2.8 - 3.2 mEq/L Potassium Phosphate 30 mmol/ (Sodium Chloride) 260 mls @ 42 mls/hr IV.SIG UNSCH PRN PRN Reason: SEE LABEL COMMENTS Sodium Chloride (Ns Inj) 1,000 mls @ 84 mls/hr IV.CONT .[id number] [facility] Last Admin: 01/06/18 06:08 Dose: Not Given Insulin Aspart (Novolog Insulin Correctional Sugar Inj) 0 unit SQ Q6HR [facility]; Protocol Last Admin: 01/06/18 06:08 Dose: Not Given Lactulose (Lactulose Liq) 30 ml PO DAILY PRN PRN Reason: SEVERE CONSITIPATION Magnesium Oxide (Mag-Ox) 800 mg PO UNSCH PRN PRN Reason: For Magnesium 1.2 - 1.6 mg/dL Miscellaneous Information ([facility] Ordered Lab Info) 0 each OTHER ONCE ONE Stop: 01/07/18 17:46 Morphine Sulfate (Morphine Inj) 2 mg IV.PUSH Q2H PRN PRN Reason: PAIN SCALE 6 TO 10 Last Admin: 01/06/18 09:05 Dose: 2 mg Ondansetron HCl (Zofran Inj) 4 mg IV.PUSH Q6H PRN PRN Reason: NAUSEA OR VOMITING Pantoprazole Sodium (Protonix) 40 mg PO DAILY [facility] Last Admin: 01/06/18 09:07 Dose: 40 mg Potassium Bicarb/Potassium Chloride (K-Lyte Cl Eff) 50 meq PO UNSCH PRN PRN Reason: For Potassium 3.3 - 3.5 mEq/L Potassium Phosphate (K-Phos Original) 2,000 mg PO Q4H PRN PRN Reason: Phosphorus Less Than 2.5 mg/dL Potassium Phosphate (K-Phos Original) 2,000 mg PO UNSCH PRN PRN Reason: SEE LABEL COMMENTS Senna/Docusate Sodium (Monica-Colace) 1 tab PO BID [facility] Last Admin: 01/06/18 09:07 Dose: 1 tab Sennosides (Senokot) 17.2 mg PO Q12H PRN PRN Reason: Moderate Constipation Sodium Chloride (Ns Flush) 2 ml IV.FLUSH PRN PRN PRN Reason: FLUSH AFTER USING IV ACCESS Sodium Chloride (Ns Flush) 2 ml IV.FLUSH BID [facility] Last Admin: 01/06/18 09:06 Dose: 2 ml Sodium Chloride (Ns Flush) 2 ml IV.FLUSH BID [facility] Last Admin: 01/06/18 09:06 Dose: 2 ml Sodium Chloride (Ns Flush) 2 ml IV.FLUSH PRN PRN PRN Reason: FLUSH AFTER USING IV ACCESS Sodium Chloride (Ns Flush) 2 ml IV.FLUSH BID [facility] Last Admin: 01/06/18 09:06 Dose: 2 ml Sodium Chloride (Ns Flush) 2 ml IV.FLUSH PRN PRN PRN Reason: FLUSH AFTER USING IV ACCESS Sodium Chloride (Ns Flush) 0 ml IV.FLUSH DAILY [facility] Last Admin: 01/06/18 09:00 Dose: 6 ml Temazepam (Restoril) 15 mg PO HS PRN PRN Reason: INSOMNIA Terbutaline Sulfate (Brethine Inj) 1 mg SQ UNSCH PRN PRN Reason: For Extravasation Allergies Allergy/AdvReac Type Severity Reaction Status Date / Time daptomycin Allergy Intermediate rash Verified 12/19/17 16:56 Home Medications Medication Instructions Recorded Confirmed Type omeprazole 20 mg PO DAILY 12/10/17 01/05/18 History Exam Vital signs: Vital Signs 01/05/18 13:51 01/05/18 14:21 01/05/18 15:00 Temperature 102.6 F H Pulse Rate 109 H 104 H 98 H Respiratory Rate 20 22 18 Blood Pressure 117/51 L 102/47 L 91/45 L Pulse Oximetry 96 98 98 01/05/18 15:22 01/05/18 15:27 01/05/18 15:30 Temperature 101.1 F H Pulse Rate 96 H 97 H 92 H Respiratory Rate 16 18 18 Blood Pressure 93/50 L 93/50 L 93/50 L Pulse Oximetry 95 94 L 97 01/05/18 16:00 01/05/18 16:43 01/05/18 16:45 Temperature Pulse Rate 90 91 H 92 H Respiratory Rate 20 Blood Pressure 96/49 L 82/53 L Pulse Oximetry 18 L 95 01/05/18 17:00 01/05/18 17:08 01/05/18 19:00 Temperature 99.8 F H 99.3 F Pulse Rate 92 H 92 H 79 Respiratory Rate 18 23 Blood Pressure 89/48 L 107/57 L Pulse Oximetry 98 97 01/05/18 20:00 01/05/18 21:00 01/05/18 22:00 Temperature 99.3 F 99.2 F Pulse Rate 80 81 72 Respiratory Rate 15 19 17 Blood Pressure 81/43 L 142/63 H 99/49 L Pulse Oximetry 97 98 96 01/05/18 23:00 01/06/18 00:00 01/06/18 01:00 Temperature 98.8 F Pulse Rate 73 67 67 Respiratory Rate 19 17 17 Blood Pressure 106/54 L 115/58 L 114/67 Pulse Oximetry 97 98 97 01/06/18 02:00 01/06/18 03:00 01/06/18 03:47 Temperature Pulse Rate 69 67 Respiratory Rate 18 18 Blood Pressure 103/51 L 117/54 L Pulse Oximetry 98 97 95 01/06/18 04:00 01/06/18 05:00 01/06/18 06:00 Temperature 98.8 F Pulse Rate 69 70 71 Respiratory Rate 17 17 19 Blood Pressure 124/87 140/64 142/65 H Pulse Oximetry 98 98 97 01/06/18 07:48 01/06/18 08:25 01/06/18 10:33 Temperature Pulse Rate 71 Respiratory Rate 19 16 Blood Pressure Pulse Oximetry 97 98 Intake & Output 01/05/18 01/06/18 01/06/18 18:59 06:59 18:59 Intake Total 350 / 350 262.5 / 262.5 Output Total 1000 / 1000 Balance -650 / -650 262.5 / 262.5 Weight 104 kg 100.5 kg Intake: IV 350 / 350 262.5 / 262.5 Levophed-Dextrose 4 mg/250 ml 250 / 250 Drip 4 mg In 250 ml @ 2 MCG/MIN 7.5 mls/hr IV.SIG TITRATE PRN Rx#:[id number] Zosyn 3.375 GM Premix 50 ML @ 100 / 100 100 mls/hr IV.SIG Q6H [facility] Rx#: [id number] Vancomycin Inj 1,250 MG In NS 262.5 / 262.5 Inj 250 ML @ 250 mls/hr IV.SIG Q18H [facility] Rx#:[id number] Output: Urine 1000 / 1000 Other: # Voids 4 Weight On Admission 104 kg - Constitutional no acute distress, morbidly obese - Routine HEENT Exam Head: Present: normocephalic, atraumatic Eye: Present: EOMI, PERRL ENT: Present: mucous membranes moist, oropharynx clear - Routine Neck Exam Present: supple, full ROM - Routine Respiratory Exam Present: decreased breath sounds, CTA bilaterally - Routine Cardiovascular Exam Present: RRR, S1, S2 Comments: no murmurs, rubs, galops diminshed refill and very m,ild cyanosis - Routine Abdominal Exam Present: soft, normoactive bowel sounds Comments: not tender not distende no organomegaly, masses - Routine Extremities Exam Present: cyanosis (mild), full ROM Comments: no clubbing STATUS LOCAIS: L hip incios isd opened int e mid portion and large amount of merky serosangiuous draingae present in collection bag some edema,but no erythema asround incision - Routine Skin Exam Present: intact, dry, warm Comments: no rash - Routine Neurological Exam Present: alert, oriented X3, CN II-XII intact, moving all extremities, vision grossly intact, hearing grossly intact, normal speech - Routine Psychiatric Exam Present: normal affect, normal thought process, cooperative Results - Labs CBC & Chem 7: 01/06/18 06:45 01/06/18 02:01 Labs: Laboratory Results - last 24 hr 01/05/18 01/05/18 01/05/18 13:10 13:10 13:10 WBC 22.4 H RBC 3.68 L Hgb 9.2 L Hct 29.5 L MCV 80.1 MCH 24.9 L MCHC 31.1 L RDW 20.4 H Plt Count 426 D MPV 7.8 Prelim Diff (Auto) Slide review pending Neut % (Auto) 94.8 H Lymph % (Auto) 2.8 L [place] % (Auto) 2.1 Eos % (Auto) 0.0 Baso % (Auto) 0.3 Neut # (Auto) 21.2 H Lymph # (Auto) 0.6 L [place] # (Auto) 0.5 Eos # (Auto) 0.0 Baso # (Auto) 0.1 WBC Differential Manual diff final Seg Neuts % (Manual) 80 H Band Neuts % (Manual) 9 H Lymphocytes % (Manual) 7 L Monocytes % (Manual) 3 Myelocytes % (Man) 1 H Abs Neuts (Manual) 20.2 H Differential Comment . Platelet Estimate Normal Platelet Morphology Normal Stomatocytes 2+ H ESR PT 9.7 L INR 1.0 APTT 17.8 L Sodium 134 L Potassium 3.7 Chloride 102 Carbon Dioxide 21.3 Anion Gap 11 BUN 15 Creatinine 1.08 H Estimated GFR 52 L POC Glucose Random Glucose 164 H Lactic Acid Calcium 8.9 Phosphorus Magnesium 1.4 L Total Bilirubin 0.6 AST 24 ALT 16 Alkaline Phosphatase 162 H Total Creatine Kinase 67 Troponin I Less than 0.02 L C-Reactive Protein Total Protein 7.0 Albumin 3.3 L Lipase 78 Urine Color Urine Clarity Urine pH Ur Specific [place] Urine Protein Urine Glucose (UA) Urine Ketones Urine Occult Blood Urine Nitrate Urine Bilirubin Urine Urobilinogen Ur Leukocyte Esterase Urine RBC Urine WBC Ur Squamous Epith Cells Micro UA Comment Urine Culture Comments Nasal Screen MRSA (PCR) 01/05/18 01/05/18 01/05/18 13:10 13:10 13:10 WBC RBC Hgb Hct MCV MCH MCHC RDW Plt Count MPV Prelim Diff (Auto) Neut % (Auto) Lymph % (Auto) [place] % (Auto) Eos % (Auto) Baso % (Auto) Neut # (Auto) Lymph # (Auto) [place] # (Auto) Eos # (Auto) Baso # (Auto) WBC Differential Seg Neuts % (Manual) Band Neuts % (Manual) Lymphocytes % (Manual) Monocytes % (Manual) Myelocytes % (Man) Abs Neuts (Manual) Differential Comment Platelet Estimate Platelet Morphology Stomatocytes ESR 42 H PT INR APTT Sodium Potassium Chloride Carbon Dioxide Anion Gap BUN Creatinine Estimated GFR POC Glucose Random Glucose Lactic Acid 3.7 H Calcium Phosphorus Magnesium Total Bilirubin AST ALT Alkaline Phosphatase Total Creatine Kinase Troponin I C-Reactive Protein 3.32 H Total Protein Albumin Lipase Urine Color Urine Clarity Urine pH Ur Specific [place] Urine Protein Urine Glucose (UA) Urine Ketones Urine Occult Blood Urine Nitrate Urine Bilirubin Urine Urobilinogen Ur Leukocyte Esterase Urine RBC Urine WBC Ur Squamous Epith Cells Micro UA Comment Urine Culture Comments Nasal Screen MRSA (PCR) 01/05/18 01/05/18 01/05/18 13:15 15:47 19:05 WBC RBC Hgb Hct MCV MCH MCHC RDW Plt Count MPV Prelim Diff (Auto) Neut % (Auto) Lymph % (Auto) [place] % (Auto) Eos % (Auto) Baso % (Auto) Neut # (Auto) Lymph # (Auto) [place] # (Auto) Eos # (Auto) Baso # (Auto) WBC Differential Seg Neuts % (Manual) Band Neuts % (Manual) Lymphocytes % (Manual) Monocytes % (Manual) Myelocytes % (Man) Abs Neuts (Manual) Differential Comment Platelet Estimate Platelet Morphology Stomatocytes ESR PT INR APTT Sodium Potassium Chloride Carbon Dioxide Anion Gap BUN Creatinine Estimated GFR POC Glucose Random Glucose Lactic Acid 2.6 H Calcium Phosphorus Magnesium Total Bilirubin AST ALT Alkaline Phosphatase Total Creatine Kinase Troponin I C-Reactive Protein Total Protein Albumin Lipase Urine Color Yellow Urine Clarity Clear Urine pH 5.0 Ur Specific [place] 1.013 Urine Protein Negative Urine Glucose (UA) 50 Urine Ketones Negative Urine Occult Blood Small H Urine Nitrate Negative Urine Bilirubin Negative Urine Urobilinogen Less than 2 Ur Leukocyte Esterase Negative Urine RBC 1 Urine WBC 1 Ur Squamous Epith Cells 1 Micro UA Comment Cath-culture not ind Urine Culture Comments Cath-cult not ind Nasal Screen MRSA (PCR) Not detected 01/06/18 01/06/18 01/06/18 00:43 02:01 02:01 WBC RBC Hgb Hct MCV MCH MCHC RDW Plt Count MPV Prelim Diff (Auto) Neut % (Auto) Lymph % (Auto) [place] % (Auto) Eos % (Auto) Baso % (Auto) Neut # (Auto) Lymph # (Auto) [place] # (Auto) Eos # (Auto) Baso # (Auto) WBC Differential Seg Neuts % (Manual) Band Neuts % (Manual) Lymphocytes % (Manual) Monocytes % (Manual) Myelocytes % (Man) Abs Neuts (Manual) Differential Comment Platelet Estimate Platelet Morphology Stomatocytes ESR PT INR APTT Sodium 145 D Potassium 3.7 Chloride 115 H D Carbon Dioxide 24.1 Anion Gap 6 BUN 11 Creatinine 0.76 Estimated GFR 77 L POC Glucose 168 H Random Glucose 147 H Lactic Acid 1.4 Calcium 8.0 L D Phosphorus 2.9 Magnesium 1.9 Total Bilirubin AST ALT Alkaline Phosphatase Total Creatine Kinase 46 Troponin I Less than 0.02 L C-Reactive Protein Total Protein Albumin Lipase Urine Color Urine Clarity Urine pH Ur Specific [place] Urine Protein Urine Glucose (UA) Urine Ketones Urine Occult Blood Urine Nitrate Urine Bilirubin Urine Urobilinogen Ur Leukocyte Esterase Urine RBC Urine WBC Ur Squamous Epith Cells Micro UA Comment Urine Culture Comments Nasal Screen MRSA (PCR) 01/06/18 01/06/18 01/06/18 06:06 06:45 06:45 WBC 25.6 H RBC 2.85 L Hgb 7.1 L D Hct 22.9 L MCV 80.5 MCH 25.0 L MCHC 31.0 L RDW 20.4 H Plt Count 349 MPV 7.7 Prelim Diff (Auto) Neut % (Auto) 86.1 H Lymph % (Auto) 7.8 L [place] % (Auto) 4.2 Eos % (Auto) 1.3 Baso % (Auto) 0.6 Neut # (Auto) 22.0 H Lymph # (Auto) 2.0 [place] # (Auto) 1.1 H Eos # (Auto) 0.3 Baso # (Auto) 0.2 WBC Differential . Seg Neuts % (Manual) Band Neuts % (Manual) Lymphocytes % (Manual) Monocytes % (Manual) Myelocytes % (Man) Abs Neuts (Manual) Differential Comment Auto diff final Platelet Estimate Platelet Morphology Stomatocytes ESR PT 11.0 INR 1.1 APTT 19.5 L Sodium Potassium Chloride Carbon Dioxide Anion Gap BUN Creatinine Estimated GFR POC Glucose 146 H Random Glucose Lactic Acid Calcium Phosphorus Magnesium Total Bilirubin AST ALT Alkaline Phosphatase Total Creatine Kinase Troponin I C-Reactive Protein Total Protein Albumin Lipase Urine Color Urine Clarity Urine pH Ur Specific [place] Urine Protein Urine Glucose (UA) Urine Ketones Urine Occult Blood Urine Nitrate Urine Bilirubin Urine Urobilinogen Ur Leukocyte Esterase Urine RBC Urine WBC Ur Squamous Epith Cells Micro UA Comment Urine Culture Comments Nasal Screen MRSA (PCR) - Imaging Impressions Chest X-Ray 01/05/18 00:00 CONCLUSION: Interval placement of left internal jugular central venous line with no pneumothorax.. Chest X-Ray 01/05/18 13:00 CONCLUSION: No acute cardiopulmonary findings. Head CT 01/05/18 13:08 CONCLUSION: 1. Acute sinusitis, left sphenoid. 2. Otherwise negative. . Hip X-Ray 01/05/18 13:10 CONCLUSION: Orthopedic hardware in good position. Degenerative changes in the sacroiliac joints and the right hip. No acute bony abnormality. Assessment and Plan - Plan Sepsis Suspected source is L prosthetic hip infectio Recent MRSA infection of prosthetic hip sp 2 stage procedfure and abx treatment She also had Enterococcus in the wound H/o ESBL+ Kle pneumo UTI H/o ARF on vanco dapto allergy cont vancomycin change zosyn to meropenem based on recent h/o ESBL and severe sepsis Agreee with plan for surgery Culture of the fluid case dw Dr Everardo schwarz RN
--- NOTE | 2018-01-06 16:18 | P.PNCC ---
Subjective Subjective Remarks/Hospital Course: 01/05: This is a 62-year-old female. Date of admission 01/05/2018. Date of consultation 01/05/2018. Past medical history includes morbid obesity, hard of hearing, gastroesophageal reflux disease, osteomyelitis, chronic narcotic use. Patient is a 2 day history of not feeling with left hip pain/ drainage from left hip. Patient was originally admitted to the hospital service with consultation infectious disease and orthopedics. On 09/09/2017, the patient had left hip resection with cement spacer. The hospitalization was complicated by an ileus and urinary retention. Patient was eventually sent to rehab later that month. Since that time, she has had 2 additional hip surgeries In the ED, patient received 3 L normal saline. Lactic acid 3.6 for leukocytosis of 22,000. Despite that, patient remained hypotensive requiring vasopressors. Patient currently norepinephrine drip at 8 mcg/min. Lactic acid is currently 2.6. Patient does not appear septic. There is small serosanguineous drainage to the incision from left hip site from previous surgery. She is currently pleasant awake and alert and oriented to person place and time. 01/06: Resting comfortably in bed. Remains on Levophed. Objective Vital Signs / I&O: Vital Signs 01/05/18 16:43 01/05/18 16:45 01/05/18 17:00 Temperature Pulse Rate 91 H 92 H 92 H Respiratory Rate 20 Blood Pressure 82/53 L Pulse Oximetry 95 01/05/18 17:08 01/05/18 19:00 01/05/18 20:00 Temperature 99.8 F H 99.3 F 99.3 F Pulse Rate 92 H 79 80 Respiratory Rate 18 23 15 Blood Pressure 89/48 L 107/57 L 81/43 L Pulse Oximetry 98 97 97 01/05/18 21:00 01/05/18 22:00 01/05/18 23:00 Temperature 99.2 F Pulse Rate 81 72 73 Respiratory Rate 19 17 19 Blood Pressure 142/63 H 99/49 L 106/54 L Pulse Oximetry 98 96 97 01/06/18 00:00 01/06/18 01:00 01/06/18 02:00 Temperature 98.8 F Pulse Rate 67 67 69 Respiratory Rate 17 17 18 Blood Pressure 115/58 L 114/67 103/51 L Pulse Oximetry 98 97 98 01/06/18 03:00 01/06/18 03:47 01/06/18 04:00 Temperature 98.8 F Pulse Rate 67 69 Respiratory Rate 18 17 Blood Pressure 117/54 L 124/87 Pulse Oximetry 97 95 98 01/06/18 05:00 01/06/18 06:00 01/06/18 07:48 Temperature Pulse Rate 70 71 71 Respiratory Rate 17 19 19 Blood Pressure 140/64 142/65 H Pulse Oximetry 98 97 97 01/06/18 08:00 01/06/18 08:25 01/06/18 08:30 Temperature Pulse Rate 72 72 Respiratory Rate 17 18 Blood Pressure 138/63 138/63 Pulse Oximetry 96 98 97 01/06/18 09:00 01/06/18 09:30 01/06/18 10:00 Temperature Pulse Rate 72 69 68 Respiratory Rate 20 17 19 Blood Pressure 121/71 136/65 118/58 L Pulse Oximetry 97 97 98 01/06/18 10:30 01/06/18 10:33 01/06/18 10:55 Temperature Pulse Rate 69 71 Respiratory Rate 17 16 25 H Blood Pressure 124/59 L 118/59 L Pulse Oximetry 98 96 01/06/18 11:00 01/06/18 11:30 01/06/18 11:50 Temperature Pulse Rate 69 76 73 Respiratory Rate 20 18 22 Blood Pressure 119/61 146/63 H 122/58 L Pulse Oximetry 97 95 97 01/06/18 12:00 01/06/18 12:30 01/06/18 13:00 Temperature Pulse Rate 74 71 72 Respiratory Rate 18 17 25 H Blood Pressure 128/62 122/59 L Pulse Oximetry 98 95 98 01/06/18 13:01 01/06/18 13:30 01/06/18 14:00 Temperature Pulse Rate 72 66 76 Respiratory Rate 20 18 21 Blood Pressure 113/52 L 97/51 L Pulse Oximetry 99 100 90 L 01/06/18 14:25 01/06/18 14:30 Temperature Pulse Rate 75 73 Respiratory Rate 24 30 H Blood Pressure 116/59 L 122/60 Pulse Oximetry 94 L 96 Intake & Output 01/05/18 01/06/18 01/06/18 18:59 06:59 18:59 Intake Total 350 / 350 262.5 / 262.5 Output Total 1000 / 1000 Balance -650 / -650 262.5 / 262.5 Weight 104 kg 100.5 kg Intake: IV 350 / 350 262.5 / 262.5 Levophed-Dextrose 4 mg/250 ml 250 / 250 Drip 4 mg In 250 ml @ 2 MCG/MIN 7.5 mls/hr IV.SIG TITRATE PRN Rx#:[id number] Zosyn 3.375 GM Premix 50 ML @ 100 / 100 100 mls/hr IV.SIG Q6H [facility] Rx#: [id number] Vancomycin Inj 1,250 MG In NS 262.5 / 262.5 Inj 250 ML @ 250 mls/hr IV.SIG Q18H [facility] Rx#:[id number] Output: Urine 1000 / 1000 Other: # Voids 4 Weight On Admission 104 kg Result Diagrams: 01/06/18 06:45 01/06/18 02:01 Imaging: Chest X-Ray 01/05/18 00:00 CONCLUSION: Interval placement of left internal jugular central venous line with no pneumothorax.. Chest X-Ray 01/05/18 13:00 CONCLUSION: No acute cardiopulmonary findings. Head CT 01/05/18 13:08 CONCLUSION: 1. Acute sinusitis, left sphenoid. 2. Otherwise negative. . Hip X-Ray 01/05/18 13:10 CONCLUSION: Orthopedic hardware in good position. Degenerative changes in the sacroiliac joints and the right hip. No acute bony abnormality. Objective Remarks: HEENT/Neuro: No pallor or icterus, tongue moist, AMANDA, Awake alert oriented 3 , nonfocal grossly, moving all 4 extremities Neck: No JVD Chest/pulmonary: CTA bilaterally Cardiovascular: S1-S2 regular no gallop or murmur GI/abdomen: Soft, nontender, bowel sounds present Extremities: Warm bilaterally, left hip incision site with drain in place. Assessment and Plan - Assessment and Plan Plan: Neuro/Psych: Hard of hearing Chronic opioid use CT brain 01/05 revealed left sphenoid sinusitis. No acute intracranial normality is Acetaminophen 650 p.o. every 6 hours as needed fever Hydrocodone/acetaminophen 5/325 one tablet every 4 hours as needed pain 1 through 5 Morphine sulfate 2 mg IV every 2 hours as needed pain 6 or 10 CV: Severe sepsis Lactic acidosis Received 3 L normal saline in ED. Currently normal saline at 84 cc an hour Lactic acid 3.3-2.6. Repeat until cleared Currently on norepinephrine drip at 8 mcg been to maintain mean arterial pressure greater or equal to 65 EKG revealed incomplete right bundle branch block. Sinus tachycardia. CPK and troponin repeat pending. Currently holding aspirin 325 mg daily. Resume clinically indicated Resp: History of lung cancer Nasal cannula to maintain saturations greater than equal to 92% Incentive spirometry while awake Chest exam revealed no acute cardiopulmonary findings GI: History of colon cancer Gastroesophageal reflux disease History of erosive gastritis History of Vi esophagitis Hypoalbuminemia Clear liquid diet Pantoprazole 40 mg p.o. daily. On omeprazole 20 mg daily at home Docusate sodium/senna 1 tablet twice daily for bowel regimen : Patient history of urinary retention Solano catheter if indicated. Straight catheter now Endo: Sliding scale insulin Accu-Cheks every 6 hours to maintain euglycemia/aspart insulin medium regimen Renal: Acute kidney injury Monitor BMP daily. Monitor urine output Accurate I's and O's Heme: Leukocytosis Normocytic anemia Monitor CBC daily. Follow trends. No indication for transfusion of blood products at this time. ID: Likely septic left hip Blood cultures 2, wound cultures 01/05 pending Currently on piperacillin/tazobactam vancomycin day #1. Noted allergy to daptomycin. Infectious disease consultation MSK: Elevated BMI Osteoporosis History of osteomyelitis Weight loss encouraged. PT evaluate and treat Orthopedics consultation FEN: Hyponatremia Hypomagnesia Replace electrolytes as clinically indicated per ICU electrolyte protocol Access -We will place central line. Peripheral IVs Prophylaxis -GI -pantoprazole -DVT-SCD/heparin subcu 35 minutes critical care time
[2018-01-07] MEDS: Insulin NovoLOG Aspart Correctional Sugar Inj SQ SCH ×4 (00:23→19:49)
[2018-01-07] MEDS: Vancomycin Inj 1,250 MG in Sodium Chlor 0.9% Inj 250 ML IV.SIG SCH ×2 (00:33→18:00)
[2018-01-07] MEDS: Chlorhexidine Gluconate 2% 1 Pack (2 Cloths) TOPICAL SCH (04:12)
[2018-01-07] MEDS: Heparin - SQ 10,000 UNITS/ML Vial SQ SCH ×2 (06:10→19:30)
[2018-01-07] MEDS: Sod Chloride 0.9% Inj 1,000 ML IV.CONT SCH ×2 (06:33→19:49)
[2018-01-07] MEDS ORDERED: Tobramycin Sulfate 1,200 MG Vial (for ortho/sterile core) OTHER ONE (08:10)
[2018-01-07] MEDS: Senna/Docusate Sodium 8.6/50 MG Tablet PO SCH ×2 (08:33→20:24)
[2018-01-07] MEDS ORDERED: Famotidine PF Inj 20 MG/2 ML Vial ONE (09:08)
[2018-01-07] MEDS ORDERED: Albumin Human 5% Inj 500 ML IV.SIG ONE (09:08)
[2018-01-07] MEDS ORDERED: Ketamine Inj 50 MG/5 ML Syringe IV.PUSH ONE (09:20)
--- NOTE | 2018-01-07 09:32 | NM ---
EXAM DATE: 01/07/2018 7:52 AM EDT AGE/SEX: 62 years / Female INDICATIONS: Left hip pain for one day. Infection. CLINICAL DATA: This is the patient's initial encounter. Patient reports that signs and symptoms have been present for 1 day and indicates a pain score of 7/10. MEDICAL/SURGICAL HISTORY: Carcinoma, lung. Gastroesophageal reflux disease. Diabetes mellitus type II. Tubal ligation. Cholecystectomy. Left hip replacement. COMPARISON: No prior exams available for comparison. No external comparison. DOSE: 20.2 mCi Tc99m Ceretec labeled white blood cells IV PLANAR IMAGIN min 3 hr SPECT IMAGIN hr IMAGING: SPECT/CT imaging with fusion was performed. RADIATION DOSE: 9.56 CTDI vol(mGy) TECHNIQUE: Following the in vitro labeling of autologous white cells and reinjection, whole body sca n was performed at the specified times. Imaging was performed at specified times in sagittal, axial and coronal planes. Attenuation correction was performed with computed tomography and both the atten uation correction and non-attenuation corrected data sets were reviewed. FINDINGS: There is no significant white cell accumulation associated with the left hip prosthesis or surroundin g tissues. The bio distribution of white cells is otherwise symmetric and unremarkable CONCLUSION: Negative scan Electronically signed by: Martir Wesley MD 01/07/2018 9:31 AM EDT
--- NOTE | 2018-01-07 10:31 | P.PNCC ---
Subjective Subjective Remarks/Hospital Course: 01/05: This is a 62-year-old female. Date of admission 01/05/2018. Date of consultation 01/05/2018. Past medical history includes morbid obesity, hard of hearing, gastroesophageal reflux disease, osteomyelitis, chronic narcotic use. Patient is a 2 day history of not feeling with left hip pain/ drainage from left hip. Patient was originally admitted to the hospital service with consultation infectious disease and orthopedics. On 09/09/2017, the patient had left hip resection with cement spacer. The hospitalization was complicated by an ileus and urinary retention. Patient was eventually sent to rehab later that month. Since that time, she has had 2 additional hip surgeries In the ED, patient received 3 L normal saline. Lactic acid 3.6 for leukocytosis of 22,000. Despite that, patient remained hypotensive requiring vasopressors. Patient currently norepinephrine drip at 8 mcg/min. Lactic acid is currently 2.6. Patient does not appear septic. There is small serosanguineous drainage to the incision from left hip site from previous surgery. She is currently pleasant awake and alert and oriented to person place and time. 01/06: Resting comfortably in bed. Remains on Levophed. 01/07: Resting comfortably in bed. Complaining of headache this morning. Levophed at 2 mics per minute at the time of my evaluation this morning and was turned off. Objective Vital Signs / I&O: Vital Signs 01/06/18 10:30 01/06/18 10:33 01/06/18 10:55 Temperature Pulse Rate 69 71 Respiratory Rate 17 16 25 H Blood Pressure 124/59 L 118/59 L Pulse Oximetry 98 96 01/06/18 11:00 01/06/18 11:30 01/06/18 11:50 Temperature Pulse Rate 69 76 73 Respiratory Rate 20 18 22 Blood Pressure 119/61 146/63 H 122/58 L Pulse Oximetry 97 95 97 01/06/18 12:00 01/06/18 12:30 01/06/18 13:00 Temperature Pulse Rate 74 71 72 Respiratory Rate 18 17 25 H Blood Pressure 128/62 122/59 L Pulse Oximetry 98 95 98 01/06/18 13:01 01/06/18 13:30 01/06/18 14:00 Temperature Pulse Rate 72 66 76 Respiratory Rate 20 18 21 Blood Pressure 113/52 L 97/51 L Pulse Oximetry 99 100 90 L 01/06/18 14:25 01/06/18 14:30 01/06/18 14:48 Temperature Pulse Rate 75 73 67 Respiratory Rate 24 30 H 32 H Blood Pressure 116/59 L 122/60 122/58 L Pulse Oximetry 94 L 96 70 L 01/06/18 15:00 01/06/18 15:30 01/06/18 16:00 Temperature Pulse Rate 81 72 76 Respiratory Rate 30 H 26 H 26 H Blood Pressure 124/66 136/62 117/59 L Pulse Oximetry 96 93 L 01/06/18 16:10 01/06/18 16:30 01/06/18 17:00 Temperature Pulse Rate 74 77 73 Respiratory Rate 19 28 H 17 Blood Pressure 126/59 L 135/61 116/56 L Pulse Oximetry 84 L 98 97 01/06/18 17:20 01/06/18 17:30 01/06/18 18:00 Temperature Pulse Rate 73 81 Respiratory Rate 16 23 26 H Blood Pressure 123/58 L 145/66 H Pulse Oximetry 94 L 97 01/06/18 18:26 01/06/18 18:31 01/06/18 19:00 Temperature Pulse Rate 83 87 Respiratory Rate 16 34 H 28 H Blood Pressure 118/55 L 118/79 Pulse Oximetry 94 L 91 L 01/06/18 20:00 01/06/18 21:00 01/06/18 21:05 Temperature 99.4 F Pulse Rate 77 72 Respiratory Rate 27 H 21 Blood Pressure 108/52 L 112/56 L Pulse Oximetry 96 91 L 96 01/06/18 21:31 01/06/18 22:00 01/06/18 22:30 Temperature Pulse Rate 75 69 Respiratory Rate 26 H 22 Blood Pressure 110/51 L 124/57 L 121/59 L Pulse Oximetry 88 L 97 01/06/18 23:00 01/06/18 23:30 01/07/18 00:00 Temperature 99.3 F Pulse Rate 72 74 77 Respiratory Rate 22 20 12 Blood Pressure 124/62 106/53 L 109/55 L Pulse Oximetry 95 94 L 91 L 01/07/18 00:30 01/07/18 01:00 01/07/18 01:30 Temperature Pulse Rate 77 77 80 Respiratory Rate 22 20 22 Blood Pressure 112/56 L 123/57 L 113/56 L Pulse Oximetry 92 L 93 L 96 01/07/18 02:00 01/07/18 02:08 01/07/18 02:30 Temperature Pulse Rate 84 77 73 Respiratory Rate 27 H 20 19 Blood Pressure 113/56 L 135/62 124/60 Pulse Oximetry 96 98 95 01/07/18 03:00 01/07/18 03:30 01/07/18 04:00 Temperature Pulse Rate 75 75 78 Respiratory Rate 20 17 17 Blood Pressure 125/59 L 129/62 124/58 L Pulse Oximetry 93 L 94 L 88 L 01/07/18 04:31 01/07/18 05:00 01/07/18 06:00 Temperature Pulse Rate 95 H 77 81 Respiratory Rate 31 H 20 45 H Blood Pressure 142/66 H 142/66 H 142/64 H Pulse Oximetry 97 94 L 96 01/07/18 06:16 01/07/18 06:30 01/07/18 07:00 Temperature Pulse Rate 79 76 83 Respiratory Rate 21 19 27 H Blood Pressure 168/72 H 142/64 H 152/70 H Pulse Oximetry 95 96 96 01/07/18 07:26 01/07/18 07:30 01/07/18 07:40 Temperature Pulse Rate 81 86 84 Respiratory Rate 19 20 18 Blood Pressure 146/63 H 124/58 L 122/66 Pulse Oximetry 94 L 96 96 01/07/18 07:50 01/07/18 08:00 01/07/18 08:10 Temperature Pulse Rate 81 80 81 Respiratory Rate 20 21 26 H Blood Pressure 127/60 132/61 128/58 L Pulse Oximetry 93 L 96 92 L 01/07/18 08:25 01/07/18 08:30 Temperature 98.4 F Pulse Rate 78 78 Respiratory Rate 16 Blood Pressure 128/61 Pulse Oximetry 94 L Intake & Output 01/06/18 01/07/18 01/07/18 18:59 06:59 18:59 Intake Total 1612.5 / 1612.5 812.50 / 812.50 Output Total 200 / 200 Balance 1612.5 / 1612.5 812.50 / 812.50 -200 / -200 Weight 100 kg Intake: IV 1612.5 / 1612.5 612.50 / 612.50 NS Inj 1,000 ML @ 84 mls/hr IV. 1000 / 1000 CONT .[id number] [facility] Rx#:[id number] Merrem Inj 1,000 MG In NS Inj 100 / 100 100 / 100 100 ML @ 200 mls/hr IV.SIG Q8H [facility] Rx#:[id number] Levophed-Dextrose 4 mg/250 ml 250 / 250 250 / 250 Drip 4 mg In 250 ml @ 2 MCG/MIN 7.5 mls/hr IV.SIG TITRATE PRN Rx#:[id number] Vancomycin Inj 1,250 MG In NS 262.5 / 262.5 262.50 / 262.50 Inj 250 ML @ 250 mls/hr IV.SIG Q18H [facility] Rx#:[id number] Oral 200 / 200 Output: Urine 200 / 200 Other: # Voids 4 5 1 Date of Last Bowel Movement 01/07/18 # Bowel Movements 1 Result Diagrams: 01/06/18 06:45 01/06/18 02:01 Objective Remarks: HEENT/Neuro: No pallor or icterus, tongue moist, AMANDA, Awake alert oriented 3 , nonfocal grossly, moving all 4 extremities Neck: No JVD Chest/pulmonary: CTA bilaterally Cardiovascular: S1-S2 regular no gallop or murmur GI/abdomen: Soft, nontender, bowel sounds present Extremities: Warm bilaterally, left hip incision site with drain in place. Assessment and Plan - Assessment and Plan Plan: Neuro/Psych: Hard of hearing Chronic opioid use CT brain 01/05 revealed left sphenoid sinusitis. No acute intracranial normality is Acetaminophen 650 p.o. every 6 hours as needed fever Hydrocodone/acetaminophen 5/325 one tablet every 4 hours as needed pain 1 through 5 Morphine sulfate 2 mg IV every 2 hours as needed pain 6 or 10 CV: Severe sepsis Lactic acidosis Received 3 L normal saline in ED. Currently normal saline at 84 cc an hour Lactic acid 3.3-2.6. Repeat until cleared Levophed titrated off on 01/07 EKG revealed incomplete right bundle branch block. Sinus tachycardia. Currently holding aspirin 325 mg daily. Resume clinically indicated Resp: History of lung cancer Nasal cannula to maintain saturations greater than equal to 92% Incentive spirometry while awake Chest exam revealed no acute cardiopulmonary findings GI: History of colon cancer Gastroesophageal reflux disease History of erosive gastritis History of Vi esophagitis Hypoalbuminemia Clear liquid diet Pantoprazole 40 mg p.o. daily. On omeprazole 20 mg daily at home Docusate sodium/senna 1 tablet twice daily for bowel regimen : Patient history of urinary retention Solano catheter if indicated. Straight catheter now Endo: Sliding scale insulin Accu-Cheks every 6 hours to maintain euglycemia/aspart insulin medium regimen Renal: Acute kidney injury Monitor BMP daily. Monitor urine output Accurate I's and O's Heme: Leukocytosis Normocytic anemia Monitor CBC daily. Follow trends. No indication for transfusion of blood products at this time. ID: Likely septic left hip Blood cultures 2, wound cultures 01/05 pending Currently on piperacillin/tazobactam vancomycin day Noted allergy to daptomycin. Infectious disease consultation noted-Dr. Crawford -Nella has scheduled for surgery for left hip with hardware removal and spacer. MSK: Elevated BMI Osteoporosis History of osteomyelitis Weight loss encouraged. PT evaluate and treat Orthopedics consultation FEN: Hyponatremia Hypomagnesia Replace electrolytes as clinically indicated per ICU electrolyte protocol Access -We will place central line. Peripheral IVs Prophylaxis -GI -pantoprazole -DVT-SCD/heparin subcu
[2018-01-07] MEDS ORDERED: Glycopyrrolate Inj 1 MG/5 ML Syringe IV.PUSH ONE (12:00)
[2018-01-07] MEDS ORDERED: Lidocaine PF 1% Inj 5 ML Syringe INFILTRATN ONE (12:00)
[2018-01-07] MEDS ORDERED: Neostigmine Inj 5 MG/5 ML Syringe IV.PUSH ONE (12:00)
[2018-01-07] MEDS ORDERED: Phenylephrine/NS 1000 MCG/10ML Syringe IV.PUSH ONE (12:00)
[2018-01-07] MEDS ORDERED: fentaNYL Citrate Inj 100 MCG/2 ML Ampul ONE (12:53)
[2018-01-07] MEDS ORDERED: Post-op Orders (for Pharmacy) OTHER STA (12:55)
[2018-01-07] MEDS ORDERED: Naloxone Inj 0.4 MG/ML Vial IV.PUSH PRN (12:55)
[2018-01-07] MEDS ORDERED: Morphine Inj 30 MG/30 ML PCA.VIAL PCA ONE (13:14)
[2018-01-07] MEDS ORDERED: *morphine SULFATE 10 MG/ML PERIprocedure ONLY ONE ×2 (13:14→13:38)
[2018-01-07 13:36] LABS: Hematocrit 23.5 % (35.0-46.0); Hemoglobin 7.8 gm/dL (11.6-15.3)
--- NOTE | 2018-01-07 13:39 | MP ---
cc: Robbin Gonzalez MD DATE OF OPERATION: 01/07/2018 PREOPERATIVE DIAGNOSIS: Recurrent sepsis, left hip, status post total hip arthroplasty. POSTOPERATIVE DIAGNOSIS: Recurrent sepsis, left hip, status post total hip arthroplasty. PROCEDURE PERFORMED: Repeat resection arthroplasty with insertion of cement spacer. SURGEON: Robbin Gonzalez MD ANESTHESIA: General endotracheal. INDICATIONS: This is a 62-year-old white female who has had a lengthy history of difficulties related to her left hip. In brief summary, she had undergone a total hip arthroplasty of the left hip in June of this year for osteoarthritis, but subsequently was diagnosed as having an infection that was initially thought to be superficial in nature, resulting in an incision and drainage procedure that was unsuccessful with persistent drainage being noted thereafter. A subsequent resection arthroplasty was completed with insertion of a cement spacer and the patient carried through an extensive course of antibiotic intervention under the supervision of the infectious disease department. She subsequently was able to note an overall trend of improvement with followup laboratory studies all being within normal limits. Based upon these findings and the patient's desire to proceed with reimplantation, she was admitted to the hospital within the previous month and at that time underwent a second stage reimplantation, which was accomplished in an uncomplicated manner. Culture analysis at that time was unremarkable for evidence of bacterial contamination or white blood cells. Once again, the patient did initially quite well with regard to resuming ambulatory activities, but within the very recent past, she experienced the abrupt onset of recurrent pain about her left hip area followed by recurrent drainage with findings felt to be consistent with a recurrent sepsis of her left hip. Based upon this finding, it was recommended that she undergo resection arthroplasty and reinsertion of a cement spacer with continued antibiotic intervention under the supervision of the infectious disease department. The patient was in full agreement to this plan of treatment and thus scheduled to proceed with the procedure at this time. FORMAT: Following the induction of satisfactory general anesthesia by endotracheal intubation as completed per the department of anesthesia, the patient was positioned upon the operating table in a right lateral decubitus fashion. The left hip and lower extremity proper were isolated with a U-drape, thereafter being prepped with Betadine solution and draped into a sterile field in the routine manner. Prior to initiation of the actual procedure, a standard timeout protocol was completed. All parameters were appropriately addressed and confirmed by operating room personnel. A previous surgical scar about the posterolateral aspect of the hip was sharply excised and thereafter progressive dissection was facilitated into the deeper soft tissue structures. There was an obvious dehiscence of the wound within the confines of the deeper tissue and as progressive dissection was completed, serial cultures were obtained all the way down to the joint space and submitted for analysis. The previously inserted total hip components were readily identified. A cerclage wire about the proximal femur was removed. The femoral component was dislocated from the confines of the acetabulum and thereafter removed in a 2-piece manner with the ceramic head being disassociated from the femoral stem and the stem itself thereafter, extracted from the confines of the aspect of the proximal femur. Attention was redirected to the acetabulum. The acetabular liner was removed. A previous fixation screw about the anterosuperior aspect of the acetabular component was removed and thereafter the acetabular shell was removed from the confines of the acetabulum. Thereafter, a thorough debridement of all soft tissues in a periarticular manner as well as within the confines of the acetabulum and the proximal femur were accomplished as well as antibiotic pulsating brushing lavage of the femoral canal being completed. A limited reaming of the acetabulum facilitated further debridement and thereafter sizing was accomplished with the trial components which determined that a 52 mm acetabular head and a 13 mm femoral stem would be appropriate sizing for fabrication of the cement spacer utilizing the stage I [employer] system. The cement spacer was fabricated in a 2-piece fashion. The femoral component of a 13 mm sizing and the femoral head and the head component of a 52 mm sizing. The creation of the spacer included use of antibiotic impregnated cement, utilizing both gentamicin and Ancef. With the component completed in its construction, the femoral component was firmly seated into the proximal femur and the head component attached with a -6 mm neck length adaptor. The hip was reduced and carried through a passive range of motion with stability being demonstrated. Final irrigation was accomplished, hemostasis maintained by electrocautery. The posterior capsular tissue was reapproximated with a running 0 Vicryl suture. Hemovac drain tubes were inserted through superior stab wounds. The remaining portion of the wound was closed in layers in the routine manner, skin margins being reapproximated with a running subcuticular 3-0 Vicryl suture over which Steri-Strips were applied. Xeroform gauze and a bulky dry sterile dressing were placed. The patient was repositioned into a supine orientation where an abduction splint was attached. Anesthesia was discontinued. The patient was thus transferred to a hospital bed and returned to the recovery room in satisfactory condition, having tolerated her operative procedure well. The estimated blood loss was approximately 750 mL as determined per anesthesia. Replacement included 2 units of packed red blood cells intraoperatively. All implants were of the [employer] scientific editor. Robbin Gonzalez MD NBS/ct , 12:48 PM , 01:02 PM
[2018-01-07] MEDS: Morphine Inj 30 MG/30 ML PCA.VIAL PCA PRN (13:40)
--- NOTE | 2018-01-07 14:10 | XR ---
EXAM DATE: 01/07/2018 2:01 PM EDT AGE/SEX: 62 years / Female INDICATIONS: Post op left hip replacement. Hardware removal with replacement. CLINICAL DATA: This is the patient's initial encounter. Patient reports that signs and symptoms have been present for 1 day and indicates a pain score of 0/10. MEDICAL/SURGICAL HISTORY: . Carcinoma, lung. Gastroesophageal reflux disease. Diabetes mellitus type II. Tubal ligation. Cholecystectomy. Left hip replacement. . COMPARISON: [facility], HIP LEFT W AP PELVIS 2V, 01/05/2018. . FINDINGS: Left total hip arthroplasty is present. The hardware appears intact. Alignment is anatomic in this si ngle projection. Adjacent pelvis is unremarkable CONCLUSION: Satisfactory appearance post left ANNETTE revision Electronically signed by: Martir Wesley MD 01/07/2018 2:08 PM EDT
[2018-01-07] MEDS ORDERED: Pharmacy Ordered Lab Info OTHER ONE (17:45)
[2018-01-07] MEDS: Aspirin 325 MG Tablet PO SCH (20:24)
[2018-01-08] MEDS: Insulin NovoLOG Aspart Correctional Sugar Inj SQ SCH ×5 (00:16→23:23)
[2018-01-08] MEDS: Morphine Inj 30 MG/30 ML PCA.VIAL PCA PRN (02:41)
[2018-01-08] MEDS: Sod Chloride 0.9% Inj 1,000 ML IV.CONT SCH ×8 (04:38→23:23)
[2018-01-08] MEDS: Chlorhexidine Gluconate 2% 1 Pack (2 Cloths) TOPICAL SCH (05:14)
[2018-01-08 05:22] LABS: Hemoglobin 8.1 gm/dL (11.6-15.3)
[2018-01-08] MEDS: Heparin - SQ 10,000 UNITS/ML Vial SQ SCH ×2 (06:10→18:32)
[2018-01-08] MEDS: Aspirin 325 MG Tablet PO SCH ×2 (08:01→20:20)
[2018-01-08] MEDS: Senna/Docusate Sodium 8.6/50 MG Tablet PO SCH ×2 (08:02→20:20)
[2018-01-08 08:24] LABS: Baso # (Auto) 0.1 th/mm3 (0.0-0.2); Baso % (Auto) 0.6 % (0.0-2.0); Eos # (Auto) 1.5 th/mm3 (0.0-0.4); Eos % (Auto) 13.3 % (0.0-4.0); Hemoglobin 7.9 gm/dL (11.6-15.3); Lymph # (Auto) 1.5 th/mm3 (1.0-4.8); Mean Corpuscular Hemoglobin 26.7 pg (27.0-34.0); Mean Platelet Volume 7.7 fL (7.0-11.0); Mono # (Auto) 0.8 th/mm3 (0.0-0.9); Mono % (Auto) 7.3 % (0.0-8.0); Neut # (Auto) 7.5 th/mm3 (1.8-7.7); Neut % (Auto) 65.8 % (16.0-70.0); Platelet Count 276 th/mm3 (150-450); Red Blood Count 2.96 mil/mm3 (4.00-5.30); White Blood Count 11.3 th/mm3 (4.0-11.0)
[2018-01-08 08:55] LABS: Alanine Aminotransferase 12 U/L (10-53); Albumin 2.5 g/dL (3.4-5.0); Alkaline Phosphatase 100 U/L (45-117); Anion Gap 7 meq/L (5-15); Aspartate Aminotransferase 15 U/L (15-37); Blood Urea Nitrogen 6 mg/dL (7-18); Calcium 8.3 mg/dL (8.5-10.1); Carbon Dioxide 26.1 meq/L (21.0-32.0); Chloride 107 meq/L (98-107); Glomerular Filtration Rate Greater Than 89 mL/min (>89); Glucose,Random 115 mg/dL (74-106); Sodium 140 meq/L (136-145); Total Protein 5.6 g/dL (6.4-8.2)
--- NOTE | 2018-01-08 09:12 | P.PNCC ---
Subjective Subjective Remarks/Hospital Course: 01/05: This is a 62-year-old female. Date of admission 01/05/2018. Date of consultation 01/05/2018. Past medical history includes morbid obesity, hard of hearing, gastroesophageal reflux disease, osteomyelitis, chronic narcotic use. Patient is a 2 day history of not feeling with left hip pain/ drainage from left hip. Patient was originally admitted to the hospital service with consultation infectious disease and orthopedics. On 09/09/2017, the patient had left hip resection with cement spacer. The hospitalization was complicated by an ileus and urinary retention. Patient was eventually sent to rehab later that month. Since that time, she has had 2 additional hip surgeries In the ED, patient received 3 L normal saline. Lactic acid 3.6 for leukocytosis of 22,000. Despite that, patient remained hypotensive requiring vasopressors. Patient currently norepinephrine drip at 8 mcg/min. Lactic acid is currently 2.6. Patient does not appear septic. There is small serosanguineous drainage to the incision from left hip site from previous surgery. She is currently pleasant awake and alert and oriented to person place and time. 01/06: Resting comfortably in bed. Remains on Levophed. 01/07: Resting comfortably in bed. Complaining of headache this morning. Levophed at 2 mics per minute at the time of my evaluation this morning and was turned off. 01/08: Underwent repeat resection arthroplasty with insertion of cement spacer under general anesthesia on 01/07. Tolerated procedure well was subsequently extubated and transferred back to the ICU. She has remained off pressors since yesterday morning. 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 Drowsy, easily arousable, on nasal cannula. Complaining of pain at surgical site. Objective Vital Signs / I&O: Vital Signs 01/07/18 12:42 01/07/18 13:00 01/07/18 13:15 Temperature 97.7 F Pulse Rate 80 69 66 Respiratory Rate 14 15 12 Blood Pressure 95/50 L 96/50 L 115/56 L Pulse Oximetry 100 100 100 01/07/18 13:30 01/07/18 13:45 01/07/18 14:00 Temperature 97.5 F L Pulse Rate 66 71 65 Respiratory Rate 14 12 12 Blood Pressure 101/51 L 100/54 L 94/54 L Pulse Oximetry 100 100 100 01/07/18 14:27 01/07/18 14:28 01/07/18 15:00 Temperature Pulse Rate 59 L 64 68 Respiratory Rate 11 L 9 L 23 Blood Pressure 86/48 L Pulse Oximetry 100 100 99 01/07/18 16:00 01/07/18 16:16 01/07/18 16:30 Temperature Pulse Rate 70 80 77 Respiratory Rate 15 32 H 21 Blood Pressure 94/51 L 91/52 L Pulse Oximetry 100 84 L 95 01/07/18 17:00 01/07/18 17:30 01/07/18 17:49 Temperature Pulse Rate 86 74 76 Respiratory Rate 16 14 23 Blood Pressure 95/53 L 92/50 L 94/51 L Pulse Oximetry 83 L 95 98 01/07/18 17:57 01/07/18 18:00 01/07/18 18:13 Temperature Pulse Rate 94 H 84 Respiratory Rate 20 25 H 16 Blood Pressure 115/54 L Pulse Oximetry 92 L 98 01/07/18 19:00 01/07/18 19:24 01/07/18 19:30 Temperature Pulse Rate 71 79 73 Respiratory Rate 20 26 H 19 Blood Pressure 90/54 L 99/52 L Pulse Oximetry 96 94 L 01/07/18 20:00 01/07/18 20:31 01/07/18 20:45 Temperature 97.7 F Pulse Rate 75 73 Respiratory Rate 21 14 Blood Pressure 95/55 L 102/54 L Pulse Oximetry 91 L 76 L 98 01/07/18 21:00 01/07/18 21:30 01/07/18 22:00 Temperature Pulse Rate 76 88 86 Respiratory Rate 24 19 29 H Blood Pressure 97/52 L 127/61 Pulse Oximetry 96 98 90 L 01/07/18 22:02 01/07/18 22:30 01/07/18 23:00 Temperature Pulse Rate 82 80 77 Respiratory Rate 20 13 11 L Blood Pressure 116/58 L 101/55 L 110/57 L Pulse Oximetry 97 97 92 L 01/07/18 23:33 01/07/18 23:51 01/08/18 00:00 Temperature 98.7 F Pulse Rate 89 80 Respiratory Rate 13 16 Blood Pressure 112/58 L Pulse Oximetry 91 L 96 93 L 01/08/18 00:01 01/08/18 00:30 01/08/18 01:00 Temperature Pulse Rate 80 79 83 Respiratory Rate 14 11 L 13 Blood Pressure 99/52 L 93/50 L 88/51 L Pulse Oximetry 77 L 94 L 93 L 01/08/18 01:04 01/08/18 01:30 01/08/18 02:00 Temperature Pulse Rate 82 80 85 Respiratory Rate 12 12 12 Blood Pressure 126/56 L 114/55 L 125/56 L Pulse Oximetry 94 L 94 L 90 L 01/08/18 02:30 01/08/18 03:00 01/08/18 03:30 Temperature Pulse Rate 84 83 83 Respiratory Rate 20 22 11 L Blood Pressure 100/50 L 98/55 L 118/58 L Pulse Oximetry 97 91 L 90 L 01/08/18 04:00 01/08/18 04:17 01/08/18 04:30 Temperature Pulse Rate 90 91 H Respiratory Rate 13 13 Blood Pressure 126/58 L 109/56 L Pulse Oximetry 90 L 95 91 L 01/08/18 05:00 01/08/18 05:30 01/08/18 06:00 Temperature Pulse Rate 90 88 85 Respiratory Rate 10 L 12 12 Blood Pressure 117/58 L 104/58 L 109/59 L Pulse Oximetry 92 L 92 L 90 L 01/08/18 06:30 Temperature Pulse Rate 89 Respiratory Rate 13 Blood Pressure 119/57 L Pulse Oximetry 96 Intake & Output 01/07/18 01/08/18 01/08/18 18:59 06:59 18:59 Intake Total 4000 / 4000 1942.5 / 1942.5 Output Total 950 / 950 110 / 110 Balance 3050 / 3050 1832.5 / 1832.5 Weight 107 kg Intake: IV 1100 / 1100 1462.5 / 1462.5 LR 1000 mL Inj 1,000 ML @ 80 1000 / 1000 mls/hr IV.CONT .[id number] ERNESTINE Rx# :[id number] NS Inj 1,000 ML @ 84 mls/hr IV. 1000 / 1000 CONT .[id number] ERNESTINE Rx#:[id number] Merrem Inj 1,000 MG In NS Inj 100 / 100 200 / 200 100 ML @ 200 mls/hr IV.SIG Q8H ERNESTINE Rx#:[id number] Vancomycin Inj 1,250 MG In NS 262.5 / 262.5 Inj 250 ML @ 250 mls/hr IV.SIG Q18H ERNESTINE Rx#:[id number] Oral 480 / 480 Anesthesia Amount 2100 / 2100 Intake (Blood Product) Amt 800 / 800 Rbc As-3 Leukoreduced Unit 400 / 400 [id number] Rbc As-3 Leukoreduced Unit 400 / 400 [id number] Output: Urine 200 / 200 Estimated Blood Loss 750 / 750 Wound Drainage 110 / 110 Hemovac 110 / 110 Other: # Voids 5 1 Result Diagrams: 01/08/18 08:05 01/08/18 08:05 Objective Remarks: HEENT/Neuro: No pallor or icterus, tongue moist, AMANDA, drowsy, easily arousable , nonfocal grossly, moving all 4 extremities the limited movement in left lower extremity secondary to surgery. Neck: No JVD Chest/pulmonary: CTA bilaterally Cardiovascular: S1-S2 regular no gallop or murmur GI/abdomen: Soft, nontender, bowel sounds present Extremities: Warm bilaterally, left hip incision site with dressing/drain in place. Assessment and Plan - Assessment and Plan Plan: Neuro/Psych: Hard of hearing Chronic opioid use CT brain 01/05 revealed left sphenoid sinusitis. No acute intracranial normality is Acetaminophen 650 p.o. every 6 hours as needed fever Hydrocodone/acetaminophen 5/325 one tablet every 4 hours as needed pain 1 through 5 On morphine [employer], continue pain medications per orthopedics. CV: Severe sepsis Lactic acidosis Received 3 L normal saline in ED. Currently normal saline at 84 cc an hour Levophed titrated off on 01/07 EKG revealed incomplete right bundle branch block. Sinus tachycardia. Currently holding aspirin 325 mg daily. Resume when okay with orthopedic Resp: History of lung cancer Nasal cannula to maintain saturations greater than equal to 92% Incentive spirometry while awake Chest exam revealed no acute cardiopulmonary findings GI: History of colon cancer Gastroesophageal reflux disease History of erosive gastritis History of Vi esophagitis Hypoalbuminemia Advance diet as tolerated Pantoprazole 40 mg p.o. daily. On omeprazole 20 mg daily at home Docusate sodium/senna 1 tablet twice daily for bowel regimen : Patient history of urinary retention Solano catheter if indicated. Straight catheter now Endo: Sliding scale insulin Accu-Cheks every 6 hours to maintain euglycemia/aspart insulin medium regimen Renal: Acute kidney injury Monitor BMP daily. Monitor urine output Accurate I's and O's Heme: Leukocytosis Normocytic anemia Monitor CBC daily. Follow trends. No indication for transfusion of blood products at this time. ID: Likely septic left hip Blood cultures 2, wound cultures 01/05 Currently on piperacillin/tazobactam vancomycin Noted allergy to daptomycin. Infectious disease consultation noted-Dr. Crawford -Ortho following. Status post repeat resection arthroplasty with insertion of cement spacer on 01/07. MSK: Elevated BMI Osteoporosis History of osteomyelitis Weight loss encouraged. PT evaluate and treat Orthopedics consultation FEN: Hyponatremia Hypomagnesia Replace electrolytes as clinically indicated per ICU electrolyte protocol Access -We will place central line. Peripheral IVs Prophylaxis -GI -pantoprazole -DVT-SCD/heparin subcu Consult and transfer to hospitalist service for further medical management. Being followed by ID and orthopedics for left hip infection.
[2018-01-08] MEDS ORDERED: Pharmacy Ordered Lab Info OTHER ONE (11:45)
[2018-01-08] MEDS: Vancomycin Inj 1,250 MG in Sodium Chlor 0.9% Inj 250 ML IV.SIG SCH ×2 (12:11→23:09)
--- NOTE | 2018-01-08 17:15 | P.PNID ---
Subjective Remarks: pt is doing beter off pressors and afebrile Clx are negative so far Antibiotics: vancomycion meropenem Allergies/Adverse Reactions: Allergies daptomycin Allergy (Intermediate, Verified 12/19/17 16:56) rash Objective Vital Signs 01/07/18 17:30 01/07/18 17:49 01/07/18 17:57 Temperature Pulse Rate 74 76 94 H Respiratory Rate 14 23 20 Blood Pressure 92/50 L 94/51 L 115/54 L Pulse Oximetry 95 98 92 L 01/07/18 18:00 01/07/18 18:13 01/07/18 19:00 Temperature Pulse Rate 84 71 Respiratory Rate 25 H 16 20 Blood Pressure Pulse Oximetry 98 96 01/07/18 19:24 01/07/18 19:30 01/07/18 20:00 Temperature 97.7 F Pulse Rate 79 73 75 Respiratory Rate 26 H 19 21 Blood Pressure 90/54 L 99/52 L 95/55 L Pulse Oximetry 94 L 91 L 01/07/18 20:31 01/07/18 20:45 01/07/18 21:00 Temperature Pulse Rate 73 76 Respiratory Rate 14 24 Blood Pressure 102/54 L 97/52 L Pulse Oximetry 76 L 98 96 01/07/18 21:30 01/07/18 22:00 01/07/18 22:02 Temperature Pulse Rate 88 86 82 Respiratory Rate 19 29 H 20 Blood Pressure 127/61 116/58 L Pulse Oximetry 98 90 L 97 01/07/18 22:30 01/07/18 23:00 01/07/18 23:33 Temperature Pulse Rate 80 77 89 Respiratory Rate 13 11 L 13 Blood Pressure 101/55 L 110/57 L 112/58 L Pulse Oximetry 97 92 L 91 L 01/07/18 23:51 01/08/18 00:00 01/08/18 00:01 Temperature 98.7 F Pulse Rate 80 80 Respiratory Rate 16 14 Blood Pressure 99/52 L Pulse Oximetry 96 93 L 77 L 01/08/18 00:30 01/08/18 01:00 01/08/18 01:04 Temperature Pulse Rate 79 83 82 Respiratory Rate 11 L 13 12 Blood Pressure 93/50 L 88/51 L 126/56 L Pulse Oximetry 94 L 93 L 94 L 01/08/18 01:30 01/08/18 02:00 01/08/18 02:30 Temperature Pulse Rate 80 85 84 Respiratory Rate 12 12 20 Blood Pressure 114/55 L 125/56 L 100/50 L Pulse Oximetry 94 L 90 L 97 01/08/18 03:00 01/08/18 03:30 01/08/18 04:00 Temperature Pulse Rate 83 83 90 Respiratory Rate 22 11 L 13 Blood Pressure 98/55 L 118/58 L 126/58 L Pulse Oximetry 91 L 90 L 90 L 01/08/18 04:17 01/08/18 04:30 01/08/18 05:00 Temperature Pulse Rate 91 H 90 Respiratory Rate 13 10 L Blood Pressure 109/56 L 117/58 L Pulse Oximetry 95 91 L 92 L 01/08/18 05:30 01/08/18 06:00 01/08/18 06:30 Temperature Pulse Rate 88 85 89 Respiratory Rate 12 12 13 Blood Pressure 104/58 L 109/59 L 119/57 L Pulse Oximetry 92 L 90 L 96 01/08/18 07:00 01/08/18 07:30 01/08/18 08:00 Temperature 98.9 F Pulse Rate 81 82 92 H Respiratory Rate 11 L 12 20 Blood Pressure 120/59 L 118/56 L 131/61 Pulse Oximetry 98 97 97 01/08/18 08:30 01/08/18 09:00 01/08/18 09:03 Temperature Pulse Rate 82 92 H 90 Respiratory Rate 12 16 14 Blood Pressure 112/55 L 119/56 L Pulse Oximetry 98 100 96 01/08/18 10:00 01/08/18 10:05 01/08/18 10:30 Temperature Pulse Rate 79 88 80 Respiratory Rate 10 L 20 13 Blood Pressure 121/58 L 133/60 Pulse Oximetry 96 97 94 L 01/08/18 11:00 01/08/18 11:31 01/08/18 12:00 Temperature 98.0 F Pulse Rate 85 92 H 82 Respiratory Rate 14 31 H 18 Blood Pressure 141/63 H 133/59 L 111/86 Pulse Oximetry 96 99 98 01/08/18 12:30 01/08/18 13:00 01/08/18 13:31 Temperature Pulse Rate 77 93 H 90 Respiratory Rate 14 28 H 28 H Blood Pressure 117/56 L 107/84 134/60 Pulse Oximetry 99 92 L 97 01/08/18 14:00 Temperature Pulse Rate 90 Respiratory Rate 21 Blood Pressure 112/55 L Pulse Oximetry 96 Intake & Output 01/07/18 01/08/18 01/08/18 18:59 06:59 18:59 Intake Total 4000 / 4000 1942.5 / 1942.5 1100 / 1100 Output Total 950 / 950 110 / 110 Balance 3050 / 3050 1832.5 / 1832.5 1100 / 1100 Weight 107 kg Intake: IV 1100 / 1100 1462.5 / 1462.5 1100 / 1100 LR 1000 mL Inj 1,000 ML @ 80 1000 / 1000 1000 / 1000 mls/hr IV.CONT .[id number] ERNESTINE Rx# :[id number] NS Inj 1,000 ML @ 84 mls/hr IV. 1000 / 1000 CONT .[id number] ERNESTINE Rx#:[id number] Merrem Inj 1,000 MG In NS Inj 100 / 100 200 / 200 100 / 100 100 ML @ 200 mls/hr IV.SIG Q8H ERNESTINE Rx#:[id number] Vancomycin Inj 1,250 MG In NS 262.5 / 262.5 Inj 250 ML @ 250 mls/hr IV.SIG Q18H ERNESTINE Rx#:[id number] Oral 480 / 480 Anesthesia Amount 2100 / 2100 Intake (Blood Product) Amt 800 / 800 Rbc As-3 Leukoreduced Unit 400 / 400 [id number] Rbc As-3 Leukoreduced Unit 400 / 400 [id number] Output: Urine 200 / 200 Estimated Blood Loss 750 / 750 Wound Drainage 110 / 110 Hemovac 110 / 110 Other: # Voids 5 1 01/07/18 10:25 Wound - Hip Gram Stain - Final 01/07/18 10:25 Wound - Hip Wound Culture - Preliminary 01/07/18 10:25 Tissue - Hip Gram Stain - Final 01/07/18 10:25 Tissue - Hip Wound Culture - Preliminary No growth in 24 hours 01/07/18 10:25 Fluid - Other Gram Stain - Final 01/07/18 10:25 Fluid - Other Wound Culture - Preliminary No growth in 24 hours 01/07/18 10:25 Wound - Other Gram Stain - Final 01/07/18 10:25 Wound - Other Wound Culture - Preliminary No growth in 24 hours 01/07/18 02:55 Wound - Hip Gram Stain - Final 01/07/18 02:55 Wound - Hip Wound Culture - Preliminary 01/07/18 10:25 Other Acid Fast Bacilli Smear - Final No acid fast bacilli seen 01/07/18 10:25 Other Mycobacterial Culture - Pending 01/07/18 10:25 Tissue - Hip Acid Fast Bacilli Smear - Final No acid fast bacilli seen 01/07/18 10:25 Tissue - Hip Mycobacterial Culture - Pending 01/07/18 10:25 Other Acid Fast Bacilli Smear - Final No acid fast bacilli seen 01/07/18 10:25 Other Mycobacterial Culture - Pending 01/07/18 10:25 Other Acid Fast Bacilli Smear - Final No acid fast bacilli seen 01/07/18 10:25 Other Mycobacterial Culture - Pending 01/07/18 10:25 Other Acid Fast Bacilli Smear - Final No acid fast bacilli seen 01/07/18 10:25 Other Mycobacterial Culture - Pending 01/05/18 13:15 Blood - Peripheral Aerobic Blood Culture - Preliminary No growth in 3 days 01/05/18 13:15 Blood - Peripheral Anaerobic Blood Culture - Preliminary No growth in 3 days 01/05/18 13:10 Blood - Peripheral Aerobic Blood Culture - Preliminary No growth in 3 days 01/05/18 13:10 Blood - Peripheral Anaerobic Blood Culture - Preliminary No growth in 3 days 01/07/18 10:25 Other Fungal Smear - Final No fungal elements seen 01/07/18 10:25 Other Fungal Culture - Pending 01/07/18 10:25 Tissue - Hip Fungal Smear - Final No fungal elements seen 01/07/18 10:25 Tissue - Hip Fungal Culture - Pending 01/07/18 10:25 Other Fungal Smear - Final No fungal elements seen 01/07/18 10:25 Other Fungal Culture - Pending 01/07/18 10:25 Abscess - Other Gram Stain - Final 01/07/18 10:25 Abscess - Other Wound Culture - Pending 01/07/18 10:25 Other Fungal Smear - Final No fungal elements seen 01/07/18 10:25 Other Fungal Culture - Pending 01/07/18 10:25 Other Fungal Smear - Final No fungal elements seen 01/07/18 10:25 Other Fungal Culture - Pending Lab - Hematology Results 01/07/18 01/08/18 01/08/18 12:53 04:14 08:05 WBC 11.3 H RBC 2.96 L Hgb 7.8 L 8.1 L 7.9 L Hct 23.5 L 24.0 L 24.0 L MCV 81.0 MCH 26.7 L MCHC 33.0 RDW 19.0 H Plt Count 276 MPV 7.7 Neut % (Auto) 65.8 Lymph % (Auto) 13.0 [place] % (Auto) 7.3 Eos % (Auto) 13.3 H Baso % (Auto) 0.6 Neut # (Auto) 7.5 Lymph # (Auto) 1.5 [place] # (Auto) 0.8 Eos # (Auto) 1.5 H Baso # (Auto) 0.1 WBC Differential . Differential Comment Auto diff final Lab - Chemistry Results 01/06/18 01/06/18 01/07/18 18:08 23:59 06:07 Sodium Potassium Chloride Carbon Dioxide Anion Gap BUN Creatinine Estimated GFR POC Glucose 127 H 116 H 129 H Random Glucose Calcium Total Bilirubin AST ALT Alkaline Phosphatase Total Protein Albumin 01/07/18 01/07/18 01/08/18 13:20 18:41 00:08 Sodium Potassium Chloride Carbon Dioxide Anion Gap BUN Creatinine Estimated GFR POC Glucose 143 H 124 H 146 H Random Glucose Calcium Total Bilirubin AST ALT Alkaline Phosphatase Total Protein Albumin 01/08/18 01/08/18 01/08/18 04:14 06:10 08:05 Sodium 140 Potassium 4.0 Chloride 107 Carbon Dioxide 26.1 Anion Gap 7 BUN 6 L Creatinine 0.75 0.65 Estimated GFR 79 L Greater than 89 POC Glucose 133 H Random Glucose 115 H Calcium 8.3 L Total Bilirubin 0.5 AST 15 ALT 12 Alkaline Phosphatase 100 Total Protein 5.6 L D Albumin 2.5 L 01/08/18 12:20 Sodium Potassium Chloride Carbon Dioxide Anion Gap BUN Creatinine Estimated GFR POC Glucose 130 H Random Glucose Calcium Total Bilirubin AST ALT Alkaline Phosphatase Total Protein Albumin Imaging: ITS Impressions Chest X-Ray 01/05/18 13:00 CONCLUSION: No acute cardiopulmonary findings. Head CT 01/05/18 13:08 CONCLUSION: 1. Acute sinusitis, left sphenoid. 2. Otherwise negative. . WBC Scan Nuclear Medicine 01/06/18 00:00 CONCLUSION: Negative scan Hip X-Ray 01/07/18 12:53 CONCLUSION: Satisfactory appearance post left ANNETTE revision Physical Exam: GENERAL: NAD SKIN: Warm and dry. No rash HEAD: Atraumatic. Normocephalic. EYES: Pupils equal and round. No scleral icterus. No injection or drainage. ENT: No nasal bleeding or discharge. Mucous membranes pink and moist. NECK: Trachea midline. No JVD. CARDIOVASCULAR: Regular rate and rhythm. RESPIRATORY: No accessory muscle use. Clear to auscultation. Breath sounds equal bilaterally. GASTROINTESTINAL: Abdomen soft, non-tender, nondistended. Hepatic and splenic margins not palpable. MUSCULOSKELETAL: Extremities without clubbing, cyanosis, or edema. No obvious deformities. L hip dressing in place, no drainage NEUROLOGICAL: Awake and alert. No obvious cranial nerve deficits. Motor grossly within normal limits. Five out of 5 muscle strength in the arms and legs. Normal speech. PSYCHIATRIC: Appropriate mood and affect; insight and judgment normal. 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
[2018-01-08] MEDS: Morphine Inj 4 MG/ML Vial IV.PUSH PRN (22:38)
[2018-01-09] MEDS: Chlorhexidine Gluconate 2% 1 Pack (2 Cloths) TOPICAL SCH (03:33)
[2018-01-09] MEDS: Sod Chloride 0.9% Inj 1,000 ML IV.CONT SCH (05:08)
[2018-01-09] MEDS: Morphine Inj 4 MG/ML Vial IV.PUSH PRN ×2 (06:06→21:08)
[2018-01-09] MEDS: Heparin - SQ 10,000 UNITS/ML Vial SQ SCH ×2 (06:06→18:15)
[2018-01-09] MEDS: Insulin NovoLOG Aspart Correctional Sugar Inj SQ SCH ×3 (06:14→19:25)
--- NOTE | 2018-01-09 08:32 | P.PNIM ---
Subjective Interval history: The patient was resting comfortably in bed. She said she has not been eating that much. She said that she has not been ambulating lately, she otherwise feels better. She says her pain is well controlled. Discussed with nursing. Physical Exam Vital signs: Vital Signs 01/08/18 08:30 01/08/18 09:00 01/08/18 09:03 Temperature Pulse Rate 82 92 H 90 Respiratory Rate 12 16 14 Blood Pressure 112/55 L 119/56 L Pulse Oximetry 98 100 96 01/08/18 10:00 01/08/18 10:05 01/08/18 10:30 Temperature Pulse Rate 79 88 80 Respiratory Rate 10 L 20 13 Blood Pressure 121/58 L 133/60 Pulse Oximetry 96 97 94 L 01/08/18 11:00 01/08/18 11:31 01/08/18 12:00 Temperature 98.0 F Pulse Rate 85 92 H 82 Respiratory Rate 14 31 H 18 Blood Pressure 141/63 H 133/59 L 111/86 Pulse Oximetry 96 99 98 01/08/18 12:30 01/08/18 13:00 01/08/18 13:31 Temperature Pulse Rate 77 93 H 90 Respiratory Rate 14 28 H 28 H Blood Pressure 117/56 L 107/84 134/60 Pulse Oximetry 99 92 L 97 01/08/18 14:00 01/08/18 14:30 01/08/18 15:00 Temperature Pulse Rate 90 81 81 Respiratory Rate 21 18 16 Blood Pressure 112/55 L 108/52 L 109/51 L Pulse Oximetry 96 92 L 94 L 01/08/18 15:30 01/08/18 16:00 01/08/18 16:11 Temperature 98.0 F Pulse Rate 90 93 H 96 H Respiratory Rate 25 H 24 48 H Blood Pressure 136/61 126/58 L Pulse Oximetry 96 96 91 L 01/08/18 16:30 01/08/18 17:00 01/08/18 18:00 Temperature Pulse Rate 87 85 81 Respiratory Rate 29 H 19 17 Blood Pressure 135/61 120/60 Pulse Oximetry 95 95 96 01/08/18 20:00 01/09/18 00:00 01/09/18 04:00 Temperature 98.4 F 98.7 F 98.5 F Pulse Rate 82 71 71 Respiratory Rate 25 H 10 L 11 L Blood Pressure 107/55 L 107/55 L 110/53 L Pulse Oximetry 96 98 95 Intake & Output 01/08/18 01/09/18 01/09/18 18:59 06:59 18:59 Intake Total 1820 / 1820 7705.0 / 7705.0 Output Total 1050 / 1050 700 / 700 Balance 770 / 770 7005.0 / 7005.0 Weight 106.5 kg Intake: IV 1100 / 1100 7225.0 / 7225.0 LR 1000 mL Inj 1,000 ML @ 80 1000 / 1000 1000 / 1000 mls/hr IV.CONT .[id number] ERNESTINE Rx# :[id number] Merrem Inj 1,000 MG In NS Inj 100 / 100 200 / 200 100 ML @ 200 mls/hr IV.SIG Q8H ERNESTINE Rx#:[id number] Vancomycin Inj 1,250 MG In NS 525.0 / 525.0 Inj 250 ML @ 250 mls/hr IV.SIG Q12H ERNESTINE Rx#:[id number] Oral 720 / 720 480 / 480 Output: Urine 1050 / 1050 700 / 700 Other: # Voids 3 Date of Last Bowel Movement 01/08/18 01/09/18 # Bowel Movements 1 1 Narrative: General: No distress HEENT: NC, AT Neck: No JVD Chest/pulmonary: CTA bilaterally Cardiovascular: S1-S2 regular no gallop or murmur GI/abdomen: Soft, nontender, bowel sounds present Extremities: Warm bilaterally, left hip incision site with dressing/drain in place Neuro: No gross deficits Results - Labs CBC & Chem 7: 01/09/18 09:10 01/08/18 08:05 Laboratory Results - last 24 hr 01/08/18 01/08/18 01/08/18 08:05 12:00 12:20 Sodium 140 Potassium 4.0 Chloride 107 Carbon Dioxide 26.1 Anion Gap 7 BUN 6 L Creatinine 0.65 Estimated GFR Greater than 89 POC Glucose 130 H Random Glucose 115 H Calcium 8.3 L Total Bilirubin 0.5 AST 15 ALT 12 Alkaline Phosphatase 100 Total Protein 5.6 L D Albumin 2.5 L Vancomycin Trough 7.2 01/08/18 01/08/18 01/09/18 18:20 23:21 06:09 Sodium Potassium Chloride Carbon Dioxide Anion Gap BUN Creatinine Estimated GFR POC Glucose 113 H 102 117 H Random Glucose Calcium Total Bilirubin AST ALT Alkaline Phosphatase Total Protein Albumin Vancomycin Trough Microbiology 01/07/18 10:25 Fluid - Other Gram Stain - Final 01/07/18 10:25 Fluid - Other Wound Culture - Preliminary No growth in 48 hours 01/07/18 10:25 Wound - Hip Gram Stain - Final 01/07/18 10:25 Wound - Hip Wound Culture - Preliminary 01/07/18 10:25 Tissue - Hip Gram Stain - Final 01/07/18 10:25 Tissue - Hip Wound Culture - Preliminary No growth in 24 hours 01/07/18 10:25 Wound - Other Gram Stain - Final 01/07/18 10:25 Wound - Other Wound Culture - Preliminary No growth in 24 hours 01/07/18 02:55 Wound - Hip Gram Stain - Final 01/07/18 02:55 Wound - Hip Wound Culture - Preliminary 01/07/18 10:25 Other Acid Fast Bacilli Smear - Final No acid fast bacilli seen 01/07/18 10:25 Tissue - Hip Acid Fast Bacilli Smear - Final No acid fast bacilli seen 01/07/18 10:25 Other Acid Fast Bacilli Smear - Final No acid fast bacilli seen 01/07/18 10:25 Other Acid Fast Bacilli Smear - Final No acid fast bacilli seen 01/07/18 10:25 Other Acid Fast Bacilli Smear - Final No acid fast bacilli seen 01/05/18 13:15 Blood - Peripheral Aerobic Blood Culture - Preliminary No growth in 3 days 01/05/18 13:15 Blood - Peripheral Anaerobic Blood Culture - Preliminary No growth in 3 days 01/05/18 13:10 Blood - Peripheral Aerobic Blood Culture - Preliminary No growth in 3 days 01/05/18 13:10 Blood - Peripheral Anaerobic Blood Culture - Preliminary No growth in 3 days 01/07/18 10:25 Other Fungal Smear - Final No fungal elements seen 01/07/18 10:25 Tissue - Hip Fungal Smear - Final No fungal elements seen 01/07/18 10:25 Other Fungal Smear - Final No fungal elements seen 01/07/18 10:25 Abscess - Other Gram Stain - Final 01/07/18 10:25 Other Fungal Smear - Final No fungal elements seen 01/07/18 10:25 Other Fungal Smear - Final No fungal elements seen Assessment and Plan - Plan Septic left hip/ Hypotension S/p Levophed. EKG revealed incomplete right bundle branch block; Sinus tachycardia. Orthopedic surgery and ID consults appreciated. Status post repeat resection arthroplasty with insertion of cement spacer on 01/07. -Blood cultures 2, wound cultures 01/05 -antibiotics per ID. Noted allergy to daptomycin. -follow up with orthopedic surgery. -pain control as needed. -rehab efforts. -incentive spirometry. -case management consult for disposition. Normocytic anemia S/p transfusion of two units of red cells. -follow CBC and transfuse as needed. Hyponatremia/ Hypomagnesia Resolved. -Replace electrolytes as clinically indicated per ICU electrolyte protocol. Prophylaxis -GI -pantoprazole -DVT-SCD/heparin subcu
[2018-01-09] MEDS: Aspirin 325 MG Tablet PO SCH ×2 (08:43→21:06)
[2018-01-09] MEDS: Senna/Docusate Sodium 8.6/50 MG Tablet PO SCH ×2 (08:45→21:07)
[2018-01-09 09:50] LABS: Baso % (Auto) 0.3 % (0.0-2.0); Eos # (Auto) 0.9 th/mm3 (0.0-0.4); Eos % (Auto) 13.8 % (0.0-4.0); Hematocrit 24.3 % (35.0-46.0); Hemoglobin 7.9 gm/dL (11.6-15.3); Lymph # (Auto) 1.3 th/mm3 (1.0-4.8); Lymph % (Auto) 19.3 % (9.0-44.0); Mean Corpuscular HGB Conc 32.3 % (32.0-36.0); Mean Corpuscular Hemoglobin 26.6 pg (27.0-34.0); Mean Corpuscular Volume 82.3 fL (80.0-100.0); Mean Platelet Volume 7.7 fL (7.0-11.0); Mono # (Auto) 0.5 th/mm3 (0.0-0.9); Mono % (Auto) 8.3 % (0.0-8.0); Neut # (Auto) 3.8 th/mm3 (1.8-7.7); Neut % (Auto) 58.3 % (16.0-70.0); Platelet Count 260 th/mm3 (150-450); Red Blood Count 2.95 mil/mm3 (4.00-5.30); Red Cell Distribution Width 19.7 % (11.6-17.2); White Blood Count 6.5 th/mm3 (4.0-11.0)
[2018-01-09 09:57] LABS: Albumin 2.2 g/dL (3.4-5.0); Anion Gap 8 meq/L (5-15); Aspartate Aminotransferase 14 U/L (15-37); Blood Urea Nitrogen 5 mg/dL (7-18); Calcium 8.4 mg/dL (8.5-10.1); Carbon Dioxide 26.8 meq/L (21.0-32.0); Chloride 108 meq/L (98-107); Glomerular Filtration Rate Greater Than 89 mL/min (>89); Glucose,Random 95 mg/dL (74-106); Potassium 3.7 meq/L (3.5-5.1); Sodium 143 meq/L (136-145)
[2018-01-09 09:58] LABS: Alanine Aminotransferase 10 U/L (10-53)
[2018-01-09 10:01] LABS: Alkaline Phosphatase 97 U/L (45-117); Total Protein 5.3 g/dL (6.4-8.2)
[2018-01-09] MEDS: Vancomycin Inj 1,250 MG in Sodium Chlor 0.9% Inj 250 ML IV.SIG SCH (13:59)
--- NOTE | 2018-01-09 14:47 | P.PNID ---
Subjective Remarks: pt is doing beter OOB in chair off pressors and afebrile Clx are growing strep bovis or vir strep Antibiotics: meropenem vancomycion Allergies/Adverse Reactions: Allergies daptomycin Allergy (Intermediate, Verified 12/19/17 16:56) rash Objective Vital Signs 01/08/18 15:00 01/08/18 15:30 01/08/18 16:00 Temperature 98.0 F Pulse Rate 81 90 93 H Respiratory Rate 16 25 H 24 Blood Pressure 109/51 L 136/61 Pulse Oximetry 94 L 96 96 01/08/18 16:11 01/08/18 16:30 01/08/18 17:00 Temperature Pulse Rate 96 H 87 85 Respiratory Rate 48 H 29 H 19 Blood Pressure 126/58 L 135/61 120/60 Pulse Oximetry 91 L 95 95 01/08/18 18:00 01/08/18 19:00 01/08/18 20:00 Temperature 98.4 F Pulse Rate 81 89 82 Respiratory Rate 17 39 H 25 H Blood Pressure 107/55 L Pulse Oximetry 96 99 95 01/08/18 20:04 01/08/18 21:00 01/08/18 22:00 Temperature Pulse Rate 82 78 77 Respiratory Rate 27 H 16 19 Blood Pressure 107/55 L Pulse Oximetry 96 97 94 L 01/08/18 23:00 01/09/18 00:00 01/09/18 01:00 Temperature 98.7 F Pulse Rate 77 71 75 Respiratory Rate 26 H 10 L 17 Blood Pressure 107/55 L Pulse Oximetry 96 98 90 L 01/09/18 02:00 01/09/18 03:00 01/09/18 03:35 Temperature Pulse Rate 70 69 71 Respiratory Rate 13 16 17 Blood Pressure 110/53 L Pulse Oximetry 95 95 97 01/09/18 04:00 01/09/18 05:00 01/09/18 06:00 Temperature 98.5 F Pulse Rate 71 66 83 Respiratory Rate 11 L 10 L 39 H Blood Pressure 110/53 L Pulse Oximetry 91 L 95 93 L 01/09/18 06:04 01/09/18 07:00 01/09/18 08:00 Temperature Pulse Rate 68 70 78 Respiratory Rate 19 15 22 Blood Pressure 128/60 Pulse Oximetry 95 95 94 L 01/09/18 08:43 01/09/18 09:00 01/09/18 10:00 Temperature 98.4 F Pulse Rate 71 69 75 Respiratory Rate 20 13 28 H Blood Pressure 133/60 Pulse Oximetry 98 96 97 01/09/18 11:00 Temperature Pulse Rate 78 Respiratory Rate 21 Blood Pressure Pulse Oximetry Intake & Output 01/08/18 01/09/18 01/09/18 18:59 06:59 18:59 Intake Total 1820 / 1820 7705.0 / 7705.0 Output Total 1050 / 1050 700 / 700 Balance 770 / 770 7005.0 / 7005.0 Weight 106.5 kg Intake: IV 1100 / 1100 7225.0 / 7225.0 LR 1000 mL Inj 1,000 ML @ 80 1000 / 1000 1000 / 1000 mls/hr IV.CONT .[id number] ERNESTINE Rx# :[id number] Merrem Inj 1,000 MG In NS Inj 100 / 100 200 / 200 100 ML @ 200 mls/hr IV.SIG Q8H ERNESTINE Rx#:[id number] Vancomycin Inj 1,250 MG In NS 525.0 / 525.0 Inj 250 ML @ 250 mls/hr IV.SIG Q12H ERNESTINE Rx#:[id number] Oral 720 / 720 480 / 480 Output: Urine 1050 / 1050 700 / 700 Other: # Voids 3 Date of Last Bowel Movement 01/08/18 01/09/18 01/08/18 # Bowel Movements 1 1 01/05/18 13:15 Blood - Peripheral Aerobic Blood Culture - Preliminary No growth in 4 days 01/05/18 13:15 Blood - Peripheral Anaerobic Blood Culture - Preliminary No growth in 4 days 01/05/18 13:10 Blood - Peripheral Aerobic Blood Culture - Preliminary No growth in 4 days 01/05/18 13:10 Blood - Peripheral Anaerobic Blood Culture - Preliminary No growth in 4 days 01/07/18 10:25 Wound - Hip Gram Stain - Final 01/07/18 10:25 Wound - Hip Wound Culture - Preliminary Streptococcus species 01/07/18 10:25 Tissue - Hip Gram Stain - Final 01/07/18 10:25 Tissue - Hip Wound Culture - Preliminary gram positive cocci 01/07/18 10:25 Wound - Other Gram Stain - Final 01/07/18 10:25 Wound - Other Wound Culture - Preliminary gram positive cocci 01/07/18 10:25 Abscess - Other Gram Stain - Final 01/07/18 10:25 Abscess - Other Wound Culture - Preliminary gram positive cocci 01/07/18 02:55 Wound - Hip Gram Stain - Final 01/07/18 02:55 Wound - Hip Wound Culture - Preliminary gram positive cocci 01/07/18 10:25 Fluid - Other Gram Stain - Final 01/07/18 10:25 Fluid - Other Wound Culture - Preliminary No growth in 48 hours 01/07/18 10:25 Other Acid Fast Bacilli Smear - Final No acid fast bacilli seen 01/07/18 10:25 Other Mycobacterial Culture - Pending 01/07/18 10:25 Tissue - Hip Acid Fast Bacilli Smear - Final No acid fast bacilli seen 01/07/18 10:25 Tissue - Hip Mycobacterial Culture - Pending 01/07/18 10:25 Other Acid Fast Bacilli Smear - Final No acid fast bacilli seen 01/07/18 10:25 Other Mycobacterial Culture - Pending 01/07/18 10:25 Other Acid Fast Bacilli Smear - Final No acid fast bacilli seen 01/07/18 10:25 Other Mycobacterial Culture - Pending 01/07/18 10:25 Other Acid Fast Bacilli Smear - Final No acid fast bacilli seen 01/07/18 10:25 Other Mycobacterial Culture - Pending 01/07/18 10:25 Other Fungal Smear - Final No fungal elements seen 01/07/18 10:25 Other Fungal Culture - Pending 01/07/18 10:25 Tissue - Hip Fungal Smear - Final No fungal elements seen 01/07/18 10:25 Tissue - Hip Fungal Culture - Pending 01/07/18 10:25 Other Fungal Smear - Final No fungal elements seen 01/07/18 10:25 Other Fungal Culture - Pending 01/07/18 10:25 Other Fungal Smear - Final No fungal elements seen 01/07/18 10:25 Other Fungal Culture - Pending 01/07/18 10:25 Other Fungal Smear - Final No fungal elements seen 01/07/18 10:25 Other Fungal Culture - Pending Lab - Hematology Results 01/08/18 01/08/18 01/09/18 04:14 08:05 09:10 WBC 11.3 H 6.5 RBC 2.96 L 2.95 L Hgb 8.1 L 7.9 L 7.9 L Hct 24.0 L 24.0 L 24.3 L MCV 81.0 82.3 MCH 26.7 L 26.6 L MCHC 33.0 32.3 RDW 19.0 H 19.7 H Plt Count 276 260 MPV 7.7 7.7 Neut % (Auto) 65.8 58.3 Lymph % (Auto) 13.0 19.3 [place] % (Auto) 7.3 8.3 H Eos % (Auto) 13.3 H 13.8 H Baso % (Auto) 0.6 0.3 Neut # (Auto) 7.5 3.8 Lymph # (Auto) 1.5 1.3 [place] # (Auto) 0.8 0.5 Eos # (Auto) 1.5 H 0.9 H Baso # (Auto) 0.1 0.0 WBC Differential . . Differential Comment Auto diff final Auto diff final Lab - Chemistry Results 01/07/18 01/08/18 01/08/18 18:41 00:08 04:14 Sodium Potassium Chloride Carbon Dioxide Anion Gap BUN Creatinine 0.75 Estimated GFR 79 L POC Glucose 124 H 146 H Random Glucose Calcium Total Bilirubin AST ALT Alkaline Phosphatase Total Protein Albumin 01/08/18 01/08/18 01/08/18 06:10 08:05 12:20 Sodium 140 Potassium 4.0 Chloride 107 Carbon Dioxide 26.1 Anion Gap 7 BUN 6 L Creatinine 0.65 Estimated GFR Greater than 89 POC Glucose 133 H 130 H Random Glucose 115 H Calcium 8.3 L Total Bilirubin 0.5 AST 15 ALT 12 Alkaline Phosphatase 100 Total Protein 5.6 L D Albumin 2.5 L 01/08/18 01/08/18 01/09/18 18:20 23:21 06:09 Sodium Potassium Chloride Carbon Dioxide Anion Gap BUN Creatinine Estimated GFR POC Glucose 113 H 102 117 H Random Glucose Calcium Total Bilirubin AST ALT Alkaline Phosphatase Total Protein Albumin 01/09/18 01/09/18 09:10 13:38 Sodium 143 Potassium 3.7 Chloride 108 H Carbon Dioxide 26.8 Anion Gap 8 BUN 5 L Creatinine 0.43 L Estimated GFR Greater than 89 POC Glucose 111 H Random Glucose 95 Calcium 8.4 L Total Bilirubin 0.3 AST 14 L ALT 10 Alkaline Phosphatase 97 Total Protein 5.3 L Albumin 2.2 L Imaging: ITS Impressions Chest X-Ray 01/05/18 13:00 CONCLUSION: No acute cardiopulmonary findings. Head CT 01/05/18 13:08 CONCLUSION: 1. Acute sinusitis, left sphenoid. 2. Otherwise negative. . WBC Scan Nuclear Medicine 01/06/18 00:00 CONCLUSION: Negative scan Hip X-Ray 01/07/18 12:53 CONCLUSION: Satisfactory appearance post left ANNETTE revision Physical Exam: GENERAL: NAD SKIN: Warm and dry. No rash HEAD: Atraumatic. Normocephalic. EYES: Pupils equal and round. No scleral icterus. No injection or drainage. ENT: No nasal bleeding or discharge. Mucous membranes pink and moist. NECK: Trachea midline. No JVD. CARDIOVASCULAR: Regular rate and rhythm. RESPIRATORY: No accessory muscle use. Clear to auscultation. Breath sounds equal bilaterally. GASTROINTESTINAL: Abdomen soft, non-tender, nondistended. Hepatic and splenic margins not palpable. MUSCULOSKELETAL: Extremities without clubbing, cyanosis, or edema. No obvious deformities. L hip dressing in place, no drainage NEUROLOGICAL: Awake and alert. No obvious cranial nerve deficits. Motor grossly within normal limits. Five out of 5 muscle strength in the arms and legs. Normal speech. PSYCHIATRIC: Appropriate mood and affect; insight and judgment normal. 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
[2018-01-09] MEDS ORDERED: Pharmacy Ordered Lab Info OTHER ONE (22:45)
[2018-01-10] MEDS: Morphine Inj 4 MG/ML Vial IV.PUSH PRN ×3 (00:05→21:59)
[2018-01-10] MEDS: Insulin NovoLOG Aspart Correctional Sugar Inj SQ SCH ×3 (01:00→12:23)
[2018-01-10] MEDS: Vancomycin Inj 1,250 MG in Sodium Chlor 0.9% Inj 250 ML IV.SIG SCH ×3 (02:04→23:08)
[2018-01-10 05:50] LABS: Baso % (Auto) 0.5 % (0.0-2.0); Eos % (Auto) 13.1 % (0.0-4.0); Hematocrit 21.7 % (35.0-46.0); Lymph # (Auto) 1.6 th/mm3 (1.0-4.8); Lymph % (Auto) 21.7 % (9.0-44.0); Mean Corpuscular HGB Conc 32.5 % (32.0-36.0); Mean Corpuscular Hemoglobin 26.7 pg (27.0-34.0); Mean Corpuscular Volume 82.2 fL (80.0-100.0); Mean Platelet Volume 7.6 fL (7.0-11.0); Mono # (Auto) 0.6 th/mm3 (0.0-0.9); Mono % (Auto) 8.2 % (0.0-8.0); Neut # (Auto) 4.2 th/mm3 (1.8-7.7); Neut % (Auto) 56.5 % (16.0-70.0); Platelet Count 254 th/mm3 (150-450); Red Blood Count 2.63 mil/mm3 (4.00-5.30); Red Cell Distribution Width 19.8 % (11.6-17.2); White Blood Count 7.5 th/mm3 (4.0-11.0)
[2018-01-10] MEDS: Chlorhexidine Gluconate 2% 1 Pack (2 Cloths) TOPICAL SCH (05:53)
[2018-01-10 06:06] LABS: Alanine Aminotransferase 11 U/L (10-53); Anion Gap 5 meq/L (5-15); Aspartate Aminotransferase 14 U/L (15-37); Blood Urea Nitrogen 5 mg/dL (7-18); Calcium 7.7 mg/dL (8.5-10.1); Carbon Dioxide 29.6 meq/L (21.0-32.0); Chloride 109 meq/L (98-107); Glomerular Filtration Rate Greater Than 89 mL/min (>89); Glucose,Random 99 mg/dL (74-106); Magnesium 1.9 mg/dL (1.5-2.5); Potassium 3.5 meq/L (3.5-5.1); Sodium 144 meq/L (136-145)
[2018-01-10 06:08] LABS: Alkaline Phosphatase 90 U/L (45-117)
[2018-01-10] MEDS: Sod Chloride 0.9% Inj 1,000 ML IV.CONT SCH ×6 (07:32→19:02)
[2018-01-10] MEDS: Senna/Docusate Sodium 8.6/50 MG Tablet PO SCH ×2 (08:35→23:09)
[2018-01-10] MEDS: Aspirin 325 MG Tablet PO SCH ×2 (08:35→22:01)
[2018-01-10] MEDS: Heparin - SQ 10,000 UNITS/ML Vial SQ SCH ×2 (08:48→22:01)
--- NOTE | 2018-01-10 09:41 | P.PNIM ---
Subjective Interval history: The pt was anxious to go home. She complained of chronic pain. She denied any acute complaints. She endorsed decreased appetite. Physical Exam Vital signs: Vital Signs 01/09/18 10:00 01/09/18 11:00 01/09/18 12:00 Temperature Pulse Rate 75 78 77 Respiratory Rate 28 H 21 13 Blood Pressure Pulse Oximetry 97 95 01/09/18 13:00 01/09/18 13:45 01/09/18 14:00 Temperature Pulse Rate 75 83 85 Respiratory Rate 16 21 25 H Blood Pressure 138/65 Pulse Oximetry 95 97 94 L 01/09/18 15:00 01/09/18 16:00 01/09/18 17:00 Temperature 98.4 F Pulse Rate 81 75 66 Respiratory Rate 28 H 16 12 Blood Pressure Pulse Oximetry 97 95 98 01/09/18 17:54 01/09/18 18:00 01/09/18 18:30 Temperature Pulse Rate 71 80 Respiratory Rate 15 28 H Blood Pressure 118/58 L Pulse Oximetry 98 100 96 01/09/18 19:00 01/09/18 20:00 01/09/18 21:55 Temperature 98.9 F Pulse Rate 91 H 80 Respiratory Rate 36 H 23 Blood Pressure 134/65 Pulse Oximetry 87 L 97 92 L 01/10/18 00:00 01/10/18 04:00 Temperature 98.6 F 98.8 F Pulse Rate 89 92 H Respiratory Rate 17 23 Blood Pressure 116/54 L 169/81 H Pulse Oximetry 99 97 Intake & Output 01/09/18 01/10/18 01/10/18 18:59 06:59 18:59 Intake Total 2322.5 / 2322.5 260 / 260 Output Total 1500 / 1500 575 / 575 Balance 822.5 / 822.5 -315 / -315 Weight 108.5 kg Intake: IV 1362.5 / 1362.5 200 / 200 LR 1000 mL Inj 1,000 ML @ 80 1000 / 1000 mls/hr IV.CONT .[id number] ERNESTINE Rx# :[id number] Merrem Inj 1,000 MG In NS Inj 100 / 100 200 / 200 100 ML @ 200 mls/hr IV.SIG Q8H ERNESTINE Rx#:[id number] Vancomycin Inj 1,250 MG In NS 262.5 / 262.5 Inj 250 ML @ 250 mls/hr IV.SIG Q12H ERNESTINE Rx#:[id number] Oral 960 / 960 60 / 60 Anesthesia Amount 0 / 0 Output: Urine 1500 / 1500 575 / 575 Estimated Blood Loss 0 / 0 Wound Drainage 0 / 0 Hemovac 0 / 0 Other: # Voids 3 2 Date of Last Bowel Movement 01/09/18 01/09/18 # Bowel Movements 1 0 Narrative: General: No distress HEENT: NC, AT Neck: No JVD Chest/pulmonary: CTA bilaterally Cardiovascular: S1-S2 regular no gallop or murmur GI/abdomen: Soft, nontender, bowel sounds present Extremities: Warm bilaterally, left hip incision site with dressing/drain in place Neuro: No gross deficits Results - Labs CBC & Chem 7: 01/10/18 04:45 01/10/18 04:45 Laboratory Results - last 24 hr 01/09/18 01/09/18 01/09/18 09:10 09:10 13:38 WBC 6.5 RBC 2.95 L Hgb 7.9 L Hct 24.3 L MCV 82.3 MCH 26.6 L MCHC 32.3 RDW 19.7 H Plt Count 260 MPV 7.7 Neut % (Auto) 58.3 Lymph % (Auto) 19.3 [place] % (Auto) 8.3 H Eos % (Auto) 13.8 H Baso % (Auto) 0.3 Neut # (Auto) 3.8 Lymph # (Auto) 1.3 [place] # (Auto) 0.5 Eos # (Auto) 0.9 H Baso # (Auto) 0.0 WBC Differential . Differential Comment Auto diff final Sodium 143 Potassium 3.7 Chloride 108 H Carbon Dioxide 26.8 Anion Gap 8 BUN 5 L Creatinine 0.43 L Estimated GFR Greater than 89 POC Glucose 111 H Random Glucose 95 Calcium 8.4 L Magnesium Total Bilirubin 0.3 Direct Bilirubin Indirect Bilirubin AST 14 L ALT 10 Alkaline Phosphatase 97 Total Protein 5.3 L Albumin 2.2 L Vancomycin Trough 01/10/18 01/10/18 01/10/18 00:16 00:35 04:45 WBC 7.5 RBC 2.63 L Hgb 7.0 L Hct 21.7 L MCV 82.2 MCH 26.7 L MCHC 32.5 RDW 19.8 H Plt Count 254 MPV 7.6 Neut % (Auto) 56.5 Lymph % (Auto) 21.7 [place] % (Auto) 8.2 H Eos % (Auto) 13.1 H Baso % (Auto) 0.5 Neut # (Auto) 4.2 Lymph # (Auto) 1.6 [place] # (Auto) 0.6 Eos # (Auto) 1.0 H Baso # (Auto) 0.0 WBC Differential . Differential Comment Auto diff final Sodium Potassium Chloride Carbon Dioxide Anion Gap BUN Creatinine Estimated GFR POC Glucose 123 H Random Glucose Calcium Magnesium Total Bilirubin Direct Bilirubin Indirect Bilirubin AST ALT Alkaline Phosphatase Total Protein Albumin Vancomycin Trough 13.0 H 01/10/18 01/10/18 04:45 05:50 WBC RBC Hgb Hct MCV MCH MCHC RDW Plt Count MPV Neut % (Auto) Lymph % (Auto) [place] % (Auto) Eos % (Auto) Baso % (Auto) Neut # (Auto) Lymph # (Auto) [place] # (Auto) Eos # (Auto) Baso # (Auto) WBC Differential Differential Comment Sodium 144 Potassium 3.5 Chloride 109 H Carbon Dioxide 29.6 Anion Gap 5 BUN 5 L Creatinine 0.57 Estimated GFR Greater than 89 POC Glucose 106 Random Glucose 99 Calcium 7.7 L Magnesium 1.9 Total Bilirubin 0.2 Direct Bilirubin 0.1 Indirect Bilirubin 0.1 AST 14 L ALT 11 Alkaline Phosphatase 90 Total Protein 5.0 L Albumin 2.0 L Vancomycin Trough Microbiology 01/07/18 10:25 Fluid - Other Gram Stain - Final 01/07/18 10:25 Fluid - Other Wound Culture - Final No growth in 72 hours (aerobically and anaerobically ) 01/05/18 13:15 Blood - Peripheral Aerobic Blood Culture - Preliminary No growth in 4 days 01/05/18 13:15 Blood - Peripheral Anaerobic Blood Culture - Preliminary No growth in 4 days 01/05/18 13:10 Blood - Peripheral Aerobic Blood Culture - Preliminary No growth in 4 days 01/05/18 13:10 Blood - Peripheral Anaerobic Blood Culture - Preliminary No growth in 4 days 01/07/18 10:25 Wound - Hip Gram Stain - Final 01/07/18 10:25 Wound - Hip Wound Culture - Preliminary Streptococcus species 01/07/18 10:25 Tissue - Hip Gram Stain - Final 01/07/18 10:25 Tissue - Hip Wound Culture - Preliminary gram positive cocci 01/07/18 10:25 Wound - Other Gram Stain - Final 01/07/18 10:25 Wound - Other Wound Culture - Preliminary gram positive cocci 01/07/18 10:25 Abscess - Other Gram Stain - Final 01/07/18 10:25 Abscess - Other Wound Culture - Preliminary gram positive cocci 01/07/18 02:55 Wound - Hip Gram Stain - Final 01/07/18 02:55 Wound - Hip Wound Culture - Preliminary gram positive cocci Assessment and Plan - Plan Septic left hip/ Hypotension S/p Levophed. EKG revealed incomplete right bundle branch block; Sinus tachycardia. Orthopedic surgery and ID consults appreciated. Status post repeat resection arthroplasty with insertion of cement spacer on 01/07. Strep growing from wound. -antibiotics per ID. Await final wound cultures. -follow up with orthopedic surgery. -pain control as needed. -rehab efforts. Will need home with [facility]. -incentive spirometry. -case management consult. Normocytic anemia S/p transfusion of two units of red cells. -follow CBC and transfuse as needed. May need additional transfusion prior to discharge. -check Hemoccult. Hyponatremia/ Hypomagnesia Resolved. -Replace electrolytes as clinically indicated per ICU electrolyte protocol. Prophylaxis -GI -pantoprazole -DVT-SCD/heparin subcu Discharge Planning: Await cultures to finalize, then d/c with [facility] with antibiotics per ID.
[2018-01-11] MEDS: Sod Chloride 0.9% Inj 1,000 ML IV.CONT SCH ×3 (03:27→18:20)
[2018-01-11 05:17] LABS: Baso % (Auto) 0.4 % (0.0-2.0); Eos # (Auto) 1.1 th/mm3 (0.0-0.4); Eos % (Auto) 12.9 % (0.0-4.0); Hematocrit 23.1 % (35.0-46.0); Hemoglobin 7.7 gm/dL (11.6-15.3); Lymph # (Auto) 1.7 th/mm3 (1.0-4.8); Lymph % (Auto) 20.9 % (9.0-44.0); Mean Corpuscular HGB Conc 33.2 % (32.0-36.0); Mean Corpuscular Hemoglobin 27.3 pg (27.0-34.0); Mean Corpuscular Volume 82.2 fL (80.0-100.0); Mean Platelet Volume 7.6 fL (7.0-11.0); Mono # (Auto) 0.7 th/mm3 (0.0-0.9); Mono % (Auto) 8.9 % (0.0-8.0); Neut # (Auto) 4.7 th/mm3 (1.8-7.7); Neut % (Auto) 56.9 % (16.0-70.0); Platelet Count 253 th/mm3 (150-450); Red Blood Count 2.81 mil/mm3 (4.00-5.30); White Blood Count 8.2 th/mm3 (4.0-11.0)
[2018-01-11 05:36] LABS: Anion Gap 6 meq/L (5-15); Blood Urea Nitrogen 4 mg/dL (7-18); Calcium 7.8 mg/dL (8.5-10.1); Carbon Dioxide 29.8 meq/L (21.0-32.0); Chloride 109 meq/L (98-107); Glomerular Filtration Rate Greater Than 89 mL/min (>89); Glucose,Random 121 mg/dL (74-106); Magnesium 1.9 mg/dL (1.5-2.5); Potassium 3.3 meq/L (3.5-5.1); Sodium 145 meq/L (136-145)
[2018-01-11] MEDS: Heparin - SQ 10,000 UNITS/ML Vial SQ SCH ×2 (06:03→21:19)
[2018-01-11] MEDS: Aspirin 325 MG Tablet PO SCH ×2 (08:11→21:19)
[2018-01-11] MEDS: Senna/Docusate Sodium 8.6/50 MG Tablet PO SCH ×2 (08:11→21:19)
[2018-01-11] MEDS: Vancomycin Inj 1,250 MG in Sodium Chlor 0.9% Inj 250 ML IV.SIG SCH ×2 (11:02→22:49)
--- NOTE | 2018-01-11 12:15 | P.PNIM ---
Subjective Interval history: Complained of left hip pain Physical Exam Vital signs: Vital Signs 01/10/18 12:00 01/10/18 16:00 01/10/18 18:40 Temperature 98.4 F 98.1 F 98.3 F Pulse Rate 74 74 77 Respiratory Rate 15 20 16 Blood Pressure 105/51 L 144/65 H 173/79 H Pulse Oximetry 96 100 100 01/10/18 19:03 01/10/18 20:00 01/10/18 20:06 Temperature 99.1 F 98.3 F 98.7 F Pulse Rate 78 74 81 Respiratory Rate 14 16 16 Blood Pressure 149/85 H 173/79 H 151/69 H Pulse Oximetry 100 100 01/10/18 21:00 01/11/18 00:00 01/11/18 02:00 Temperature 98.9 F Pulse Rate 79 83 80 Respiratory Rate 16 Blood Pressure 135/62 Pulse Oximetry 94 L 01/11/18 03:38 01/11/18 04:00 01/11/18 08:00 Temperature 99.1 F 98.3 F Pulse Rate 73 80 Respiratory Rate 16 16 17 Blood Pressure 139/63 181/84 H Pulse Oximetry 96 95 Intake & Output 01/10/18 01/11/18 01/11/18 18:59 06:59 18:59 Intake Total 500 / 500 1025.0 / 1025.0 100 / 100 Output Total 3000 / 3000 Balance -2500 / -2500 1025.0 / 1025.0 100 / 100 Weight 105.2 kg Intake: IV 100 / 100 625.0 / 625.0 100 / 100 Merrem Inj 1,000 MG In NS Inj 100 / 100 100 / 100 100 / 100 100 ML @ 200 mls/hr IV.SIG Q8H ERNESTINE Rx#:[id number] Vancomycin Inj 1,250 MG In NS 525.0 / 525.0 Inj 250 ML @ 250 mls/hr IV.SIG Q12H ERNESTINE Rx#:[id number] Oral 400 / 400 Anesthesia Amount 0 / 0 Intake (Blood Product) Amt 0 / 0 400 / 400 Rbc As-3 Leukoreduced Unit 0 / 0 400 / 400 [id number] Output: Urine 3000 / 3000 Estimated Blood Loss 0 / 0 Wound Drainage 0 / 0 Hemovac 0 / 0 Other: # Voids 3 1 Date of Last Bowel Movement 01/10/18 01/10/18 # Bowel Movements 1 Narrative: GENERAL: This is a well-nourished, well-developed patient, in no apparent distress. CARDIOVASCULAR: Regular rate and rhythm . RESPIRATORY: Clear to auscultation. Breath sounds equal bilaterally. No wheezes , rales, or rhonchi. GASTROINTESTINAL: Abdomen soft, non-tender, nondistended. Normal active bowel sounds MUSCULOSKELETAL: Left hip bandage clean dry intact NEURO: Alert & Oriented x4 to person, place, time, situation. Moves all ext x4 Results - Labs CBC & Chem 7: 01/11/18 04:18 01/11/18 04:18 Laboratory Results - last 24 hr 01/06/18 01/10/18 01/10/18 14:38 12:15 14:40 WBC RBC Hgb Hct MCV MCH MCHC RDW Plt Count MPV Prelim Diff (Auto) Neut % (Auto) Lymph % (Auto) [place] % (Auto) Eos % (Auto) Baso % (Auto) Neut # (Auto) Lymph # (Auto) [place] # (Auto) Eos # (Auto) Baso # (Auto) WBC Differential Diff Scan Differential Comment Sodium Potassium Chloride Carbon Dioxide Anion Gap BUN Creatinine Estimated GFR POC Glucose 135 H Random Glucose Calcium Magnesium Blood Type O Positive Antibody Screen Negative MTS Gel Crossmatch See Detail See Detail 01/10/18 01/11/18 01/11/18 22:07 04:18 04:18 WBC 8.2 RBC 2.81 L Hgb 7.7 L Hct 23.1 L MCV 82.2 MCH 27.3 MCHC 33.2 RDW 19.0 H Plt Count 253 MPV 7.6 Prelim Diff (Auto) Slide review pending Neut % (Auto) 56.9 Lymph % (Auto) 20.9 [place] % (Auto) 8.9 H Eos % (Auto) 12.9 H Baso % (Auto) 0.4 Neut # (Auto) 4.7 Lymph # (Auto) 1.7 [place] # (Auto) 0.7 Eos # (Auto) 1.1 H Baso # (Auto) 0.0 WBC Differential . Diff Scan Auto diff confirmed Differential Comment . Sodium 145 Potassium 3.3 L Chloride 109 H Carbon Dioxide 29.8 Anion Gap 6 BUN 4 L Creatinine 0.63 Estimated GFR Greater than 89 POC Glucose 139 H Random Glucose 121 H Calcium 7.8 L Magnesium 1.9 Blood Type Antibody Screen MTS Gel Crossmatch Microbiology 01/10/18 11:10 Stool Stool Occult Blood (RUIZ) - Final Hemoccult negative 01/07/18 10:25 Tissue - Hip Gram Stain - Final 01/07/18 10:25 Tissue - Hip Wound Culture - Final Viridans streptococcus [facility] 01/07/18 10:25 Wound - Other Gram Stain - Final 01/07/18 10:25 Wound - Other Wound Culture - Final [facility] streptococcus [facility] 01/07/18 10:25 Abscess - Other Gram Stain - Final 01/07/18 10:25 Abscess - Other Wound Culture - Final [facility] streptococcus [facility] 01/07/18 02:55 Wound - Hip Gram Stain - Final 01/07/18 02:55 Wound - Hip Wound Culture - Final [facility] streptococcus [facility] 01/07/18 10:25 Wound - Hip Gram Stain - Final 01/07/18 10:25 Wound - Hip Wound Culture - Final [facility] streptococcus [facility] 01/05/18 13:15 Blood - Peripheral Aerobic Blood Culture - Final No growth in 5 days 01/05/18 13:15 Blood - Peripheral Anaerobic Blood Culture - Final No growth in 5 days 01/05/18 13:10 Blood - Peripheral Aerobic Blood Culture - Final No growth in 5 days 01/05/18 13:10 Blood - Peripheral Anaerobic Blood Culture - Final No growth in 5 days - Procedures 815repeat resection arthroplasty with insertion of cement spacer 813 left IJ central line Assessment and Plan - Plan 62-year-old white female presented with septic shock from septic left hip Septic left hip/ Hypotension, septic shock S/p Levophed. EKG revealed incomplete right bundle branch block; Sinus tachycardia. Orthopedic surgery and ID consults appreciated. Status post repeat resection arthroplasty with insertion of cement spacer on . Strep viridans growing from wound. -antibiotics per ID. Await final wound cultures. Discussed with Dr. Crawford likely will need 6 weeks of IV antibiotics currently on ceftriaxone. -follow up with orthopedic surgery. -pain control as needed. -rehab efforts. Will need home with [facility]. With IV antibiotics -incentive spirometry. -case management consult. Normocytic anemia S/p transfusion of two units of red cells. Her hemoglobin 7.7 -follow CBC and transfuse as needed. -check Hemoccult. Hyponatremia/ Hypomagnesia Resolved. -Replace electrolytes as clinically indicated per ICU electrolyte protocol. Prophylaxis -GI -pantoprazole -DVT-SCD/heparin subcu Discharge Planning: Home Health Care with PICC line and IV abx
--- NOTE | 2018-01-11 12:23 | P.DCO ---
- Home Health Nursing Order: IV medication administration Instructions: Administration of IV antibiotics as prescribed - Certification I have seen patient Ana Cristina Patino on 01/11/18. My clinical findings support the need for the requested home health care services because: Infection with risk of complications I certify that my clinical findings support that this patient is homebound because: Post-op weakness, Unsafe to leave home unassisted
[2018-01-12] MEDS: Morphine Inj 4 MG/ML Vial IV.PUSH PRN (05:52)
[2018-01-12] MEDS: Heparin - SQ 10,000 UNITS/ML Vial SQ SCH ×2 (06:26→18:32)
[2018-01-12] MEDS: Sod Chloride 0.9% Inj 1,000 ML IV.CONT SCH ×2 (06:29→18:39)
[2018-01-12] MEDS: Aspirin 325 MG Tablet PO SCH ×2 (09:49→21:00)
[2018-01-12] MEDS: Senna/Docusate Sodium 8.6/50 MG Tablet PO SCH ×2 (09:50→21:00)
[2018-01-12] MEDS: Vancomycin Inj 1,250 MG in Sodium Chlor 0.9% Inj 250 ML IV.SIG SCH (11:45)
--- NOTE | 2018-01-12 14:34 | P.PNIM ---
Subjective Interval history: 01/05: This is a 62-year-old female. Date of admission 01/05/2018. Date of consultation 01/05/2018. Past medical history includes morbid obesity, hard of hearing, gastroesophageal reflux disease, osteomyelitis, chronic narcotic use. Patient is a 2 day history of not feeling with left hip pain/ drainage from left hip. Patient was originally admitted to the hospital service with consultation infectious disease and orthopedics. On 09/09/2017, the patient had left hip resection with cement spacer. The hospitalization was complicated by an ileus and urinary retention. Patient was eventually sent to rehab later that month. Since that time, she has had 2 additional hip surgeries In the ED, patient received 3 L normal saline. Lactic acid 3.6 for leukocytosis of 22,000. Despite that, patient remained hypotensive requiring vasopressors. Patient currently norepinephrine drip at 8 mcg/min. Lactic acid is currently 2.6. Patient does not appear septic. There is small serosanguineous drainage to the incision from left hip site from previous surgery. She is currently pleasant awake and alert and oriented to person place and time. 01/06: Resting comfortably in bed. Remains on Levophed. 01/07: Resting comfortably in bed. Complaining of headache this morning. Levophed at 2 mics per minute at the time of my evaluation this morning and was turned off. 01/08: Underwent repeat resection arthroplasty with insertion of cement spacer under general anesthesia on 01/07. Tolerated procedure well was subsequently extubated and transferred back to the ICU. She has remained off pressors since yesterday morning. 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 Drowsy, easily arousable, on nasal cannula. Complaining of pain at surgical site. 8-17 The patient was resting comfortably in bed. She said she has not been eating that much. She said that she has not been ambulating lately, she otherwise feels better. She says her pain is well controlled. Discussed with nursing. 01-10 The pt was anxious to go home. She complained of chronic pain. She denied any acute complaints. She endorsed decreased appetite. TRANSFUSED 1 UNIT PRBC 01-11 Complained of left hip pain 01-[address] CARBALLO, NEEDS PICC LINE AWAIT ORDERS FROM DR CARBALLO FOR DC HOPEFULLY DC TO HOME TODAY WITH [facility] FOR ANTIBIOTICS PER DR CARBALLO NEEDS ACCESS FOR DC- PICC LINE? Physical Exam Vital signs: Vital Signs 01/11/18 16:00 01/11/18 20:00 01/11/18 20:59 Temperature 98.3 F 98.3 F Pulse Rate 78 79 Respiratory Rate 18 18 Blood Pressure 137/68 145/68 H Pulse Oximetry 97 97 97 01/12/18 00:00 01/12/18 01:22 01/12/18 04:00 Temperature 98.3 F 98.8 F Pulse Rate 76 76 Respiratory Rate 18 16 18 Blood Pressure 136/63 156/68 H Pulse Oximetry 94 L 94 L 01/12/18 07:29 01/12/18 08:00 01/12/18 10:16 Temperature 98.4 F Pulse Rate 70 72 Respiratory Rate 18 16 Blood Pressure 156/74 H Pulse Oximetry 96 01/12/18 12:00 Temperature 98.2 F Pulse Rate 71 Respiratory Rate 16 Blood Pressure 146/71 H Pulse Oximetry 100 Intake & Output 01/11/18 01/12/18 01/12/18 18:59 06:59 18:59 Intake Total 1682.5 / 1682.5 462.5 / 462.5 362.5 / 362.5 Output Total 1250 / 1250 Balance 432.5 / 432.5 462.5 / 462.5 362.5 / 362.5 Weight 105.9 kg Intake: IV 362.5 / 362.5 462.5 / 462.5 362.5 / 362.5 Merrem Inj 1,000 MG In NS Inj 100 / 100 200 / 200 100 / 100 100 ML @ 200 mls/hr IV.SIG Q8H ERNESTINE Rx#:[id number] Vancomycin Inj 1,250 MG In NS 262.5 / 262.5 262.5 / 262.5 262.5 / 262.5 Inj 250 ML @ 250 mls/hr IV.SIG Q12H ERNESTINE Rx#:[id number] Oral 1320 / 1320 Output: Urine 1250 / 1250 Estimated Blood Loss 0 / 0 Wound Drainage 0 / 0 Hemovac 0 / 0 Other: # Voids 2 Date of Last Bowel Movement 01/11/18 01/12/18 # Bowel Movements 2 1 Narrative: GENERAL: This is a well-nourished, well-developed patient, in no apparent distress. CARDIOVASCULAR: Regular rate and rhythm . S1, S2 NO S3 OR S4 RESPIRATORY: Clear to auscultation. Breath sounds equal bilaterally. No wheezes , rales, or rhonchi. GASTROINTESTINAL: Abdomen soft, non-tender, nondistended. Normal active bowel sounds MUSCULOSKELETAL: Left hip bandage clean dry intact NEURO: Alert & Oriented x4 to person, place, time, situation. Moves all ext x4 Results - Labs CBC & Chem 7: 01/11/18 04:18 01/11/18 04:18 - Imaging Chest X-Ray 01/05/18 00:00 CONCLUSION: Interval placement of left internal jugular central venous line with no pneumothorax.. Chest X-Ray 01/05/18 13:00 CONCLUSION: No acute cardiopulmonary findings. Head CT 01/05/18 13:08 CONCLUSION: 1. Acute sinusitis, left sphenoid. 2. Otherwise negative. . Hip X-Ray 01/05/18 13:10 CONCLUSION: Orthopedic hardware in good position. Degenerative changes in the sacroiliac joints and the right hip. No acute bony abnormality. WBC Scan Nuclear Medicine 01/06/18 00:00 CONCLUSION: Negative scan Hip X-Ray 01/07/18 12:53 CONCLUSION: Satisfactory appearance post left ANNETTE revision - Procedures 815repeat resection arthroplasty with insertion of cement spacer 813 left IJ central line Assessment and Plan - Assessment (1) Septic hip Code(s): M00.9 - Pyogenic arthritis, unspecified Status: Acute - Plan 62-year-old white female presented with septic shock from septic left hip Septic left hip/ Hypotension, septic shock S/p Levophed. EKG revealed incomplete right bundle branch block; Sinus tachycardia. Orthopedic surgery and ID consults appreciated. Status post repeat resection arthroplasty with insertion of cement spacer on . Strep viridans growing from wound. -antibiotics per ID. Await final wound cultures. Discussed with Dr. Carballo likely will need 6 weeks of IV antibiotics currently on ceftriaxone. -follow up with orthopedic surgery. -pain control as needed. -rehab efforts. Will need home with [facility]. With IV antibiotics -incentive spirometry. -case management consult. Normocytic anemia S/p transfusion of two units of red cells. Her hemoglobin 7.7 -follow CBC and transfuse as needed. -check Hemoccult. Hyponatremia/ Hypomagnesia Resolved. -Replace electrolytes as clinically indicated per ICU electrolyte protocol. Prophylaxis -GI -pantoprazole -DVT-SCD/heparin subcu Discharge Planning: Home Health Care with PICC line and IV abx AM LABS [facility] HOME TOMORROW Code Status: FULL CODE Discussed Condition With: RN AND PT AND CM Discharge Planning: NEEDS A PICC AND ANTIBIOTICS SET UP
--- NOTE | 2018-01-12 15:10 | P.DCO ---
Post Hospital Infusion Therapy Location of Infusion Therapy: Home Health Care IV Infusion Order Patient Weight: 105.9 kg - Diagnosis (1) Septic hip Code(s): M00.9 - Pyogenic arthritis, unspecified - Administer Medication Ceftriaxone Dose: 2 grams IV Directions: q 24 hours - Additional Information Venous Access: PICC Line Additional Instructions: [x] Peripheral flush and dressing changes per protocol [x] Implanted port and central line helper: * Implanted port: 10 ml Normal Saline followed by 5 ml Heparin 100 units/ml Heparin flush after each use and monthly to maintain. [] May leave port accessed during therapy. [] May leave peripheral site accessed for duration of therapy. [x] If patient has SOB or respiratory distress, check oxygen saturation. If less than 90% or clinical signs of respiratory distress, administer oxygen at 2 L/min. via nasal cannula and notify physician. [x] Anaphylaxis/Reaction orders: * Stop infusion. * Keep IV line open with saline flush. * Notify physician. * Monitor vital signs every 15 minutes until symptoms resolve. * Check Oxygen saturation; Oxygen at 2 L/min. via nasal cannula if less than 90% or clinical signs of respiratory distress. * Administer diphenhydramine (Benadryl) 25 mg IV STAT, (unless patient has received as pre-med). May repeat once, if necessary. * Solu-Cortef 250 mg IVP over 30-60 seconds, use 100 mg vials for each dissolution. * Epinephrine (1mg/1 ml) 0.3 mg subcutaneously or IVP now with any signs of respiratory distress. * Check with physician for new additional pre-med orders if patient is re- challenged or re-treated. [x] May remove PICC line when treatment complete, after confirming with Physician. [x] If the patient is admitted to the hospital, the ED, or transferred via EVAC , complete transfer form including medication reconciliation order sheet. Weekly Labs: CBC w/diff, CMP Allergies daptomycin Allergy (Intermediate, Verified 12/19/17 16:56) rash
--- NOTE | 2018-01-12 15:21 | P.DCO ---
Post Hospital Infusion Therapy Location of Infusion Therapy: Home Health Care IV Infusion Order Patient Weight: 105.9 kg - Diagnosis (1) Septic hip Code(s): M00.9 - Pyogenic arthritis, unspecified - Administer Medication Ceftriaxone Dose: 2 grams IV Directions: q 24 hours Start Treatment: 01/12/18 Stop Treatment: 02/18/18 - Additional Information Venous Access: PICC Line Additional Instructions: [x] Peripheral flush and dressing changes per protocol [x] Implanted port and central glass lined tank repairer: * Implanted port: 10 ml Normal Saline followed by 5 ml Heparin 100 units/ml Heparin flush after each use and monthly to maintain. [] May leave port accessed during therapy. [] May leave peripheral site accessed for duration of therapy. [x] If patient has SOB or respiratory distress, check oxygen saturation. If less than 90% or clinical signs of respiratory distress, administer oxygen at 2 L/min. via nasal cannula and notify physician. [x] Anaphylaxis/Reaction orders: * Stop infusion. * Keep IV line open with saline flush. * Notify physician. * Monitor vital signs every 15 minutes until symptoms resolve. * Check Oxygen saturation; Oxygen at 2 L/min. via nasal cannula if less than 90% or clinical signs of respiratory distress. * Administer diphenhydramine (Benadryl) 25 mg IV STAT, (unless patient has received as pre-med). May repeat once, if necessary. * Solu-Cortef 250 mg IVP over 30-60 seconds, use 100 mg vials for each dissolution. * Epinephrine (1mg/1 ml) 0.3 mg subcutaneously or IVP now with any signs of respiratory distress. * Check with physician for new additional pre-med orders if patient is re- challenged or re-treated. [x] May remove PICC line when treatment complete, after confirming with Physician. [x] If the patient is admitted to the hospital, the ED, or transferred via EVAC , complete transfer form including medication reconciliation order sheet. Weekly Labs: CBC w/diff, CMP Allergies daptomycin Allergy (Intermediate, Verified 12/19/17 16:56) rash
--- NOTE | 2018-01-12 15:26 | P.PNID ---
Subjective Remarks: pt is doing beter OOB in chair afebrile co on L hip pain unchanged Clx are growing vir strep Antibiotics: meropenem vancomycin Allergies/Adverse Reactions: Allergies daptomycin Allergy (Intermediate, Verified 12/19/17 16:56) rash Objective Vital Signs 01/11/18 16:00 01/11/18 20:00 01/11/18 20:59 Temperature 98.3 F 98.3 F Pulse Rate 78 79 Respiratory Rate 18 18 Blood Pressure 137/68 145/68 H Pulse Oximetry 97 97 97 01/12/18 00:00 01/12/18 01:22 01/12/18 04:00 Temperature 98.3 F 98.8 F Pulse Rate 76 76 Respiratory Rate 18 16 18 Blood Pressure 136/63 156/68 H Pulse Oximetry 94 L 94 L 01/12/18 07:29 01/12/18 08:00 01/12/18 10:16 Temperature 98.4 F Pulse Rate 70 72 Respiratory Rate 18 16 Blood Pressure 156/74 H Pulse Oximetry 96 01/12/18 12:00 Temperature 98.2 F Pulse Rate 71 Respiratory Rate 16 Blood Pressure 146/71 H Pulse Oximetry 100 Intake & Output 01/11/18 01/12/18 01/12/18 18:59 06:59 18:59 Intake Total 1682.5 / 1682.5 462.5 / 462.5 362.5 / 362.5 Output Total 1250 / 1250 Balance 432.5 / 432.5 462.5 / 462.5 362.5 / 362.5 Weight 105.9 kg 105.9 kg Intake: IV 362.5 / 362.5 462.5 / 462.5 362.5 / 362.5 Merrem Inj 1,000 MG In NS Inj 100 / 100 200 / 200 100 / 100 100 ML @ 200 mls/hr IV.SIG Q8H ERNESTINE Rx#:[id number] Vancomycin Inj 1,250 MG In NS 262.5 / 262.5 262.5 / 262.5 262.5 / 262.5 Inj 250 ML @ 250 mls/hr IV.SIG Q12H ERNESTINE Rx#:[id number] Oral 1320 / 1320 Output: Urine 1250 / 1250 Estimated Blood Loss 0 / 0 Wound Drainage 0 / 0 Hemovac 0 / 0 Other: # Voids 2 Date of Last Bowel Movement 01/11/18 01/12/18 # Bowel Movements 2 1 01/10/18 11:10 Stool Stool Occult Blood (RUIZ) - Final Hemoccult negative 01/07/18 10:25 Tissue - Hip Gram Stain - Final 01/07/18 10:25 Tissue - Hip Wound Culture - Final Viridans [facility] 01/07/18 10:25 Wound - Other Gram Stain - Final 01/07/18 10:25 Wound - Other Wound Culture - Final Viridans [facility] 01/07/18 10:25 Abscess - Other Gram Stain - Final 01/07/18 10:25 Abscess - Other Wound Culture - Final Viridans [facility] 01/07/18 02:55 Wound - Hip Gram Stain - Final 01/07/18 02:55 Wound - Hip Wound Culture - Final Viridans [facility] 01/07/18 10:25 Wound - Hip Gram Stain - Final 01/07/18 10:25 Wound - Hip Wound Culture - Final Viridans [facility] 01/05/18 13:15 Blood - Peripheral Aerobic Blood Culture - Final No growth in 5 days 01/05/18 13:15 Blood - Peripheral Anaerobic Blood Culture - Final No growth in 5 days 01/05/18 13:10 Blood - Peripheral Aerobic Blood Culture - Final No growth in 5 days 01/05/18 13:10 Blood - Peripheral Anaerobic Blood Culture - Final No growth in 5 days 01/07/18 10:25 Fluid - Other Gram Stain - Final 01/07/18 10:25 Fluid - Other Wound Culture - Final No growth in 72 hours (aerobically and anaerobically ) Lab - Hematology Results 01/11/18 04:18 WBC 8.2 RBC 2.81 L Hgb 7.7 L Hct 23.1 L MCV 82.2 MCH 27.3 MCHC 33.2 RDW 19.0 H Plt Count 253 MPV 7.6 Prelim Diff (Auto) Slide review pending Neut % (Auto) 56.9 Lymph % (Auto) 20.9 [place] % (Auto) 8.9 H Eos % (Auto) 12.9 H Baso % (Auto) 0.4 Neut # (Auto) 4.7 Lymph # (Auto) 1.7 [place] # (Auto) 0.7 Eos # (Auto) 1.1 H Baso # (Auto) 0.0 WBC Differential . Diff Scan Auto diff confirmed Differential Comment . Lab - Chemistry Results 01/10/18 01/11/18 22:07 04:18 Sodium 145 Potassium 3.3 L Chloride 109 H Carbon Dioxide 29.8 Anion Gap 6 BUN 4 L Creatinine 0.63 Estimated GFR Greater than 89 POC Glucose 139 H Random Glucose 121 H Calcium 7.8 L Magnesium 1.9 Imaging: ITS Impressions Chest X-Ray 01/05/18 13:00 CONCLUSION: No acute cardiopulmonary findings. Head CT 01/05/18 13:08 CONCLUSION: 1. Acute sinusitis, left sphenoid. 2. Otherwise negative. . WBC Scan Nuclear Medicine 01/06/18 00:00 CONCLUSION: Negative scan Hip X-Ray 01/07/18 12:53 CONCLUSION: Satisfactory appearance post left ANNETTE revision Physical Exam: GENERAL: NAD SKIN: Warm and dry. No rash CARDIOVASCULAR: Regular rate and rhythm. RESPIRATORY: No accessory muscle use. Clear to auscultation. Breath sounds equal bilaterally. GASTROINTESTINAL: Abdomen soft, non-tender, nondistended. Hepatic and splenic margins not palpable. MUSCULOSKELETAL: Extremities without clubbing, cyanosis, or edema. No obvious deformities. L hip dressing in place, no drainage thru it NEUROLOGICAL: Awake and alert. No obvious cranial nerve deficits. Motor grossly within normal limits. Five out of 5 muscle strength in the arms and legs. Normal speech. PSYCHIATRIC: Appropriate mood and affect; insight and judgment normal. 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
[2018-01-12] MEDS ORDERED: Heparin Central Flush 100 UNIT/ML 5 ML Vial IV.FLUSH PRN (16:53)
[2018-01-13 07:06] LABS: Baso % (Auto) 0.5 % (0.0-2.0); Eos # (Auto) 1.3 th/mm3 (0.0-0.4); Eos % (Auto) 15.7 % (0.0-4.0); Hematocrit 25.2 % (35.0-46.0); Hemoglobin 8.2 gm/dL (11.6-15.3); Lymph # (Auto) 1.9 th/mm3 (1.0-4.8); Mean Corpuscular HGB Conc 32.6 % (32.0-36.0); Mean Corpuscular Hemoglobin 26.8 pg (27.0-34.0); Mean Corpuscular Volume 82.3 fL (80.0-100.0); Mean Platelet Volume 7.3 fL (7.0-11.0); Mono # (Auto) 0.6 th/mm3 (0.0-0.9); Mono % (Auto) 7.2 % (0.0-8.0); Neut # (Auto) 4.5 th/mm3 (1.8-7.7); Neut % (Auto) 53.6 % (16.0-70.0); Platelet Count 297 th/mm3 (150-450); Red Blood Count 3.07 mil/mm3 (4.00-5.30); White Blood Count 8.4 th/mm3 (4.0-11.0)
[2018-01-13] MEDS: Sod Chloride 0.9% Inj 1,000 ML IV.CONT SCH ×2 (08:06→16:10)
[2018-01-13] MEDS: Heparin - SQ 10,000 UNITS/ML Vial SQ SCH (08:17)
[2018-01-13] MEDS ORDERED: Heparin Central Flush 100 UNIT/ML 5 ML Vial IV.FLUSH SCH (09:00)
[2018-01-13] MEDS: Aspirin 325 MG Tablet PO SCH (10:08)
[2018-01-13] MEDS: Senna/Docusate Sodium 8.6/50 MG Tablet PO SCH (10:12)
[2018-01-13] MEDS ORDERED: Pharmacy Ordered Lab Info OTHER ONE (10:45)
[2018-01-13 11:08] LABS: Albumin 2.2 g/dL (3.4-5.0); Anion Gap 8 meq/L (5-15); Aspartate Aminotransferase 15 U/L (15-37); Blood Urea Nitrogen 6 mg/dL (7-18); Calcium 8.3 mg/dL (8.5-10.1); Carbon Dioxide 28.6 meq/L (21.0-32.0); Chloride 107 meq/L (98-107); Glomerular Filtration Rate Greater Than 89 mL/min (>89); Glucose,Random 118 mg/dL (74-106); Magnesium 1.9 mg/dL (1.5-2.5); Potassium 3.9 meq/L (3.5-5.1); Sodium 144 meq/L (136-145)
[2018-01-13 11:09] LABS: Alanine Aminotransferase 13 U/L (10-53); Phosphorus 3.4 mg/dL (2.5-4.9)
[2018-01-13 11:11] LABS: Alkaline Phosphatase 120 U/L (45-117); Total Protein 5.7 g/dL (6.4-8.2); Vancomycin,Trough 6.7 mcg/mL (5.0-10.0)
--- NOTE | 2018-01-13 14:57 | P.PNIM ---
Subjective Interval history: 01/05: This is a 62-year-old female. Date of admission 01/05/2018. Date of consultation 01/05/2018. Past medical history includes morbid obesity, hard of hearing, gastroesophageal reflux disease, osteomyelitis, chronic narcotic use. Patient is a 2 day history of not feeling with left hip pain/ drainage from left hip. Patient was originally admitted to the hospital service with consultation infectious disease and orthopedics. On 09/09/2017, the patient had left hip resection with cement spacer. The hospitalization was complicated by an ileus and urinary retention. Patient was eventually sent to rehab later that month. Since that time, she has had 2 additional hip surgeries In the ED, patient received 3 L normal saline. Lactic acid 3.6 for leukocytosis of 22,000. Despite that, patient remained hypotensive requiring vasopressors. Patient currently norepinephrine drip at 8 mcg/min. Lactic acid is currently 2.6. Patient does not appear septic. There is small serosanguineous drainage to the incision from left hip site from previous surgery. She is currently pleasant awake and alert and oriented to person place and time. 01/06: Resting comfortably in bed. Remains on Levophed. 01/07: Resting comfortably in bed. Complaining of headache this morning. Levophed at 2 mics per minute at the time of my evaluation this morning and was turned off. 01/08: Underwent repeat resection arthroplasty with insertion of cement spacer under general anesthesia on 01/07. Tolerated procedure well was subsequently extubated and transferred back to the ICU. She has remained off pressors since yesterday morning. 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 Drowsy, easily arousable, on nasal cannula. Complaining of pain at surgical site. 8-17 The patient was resting comfortably in bed. She said she has not been eating that much. She said that she has not been ambulating lately, she otherwise feels better. She says her pain is well controlled. Discussed with nursing. 8-18 The pt was anxious to go home. She complained of chronic pain. She denied any acute complaints. She endorsed decreased appetite. TRANSFUSED 1 UNIT PRBC 01-11 Complained of left hip pain 8-[address] CARBALLO, NEEDS PICC LINE AWAIT ORDERS FROM DR CARBALLO FOR DC HOPEFULLY DC TO HOME TODAY WITH [facility] FOR ANTIBIOTICS PER DR CARBALLO NEEDS ACCESS FOR DC- PICC LINE? 8-[address] CARBALLO DC TO HOME ON ROCEPHIN 2 GRAMS IV DAILY FOLLOW UP WITH DR PLATA FOLLOW UP PCP FOLLOW UP DR TRIANA HAS PICC LINE Physical Exam Vital signs: Vital Signs 01/12/18 16:00 01/12/18 20:00 01/13/18 04:00 Temperature 98.5 F 98.7 F Pulse Rate 78 76 Respiratory Rate 16 18 16 Blood Pressure 176/82 H 150/68 H Pulse Oximetry 95 96 01/13/18 08:00 01/13/18 12:00 01/13/18 12:27 Temperature 98.7 F 98.6 F Pulse Rate 68 68 Respiratory Rate 16 14 Blood Pressure 176/79 H 172/77 H Pulse Oximetry 98 95 94 L Intake & Output 01/12/18 01/13/18 01/13/18 18:59 06:59 18:59 Intake Total 1562.5 / 1562.5 1100 / 1100 Balance 1562.5 / 1562.5 1100 / 1100 Weight 105.9 kg Intake: IV 362.5 / 362.5 1100 / 1100 NS Inj 1,000 ML @ 84 mls/hr IV. 1000 / 1000 CONT .[id number] ERNESTINE Rx#:[id number] Merrem Inj 1,000 MG In NS Inj 100 / 100 100 ML @ 200 mls/hr IV.SIG Q8H ERNESTINE Rx#:[id number] Vancomycin Inj 1,250 MG In NS 262.5 / 262.5 Inj 250 ML @ 250 mls/hr IV.SIG Q12H ERNESTINE Rx#:[id number] Rocephin Inj 2,000 MG In NS Inj 100 / 100 100 ML @ 200 mls/hr IV.SIG Q24H ERNESTINE Rx#:[id number] Oral 1200 / 1200 Other: # Voids 800 Date of Last Bowel Movement 01/12/18 01/12/18 01/13/18 # Bowel Movements 1 Narrative: GENERAL: This is a well-nourished, well-developed patient, in no apparent distress. CARDIOVASCULAR: Regular rate and rhythm . S1, S2 NO S3 OR S4 RESPIRATORY: Clear to auscultation. Breath sounds equal bilaterally. No wheezes , rales, or rhonchi. GASTROINTESTINAL: Abdomen soft, non-tender, nondistended. Normal active bowel sounds MUSCULOSKELETAL: Left hip bandage clean dry intact NEURO: Alert & Oriented x4 to person, place, time, situation. Moves all ext x4 Results - Labs CBC & Chem 7: 01/13/18 06:00 01/13/18 10:35 Laboratory Results - last 24 hr 01/13/18 01/13/18 06:00 10:35 WBC 8.4 RBC 3.07 L Hgb 8.2 L Hct 25.2 L MCV 82.3 MCH 26.8 L MCHC 32.6 RDW 19.0 H Plt Count 297 MPV 7.3 Neut % (Auto) 53.6 Lymph % (Auto) 23.0 [place] % (Auto) 7.2 Eos % (Auto) 15.7 H Baso % (Auto) 0.5 Neut # (Auto) 4.5 Lymph # (Auto) 1.9 [place] # (Auto) 0.6 Eos # (Auto) 1.3 H Baso # (Auto) 0.0 WBC Differential . Differential Comment Auto diff final Sodium 144 Potassium 3.9 Chloride 107 Carbon Dioxide 28.6 Anion Gap 8 BUN 6 L Creatinine 0.54 Estimated GFR Greater than 89 Random Glucose 118 H Calcium 8.3 L Phosphorus 3.4 Magnesium 1.9 Total Bilirubin 0.2 AST 15 ALT 13 Alkaline Phosphatase 120 H Total Protein 5.7 L D Albumin 2.2 L Vancomycin Trough 6.7 - Imaging Chest X-Ray 01/05/18 00:00 CONCLUSION: Interval placement of left internal jugular central venous line with no pneumothorax.. Chest X-Ray 01/05/18 13:00 CONCLUSION: No acute cardiopulmonary findings. Head CT 01/05/18 13:08 CONCLUSION: 1. Acute sinusitis, left sphenoid. 2. Otherwise negative. . Hip X-Ray 01/05/18 13:10 CONCLUSION: Orthopedic hardware in good position. Degenerative changes in the sacroiliac joints and the right hip. No acute bony abnormality. WBC Scan Nuclear Medicine 01/06/18 00:00 CONCLUSION: Negative scan Hip X-Ray 01/07/18 12:53 CONCLUSION: Satisfactory appearance post left ANNETTE revision - Procedures 815repeat resection arthroplasty with insertion of cement spacer 813 left IJ central line Assessment and Plan - Assessment (1) Septic hip Code(s): M00.9 - Pyogenic arthritis, unspecified Status: Acute - Plan 62-year-old white female presented with septic shock from septic left hip Septic left hip/ Hypotension, septic shock S/p Levophed. EKG revealed incomplete right bundle branch block; Sinus tachycardia. Orthopedic surgery and ID consults appreciated. Status post repeat resection arthroplasty with insertion of cement spacer on . Strep viridans growing from wound. -antibiotics per ID. Await final wound cultures. Discussed with Dr. Carballo likely will need 6 weeks of IV antibiotics currently on ceftriaxone. -follow up with orthopedic surgery. -pain control as needed. -rehab efforts. Will need home with [facility]. With IV antibiotics -incentive spirometry. -case management consult. Normocytic anemia S/p transfusion of two units of red cells. Her hemoglobin 7.7 -follow CBC and transfuse as needed. -check Hemoccult. Hyponatremia/ Hypomagnesia Resolved. -Replace electrolytes as clinically indicated per ICU electrolyte protocol. Prophylaxis -GI -pantoprazole -DVT-SCD/heparin subcu Discharge Planning: Home Health Care with PICC line and IV abx AM LABS [facility] HOME TOMORROW Code Status: FULL CODE Discussed Condition With: KONSTANTIN RN AND PT AND CM Discharge Planning: HAS PICC ANTIBIOTICS SET UP
--- NOTE | 2018-01-13 15:15 | P.DS ---
Date of admission: 01/05/18 15:30 Primary care physician: Parisa Bundy DO Attending physician on discharge: Fabien Lao Anticipated date of discharge: 01/13/18 Brief History from admission: 61 WF being admitted for septic shock. Patient was in her usual state of health until a few days ago to be experiencing worsening left hip pain. Pain was worse with ambulation and weight-bearing. This morning patient was experiencing profound intermittent fever and chills. Family thought that she had some altered mental status and thats brought her to the emergency department. Patient herself denies having any shortness of breath or new cough. Denies having any diarrhea, does report having some nausea and vomiting, non-bloody emesis. In the ER the patient had a temperature of 102.8 and tachycardia w/ lactate > 3. White count was elevated at 22k with the bandemia present. EKG shows sinus tachycardia. Bc's obtained, started on vancomcyin and zosyn. DS: Diagnosis - Discharge Diagnosis (1) Septic hip Status: Acute (2) S/P total hip arthroplasty Status: Acute (3) Osteoarthritis Status: Chronic (4) Chronic pain Status: Chronic DS: Medications - Discharge Medications Prescriptions: aspirin 325 mg PO BID #60 tab hydrocodone-acetaminophen 1 tab PO Q4H PRN #28 tab PRN Reason: Pain omeprazole 20 mg PO DAILY #30 cap sennosides-docusate sodium [Senna Plus] 2 tab PO BID #120 tab DS: Summary Hospital Course: 01/05: This is a 62-year-old female. Date of admission 01/05/2018. Date of consultation 01/05/2018. Past medical history includes morbid obesity, hard of hearing, gastroesophageal reflux disease, osteomyelitis, chronic narcotic use. Patient is a 2 day history of not feeling with left hip pain/ drainage from left hip. Patient was originally admitted to the hospital service with consultation infectious disease and orthopedics. On 09/09/2017, the patient had left hip resection with cement spacer. The hospitalization was complicated by an ileus and urinary retention. Patient was eventually sent to rehab later that month. Since that time, she has had 2 additional hip surgeries In the ED, patient received 3 L normal saline. Lactic acid 3.6 for leukocytosis of 22,000. Despite that, patient remained hypotensive requiring vasopressors. Patient currently norepinephrine drip at 8 mcg/min. Lactic acid is currently 2.6. Patient does not appear septic. There is small serosanguineous drainage to the incision from left hip site from previous surgery. She is currently pleasant awake and alert and oriented to person place and time. 01/06: Resting comfortably in bed. Remains on Levophed. 01/07: Resting comfortably in bed. Complaining of headache this morning. Levophed at 2 mics per minute at the time of my evaluation this morning and was turned off. 01/08: Underwent repeat resection arthroplasty with insertion of cement spacer under general anesthesia on 01/07. Tolerated procedure well was subsequently extubated and transferred back to the ICU. She has remained off pressors since yesterday morning. On morphine [employer] currently. Drowsy, easily arousable, on nasal cannula. Complaining of pain at surgical site. 01-09 The patient was resting comfortably in bed. She said she has not been eating that much. She said that she has not been ambulating lately, she otherwise feels better. She says her pain is well controlled. Discussed with nursing. 01-10 The pt was anxious to go home. She complained of chronic pain. She denied any acute complaints. She endorsed decreased appetite. TRANSFUSED 1 UNIT PRBC 01-11 Complained of left hip pain 01-[address] CARBALLO, NEEDS PICC LINE AWAIT ORDERS FROM DR CARBALLO FOR DC HOPEFULLY DC TO HOME TODAY WITH [facility] FOR ANTIBIOTICS PER DR CARBALLO NEEDS ACCESS FOR DC- PICC LINE? 01-[address] CARBALLO DC TO HOME ON ROCEPHIN 2 GRAMS IV DAILY FOLLOW UP WITH DR PLATA FOLLOW UP PCP FOLLOW UP DR GONZALEZ HAS PICC LINE E- FORCSE VISUALIZED HAS BEEN GIVEN [place] LAST MONTH BY DR GONZALEZ WILL GIVE 1 WEEK OF MEDS - Time Spent with Patient Total time spent providing and/or coordinating discharge services: Greater than 30 minutes - Quality: VTE Deep Vein Thrombosis/Pulmonary Embolism Present on Admission: No Exam Vital signs: Vital Signs 01/12/18 16:00 01/12/18 20:00 01/13/18 04:00 Temperature 98.5 F 98.7 F Pulse Rate 78 76 Respiratory Rate Blood Pressure 176/82 H 150/68 H Pulse Oximetry 95 96 01/13/18 08:00 01/13/18 12:00 01/13/18 12:27 Temperature 98.7 F 98.6 F Pulse Rate 68 68 Respiratory Rate 16 14 Blood Pressure 176/79 H 172/77 H Pulse Oximetry 98 95 94 L Intake & Output 01/12/18 01/13/18 01/13/18 18:59 06:59 18:59 Intake Total 1562.5 / 1562.5 1100 / 1100 Balance 1562.5 / 1562.5 1100 / 1100 Weight 105.9 kg Intake: IV 362.5 / 362.5 1100 / 1100 NS Inj 1,000 ML @ 84 mls/hr IV. 1000 / 1000 CONT .[id number] ERNESTINE Rx#:[id number] Merrem Inj 1,000 MG In NS Inj 100 / 100 100 ML @ 200 mls/hr IV.SIG Q8H ERNESTINE Rx#:[id number] Vancomycin Inj 1,250 MG In NS 262.5 / 262.5 Inj 250 ML @ 250 mls/hr IV.SIG Q12H ERNESTINE Rx#:[id number] Rocephin Inj 2,000 MG In NS Inj 100 / 100 100 ML @ 200 mls/hr IV.SIG Q24H ERNESTINE Rx#:[id number] Oral 1200 / 1200 Other: # Voids 800 Date of Last Bowel Movement 01/12/18 01/12/18 01/13/18 # Bowel Movements 1 Narrative: GENERAL: This is a well-nourished, well-developed patient, in no apparent distress. CARDIOVASCULAR: Regular rate and rhythm . S1, S2 NO S3 OR S4 RESPIRATORY: Clear to auscultation. Breath sounds equal bilaterally. No wheezes , rales, or rhonchi. GASTROINTESTINAL: Abdomen soft, non-tender, nondistended. Normal active bowel sounds MUSCULOSKELETAL: Left hip bandage clean dry intact NEURO: Alert & Oriented x4 to person, place, time, situation. Moves all ext x4 Results Procedures completed during hospitalization: 815repeat resection arthroplasty with insertion of cement spacer 813 left IJ central line Completed studies during hospitalization: Laboratory Results WBC 8.4 th/mm3 (4.0-11.0) 01/13/18 06:00 RBC 3.07 mil/mm3 (4.00-5.30) L 01/13/18 06:00 Hgb 8.2 gm/dL (11.6-15.3) L 01/13/18 06:00 Hct 25.2 % (35.0-46.0) L 01/13/18 06:00 MCV 82.3 fL (80.0-100.0) 01/13/18 06:00 MCH 26.8 pg (27.0-34.0) L 01/13/18 06:00 MCHC 32.6 % (32.0-36.0) 01/13/18 06:00 RDW 19.0 % (11.6-17.2) H 01/13/18 06:00 Plt Count 297 th/mm3 (150-450) 01/13/18 06:00 MPV 7.3 fL (7.0-11.0) 01/13/18 06:00 Prelim Diff (Auto) Slide review pending 01/11/18 04:18 Neut % (Auto) 53.6 % (16.0-70.0) 01/13/18 06:00 Lymph % (Auto) 23.0 % (9.0-44.0) 01/13/18 06:00 [place] % (Auto) 7.2 % (0.0-8.0) 01/13/18 06:00 Eos % (Auto) 15.7 % (0.0-4.0) H 01/13/18 06:00 Baso % (Auto) 0.5 % (0.0-2.0) 01/13/18 06:00 Neut # (Auto) 4.5 th/mm3 (1.8-7.7) 01/13/18 06:00 Lymph # (Auto) 1.9 th/mm3 (1.0-4.8) 01/13/18 06:00 [place] # (Auto) 0.6 th/mm3 (0.0-0.9) 01/13/18 06:00 Eos # (Auto) 1.3 th/mm3 (0.0-0.4) H 01/13/18 06:00 Baso # (Auto) 0.0 th/mm3 (0.0-0.2) 01/13/18 06:00 WBC Differential . 01/13/18 06:00 Diff Scan Auto diff confirmed 01/11/18 04:18 Seg Neuts % (Manual) 80 % (16-70) H 01/05/18 13:10 Band Neuts % (Manual) 9 % (0-6) H 01/05/18 13:10 Lymphocytes % (Manual) 7 % (9-44) L 01/05/18 13:10 Monocytes % (Manual) 3 % (0-8) 01/05/18 13:10 Myelocytes % (Man) 1 % (0-0) H 01/05/18 13:10 Abs Neuts (Manual) 20.2 th/mm3 (1.8-7.7) H 01/05/18 13:10 Differential Comment Auto diff final 01/13/18 06:00 Platelet Estimate Normal (Normal) 01/05/18 13:10 Platelet Morphology Normal (Normal) 01/05/18 13:10 Stomatocytes 2+ (None) H 01/05/18 13:10 ESR 42 mm/hr (0-30) H 01/05/18 13:10 PT 11.0 sec (9.8-11.6) 01/06/18 06:45 INR 1.1 Ratio 01/06/18 06:45 APTT 19.5 sec (24.3-30.1) L 01/06/18 06:45 Sodium 144 meq/L (136-145) 01/13/18 10:35 Potassium 3.9 meq/L (3.5-5.1) 01/13/18 10:35 Chloride 107 meq/L (98-107) 01/13/18 10:35 Carbon Dioxide 28.6 meq/L (21.0-32.0) 01/13/18 10:35 Anion Gap 8 meq/L (5-15) 01/13/18 10:35 BUN 6 mg/dL (7-18) L 01/13/18 10:35 Creatinine 0.54 mg/dL (0.50-1.00) 01/13/18 10:35 Estimated GFR Greater than 89 mL/min (>89) 01/13/18 10:35 POC Glucose 139 mg/dl (68-110) H 01/10/18 22:07 Random Glucose 118 mg/dL (74-106) H 01/13/18 10:35 Lactic Acid 1.4 mmol/L (0.4-2.0) 01/06/18 02:01 Calcium 8.3 mg/dL (8.5-10.1) L 01/13/18 10:35 Phosphorus 3.4 mg/dL (2.5-4.9) 01/13/18 10:35 Magnesium 1.9 mg/dL (1.5-2.5) 01/13/18 10:35 Total Bilirubin 0.2 mg/dL (0.2-1.0) 01/13/18 10:35 Direct Bilirubin 0.1 mg/dL (0.0-0.2) 01/10/18 04:45 Indirect Bilirubin 0.1 mg/dL (0.0-0.8) 01/10/18 04:45 AST 15 U/L (15-37) 01/13/18 10:35 ALT 13 U/L (10-53) 01/13/18 10:35 Alkaline Phosphatase 120 U/L (45-117) H 01/13/18 10:35 Total Creatine Kinase 46 U/L (26-192) 01/06/18 02:01 Troponin I Less than 0.02 ng/mL (0.02-0.05) L 01/06/18 02:01 C-Reactive Protein 3.32 mg/dL (0.00-0.30) H 01/05/18 13:10 Total Protein 5.7 g/dL (6.4-8.2) L D 01/13/18 10:35 Albumin 2.2 g/dL (3.4-5.0) L 01/13/18 10:35 Lipase 78 U/L (73-393) 01/05/18 13:10 Urine Color Yellow (Yellw/Straw) 01/05/18 13:15 Urine Clarity Clear (Clear) 01/05/18 13:15 Urine pH 5.0 (5.0-8.5) 01/05/18 13:15 Ur Specific [place] 1.013 (1.002-1.035) 01/05/18 13:15 Urine Protein Negative mg/dL (Neg-Trace) 01/05/18 13:15 Urine Glucose (UA) 50 mg/dL (Negative) 01/05/18 13:15 Urine Ketones Negative mg/dL (Negative) 01/05/18 13:15 Urine Occult Blood Small (Negative) H 01/05/18 13:15 Urine Nitrate Negative (Negative) 01/05/18 13:15 Urine Bilirubin Negative (Negative) 01/05/18 13:15 Urine Urobilinogen Less than 2 mg/dL (Less than 2) 01/05/18 13:15 Ur Leukocyte Esterase Negative (Negative) 01/05/18 13:15 Urine RBC 1 /hpf (0-3) 01/05/18 13:15 Urine WBC 1 /hpf (0-5) 01/05/18 13:15 Ur Squamous Epith Cells 1 /hpf (0-5) 01/05/18 13:15 Micro UA Comment Cath-culture not ind 01/05/18 13:15 Urine Culture Comments Cath-cult not ind 01/05/18 13:15 Nasal Screen MRSA (PCR) Not detected (Negative) 01/05/18 19:05 Vancomycin Trough 6.7 mcg/mL (5.0-10.0) 01/13/18 10:35 Blood Type O Positive 01/10/18 14:40 Antibody Screen Negative 01/10/18 14:40 MTS Gel Crossmatch See Detail 01/10/18 14:40 Impressions Chest X-Ray 01/05/18 13:00 CONCLUSION: No acute cardiopulmonary findings. Head CT 01/05/18 13:08 CONCLUSION: 1. Acute sinusitis, left sphenoid. 2. Otherwise negative. . WBC Scan Nuclear Medicine 01/06/18 00:00 CONCLUSION: Negative scan Hip X-Ray 01/07/18 12:53 CONCLUSION: Satisfactory appearance post left ANNETTE revision Labs on day of discharge: Labs from last 24 hours 01/13/18 01/13/18 10:35 06:00 WBC 8.4 RBC 3.07 L Hgb 8.2 L Hct 25.2 L MCV 82.3 MCH 26.8 L MCHC 32.6 RDW 19.0 H Plt Count 297 MPV 7.3 Neut % (Auto) 53.6 Lymph % (Auto) 23.0 [place] % (Auto) 7.2 Eos % (Auto) 15.7 H Baso % (Auto) 0.5 Neut # (Auto) 4.5 Lymph # (Auto) 1.9 [place] # (Auto) 0.6 Eos # (Auto) 1.3 H Baso # (Auto) 0.0 WBC Differential . Differential Comment Auto diff final Sodium 144 Potassium 3.9 Chloride 107 Carbon Dioxide 28.6 Anion Gap 8 BUN 6 L Creatinine 0.54 Estimated GFR Greater than 89 Random Glucose 118 H Calcium 8.3 L Phosphorus 3.4 Magnesium 1.9 Total Bilirubin 0.2 AST 15 ALT 13 Alkaline Phosphatase 120 H Total Protein 5.7 L D Albumin 2.2 L Vancomycin Trough 6.7 - Impressions ITS Impressions Chest X-Ray 01/05/18 13:00 CONCLUSION: No acute cardiopulmonary findings. Head CT 01/05/18 13:08 CONCLUSION: 1. Acute sinusitis, left sphenoid. 2. Otherwise negative. . WBC Scan Nuclear Medicine 01/06/18 00:00 CONCLUSION: Negative scan Hip X-Ray 01/07/18 12:53 CONCLUSION: Satisfactory appearance post left ANNETTE revision Discharge Plan - Discharge Disposition Patient Disposition: /Home Health Service - Discharge Condition Condition: Good - Discharge Order Discharge Orders: Discharge Order (Routine); Ordered 01/13/18 Ordered By: Fabien Lao - Discharge Details Anticipated Discharge Date: 01/13/18 Discharge Comment: dc to home with [facility] - Physicians Team Primary Care Provider: Parisa Bundy Attending Provider: Fabien Lao Other Providers: James Hernandez MD ; Franny Hernandez MD ; Robbin Gonzalez MD ; [employer]urance ; [facility], ; [facility]
== END 2018-01-13 17:47 | disposition home health service (06) ==
LOC: NEPC 12:39 → NEDA 15:30 → HIMC 17:23 → N05 01-10 15:05
PROVIDERS: ADMIT Hospitalist; ATTEND Hospitalist

== ENCOUNTER 2018-01-22 15:30 | Observation (INO) ==
--- NOTE | 2018-01-22 17:15 | ED ---
HPI General Chief complaint: Recheck/Abnormal Lab/Rx Stated complaint: right arm swelling Time Seen by Provider: 01/22/18 16:54 History of Present Illness HPI narrative: This is a 62-year-old female with a history of left hip infection with her second left hip spacer being placed secondary to joint infection, who presents after having an outpatient ultrasound of her right upper extremity showing DVT. The patient has a PICC line in place. She noted swelling and discomfort in the PICC line area and was scheduled for an outpatient ultrasound. She received a call stating that her ultrasound was positive for deep venous thrombosis and she was to come to the ER for admission. The patient denies any shortness of breath or cough. She denies any fevers, chills. She does report that the pain is a 4-5 out of 10 on the pain scale. She reports that she is receiving antibiotics at home for her MRSA ESBL infection. The patient has had 3 previous blood clots in her lower extremities. She is currently taking an aspirin and the antibiotic. Related Data Previous Rx's Medication Instructions Recorded aspirin 325 mg PO BID #60 tab 01/13/18 ceftriaxone 2,000 mg IV Q24H ea 01/13/18 hydrocodone-acetaminophen 1 tab PO Q4H PRN #28 tab 01/13/18 omeprazole 20 mg PO DAILY #30 cap 01/13/18 sennosides-docusate sodium [Senna 2 tab PO BID #120 tab 01/13/18 Plus] Allergies Allergy/AdvReac Type Severity Reaction Status Date / Time daptomycin Allergy Intermediate rash Verified 01/22/18 17:16 Review of Systems ROS: all other systems reviewed are negative Constitutional Denies chills and Denies fever(s) Eyes Reports system reviewed and no additional complaints, except [facility] E[facility] Reports system reviewed and no additional complaints, except as [facility] Cardiovascular Reports system reviewed and no additional complaints, except as [facility] Respiratory Denies cough and Denies dyspnea Gastrointestinal Denies abdominal pain, Denies nausea and Denies vomiting Genitourinary Denies hematuria and Denies dysuria Musculoskeletal Reports other (Pain and swelling of the right upper extremity) Integumentary/Breasts Reports system reviewed and no additional complaints, except as [facility] Neurologic Reports system reviewed and no additional complaints, except as [facility] Endocrine Reports system reviewed and no additional complaints, except as [facility] Social History Social History Substance History: No History of Abuse Second Hand Smoke Exposure: No Smoking Status: Current every day smoker Tobacco Type: Cigarettes How Often Do You Have a Drink Containing Alcohol: Monthly or less Recent Travel in [facility] within the Last 8 Weeks: No Recent Out of Country Travel within the Last 8 Weeks: No Immunization History Tetanus Immunization: <5 Years Hx Influenza Vaccine This Season: No Exam Narrative Exam Narrative: GENERAL: Well-developed well-nourished female in no acute respiratory distress. SKIN: Focused skin assessment warm/dry. HEAD: Atraumatic. Normocephalic. EYES: No scleral icterus. No injection or drainage. ENT: No nasal bleeding or discharge. Mucous membranes pink and moist. NECK: Trachea midline. Supple. CARDIOVASCULAR: Regular rate and rhythm. No murmur appreciated. RESPIRATORY: No accessory muscle use. Clear to auscultation. Breath sounds equal bilaterally. GASTROINTESTINAL: Abdomen soft, non-tender, nondistended. Hepatic and splenic margins not palpable. MUSCULOSKELETAL: No obvious deformities. Swelling and tenderness to the right upper extremity to the level of her PICC line which is in the right upper medial arm. NEUROLOGICAL: Awake and alert. No obvious cranial nerve deficits. Motor grossly within normal limits. Normal speech. 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 Patient has a DVT that was diagnosed at [facility]. She was sent here for admission and possible PICC line replacement. Patient denies any shortness of breath or chest pain. She is currently receiving IV antibiotics every 24 hours. Medical Screen Exam Complete: Yes Emergency Medical Condition: Yes Differential Diagnosis Differential Diagnosis: DVT versus superficial phlebitis versus cellulitis Lab Data Result diagrams: 01/22/18 17:30 01/22/18 17:30 Lab Results 01/22/18 01/22/18 01/22/18 Range/Units 17:30 17:30 17:30 WBC 8.8 (4.0-11.0) th/mm3 RBC 3.92 L (4.00-5.30) mil/mm3 Hgb 10.1 L (11.6-15.3) gm/dL Hct 30.6 L (35.0-46.0) % MCV 78.1 L (80.0-100.0) fL MCH 25.8 L (27.0-34.0) pg MCHC 33.0 (32.0-36.0) % RDW 20.3 H (11.6-17.2) % Plt Count 482 H (150-450) th/mm3 MPV 6.8 L (7.0-11.0) fL Neut % (Auto) 65.5 (16.0-70.0) % Lymph % (Auto) 20.5 (9.0-44.0) % [place] % (Auto) 7.4 (0.0-8.0) % Eos % (Auto) 3.9 (0.0-4.0) % Baso % (Auto) 2.7 H (0.0-2.0) % Neut # (Auto) 5.8 (1.8-7.7) th/mm3 Lymph # (Auto) 1.8 (1.0-4.8) th/mm3 [place] # (Auto) 0.7 (0.0-0.9) th/mm3 Eos # (Auto) 0.3 (0.0-0.4) th/mm3 Baso # (Auto) 0.2 (0.0-0.2) th/mm3 WBC Differential . Differential Comment Auto diff final PT 10.0 (9.8-11.6) sec INR 1.0 Ratio APTT 20.4 L (24.3-30.1) sec Sodium 140 (136-145) meq/L Potassium 3.9 (3.5-5.1) meq/L Chloride 104 (98-107) meq/L Carbon Dioxide 25.5 (21.0-32.0) meq/L Anion Gap 11 (5-15) meq/L BUN 8 (7-18) mg/dL Creatinine 0.58 (0.50-1.00) mg/dL Estimated GFR Greater than 89 (>89) mL/min Random Glucose 98 (74-106) mg/dL Calcium 9.8 (8.5-10.1) mg/dL Total Bilirubin 0.3 (0.2-1.0) mg/dL AST 16 (15-37) U/L ALT 13 (10-53) U/L Alkaline Phosphatase 134 H (45-117) U/L Total Protein 8.0 (6.4-8.2) g/dL Albumin 3.2 L (3.4-5.0) g/dL Discharge Plan Discharge Disposition Patient Disposition: 30 Still Patient Discharge Details Diagnosis: Acute deep vein thrombosis (DVT) of right upper extremity, Postoperative wound infection of left hip Physicians Team ED Provider: Caleb Angel Primary Care Provider: Parisa Bundy Attending Provider: Koby Nichole Status ED Status: Admitted Observation Patient
[2018-01-22 17:43] LABS: Baso # (Auto) 0.2 th/mm3 (0.0-0.2); Baso % (Auto) 2.7 % (0.0-2.0); Eos # (Auto) 0.3 th/mm3 (0.0-0.4); Eos % (Auto) 3.9 % (0.0-4.0); Hematocrit 30.6 % (35.0-46.0); Hemoglobin 10.1 gm/dL (11.6-15.3); Lymph # (Auto) 1.8 th/mm3 (1.0-4.8); Lymph % (Auto) 20.5 % (9.0-44.0); Mean Corpuscular Hemoglobin 25.8 pg (27.0-34.0); Mean Corpuscular Volume 78.1 fL (80.0-100.0); Mean Platelet Volume 6.8 fL (7.0-11.0); Mono # (Auto) 0.7 th/mm3 (0.0-0.9); Mono % (Auto) 7.4 % (0.0-8.0); Neut # (Auto) 5.8 th/mm3 (1.8-7.7); Neut % (Auto) 65.5 % (16.0-70.0); Platelet Count 482 th/mm3 (150-450); Red Blood Count 3.92 mil/mm3 (4.00-5.30); Red Cell Distribution Width 20.3 % (11.6-17.2); White Blood Count 8.8 th/mm3 (4.0-11.0)
[2018-01-22 18:01] LABS: Activated Partial Thrombo Time 20.4 sec (24.3-30.1)
[2018-01-22 18:06] LABS: Albumin 3.2 g/dL (3.4-5.0); Anion Gap 11 meq/L (5-15); Aspartate Aminotransferase 16 U/L (15-37); Blood Urea Nitrogen 8 mg/dL (7-18); Calcium 9.8 mg/dL (8.5-10.1); Carbon Dioxide 25.5 meq/L (21.0-32.0); Chloride 104 meq/L (98-107); Glomerular Filtration Rate Greater Than 89 mL/min (>89); Glucose,Random 98 mg/dL (74-106); Potassium 3.9 meq/L (3.5-5.1); Sodium 140 meq/L (136-145)
[2018-01-22 18:07] LABS: Alanine Aminotransferase 13 U/L (10-53)
[2018-01-22 18:09] LABS: Alkaline Phosphatase 134 U/L (45-117)
[2018-01-22] MEDS ORDERED: Bisacodyl 10 MG Supp RECTAL PRN (18:12)
[2018-01-22] MEDS ORDERED: Naloxone Inj 0.4 MG/ML Vial IV.PUSH PRN (18:24)
[2018-01-22] MEDS ORDERED: Acetaminophen 325 MG Tablet PO PRN (18:24)
[2018-01-22] MEDS ORDERED: Morphine Inj 4 MG/ML Vial IV.PUSH PRN (18:24)
[2018-01-22] MEDS ORDERED: Heparin 10,000 UNITS/10 ML Vial (for IV use) IV.PUSH STA (18:26)
[2018-01-22] MEDS ORDERED: CEFTRIAXONE 2000 MG IV.SIG SCH (18:30)
--- NOTE | 2018-01-22 18:41 | P.HP ---
History of Present Illness Service: Hospitalist Primary Care Physician: Parisa Bundy DO Chief Complaint: Right arm swelling History of Present Illness: Patient is a 62-year-old female with a past medical history of GERD, arthritis and chronic pain. She has a history of multiple left hip surgeries - she initially underwent total left hip arthroplasty in June 2017 for osteoarthritis which became infected. A subsequent resection arthroplasty was completed with insertion of a cement spacer. January 07, 2018 she will underwent her most recent surgery which was a resection arthroplasty and reinsertion of a spacer. Unfortunately she once again developed sepsis with an MRSA ESBL infection. She was discharged with a PICC line in her right upper arm for continued antibiotic therapy per ID. She tells me that she had been doing well up until recently when she noticed swelling in her arm. She has a prior history of multiple DVTs in her right leg over 20 years ago and was concerned that she developed another. She was evaluated at [facility] and instructed to go to the emergency room. When she was diagnosed with DVT 20 years ago she was briefly on Coumadin however she stopped it due to its inconvenience. Her only current anticoagulation is ASA 325 mg daily. She is seen lying on a stretcher in the emergency room. Tells me that she is comfortable and not experiencing any shortness of breath or chest pain. Her right arm is painful. Has good feeling in her fingers with no numbness or tingling. No lightheadedness or dizziness. No nausea or vomiting. She tells me that she was hungry and would like to have something for dinner. She has been relying on a wheelchair due to her continued hip pain. She tells me that she is able to get up to a bedside commode with assistance but prefers to use a bedpan. - Diagnosis (1) Acute deep vein thrombosis (DVT) of right upper extremity (2) Postoperative wound infection of left hip Review of Systems All other systems reviewed negative except as stated in HPI PMFSH - History History Provided By: Patient, Medical Record - Medical History Medical History: Medical History (Last Reviewed 01/22/18 @ 18:39 by DAMIAN Carrington) Arthritis Diminished hearing Fluid collection of middle ear Full dentures GERD (gastroesophageal reflux disease) History of MRSA infection Joint pain Murmur, cardiac Osteomyelitis - Surgical History Surgical History: Surgical History (Last Reviewed 01/22/18 @ 18:39 by DAMIAN Carrington) H/O arthroscopy of right knee History of bilateral carpal tunnel release History of cholecystectomy History of left hip replacement History of tubal ligation - Family History Family History: Family History (Last Reviewed 01/22/18 @ 18:38 by DAMIAN Carrington) Other Colon cancer Diabetes Lung cancer - Tobacco History Second Hand Smoke Exposure: No Tobacco Use In Past 30 Days: Yes Smoking Status: Current every day smoker Tobacco Type: Cigarettes - Alcohol History How Often Do You Have a Drink Containing Alcohol: Monthly or less - Substance Use History Substance History: No History of Abuse - Travel History Recent Travel in the [place] Within the Last 8 Weeks: No Recent Travel Out of the Country Within the Last 8 Weeks: No - Immunization History Tetanus Immunization: <5 Years Hx Influenza Vaccine This Season: No Medications and Allergies Active Medications: Active Medications Al Hydroxide/Mg Hydroxide (Milk Of Magnesia Liq) 30 ml PO Q12H PRN PRN Reason: Mild Constipation Bisacodyl (Dulcolax Supp) 10 mg RECTAL DAILY PRN PRN Reason: SEVERE CONSITIPATION Lactulose (Lactulose Liq) 30 ml PO DAILY PRN PRN Reason: SEVERE CONSITIPATION Non-Formulary Medication (Omeprazole [Omeprazole]) 20 mg PO DAILY ERNESTINE Non-Formulary Medication (Ceftriaxone [Ceftriaxone]) 2,000 mg IV.SIG Q24H ERNESTINE Ondansetron HCl (Zofran Inj) 4 mg IV.PUSH Q6H PRN PRN Reason: NAUSEA OR VOMITING Sennosides (Senokot) 17.2 mg PO Q12H PRN PRN Reason: Moderate Constipation Sodium Chloride (Ns Flush) 2 ml IV.FLUSH PRN PRN PRN Reason: FLUSH AFTER USING IV ACCESS Allergies Allergy/AdvReac Type Severity Reaction Status Date / Time daptomycin Allergy Intermediate rash Verified 01/22/18 17:16 Exam Vital signs: Vital Signs 01/22/18 15:36 01/22/18 17:46 Temperature 98.4 F Pulse Rate 97 H 90 Respiratory Rate 16 16 Blood Pressure 149/71 H 144/67 H Pulse Oximetry 97 98 Intake & Output 01/21/18 01/22/18 01/22/18 18:59 06:59 18:59 Weight 96.615 kg Narrative: GENERAL: Well-nourished, well-developed adult female in no obvious distress. SKIN: Warm and dry. Areas of ecchymosis on upper arms bilaterally. HEAD: Atraumatic. Normocephalic. CARDIOVASCULAR: Regular rate and rhythm. RESPIRATORY: No accessory muscle use. Clear to auscultation. Breath sounds equal bilaterally. GASTROINTESTINAL: Abdomen soft, non-tender, non-distended. Positive bowel sounds. MUSCULOSKELETAL: Right upper arm swelling from PICC site to fingers. Tender. Range of motion not examined. Fingers warm and well-perfused. All other extremities without clubbing, cyanosis, or edema. No obvious deformities. NEUROLOGICAL: Awake and alert. No obvious cranial nerve deficits. Motor grossly within normal limits. Normal speech. PSYCHIATRIC: Appropriate mood and affect; insight and judgment good. Results - Labs CBC & Chem 7: 01/22/18 17:30 01/22/18 17:30 Labs: Laboratory Results - last 24 hr 01/22/18 01/22/18 01/22/18 17:30 17:30 17:30 WBC 8.8 RBC 3.92 L Hgb 10.1 L Hct 30.6 L MCV 78.1 L MCH 25.8 L MCHC 33.0 RDW 20.3 H Plt Count 482 H MPV 6.8 L Neut % (Auto) 65.5 Lymph % (Auto) 20.5 [place] % (Auto) 7.4 Eos % (Auto) 3.9 Baso % (Auto) 2.7 H Neut # (Auto) 5.8 Lymph # (Auto) 1.8 [place] # (Auto) 0.7 Eos # (Auto) 0.3 Baso # (Auto) 0.2 WBC Differential . Differential Comment Auto diff final PT 10.0 INR 1.0 APTT 20.4 L Sodium 140 Potassium 3.9 Chloride 104 Carbon Dioxide 25.5 Anion Gap 11 BUN 8 Creatinine 0.58 Estimated GFR Greater than 89 Random Glucose 98 Calcium 9.8 Total Bilirubin 0.3 AST 16 ALT 13 Alkaline Phosphatase 134 H Total Protein 8.0 Albumin 3.2 L Caprini VTE Risk Assessment Caprini VTE Risk Assessment: Moderate/High Risk (score >= 2) Caprini Risk Assessment Model: Point Value = 1 Point Value = 2 Point Value = 3 Point Value = 5 Age 41-60 Minor surgery BMI > 25 kg/m2 Swollen legs Varicose veins or History of unexplained or recurrent spontaneous Oral contraceptives or hormone replacement Sepsis (< 1 month) Serious lung disease, including pneumonia (< 1 month) Abnormal pulmonary function Acute myocardial infarction Congestive heart failure (< 1 month) History of inflammatory bowel disease Medical patient at bed rest Age 61-74 Arthroscopic surgery Major open surgery (> 45 min) Laparoscopic surgery (> 45 min) Malignancy Confined to bed (> 72 hours) Immobilizing plaster cast Central venous access Age >= 75 History of VTE Family history of VTE Factor V Leiden Prothrombin [id number] Lupus anticoagulant Anticardiolipin antibodies Elevated serum homocysteine Heparin-induced thrombocytopenia Other congenital or acquired thrombophilia Stroke (< 1 month) Elective arthroplasty Hip, pelvis, or leg fracture Acute spinal cord injury (< 1 month) Prophylaxis Regimen: Total Risk Factor Score Risk Level Prophylaxis Regimen 0-1 Low Early ambulation 2 Moderate Order ONE of the following: *Sequential Compression Device (SCD) *Heparin 5000 units SQ BID 3-4 Higher Order ONE of the following medications: *Heparin 5000 units SQ TID *Enoxaparin/Lovenox 40 mg SQ daily (WT < 150 kg, CrCl > 30 mL/min) *Enoxaparin/Lovenox 30 mg SQ daily (WT < 150 kg, CrCl > 10-29 mL/min) *Enoxaparin/Lovenox 30 mg SQ BID (WT < 150 kg, CrCl > 30 mL/min) AND/OR *Sequential Compression Device (SCD) 5 or more Highest Order ONE of the following medications: *Heparin 5000 units SQ TID (Preferred with Epidurals) *Enoxaparin/Lovenox 40 mg SQ daily (WT < 150 kg, CrCl > 30 mL/min) *Enoxaparin/Lovenox 30 mg SQ daily (WT < 150 kg, CrCl > 10-29 mL/min) *Enoxaparin/Lovenox 30 mg SQ BID (WT < 150 kg, CrCl > 30 mL/min) AND *Sequential Compression Device (SCD) Assessment and Plan - Assessment (1) Acute deep vein thrombosis (DVT) of right upper extremity Code(s): I82.621 - Acute embolism and thrombosis of deep veins of right upper extremity Status: Acute (2) Postoperative wound infection of left hip Code(s): T81.4XXA - Infection following a procedure, initial encounter; B99.9 - Unspecified infectious disease Status: Acute - Plan Patient is a 62-year-old female with a past medical history of GERD, arthritis and chronic pain. She has a history of multiple left hip surgeries - January 07, 2018 she will underwent her most recent surgery which was a resection arthroplasty and reinsertion of a spacer. Post surgery she developed sepsis with an MRSA ESBL infection. Discharged with a PICC line in her right upper arm for continued antibiotic therapy per ID. Pt noticed swelling in her arm and was evaluated at [facility] and instructed to go to the emergency room. Reports history of DVT in rt leg 20 years ago; briefly on Coumadin however she stopped it due to its inconvenience. Her only current anticoagulation is ASA 325 mg daily. DVT -right arm -Continue PICC per IR. -Start heparin drip per protocol -Monitor sats; monitor APTT and CBC Postoperative wound infection of left hip -Continue Rocephin 2 g daily -Monitor for sepsis Left hip pain/reduced mobility -PT eval ordered DVT prophylactic: On heparin gtt Discussed with: Patient, nurse, Dr. Nichole (1) Acute deep vein thrombosis (DVT) of right upper extremity Qualifiers: Affected thrombotic vein of extremity: unspecified vein of extremity Qualified Code(s): I82.621 - Acute embolism and thrombosis of deep veins of right upper extremity (2) Postoperative wound infection of left hip Qualifiers: Encounter type: sequela Qualified Code(s): T81.4XXS - Infection following a procedure, sequela; B99.9 - Unspecified infectious disease
--- NOTE | 2018-01-22 19:35 | XR ---
EXAM DATE: 01/22/2018 7:05 PM EDT AGE/SEX: 62 years / Female INDICATIONS: Short of breath. CLINICAL DATA: This is the patient's initial encounter. Patient reports that signs and symptoms have been present for 2 days and indicates a pain score of 0/10. MEDICAL/SURGICAL HISTORY: . Carcinoma, lung. DVT. Gastroesophageal reflux disease. Diabetes me llitus type II. . Tubal ligation. Cholecystectomy. Left hip replacement. . COMPARISON: [facility], CHEST 1V SINGLE AP, 01/05/2018. . FINDINGS: The heart size is normal. There is minimal increased linear density at the left lateral base. There a re lungs are otherwise clear. There is a PICC line in place from the right arm with the tip overlying the SVC. CONCLUSION: PICC line in good position. Minimal suspected atelectasis or scarring at the left lateral base. Electronically signed by: Martir Guillory MD 01/22/2018 7:34 PM EDT
[2018-01-22] MEDS: Heparin Drip 25,000 UNIT/250 ML BAG IV.CONT PRN (20:09)
[2018-01-22 22:52] VITALS: RESP 18
[2018-01-23 07:03] LABS: Hematocrit 28.5 % (35.0-46.0); Hemoglobin 9.2 gm/dL (11.6-15.3); Mean Corpuscular HGB Conc 32.1 % (32.0-36.0); Mean Corpuscular Hemoglobin 25.6 pg (27.0-34.0); Mean Corpuscular Volume 79.6 fL (80.0-100.0); Mean Platelet Volume 7.2 fL (7.0-11.0); Platelet Count 441 th/mm3 (150-450); Red Blood Count 3.58 mil/mm3 (4.00-5.30); Red Cell Distribution Width 19.8 % (11.6-17.2); White Blood Count 7.9 th/mm3 (4.0-11.0)
[2018-01-23] MEDS: Pantoprazole Sodium 20 MG DR Tablet PO SCH (08:04)
[2018-01-23] MEDS: Heparin Drip 25,000 UNIT/250 ML BAG IV.CONT PRN (11:00)
--- NOTE | 2018-01-23 15:47 | P.PNIM ---
Subjective Interval history: Patient reports some moderate relief in her pain and swelling related to her right upper extremity DVT. Vascular team recommends keeping PICC line in place since it is not occluded. Treat DVT. Physical Exam Vital signs: Vital Signs 01/22/18 17:46 01/22/18 22:10 01/23/18 00:00 Temperature 98.4 F 98.6 F Pulse Rate 90 80 Respiratory Rate 16 18 18 Blood Pressure 144/67 H 158/71 H 144/69 H Pulse Oximetry 98 92 L 94 L 01/23/18 04:00 01/23/18 08:00 01/23/18 09:00 Temperature 97.9 F 99 F Pulse Rate 79 71 72 Respiratory Rate 18 18 Blood Pressure 126/56 L 118/58 L Pulse Oximetry 93 L 91 L 01/23/18 12:00 Temperature Pulse Rate 65 Respiratory Rate Blood Pressure Pulse Oximetry Intake & Output 01/22/18 01/23/18 01/23/18 18:59 06:59 18:59 Intake Total 580 / 580 250 / 250 Output Total 300 / 300 Balance 280 / 280 250 / 250 Weight 96.615 kg 97.2 kg Intake: IV 100 / 100 250 / 250 Heparin/D5W 25,000 U/250 mL 25, 250 / 250 000 unit In 250 ml @ Per Protocol 17 mls/hr IV.CONT TITRATE PRN Rx#:[id number] Rocephin Inj 2,000 MG In NS Inj 100 / 100 100 ML @ 200 mls/hr IV.SIG Q24H ERNESTINE Rx#:[id number] Oral 480 / 480 Output: Urine 300 / 300 Other: # Bowel Movements 0 Weight On Admission 95.6 kg Narrative: GENERAL: AAOx3, no acute distress, obese SKIN: Warm and dry. No rashes HEAD: Atruamtic, normocephalic. EYES: No scleral icterus. No injection or drainage. ENT: Moist mucous membranes, patent nares, no erythema of oropharynx. NECK: Supple, trachea midline. No JVD or lymphadenopathy. Normal thyroid. CARDIOVASCULAR: Regular rate and rhythm. No murmurs, gallops, or rubs. RESPIRATORY: Breath sounds clear equal bilaterally. No crackles or wheezes. No accessory muscle use. GASTROINTESTINAL: Abdomen soft, non-tender, nondistended, normal active bowel sounds MUSCULOSKELETAL: Erythema and edema and warmth in right upper extremity near axilla with some nonpitting edema extending to forearm and hand NEURO: CN II-XII grossly intact, no focal deficits, no slurring of speech Results - Labs CBC & Chem 7: 01/23/18 06:30 01/22/18 17:30 Laboratory Results - last 24 hr 01/22/18 01/22/18 01/22/18 17:30 17:30 17:30 WBC 8.8 RBC 3.92 L Hgb 10.1 L Hct 30.6 L MCV 78.1 L MCH 25.8 L MCHC 33.0 RDW 20.3 H Plt Count 482 H MPV 6.8 L Neut % (Auto) 65.5 Lymph % (Auto) 20.5 [place] % (Auto) 7.4 Eos % (Auto) 3.9 Baso % (Auto) 2.7 H Neut # (Auto) 5.8 Lymph # (Auto) 1.8 [place] # (Auto) 0.7 Eos # (Auto) 0.3 Baso # (Auto) 0.2 WBC Differential . Differential Comment Auto diff final PT 10.0 INR 1.0 APTT 20.4 L Sodium 140 Potassium 3.9 Chloride 104 Carbon Dioxide 25.5 Anion Gap 11 BUN 8 Creatinine 0.58 Estimated GFR Greater than 89 Random Glucose 98 Calcium 9.8 Total Bilirubin 0.3 AST 16 ALT 13 Alkaline Phosphatase 134 H Total Protein 8.0 Albumin 3.2 L 01/22/18 01/23/18 01/23/18 19:35 00:00 06:30 WBC 7.9 RBC 3.58 L Hgb 9.2 L Hct 28.5 L MCV 79.6 L MCH 25.6 L MCHC 32.1 RDW 19.8 H Plt Count 441 MPV 7.2 Neut % (Auto) Lymph % (Auto) [place] % (Auto) Eos % (Auto) Baso % (Auto) Neut # (Auto) Lymph # (Auto) [place] # (Auto) Eos # (Auto) Baso # (Auto) WBC Differential Differential Comment PT Cancelled INR Cancelled APTT Cancelled 64.0 H D Sodium Potassium Chloride Carbon Dioxide Anion Gap BUN Creatinine Estimated GFR Random Glucose Calcium Total Bilirubin AST ALT Alkaline Phosphatase Total Protein Albumin 01/23/18 06:35 WBC RBC Hgb Hct MCV MCH MCHC RDW Plt Count MPV Neut % (Auto) Lymph % (Auto) [place] % (Auto) Eos % (Auto) Baso % (Auto) Neut # (Auto) Lymph # (Auto) [place] # (Auto) Eos # (Auto) Baso # (Auto) WBC Differential Differential Comment PT INR APTT 45.4 H D Sodium Potassium Chloride Carbon Dioxide Anion Gap BUN Creatinine Estimated GFR Random Glucose Calcium Total Bilirubin AST ALT Alkaline Phosphatase Total Protein Albumin - Imaging Impressions Chest X-Ray 01/22/18 00:00 CONCLUSION: PICC line in good position. Minimal suspected atelectasis or scarring at the left lateral base. Assessment and Plan - Assessment (1) Acute deep vein thrombosis (DVT) of right upper extremity Code(s): I82.621 - Acute embolism and thrombosis of deep veins of right upper extremity Status: Acute (2) Postoperative wound infection of left hip Code(s): T81.4XXA - Infection following a procedure, initial encounter; B99.9 - Unspecified infectious disease Status: Acute - Plan 62-year-old female who presented with DVT in her right upper arm, PICC line in place in that area DVT -right arm Continue PICC per IR. Continue heparin drip per protocol Patient had some relief overnight Continue to follow on telemetry Postoperative wound infection of left hip Continue Rocephin [address] in [address] Left hip pain/reduced mobility Continue PT DVT Prophylaxis Heparin (1) Acute deep vein thrombosis (DVT) of right upper extremity Qualifiers: Affected thrombotic vein of extremity: unspecified vein of extremity Qualified Code(s): I82.621 - Acute embolism and thrombosis of deep veins of right upper extremity (2) Postoperative wound infection of left hip Qualifiers: Encounter type: sequela Qualified Code(s): T81.4XXS - Infection following a procedure, sequela; B99.9 - Unspecified infectious disease
[2018-01-23 22:22] LABS: Bacteria,Urine Few /hpf; Bilirubin,Urine Negative (Negative); Clarity,Urine Clear (Clear); Color,Urine Yellow (Yellw/Straw); Glucose,Urine (UA) Negative (Negative); Leukocyte Esterase,Urine Trace (Negative); Nitrite,Urine Negative (Negative); Specific Gravity,Urine 1.012 (1.002-1.035); Squamous Epithelial Cell,Urine 3 /hpf (0-5)
[2018-01-24] MEDS: Heparin Drip 25,000 UNIT/250 ML BAG IV.CONT PRN (01:31)
[2018-01-24 05:39] LABS: Hematocrit 27.8 % (35.0-46.0); Hemoglobin 9.1 gm/dL (11.6-15.3); Mean Corpuscular HGB Conc 32.6 % (32.0-36.0); Mean Corpuscular Hemoglobin 25.2 pg (27.0-34.0); Mean Corpuscular Volume 77.4 fL (80.0-100.0); Mean Platelet Volume 7.1 fL (7.0-11.0); Platelet Count 394 th/mm3 (150-450); Red Blood Count 3.59 mil/mm3 (4.00-5.30); Red Cell Distribution Width 19.6 % (11.6-17.2); White Blood Count 6.7 th/mm3 (4.0-11.0)
[2018-01-24] MEDS: Pantoprazole Sodium 20 MG DR Tablet PO SCH (08:15)
[2018-01-24 09:20] VITALS: BP 138/66; PULSE 73; TEMP 98.2; O2SAT 94
--- NOTE | 2018-01-24 12:01 | P.DCO ---
- Physical Therapy Order: Evaluate and treat - Home Health Nursing Order: Medical education, Signs/symptoms of disease process, Wound care and dressing changes, IV medication administration (Resume Rocephin home dosing ) - Certification I have seen patient Ana Cristina Patino on 01/24/18. My clinical findings support the need for the requested home health care services because: Limited mobility due to disease progression, Deconditioned with increased weakness, Limited ability to care for self I certify that my clinical findings support that this patient is homebound because: Post-op weakness, Unsteady gait/balance, Unsafe to leave home unassisted, Unable to use public transportation
--- NOTE | 2018-01-24 12:05 | P.DS ---
Date of admission: 01/22/18 17:50 Primary care physician: Parisa Bundy DO Brief History from admission: Patient is a 62-year-old female with a past medical history of GERD, arthritis and chronic pain. She has a history of multiple left hip surgeries - she initially underwent total left hip arthroplasty in June 2017 for osteoarthritis which became infected. A subsequent resection arthroplasty was completed with insertion of a cement spacer. January 07, 2018 she will underwent her most recent surgery which was a resection arthroplasty and reinsertion of a spacer. Unfortunately she once again developed sepsis with an MRSA ESBL infection. She was discharged with a PICC line in her right upper arm for continued antibiotic therapy per ID. She tells me that she had been doing well up until recently when she noticed swelling in her arm. She has a prior history of multiple DVTs in her right leg over 20 years ago and was concerned that she developed another. She was evaluated at [facility] and instructed to go to the emergency room. When she was diagnosed with DVT 20 years ago she was briefly on Coumadin however she stopped it due to its inconvenience. Her only current anticoagulation is ASA 325 mg daily. She is seen lying on a stretcher in the emergency room. Tells me that she is comfortable and not experiencing any shortness of breath or chest pain. Her right arm is painful. Has good feeling in her fingers with no numbness or tingling. No lightheadedness or dizziness. No nausea or vomiting. She tells me that she was hungry and would like to have something for dinner. She has been relying on a wheelchair due to her continued hip pain. She tells me that she is able to get up to a bedside commode with assistance but prefers to use a bedpan. DS: Diagnosis - Discharge Diagnosis (1) Acute deep vein thrombosis (DVT) of right upper extremity Status: Acute (2) Postoperative wound infection of left hip Status: Acute DS: Medications - Discharge Medications Prescriptions: apixaban [Eliquis] 5 mg PO BID 30 Days #74 tab DS: Summary Hospital Course: 62-year-old female who was admitted for DVT in the right upper arm. This was associated with PICC line, she has been receiving Rocephin at home for a right hip infection with spacer placed. The arm swelling has reduced over the last 2 days and today she feels comfortable, able to move and use the right arm. She is requesting to go home. I explained that she will need to be on Eliquis likely for more than a year, or at least until she is able to ambulate and move her body without being held back from her right hip. Eliquis is to begin tomorrow to allow heparin drip to taper. The DVT will take approximately 6 months minimal treatment to dissolve. She is instructed to follow-up with infectious disease, and her primary care provider. - Time Spent with Patient Total time spent providing and/or coordinating discharge services: Less than 30 minutes Exam Vital signs: Vital Signs 01/23/18 16:00 01/23/18 19:50 01/23/18 20:00 Temperature 97.9 F 98.1 F Pulse Rate 83 90 79 Respiratory Rate 18 18 Blood Pressure 145/62 H 138/63 Pulse Oximetry 95 96 01/23/18 23:40 01/24/18 00:00 01/24/18 03:45 Temperature 98.1 F Pulse Rate 99 H 69 71 Respiratory Rate 18 Blood Pressure 151/74 H Pulse Oximetry 98 01/24/18 04:00 01/24/18 08:00 Temperature 98 F 98.2 F Pulse Rate 69 73 Respiratory Rate 18 18 Blood Pressure 134/68 138/66 Pulse Oximetry 95 94 L Intake & Output 01/23/18 01/24/18 01/24/18 18:59 06:59 18:59 Intake Total 250 / 250 661 / 661 Output Total 760 / 760 Balance 250 / 250 -99 / -99 Weight 98.2 kg Intake: IV 250 / 250 421 / 421 Heparin/D5W 25,000 U/250 mL 25, 250 / 250 321 / 321 000 unit In 250 ml @ Per Protocol 17 mls/hr IV.CONT TITRATE PRN Rx#:[id number] Rocephin Inj 2,000 MG In NS Inj 100 / 100 100 ML @ 200 mls/hr IV.SIG Q24H ERNESTINE Rx#:[id number] Oral 240 / 240 Output: Urine 760 / 760 Other: Date of Last Bowel Movement 01/24/18 01/24/18 # Bowel Movements 1 Results Procedures completed during hospitalization: none Labs on day of discharge: Labs from last 24 hours 01/24/18 01/24/18 01/23/18 05:05 05:05 21:50 WBC 6.7 RBC 3.59 L Hgb 9.1 L Hct 27.8 L MCV 77.4 L MCH 25.2 L MCHC 32.6 RDW 19.6 H Plt Count 394 MPV 7.1 APTT 32.5 H D Urine Color Yellow Urine Clarity Clear Urine pH 6.0 Ur Specific [place] 1.012 Urine Protein Negative Urine Glucose (UA) Negative Urine Ketones Negative Urine Occult Blood Small H Urine Nitrate Negative Urine Bilirubin Negative Urine Urobilinogen Less than 2 Ur Leukocyte Esterase Trace H Urine RBC 1 Urine WBC 8 H Ur Squamous Epith Cells 3 Urine Bacteria Few H Micro UA Comment Culture indicated Ur Microscopic Review Not Reportable Urine Culture Comments Culture indicated Preliminary micro results at discharge 01/23/18 21:50 Urine Culture - Preliminary Clean Catch Urine No growth in 24 hours - Impressions ITS Impressions Chest X-Ray 01/22/18 00:00 CONCLUSION: PICC line in good position. Minimal suspected atelectasis or scarring at the left lateral base. Discharge Plan - Discharge Disposition Patient Disposition: /Home Health Service - Discharge Condition Condition: Good - Discharge Order Discharge Orders: Discharge Order (Routine); Ordered 01/24/18 Ordered By: Koby Nichole - Physicians Team Primary Care Provider: Parisa Bundy Attending Provider: Koby Nichole
== END 2018-01-24 13:10 | disposition home health service (06) ==
LOC: NEPC 15:30 → NEDA 15:30 → N04 22:11
PROVIDERS: ADMIT Family Medicine; ATTEND Family Medicine

== ENCOUNTER 2018-03-25 07:00 | Inpatient (IN) ==
--- NOTE | 2018-03-27 12:28 | MH ---
cc: Robbin Gonzalez MD DATE OF ADMISSION: 03/31/2018 She is scheduled to be admitted to the hospital on 03/31/2018. ADMITTING DIAGNOSIS: Status post resection arthroplasty, left hip, for a history of sepsis following total hip arthroplasty. HISTORY: The patient is a 62-year-old white female who has had a rather lengthy and protracted course of problems as related to her left hip. Her history dated back to June of this year, at which time the patient underwent a left total hip arthroplasty which was completed in an uncomplicated manner. She was noted to have tolerated her operative procedure well and initially did quite well with regard to her rehab program. She later developed superficial drainage about her left hip that was treated in a nonoperative fashion, but because of a lingering drainage problem, she later underwent an incision and drainage procedure, at which time her problem appeared to be more superficial in nature and not violating the deeper spaces of her wound, especially including the hip joint. Unfortunately, as time went by, she did subsequently develop an obvious infection violating her hip joint that was later identified as being staph in nature and she underwent a resection arthroplasty thereafter with insertion of a cement spacer and carried through a complete course of intravenous antibiotic management. She was noted to have done reasonably well in this regard, and having received a favorable response from her antibiotic treatment and eager to undergo reimplantation, she was subsequently readmitted to the hospital in November of this year and at that time did undergo a second stage reimplantation of her left hip. All cultures obtained during the course of her procedure were negative for any evidence of any residual bacterial contamination. The patient had tolerated her operative procedure well, but in the early postoperative period once again developed drainage about her wound site. 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 At this time, a new organism in the form of Strep viridans was identified as being the source of her infection. She was once again carried through an aggressive course of intravenous antibiotic treatment, which included ceftriaxone, while being followed by the infectious disease specialist. She completed this course of treatment and within the past month, had her PICC line removed. She has subsequently undergone further evaluation with a recent MRI scan of her left hip identifying a 7 cm ovoid superficial left gluteal fluid collection that was thought to possibly represent a hematoma or a seroma. A recent fluoroscopic aspiration of this fluid collection yielded 30 mL of a clear brown fluid that was submitted to the lab for analysis, the results of which were negative for any WBCs or organisms. The patient has also undergone a more current laboratory evaluation with her white blood count, sedimentation rate and C-reactive protein all being within normal limits. The patient has been quite eager to undergo a reimplantation given the ongoing discomfort she has been experiencing about her left hip and requiring full-time use of crutches is ambulatory aids. She was seen in recent office evaluation and at that time, her wound site appeared to be totally benign with no evidence of any obvious lingering infection being noted. Given the patient's wishes and current findings, she is being scheduled for readmission to the hospital at this time in order that a second stage reimplantation of her left hip might be completed. PAST MEDICAL HISTORY: In addition to the lengthy orthopedic treatment as described above has included laparoscopic cholecystectomy, bilateral carpal tunnel release, arthroscopic surgery of her right knee, tonsillectomy and colonoscopy. The patient denies active medical illnesses. CURRENT MEDICATIONS: Have included iron, zinc and vitamin C. ALLERGIES: THE PATIENT DENIES ANY KNOWN DRUG ALLERGIES. REVIEW OF SYSTEMS: No history of headaches, seizure or syncope. No sinus congestion or epistaxis. There is diminished auditory acuity. No tinnitus. No bleeding gums or dysphagia. Edentulous utilizing complete dentures. No cough, shortness of breath, upper respiratory infection, pneumonia or tuberculosis. No angina or heart disease. Appetite good. Bowel movements regular. No hepatitis, ulcers or hemorrhoids. She is status post cholecystectomy. She has undergone previous upper endoscopy. No urinary tract infection. No kidney stones. No history of fractures. No psychiatric illness. Her remaining review of systems is unremarkable and noncontributory. FAMILY AND SOCIAL HISTORY: 19 years, this being a fourth marriage. Her is 80 years of age and in poor health with a history of heart disease and status post open heart surgery as well as being diabetic and a below-knee amputee. She has 1 son and 1 daughter by a previous marriage, both indicated to be in good health. 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 She completed a high school education. She admits to active use of tobacco dating back to 1972, averaging less than 1 pack per day. Denies ethanol consumption. Her family history is otherwise positive for diabetes, lung and colon cancer. PHYSICAL EXAMINATION: GENERAL: An alert, oriented and responsive 62-year-old white female who sits quietly upon the examination table with no obvious distress. HEAD, EARS, EYES, NOSE AND THROAT: Pupils are equally round and reactive to light. Extraocular movements full. Sclerae are clear. External nares clear. External auditory canals clear. Edentulous. Mucous membranes pink and moist. Pharynx clear. NECK: Supple. Active range of motion. No appreciable pain. Carotid pulse palpable bilaterally. Trachea midline. Thyroid without thyroid enlargement. LUNGS: Clear to auscultation and percussion. No CVA tenderness. No discomfort throughout the dorsolumbar spine. HEART: Regular rate and rhythm. No murmur or gallop. ABDOMEN: Soft, nontender. Bowel sounds present. PELVIC: Per primary care physician. EXTREMITIES: Left hip, a well-healed surgical wound about the posterolateral aspect of the hip region with no associated swelling, discoloration or suggestion for fluctuance. A very minimal degree of tenderness is elicited at a site where a recent fluoroscopic drainage procedure had been completed. In a seated position, there is limited mobility of the hip joint in all ranges assessed. Pain elicited. No sensation of instability. Straight leg raising unremarkable at 80 degrees. Distal sensory grossly intact. Pronounced antalgic gait. NEUROLOGIC: Cranial nerves 2-12 grossly intact. IMPRESSION: History of sepsis, left hip, status post total hip arthroplasty. PLAN: Second stage reimplantation of the left hip. Once again, the nature of the planned surgical procedure, the potential complications and risks associated, the expectations of surgery and the consent form have been thoroughly reviewed with Ana Cristina at this time. It has also been emphasized that at the time of surgery, serial cultures will be obtained and should there be any suggestion for a lingering infection, the plan for reimplantation of a new hip prosthesis will be abandoned and cement spacer implant will be maintained. Ana Cristina has indicated her full understanding in this regard and given consent to proceed with treatment as outlined. Medical evaluation and clearance for surgery has been completed by her primary care physician, Dr. Shaina Bryant. MD JESSA Urbano/pinky , 11:48 AM , 12:06 PM
[2018-03-31] MEDS ORDERED: Metoprolol Tartrate 25 MG Tablet PO ONE (08:41)
[2018-03-31] MEDS ORDERED: Chlorhexidine Gluconate 2% 1 Pack (2 Cloths) TOPICAL ONE (08:41)
[2018-03-31] MEDS ORDERED: Sodium Chloride 0.9% 2 ML Flush PRN IV.FLUSH (08:45)
[2018-03-31] MEDS ORDERED: Sodium Chloride 0.9% 2 ML Flush BID IV.FLUSH SCH (09:00)
[2018-03-31] MEDS ORDERED: Tranexamic Acid Inj 1,000 MG in Sodium Chlor 0.9% Inj 100 ML IV.SIG SCH ×2 (09:00→12:00)
[2018-03-31] MEDS ORDERED: Sodium Chlor 0.9% Inj 500 ML IV.SIG SCH (09:00)
[2018-03-31] MEDS ORDERED: ceFAZolin 2 GM Premix Inj 2 GM/50 ML PIGGYBACK IV.SIG SCH (09:00)
[2018-03-31] MEDS ORDERED: Phenylephrine/NS 1000 MCG/10ML Syringe IV.PUSH ONE (10:46)
[2018-03-31] MEDS ORDERED: Lidocaine PF 1% Inj 5 ML Syringe OTHER ONE (10:46)
[2018-03-31] MEDS ORDERED: Labetalol HCl Inj 100 MG/20 ML Vial IV.CONT ONE (10:46)
[2018-03-31] MEDS ORDERED: Neostigmine Inj 5 MG/5 ML Syringe IV.PUSH ONE (10:46)
[2018-03-31] MEDS ORDERED: Glycopyrrolate Inj 1 MG/5 ML Syringe IV.PUSH ONE (10:46)
[2018-03-31] MEDS ORDERED: fentaNYL Citrate Inj 100 MCG/2 ML Ampul ONE ×2 (13:27)
[2018-03-31] MEDS ORDERED: Naloxone Inj 0.4 MG/ML Vial IV.PUSH PRN (13:36)
[2018-03-31] MEDS ORDERED: Zolpidem Tartrate 5 MG Tablet PO PRN (13:36)
[2018-03-31] MEDS ORDERED: Bisacodyl 10 MG Supp RECTAL PRN (13:36)
[2018-03-31] MEDS ORDERED: Acetaminophen 325 MG Tablet PO PRN (13:36)
[2018-03-31] MEDS ORDERED: Tranexamic Acid Inj 1,000 MG in Sodium Chlor 0.9% Inj 100 ML IV.SIG ONE (13:36)
[2018-03-31] MEDS ORDERED: Morphine Inj 4 MG/ML Vial IV.PUSH PRN (13:36)
[2018-03-31] MEDS ORDERED: Post-op Orders (for Pharmacy) OTHER STA (13:36)
[2018-03-31] MEDS ORDERED: Aluminum/Magnesium/Simethacone Susp 30 ML UDC PO PRN (13:36)
[2018-03-31] MEDS ORDERED: Morphine Inj 30 MG/30 ML PCA.VIAL PCA ONE (13:45)
--- NOTE | 2018-03-31 14:18 | MP ---
cc: Robbin Gonzalez MD DATE OF OPERATION: 03/31/2018 PREOPERATIVE DIAGNOSIS: Status post resection arthroplasty of left hip for history of sepsis following total hip arthroplasty. POSTOPERATIVE DIAGNOSIS: Status post resection arthroplasty of left hip for history of sepsis following total hip arthroplasty. PROCEDURE PERFORMED: Second stage reimplantation, left hip. SURGEON: Dr. Gonzalez. ANESTHESIA: General endotracheal. INDICATIONS: This is a 62-year-old white female who had undergone a previous left total hip arthroplasty in June of this year, subsequently developing a superficial wound infection that progressed to a deep wound infection resulting in resection arthroplasty and insertion of cement spacer. The patient carried through an extended course of antibiotic treatment. Subsequently, responding favorably and with followup lab studies being within normal limits, she was returned to the operating room in November of this year and at that time, underwent a second stage reimplantation of her left hip. 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 Her initial infection had been Staphylococcus related; her secondary infection was strep related. Once again, she underwent resection arthroplasty and was again carried through an extensive course of antibiotic treatment with resolution of the infection being noted and subsequent diagnostic studies including laboratory evaluation and wound aspiration being negative for any evidence of residual infection. Because of the progressive pain about the left hip as associated with the temporary implant, the patient had indicated her desire have a permanent hip implant be reinserted and given the overall clinical picture, she was scheduled for readmission at this time. For specific details with regard to this involved history, interested parties would be directed to her admission documentation, specifically involving history and physical examination in which findings have been clearly reported. FORMAT: Following the induction of satisfactory general anesthesia by endotracheal intubation, the patient was positioned upon the operating table in a right lateral decubitus fashion. The left hip and lower extremity proper were isolated with a U-drape, thereafter being prepped with Betadine solution and draped into a sterile field in the routine manner. Prior to initiation of the actual procedure, the standard timeout protocol was completed. All parameters were appropriately addressed and confirmed by operating room personnel. The previous surgical scar about the left hip area was used as an anatomical landmark. The incision was excised as the wound was opened and thereafter in a deepening to fashion, by progressive dissection, exposure was progressed. An obvious seroma was encountered that did extend all the way to the confines of the hip joint. Specimen was obtained in a serial fashion including the initial encountering of the seroma and deeper tissue specimens extending all the way to the hip joint as well as within the confines of the medullary canal, all of which were reported initially as being negative for any evidence of residual bacterial contamination. During the course of the dissection, reactive tissue was sharply excised as part of the dissection process. The hip joint was thereafter exposed and the cement spacer implant readily identified. The head component was dislocated from the confines of the acetabulum and thereafter from the femoral stem. The stem component was thereafter extracted from the confines of the femoral canal without difficulty. Thereafter, a rather extensive soft tissue debridement was accomplished as well as a thorough irrigation of the wound with pulsating antibiotic solution, which included a brushing of the femoral canal. The acetabulum was reamed from 50 mm through 53 mm. A 54 trial shell was positioned and determined to be satisfactory. The trial component being removed, attention was redirected to the proximal femur. Repeat irrigation and brushing of the canal was accomplished and thereafter sequential rasping and broaching was completed from 10 mm through 14 mm with the 14 mm stem determined to be a satisfactory fit. All trial components being removed, repeat irrigation of the wound was accomplished and subsequent final reports from the lab with regard to cultures submitted, confirmed no evidence of residual infection. Thereafter, new implants were inserted, which included a 54 mm RingLoc acetabular shell implanted in approximately 45 degrees inclination to the horizontal and slight anteversion. A single 25 mm 6.5 cancellous screw was inserted superiorly to augment fixation. The permanent high wall acetabular liner was affixed to the acetabular shell. Attention was returned to the proximal femur. Final irrigation was accomplished and thereafter a size 14 Echo Bi-Metric standard femoral stem was firmly seated to which a 36 mm ceramic head with standard neck length adapter attached. Open reduction completed and repeat range of motion again noted stability as previously described. Final irrigation was accomplished with hemostasis maintained. The deeper posterior tissue layer was reapproximated with a running 0-Vicryl suture. Hemovac drain tubes were inserted through superior stab wounds. The remaining portion of the wound was closed in layers in the routine manner, skin margins being reapproximated with metallic claudette. Xeroform gauze and a bulky dry sterile dressing placed. The patient repositioned into a supine orientation where an abduction splint was attached. Anesthesia was discontinued. She was thereafter transferred to a hospital stretcher and returned to the recovery room in satisfactory condition, having tolerated her operative procedure well. Estimated blood loss was approximately 600 mL as determined per anesthesia. All implants were of the Biomet drawer in stitch bonding machine. MD JESSA Urbano/brittni , 01:28 PM , 01:40 PM
--- NOTE | 2018-03-31 14:34 | XR ---
EXAM DATE: 03/31/2018 2:29 PM EST AGE/SEX: 62 years / Female INDICATIONS: Post op left hip CLINICAL DATA: This is the patient's subsequent encounter. Patient reports that signs and symptoms h ave been present for 1 day and indicates a pain score of 10/10. MEDICAL/SURGICAL HISTORY: Arthritis. Osteomyelitis. gluteal abbess Cholecystectomy. multiple hip surgeries, knee surgery, bilateral wrist surgery COMPARISON: [facility]LI, MR HIP W/O CONTRAST, LEFT, 03/13/2018. . FINDINGS: Multiple views of the left hip were obtained and demonstrate the patient is status post arthroplasty. The femoral and acetabular components are intact and in normal alignment. There are adjacent surgica l drains. There are overlying surgical skin claudette. CONCLUSION: Status post left hip arthroplasty. Electronically signed by: Yunior Olivarez MD 03/31/2018 2:32 PM EST
--- NOTE | 2018-03-31 14:38 | P.CONIM ---
History of Present Illness Service: [facility] Consult date: 03/31/18 Requesting Physician: Robbin Gonzalez Reason for Consult: MEDICAL MANAGEMENT Primary Care Provider: Parisa Bundy DO Chief Complaint: Status post left hip second total hip arthroplasty History of Present Illness: Patient is a 62-year-old female who had issues with her left hip. Going back to June 2017 where she underwent a left total hip arthroplasty, she developed superficial drainage about her left hip treated with nonoperative fashion. She developed infection evaluating her hip strength at later identified as being Sandrabelkis Mccall underwent resection arthroplasty and insertion of cement spacer finish complete course of antibiotics in January. Patient has now undergone replacement of the left total hip second stage reimplant by Dr. gonzalez today tolerated the procedure well and we have now been consulted for help with medical management. Past medical history is significant for laparoscopic cholecystectomy, bilateral carpal tunnel release, arthroscopic surgery of her right knee, tonsillectomy and colonoscopy. Also been on Xarelto at home Patient also has family history of colon cancer, lung cancer and diabetes and past medical history of sepsis, osteoarthritis, history of chronic pain, history of acute deep vein thrombosis of the right upper extremity, and the history of the postoperative wound infection of the left hip We have been asked to help regarding medical management. Review of Systems All other systems reviewed negative except as stated in HPI PMFSH - History History Provided By: Patient, Medical Record - Medical History Medical History: Medical History (Last Reviewed 03/31/18 @ 14:34 by Fabien Lao DO) Arthritis Diminished hearing Fluid collection of middle ear Full dentures History of MRSA infection History of anesthesia reaction Joint pain Murmur, cardiac - Surgical History Surgical History: Surgical History (Last Reviewed 03/31/18 @ 14:34 by Fabien Lao DO) H/O arthroscopy of right knee History of bilateral carpal tunnel release History of cholecystectomy History of left hip replacement History of tubal ligation - Family History Family History: Family History (Last Reviewed 03/31/18 @ 14:34 by Fabien Lao DO) Other Colon cancer Diabetes Lung cancer - Social History I have reviewed the patient's Social History: Yes - Tobacco History Second Hand Smoke Exposure: No Tobacco Use In Past 30 Days: Yes Smoking Status: Current every day smoker Tobacco Type: Cigarettes - Alcohol History How Often Do You Have a Drink Containing Alcohol: Monthly or less - Substance Use History Substance History: No History of Abuse - Travel History History of Recent Travel: No Recent Travel in the [place] Within the Last 8 Weeks: No Recent Travel Out of the Country Within the Last 8 Weeks: No Medications and Allergies Active Medications: Active Medications Acetaminophen (Tylenol) 650 mg PO Q6H PRN PRN Reason: FEVER > 102 F Hydrocodone Bitart/Acetaminophen (Kismet 5/325) 1 tab PO Q4H PRN PRN Reason: PAIN LESS THAN 5 ON SCALE Hydrocodone Bitart/Acetaminophen (Kismet 5/325) 2 tab PO Q6H PRN PRN Reason: PAIN SCALE 5 TO 10 Al Hydrox/Mg Hydrox/Simethicone (Mag-Al Plus Susp Liq) 30 ml PO Q6H PRN PRN Reason: INDIGESTION Al Hydroxide/Mg Hydroxide (Milk Of Magnesia Liq) 30 ml PO BID PRN PRN Reason: Mild Constipation Aspirin (Aspirin) 325 mg PO BID ERNESTINE Bisacodyl (Dulcolax Supp) 10 mg RECTAL DAILY PRN PRN Reason: SEVERE CONSITIPATION Lactated Ringer's (Lr 1000 Ml Inj) 1,000 mls @ 30 mls/hr IV.SIG .Q24H ERNESTINE Stop: 04/01/18 08:44 Last Admin: 03/31/18 09:18 Dose: 30 mls/hr Sodium Chloride (Ns Inj) 500 mls @ 30 mls/hr IV.SIG .Q10H ERNESTINE Last Admin: 03/31/18 09:25 Dose: Not Given Cefazolin Sodium/Dextrose (Ancef 2 Gm Premix Inj) 2 gm in 50 mls @ 100 mls/hr IV.SIG SERVICE ASSISTANT ERNESTINE Stop: 04/04/18 08:59 Last Infusion: 03/31/18 12:10 Dose: Infused Tranexamic Acid 1,000 mg/ (Sodium Chloride) 110 mls @ 200 mls/hr IV.SIG ONCE ERNESTINE Stop: 03/31/18 16:00 Last Infusion: 03/31/18 12:10 Dose: Infused Tranexamic Acid 1,000 mg/ (Sodium Chloride) 110 mls @ 200 mls/hr IV.SIG ONCE ERNESTINE Stop: 03/31/18 18:00 Lactated Ringer's (Lr 1000 Ml Inj) 1,000 mls @ 80 mls/hr IV.CONT .[id number] [facility] Cefazolin Sodium 1,000 mg/ (Sodium Chloride) 100 mls @ 200 mls/hr IV.SIG Q6H ERNESTINE Stop: 04/01/18 02:29 Morphine Sulfate (Morphine Inj) 30 mg in 30 mls @ 0 mls/hr WEED CONTROLLER UNSCH PRN PRN Reason: per WEED CONTROLLER parameters Tranexamic Acid 1,000 mg/ (Sodium Chloride) 110 mls @ 200 mls/hr IV.SIG ONCE ONE Stop: 03/31/18 14:08 Lactulose (Lactulose Liq) 30 ml PO DAILY PRN PRN Reason: SEVERE CONSITIPATION Miscellaneous Information ([facility] Nursing Information) 0 each OTHER UNSCH PRN PRN Reason: SEE DOSE INSTRUCTIONS Miscellaneous Information ([facility] [place] Nursing Information) 0 each OTHER ONCE ONE Stop: 03/31/18 13:37 Miscellaneous Information ([facility] [place] Post-Op Orders (For Pharmacy)) 0 each OTHER STAT STA Stop: 03/31/18 13:37 Morphine Sulfate (Morphine Inj) 2 mg IV.PUSH Q3H PRN PRN Reason: BREAKTHROUGH PAIN Naloxone HCl (Narcan Inj) 0.4 mg IV.PUSH PRN PRN PRN Reason: Resp rate < 10 Non-Formulary Medication (Ferrous Sulfate [High Potency Iron]) 3 mg/kg PO DAILY [facility] Non-Formulary Medication (Ascorbic Acid (Vitamin C) [Ascorbic Acid (Vitamin C)] ) 1 g PO DAILY [facility] Ondansetron HCl (Zofran Inj) 4 mg IV.PUSH Q6H PRN PRN Reason: NAUSEA OR VOMITING Povidone Iodine (Betadine 7.5% Scrub) 1 applicatio TOPICAL ONCE [facility] Stop: 04/04/18 08:59 Last Admin: 03/31/18 08:30 Dose: 1 applicatio Senna/Docusate Sodium (Monica-Colace) 1 tab PO BID [facility] Sennosides (Senokot) 17.2 mg PO BID PRN PRN Reason: Moderate Constipation Sodium Chloride (Ns Flush) 2 ml IV.FLUSH BID [facility] Sodium Chloride (Ns Flush) 2 ml IV.FLUSH PRN PRN PRN Reason: FLUSH AFTER USING IV ACCESS Sodium Chloride (Ns Flush) 2 ml IV.FLUSH BID [facility] Sodium Chloride (Ns Flush) 2 ml IV.FLUSH PRN PRN PRN Reason: FLUSH AFTER USING IV ACCESS Zolpidem Tartrate (Ambien) 5 mg PO HS PRN PRN Reason: INSOMNIA Allergies Allergy/AdvReac Type Severity Reaction Status Date / Time daptomycin Allergy Intermediate rash Verified 03/31/18 09:16 Home Medications Medication Instructions Recorded Confirmed Type apixaban [Eliquis] 5 mg PO DAILY 03/17/18 03/31/18 History ascorbic acid (vitamin C) 1 g PO DAILY 03/31/18 03/31/18 History ferrous sulfate [High Potency Iron] 3 mg/kg PO DAILY 03/31/18 03/31/18 History Exam Vital signs: Vital Signs 03/31/18 09:26 Temperature 98.5 F Pulse Rate 79 Respiratory Rate 18 Blood Pressure 134/68 Pulse Oximetry 96 Intake & Output 03/30/18 03/31/18 03/31/18 18:59 06:59 18:59 Intake Total 2000 / 2000 Output Total 600 / 600 Balance 1400 / 1400 Weight 98.1 kg Intake: IV 160 / 160 Cyklokapron Inj 1,000 MG In NS 110 / 110 Inj 100 ML @ 200 mls/hr IV.SIG ONCE ERNESTINE Rx#:[id number] Ancef 2 GM Premix Inj 2 gm In 50 / 50 50 ml @ 100 mls/hr IV.SIG SERVICE ASSISTANT ERNESTINE Rx#:[id number] Anesthesia Amount 1840 / 1840 Output: Estimated Blood Loss 600 / 600 Other: # Voids 1 Weight On Admission 98.1 kg Narrative: GENERAL: Awake alert and oriented x3 talkative and cooperative little lethargic due to pain medications SKIN: Warm and dry. HEAD: Atraumatic. Normocephalic. EYES: Pupils equal and round. No scleral icterus. No injection or drainage. EOMI ENT: No nasal bleeding or discharge. Mucous membranes pink and moist. Tongue is midline NECK: Trachea midline. No JVD. Supple CARDIOVASCULAR: Regular rate and rhythm. S1-S2 no S3 or S4 RESPIRATORY: No accessory muscle use. Clear to auscultation. Breath sounds equal bilaterally. GASTROINTESTINAL: Abdomen soft, non-tender, nondistended. Hepatic and splenic margins not palpable. MUSCULOSKELETAL: Extremities without clubbing, cyanosis, or edema. No obvious deformities. NEUROLOGICAL: Awake and alert. No obvious cranial nerve deficits. Motor grossly within normal limits. Five out of 5 muscle strength in the arms and legs. Normal speech. PSYCHIATRIC: Appropriate mood and affect; insight and judgment normal. Results - Labs Labs: Laboratory Results - last 24 hr 03/31/18 09:20 Blood Type O Positive Blood Type Recheck Not needed Antibody Screen Negative Assessment and Plan - Plan Status post second stage reimplantation of left hip after having left hip spacer and sepsis treated. Osteoarthritis and chronic pain -Pain control per orthopedic History of acute deep vein thrombosis of the right upper extremity will eventually need to go back on Xarelto once cleared by orthopedics Tobacco abuse recommend smoking cessation Code Status: Full code Discussed Condition With: RN and patient Discharge Planning: Once cleared by orthopedic surgery
[2018-03-31] MEDS: Morphine Inj 30 MG/30 ML PCA.VIAL PCA PRN ×2 (14:51→18:36)
[2018-03-31] MEDS: ceFAZolin 1 GM Premix Inj 1 GM/50 ML FROZ.PIGGY IV.SIG SCH ×2 (16:56→23:05)
--- NOTE | 2018-03-31 17:09 | P.DCO ---
- Diagnosis (1) Septic hip Status: Acute - Physical Therapy Order: Evaluate and treat, Improve ambulation, Strength and gait training - Home Health Nursing Order: Wound care and dressing changes, Nursing assessment with vital signs - Home Health Aide Order: To assist in: Bathing and personal care, webbing inspector and meal prep - Racing Secretary And Handicapper Order: To evaluate: Living conditions/environment, Support services Order: To provide: Long range planning, Community services - Case Management Consult Yes - Certification I have seen patient Ana Cristina Patino on 03/31/18. My clinical findings support the need for the requested home health care services because: Limited ability to care for self, High risk of falls I certify that my clinical findings support that this patient is homebound because: Post-op weakness, Unsteady gait/balance, Unsafe to leave home unassisted
[2018-03-31] MEDS ORDERED: Influenza (Quadrivalent) Vaccine 0.5 ML Syringe IM ONE (20:00)
[2018-03-31] MEDS: Senna/Docusate Sodium 8.6/50 MG Tablet PO SCH (21:11)
[2018-03-31] MEDS: Aspirin 325 MG Tablet PO SCH (21:11)
[2018-04-01] MEDS: ceFAZolin 1 GM Premix Inj 1 GM/50 ML FROZ.PIGGY IV.SIG SCH (05:23)
[2018-04-01 05:56] LABS: Baso # (Auto) 0.1 th/mm3 (0.0-0.2); Baso % (Auto) 0.5 % (0.0-2.0); Eos # (Auto) 0.3 th/mm3 (0.0-0.4); Eos % (Auto) 2.1 % (0.0-4.0); Hematocrit 33.1 % (35.0-46.0); Hemoglobin 10.3 gm/dL (11.6-15.3); Lymph # (Auto) 1.9 th/mm3 (1.0-4.8); Mean Corpuscular HGB Conc 31.2 % (32.0-36.0); Mean Corpuscular Hemoglobin 25.5 pg (27.0-34.0); Mean Corpuscular Volume 81.7 fL (80.0-100.0); Mean Platelet Volume 7.9 fL (7.0-11.0); Mono # (Auto) 0.7 th/mm3 (0.0-0.9); Mono % (Auto) 5.5 % (0.0-8.0); Neut # (Auto) 10.6 th/mm3 (1.8-7.7); Neut % (Auto) 77.9 % (16.0-70.0); Platelet Count 274 th/mm3 (150-450); Red Blood Count 4.05 mil/mm3 (4.00-5.30); Red Cell Distribution Width 25.8 % (11.6-17.2); White Blood Count 13.6 th/mm3 (4.0-11.0)
[2018-04-01 06:14] LABS: Alanine Aminotransferase 20 U/L (10-53); Albumin 3.1 g/dL (3.4-5.0); Anion Gap 8 meq/L (5-15); Aspartate Aminotransferase 15 U/L (15-37); Blood Urea Nitrogen 17 mg/dL (7-18); Calcium 8.9 mg/dL (8.5-10.1); Carbon Dioxide 25.7 meq/L (21.0-32.0); Chloride 104 meq/L (98-107); Glomerular Filtration Rate 53 mL/min (>89); Glucose,Random 177 mg/dL (74-106); Magnesium 1.6 mg/dL (1.5-2.5); Phosphorus 4.5 mg/dL (2.5-4.9); Potassium 4.7 meq/L (3.5-5.1); Sodium 138 meq/L (136-145)
[2018-04-01 06:23] LABS: Alkaline Phosphatase 96 U/L (45-117); Free T4 (Free Thyroxine) 1.14 ng/dL (0.76-1.46); Total Protein 6.6 g/dL (6.4-8.2)
[2018-04-01] MEDS ORDERED: FERROUS SULFATE PO SCH (09:00)
[2018-04-01] MEDS: Senna/Docusate Sodium 8.6/50 MG Tablet PO SCH ×2 (09:50→20:09)
[2018-04-01] MEDS: Aspirin 325 MG Tablet PO SCH ×2 (09:50→20:09)
[2018-04-01] MEDS: Ascorbic Acid 500 MG Tablet PO SCH (09:50)
[2018-04-01] MEDS: Morphine Inj 30 MG/30 ML PCA.VIAL PCA PRN (12:18)
--- NOTE | 2018-04-01 12:53 | P.PNIM ---
Subjective Interval history: Chief Complaint: Status post left hip second total hip arthroplasty History of Present Illness: Patient is a 62-year-old female who had issues with her left hip. Going back to June 2017 where she underwent a left total hip arthroplasty, she developed superficial drainage about her left hip treated with nonoperative fashion. She developed infection evaluating her hip strength at later identified as being Sandra Mccall underwent resection arthroplasty and insertion of cement spacer finish complete course of antibiotics in January. Patient has now undergone replacement of the left total hip second stage reimplant by Dr. gonzalez today tolerated the procedure well and we have now been consulted for help with medical management. Past medical history is significant for laparoscopic cholecystectomy, bilateral carpal tunnel release, arthroscopic surgery of her right knee, tonsillectomy and colonoscopy. Also been on Xarelto at home Patient also has family history of colon cancer, lung cancer and diabetes and past medical history of sepsis, osteoarthritis, history of chronic pain, history of acute deep vein thrombosis of the right upper extremity, and the history of the postoperative wound infection of the left hip We have been asked to help regarding medical management. 11-7 DW RN AND PT OFF PRESS BREAKER STATES GOING HOME TOMORROW WITH [facility] HAS SOME NAUSEA WITH PAIN MEDICATIONS STILL NOT VERY MOBILE YET AM LABS Physical Exam Vital signs: Vital Signs 03/31/18 13:20 03/31/18 13:30 03/31/18 13:45 Temperature 97.4 F L Pulse Rate 74 71 84 Respiratory Rate 12 12 12 Blood Pressure 120/89 130/76 136/67 Pulse Oximetry 92 L 92 L 91 L 03/31/18 14:00 03/31/18 14:15 03/31/18 15:30 Temperature 97.5 F L Pulse Rate 73 54 L 91 H Respiratory Rate 12 12 12 Blood Pressure 128/62 124/59 L 104/55 L Pulse Oximetry 94 L 92 L 94 L 03/31/18 18:00 03/31/18 20:00 03/31/18 21:13 Temperature 97.2 F L 97.2 F L Pulse Rate 96 H 89 Respiratory Rate 18 15 15 Blood Pressure 93/52 L 109/58 L Pulse Oximetry 98 96 04/01/18 00:00 04/01/18 04:00 04/01/18 08:00 Temperature 97.3 F L 97.1 F L 97.7 F Pulse Rate 88 96 H 99 H Respiratory Rate 16 17 16 Blood Pressure 112/55 L 137/65 115/56 L Pulse Oximetry 95 94 L 94 L 04/01/18 12:00 Temperature 98.1 F Pulse Rate 96 H Respiratory Rate 16 Blood Pressure 124/59 L Pulse Oximetry 97 Intake & Output 03/31/18 04/01/18 04/01/18 18:59 06:59 18:59 Intake Total 3766 / 3766 460 / 460 Output Total 650 / 650 20 / 20 Balance 3116 / 3116 440 / 440 Weight 0 g 99.2 kg Intake: IV 726 / 726 100 / 100 LR 1000 mL Inj 1,000 ML @ 80 246 / 246 mls/hr IV.CONT .[id number] ERNESTINE Rx# :[id number] LR 1000 mL Inj 1,000 ML @ 30 270 / 270 mls/hr IV.SIG .Q24H ERNESTINE Rx#: [id number] Cyklokapron Inj 1,000 MG In NS 110 / 110 Inj 100 ML @ 200 mls/hr IV.SIG ONCE ERNESTINE Rx#:[id number] Ancef 1 GM Premix Inj 1 gm In 50 / 50 100 / 100 50 ml @ 100 mls/hr IV.SIG Q6H ERNESTINE Rx#:[id number] Ancef 2 GM Premix Inj 2 gm In 50 / 50 50 ml @ 100 mls/hr IV.SIG SALES CLERK ERNESTINE Rx#:[id number] Oral 1200 / 1200 360 / 360 Anesthesia Amount 1840 / 1840 Output: Estimated Blood Loss 600 / 600 Wound Drainage 50 / 50 20 / 20 # 1 Left Hip 50 / 50 20 / 20 Other: # Voids 1 2 Date of Last Bowel Movement 03/31/18 03/31/18 03/31/18 # Bowel Movements 0 Weight On Admission 98.1 kg Narrative: GENERAL: Awake alert and oriented x3 talkative and cooperative little lethargic due to pain medications SKIN: Warm and dry. HEAD: Atraumatic. Normocephalic. EYES: Pupils equal and round. No scleral icterus. No injection or drainage. EOMI ENT: No nasal bleeding or discharge. Mucous membranes pink and moist. Tongue is midline NECK: Trachea midline. No JVD. Supple CARDIOVASCULAR: Regular rate and rhythm. S1-S2 no S3 or S4 RESPIRATORY: No accessory muscle use. Clear to auscultation. Breath sounds equal bilaterally. GASTROINTESTINAL: Abdomen soft, non-tender, nondistended. Hepatic and splenic margins not palpable. MUSCULOSKELETAL: Extremities without clubbing, cyanosis, or edema. No obvious deformities. NEUROLOGICAL: Awake and alert. No obvious cranial nerve deficits. Motor grossly within normal limits. Five out of 5 muscle strength in the arms and legs. Normal speech. PSYCHIATRIC: Appropriate mood and affect; insight and judgment normal. Results - Labs CBC & Chem 7: 04/01/18 05:28 04/01/18 05:28 Laboratory Results - last 24 hr 04/01/18 04/01/18 05:28 05:28 WBC 13.6 H RBC 4.05 Hgb 10.3 L Hct 33.1 L MCV 81.7 MCH 25.5 L MCHC 31.2 L RDW 25.8 H Plt Count 274 MPV 7.9 Prelim Diff (Auto) Slide review pending Neut % (Auto) 77.9 H Lymph % (Auto) 14.0 Graham % (Auto) 5.5 Eos % (Auto) 2.1 Baso % (Auto) 0.5 Neut # (Auto) 10.6 H Lymph # (Auto) 1.9 Graham # (Auto) 0.7 Eos # (Auto) 0.3 Baso # (Auto) 0.1 WBC Differential . Diff Scan Auto diff confirmed Differential Comment . Sodium 138 Potassium 4.7 Chloride 104 Carbon Dioxide 25.7 Anion Gap 8 BUN 17 Creatinine 1.05 H Estimated GFR 53 L Random Glucose 177 H Calcium 8.9 Phosphorus 4.5 Magnesium 1.6 Total Bilirubin 0.4 AST 15 ALT 20 Alkaline Phosphatase 96 Total Protein 6.6 Albumin 3.1 L TSH 3.370 Free T4 1.14 Microbiology 03/31/18 12:30 Tissue - Hip Gram Stain - Final 03/31/18 12:30 Tissue - Hip Wound Culture - Preliminary No growth in 24 hours 03/31/18 11:46 Tissue - Hip Gram Stain - Final 03/31/18 11:46 Tissue - Hip Wound Culture - Preliminary No growth in 24 hours 03/31/18 11:30 Wound - Hip Gram Stain - Final 03/31/18 11:30 Wound - Hip Wound Culture - Preliminary No growth in 24 hours 03/31/18 11:30 Wound - Hip Gram Stain - Final 03/31/18 11:30 Wound - Hip Wound Culture - Preliminary No growth in 24 hours 03/31/18 12:30 Tissue - Hip Fungal Smear - Final No fungal elements seen 03/31/18 11:46 Tissue - Hip Fungal Smear - Final No fungal elements seen 03/31/18 11:30 Wound - Hip Fungal Smear - Final No fungal elements seen 03/31/18 11:30 Wound - Hip Fungal Smear - Final No fungal elements seen - Imaging Impressions Hip X-Ray 03/31/18 13:33 CONCLUSION: Status post left hip arthroplasty. - Procedures 03/31/2018 PREOPERATIVE DIAGNOSIS: Status post resection arthroplasty of left hip for history of sepsis following total hip arthroplasty. POSTOPERATIVE DIAGNOSIS: Status post resection arthroplasty of left hip for history of sepsis following total hip arthroplasty. PROCEDURE PERFORMED: Second stage reimplantation, left hip. SURGEON: Dr. Gonzalez. ANESTHESIA: General endotracheal. INDICATIONS: This is a 62-year-old white female who had undergone a previous left total hip arthroplasty in June of this year, subsequently developing a superficial wound infection that progressed to a deep wound infection resulting in resection arthroplasty and insertion of cement spacer. The patient carried through an extended course of antibiotic treatment. Subsequently, responding favorably and with followup lab studies being within normal limits, she was returned to the operating room in November of this year and at that time, underwent a second stage reimplantation of her left hip. 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 Her initial infection had been Staphylococcus related; her secondary infection was strep related. Once again, she underwent resection arthroplasty and was again carried through an extensive course of antibiotic treatment with resolution of the infection being noted and subsequent diagnostic studies including laboratory evaluation and wound aspiration being negative for any evidence of residual infection. Because of the progressive pain about the left hip as associated with the temporary implant, the patient had indicated her desire have a permanent hip implant be reinserted and given the overall clinical picture, she was scheduled for readmission at this time. For specific details with regard to this involved history, interested parties would be directed to her admission documentation, specifically involving history and physical examination in which findings have been clearly reported. FORMAT: Following the induction of satisfactory general anesthesia by endotracheal intubation, the patient was positioned upon the operating table in a right lateral decubitus fashion. The left hip and lower extremity proper were isolated with a U-drape, thereafter being prepped with Betadine solution and draped into a sterile field in the routine manner. Prior to initiation of the actual procedure, the standard timeout protocol was completed. All parameters were appropriately addressed and confirmed by operating room personnel. The previous surgical scar about the left hip area was used as an anatomical landmark. The incision was excised as the wound was opened and thereafter in a deepening to fashion, by progressive dissection, exposure was progressed. An obvious seroma was encountered that did extend all the way to the confines of the hip joint. Specimen was obtained in a serial fashion including the initial encountering of the seroma and deeper tissue specimens extending all the way to the hip joint as well as within the confines of the medullary canal, all of which were reported initially as being negative for any evidence of residual bacterial contamination. During the course of the dissection, reactive tissue was sharply excised as part of the dissection process. The hip joint was thereafter exposed and the cement spacer implant readily identified. The head component was dislocated from the confines of the acetabulum and thereafter from the femoral stem. The stem component was thereafter extracted from the confines of the femoral canal without difficulty. Thereafter, a rather extensive soft tissue debridement was accomplished as well as a thorough irrigation of the wound with pulsating antibiotic solution, which included a brushing of the femoral canal. The acetabulum was reamed from 50 mm through 53 mm. A 54 trial shell was positioned and determined to be satisfactory. The trial component being removed, attention was redirected to the proximal femur. Repeat irrigation and brushing of the canal was accomplished and thereafter sequential rasping and broaching was completed from 10 mm through 14 mm with the 14 mm stem determined to be a satisfactory fit. All trial components being removed, repeat irrigation of the wound was accomplished and subsequent final reports from the lab with regard to cultures submitted, confirmed no evidence of residual infection. Thereafter, new implants were inserted, which included a 54 mm RingLoc acetabular shell implanted in approximately 45 degrees inclination to the horizontal and slight anteversion. A single 25 mm 6.5 cancellous screw was inserted superiorly to augment fixation. The permanent high wall acetabular liner was affixed to the acetabular shell. Attention was returned to the proximal femur. Final irrigation was accomplished and thereafter a size 14 Echo Bi-[employer] standard femoral stem was firmly seated to which a 36 mm ceramic head with standard neck length adapter attached. Open reduction completed and repeat range of motion again noted stability as previously described. Final irrigation was accomplished with hemostasis maintained. The deeper posterior tissue layer was reapproximated with a running 0-Vicryl suture. Hemovac drain tubes were inserted through superior stab wounds. The remaining portion of the wound was closed in layers in the routine manner, skin margins being reapproximated with metallic claudette. Xeroform gauze and a bulky dry sterile dressing placed. The patient repositioned into a supine orientation where an abduction splint was attached. Anesthesia was discontinued. She was thereafter transferred to a hospital stretcher and returned to the recovery room in satisfactory condition, having tolerated her operative procedure well. Estimated blood loss was approximately 600 mL as determined per anesthesia. 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 Robbin Gonzalez MD Assessment and Plan - Plan Status post second stage reimplantation of left hip after having left hip spacer and sepsis treated. Osteoarthritis and chronic pain -Pain control per orthopedic History of acute deep vein thrombosis of the right upper extremity will eventually need to go back on Xarelto once cleared by orthopedics Tobacco abuse recommend smoking cessation OBESITY-WT LOSS RECOMMEND LEUKOCYTOSIS- CHECK AM LABS MILD RENAL INSUFFICIENCY- AM LABS PCM- DECREASED ALBUMIN MILD HYPERGLYCEMIA- AWAIT HGBA1C AM LABS DVT AND GI PROPHYLAXIS Code Status: FULL CODE Discussed Condition With: RN AND PATIENT Discharge Planning: Once cleared by orthopedic surgery
[2018-04-01 20:23] LABS: Hemoglobin A1c 5.3 % (4.3-6.0)
[2018-04-01 21:59] VITALS: RESP 18
[2018-04-02 06:37] LABS: Baso % (Auto) 0.5 % (0.0-2.0); Eos # (Auto) 0.2 th/mm3 (0.0-0.4); Eos % (Auto) 2.4 % (0.0-4.0); Hematocrit 24.5 % (35.0-46.0); Hemoglobin 8.1 gm/dL (11.6-15.3); Lymph # (Auto) 1.6 th/mm3 (1.0-4.8); Lymph % (Auto) 16.8 % (9.0-44.0); Mean Corpuscular Hemoglobin 26.5 pg (27.0-34.0); Mean Corpuscular Volume 80.1 fL (80.0-100.0); Mono # (Auto) 0.7 th/mm3 (0.0-0.9); Mono % (Auto) 7.5 % (0.0-8.0); Neut % (Auto) 72.8 % (16.0-70.0); Platelet Count 220 th/mm3 (150-450); Red Blood Count 3.06 mil/mm3 (4.00-5.30); Red Cell Distribution Width 25.9 % (11.6-17.2); White Blood Count 9.6 th/mm3 (4.0-11.0)
[2018-04-02 07:02] LABS: Albumin 2.6 g/dL (3.4-5.0); Anion Gap 6 meq/L (5-15); Aspartate Aminotransferase 13 U/L (15-37); Blood Urea Nitrogen 10 mg/dL (7-18); Calcium 8.7 mg/dL (8.5-10.1); Carbon Dioxide 28.6 meq/L (21.0-32.0); Chloride 103 meq/L (98-107); Glomerular Filtration Rate Greater Than 89 mL/min (>89); Glucose,Random 124 mg/dL (74-106); Magnesium 1.9 mg/dL (1.5-2.5); Potassium 4.1 meq/L (3.5-5.1); Sodium 138 meq/L (136-145)
[2018-04-02 07:16] LABS: Platelet Estimate Normal (Normal); Platelet Morphology Clumped (Normal)
[2018-04-02 07:24] LABS: Alanine Aminotransferase 14 U/L (10-53); Alkaline Phosphatase 90 U/L (45-117); Phosphorus 2.6 mg/dL (2.5-4.9)
[2018-04-02 09:20] VITALS: BP 114/56; PULSE 100; TEMP 98.8; O2SAT 98
--- NOTE | 2018-04-02 09:34 | P.PN ---
Subjective Interval history: This is a pleasant 62 y/o Female with status post Left total hip arthroplasty, she developed superficial drainage about her left hip treated with nonoperative fashion. She developed infection evaluating her hip strength at later identified as being Sandra Mccall underwent resection arthroplasty and insertion of cement spacer finish complete course of antibiotics in January. Patient has now undergone replacement of the left total hip second stage reimplant by Dr. gonzalez. She has been on Xarelto at home. Medical history of Sepsis, OA, chronic pain syndrome, history of acute deep vein thrombosis of the right upper extremity, and the history of the postoperative wound infection of the left hip. 04/02: Seen in her bedroom no nausea, vomit or diarrhea, no complaint, okay to discharge from Medicine standpoint. Physical Exam Vital signs: Vital Signs 04/01/18 12:00 04/01/18 12:46 04/01/18 12:48 Temperature 98.1 F Pulse Rate 96 H Respiratory Rate 16 18 18 Blood Pressure 124/59 L Pulse Oximetry 97 04/01/18 15:58 04/01/18 20:00 04/01/18 23:13 Temperature 98.9 F 97.8 F Pulse Rate 99 H 115 H Respiratory Rate 16 18 17 Blood Pressure 118/57 L 130/61 Pulse Oximetry 96 98 04/02/18 00:00 04/02/18 08:00 Temperature 98.3 F 98.8 F Pulse Rate 104 H 100 H Respiratory Rate 18 18 Blood Pressure 126/60 114/56 L Pulse Oximetry 92 L 98 Intake & Output 04/01/18 04/02/18 04/02/18 18:59 06:59 18:59 Intake Total 2294 / 2294 Balance 2294 / 2294 Weight 99.2 kg Intake: IV 754 / 754 LR 1000 mL Inj 1,000 ML @ 80 754 / 754 mls/hr IV.CONT .[id number] ERNESTINE Rx# :[id number] Oral 1540 / 1540 Other: # Voids 7 5 Date of Last Bowel Movement 03/31/18 # Bowel Movements 0 Narrative: GENERAL: Obesity, no acute distress. SKIN: Warm and dry. HEAD: Atraumatic. Normocephalic. EYES: Pupils equal and round. No scleral icterus. No injection or drainage. EOMI ENT: No nasal bleeding or discharge. Mucous membranes pink and moist. Tongue is midline NECK: Trachea midline. No JVD. Supple CARDIOVASCULAR: Regular rate and rhythm. S1-S2 no S3 or S4 RESPIRATORY: No accessory muscle use. Clear to auscultation. Breath sounds equal bilaterally. GASTROINTESTINAL: Abdomen soft, non-tender, nondistended. Hepatic and splenic margins not palpable. MUSCULOSKELETAL: Extremities without clubbing, cyanosis, Left hip dressed NEUROLOGICAL: Awake and alert. Results - Labs CBC & Chem 7: 04/02/18 05:17 04/02/18 05:17 Laboratory Results - last 24 hr 04/01/18 04/02/18 04/02/18 05:28 05:17 05:17 WBC 9.6 RBC 3.06 L Hgb 8.1 L D Hct 24.5 L MCV 80.1 MCH 26.5 L MCHC 33.0 RDW 25.9 H Plt Count 220 MPV 8.0 Prelim Diff (Auto) Slide review pending Neut % (Auto) 72.8 H Lymph % (Auto) 16.8 [place] % (Auto) 7.5 Eos % (Auto) 2.4 Baso % (Auto) 0.5 Neut # (Auto) 7.0 Lymph # (Auto) 1.6 [place] # (Auto) 0.7 Eos # (Auto) 0.2 Baso # (Auto) 0.0 WBC Differential . Diff Scan Auto diff confirmed Differential Comment . Platelet Estimate Normal Platelet Morphology Clumped H Sodium 138 Potassium 4.1 Chloride 103 Carbon Dioxide 28.6 Anion Gap 6 BUN 10 Creatinine 0.60 Estimated GFR Greater than 89 Random Glucose 124 H Hemoglobin A1c 5.3 Calcium 8.7 Phosphorus 2.6 D Magnesium 1.9 Total Bilirubin 0.3 AST 13 L ALT 14 Alkaline Phosphatase 90 Total Protein 6.0 L D Albumin 2.6 L Microbiology 03/31/18 11:46 Tissue - Hip Gram Stain - Final 03/31/18 11:46 Tissue - Hip Wound Culture - Preliminary No growth in 48 hours 03/31/18 11:30 Wound - Hip Gram Stain - Final 03/31/18 11:30 Wound - Hip Wound Culture - Preliminary No growth in 48 hours 03/31/18 11:30 Wound - Hip Gram Stain - Final 03/31/18 11:30 Wound - Hip Wound Culture - Preliminary No growth in 48 hours 03/31/18 11:46 Tissue - Hip Acid Fast Bacilli Smear - Final No acid fast bacilli seen 03/31/18 11:30 Wound - Hip Acid Fast Bacilli Smear - Final No acid fast bacilli seen 03/31/18 11:30 Wound - Hip Acid Fast Bacilli Smear - Final No acid fast bacilli seen 03/31/18 12:30 Tissue - Hip Gram Stain - Final 03/31/18 12:30 Tissue - Hip Wound Culture - Preliminary No growth in 24 hours 03/31/18 12:30 Tissue - Hip Fungal Smear - Final No fungal elements seen - Imaging Hip X-Ray 03/31/18 13:33 CONCLUSION: Status post left hip arthroplasty. - Procedures 03/31/2018 PREOPERATIVE DIAGNOSIS: Status post resection arthroplasty of left hip for history of sepsis following total hip arthroplasty. POSTOPERATIVE DIAGNOSIS: Status post resection arthroplasty of left hip for history of sepsis following total hip arthroplasty. PROCEDURE PERFORMED: Second stage reimplantation, left hip. SURGEON: Dr. Gonzalez. Assessment and Plan - Plan Status post second stage reimplantation of left hip after having left hip spacer and sepsis treated. Osteoarthritis and chronic pain -Pain control per orthopedic History of acute deep vein thrombosis of the right upper extremity will eventually need to go back on Xarelto once cleared by orthopedics Tobacco abuse recommend smoking cessation OBESITY-WT LOSS RECOMMEND LEUKOCYTOSIS- CHECK AM LABS MILD RENAL INSUFFICIENCY- AM LABS PCM- DECREASED ALBUMIN MILD HYPERGLYCEMIA- AWAIT HGBA1C AM LABS DVT AND GI PROPHYLAXIS Code Status: Full code Discussed Condition With: Tequila trevino nurse [place]. Discharge Planning: Hospitalist Clear for discharge
[2018-04-02] MEDS: Senna/Docusate Sodium 8.6/50 MG Tablet PO SCH (09:35)
[2018-04-02] MEDS: Aspirin 325 MG Tablet PO SCH (09:35)
[2018-04-02] MEDS: Ascorbic Acid 500 MG Tablet PO SCH (09:35)
--- NOTE | 2018-04-02 12:58 | MD ---
cc: Robbin Gonzalez MD, Gail MD Crossman,Kim Smith MD DATE OF DISCHARGE: 04/02/2018 ADMITTING DIAGNOSIS: Status post resection arthroplasty of left hip for history of sepsis following total hip arthroplasty. DISCHARGE DIAGNOSIS: Status post resection arthroplasty of left hip for history of sepsis following total hip arthroplasty. HISTORY: A 62-year-old white female with a lengthy and protracted course of difficulties as related to her left hip dating back to June of this year, at which time the patient had undergone a left total hip arthroplasty, which had been completed in an uncomplicated manner. She had tolerated her operative procedure well and initially did favorably with her rehab program, but later developed superficial drainage about her left hip that was treated in a nonoperative fashion. Because of lingering drainage she later underwent incision and drainage procedure, at which time the problem appeared to be more superficial in nature and not violating the deeper spaces of her wound, especially including the hip joint. Unfortunately, as time went by the patient did develop an obvious infection violating the hip joint that was later identified as being Staph in nature for which she underwent resection arthroplasty with insertion of a cement spacer and carried through a complete course of intravenous antibiotic management. She continued to do well in this regard and having received a favorable response from her antibiotic treatment and eager to undergo reimplantation. She was readmitted to the hospital in November of this year and at that time did undergo a second stage reimplantation. All cultures being negative at the time of her procedure. 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 At that time an the organism was identified in the form of Strep viridans and the patient once again carried through an aggressive course of intravenous antibiotic treatment, which included ceftriaxone. She was followed by infectious disease during this interval of time. Having completed her course of treatment, her PICC line was removed and she subsequently underwent further evaluation with an MRI scan of her left hip which did identify a 7 cm ovoid superficial left gluteal fluid collection that was thought to possibly represent a hematoma or seroma. Fluoroscopic aspiration of this fluid collection yielded 30 mL of a clear brown fluid that was submitted to the lab for analysis, the results of which were negative for any evidence of WBCs or bacterial contamination. The patient also undergone more current laboratory evaluations with her white blood count, sedimentation rate and C-reactive protein, all being within normal limits. She was quite eager to undergo a reimplantation given the ongoing discomfort she was experiencing that was requiring her to utilize crutches as a full-time ambulatory aid. When seen in recent followup her wound site appeared to be totally benign with no evidence of any lingering infection. Given the patient's wishes, she was scheduled for readmission at this time in order that a second stage reimplantation be completed. PHYSICAL EXAMINATION: At the time of admission revealed a well-healed surgical wound about the posterolateral aspect of the left hip with no associated swelling, discoloration, or suggestion for fluctuance. There was very limited degree of tenderness elicited with palpation, especially overlying the site of her recent fluoroscopic drainage. In a seated position there was limited mobility of the hip joint in all ranges assessed; pain being elicited, no sensation of instability. Straight leg raising unremarkable at 80 degrees. Distal sensory grossly intact. Pronounced antalgic gait. HOSPITAL COURSE: Prior to admission to the hospital, the patient had undergone medical evaluation and clearance for surgery as completed by her primary care physician, Dr. Shaina Bryant. She was taken to the operating room on 31 March 2018 and at that time underwent a second stage reimplantation of her left hip. Once again serial cultures completed throughout the course of the procedure were all negative for any evidence of lingering bacterial contamination. The patient was noted to have tolerated her operative procedure well and her postoperative course stable thereafter. Hemoglobin and hematocrit assessment postoperatively was 10.3 and 33.1 respectively. The patient was progressively mobilized under the guidance of physical therapy, being permitted weightbearing to tolerance about her left lower extremity. Followup examination of her surgical wound noted to be intact, healing favorably with no evidence of infection. Medical followup per hospitalist service. DVT prophylaxis initiated. Fire Production Operator consulted to assist with discharge planning. The patient has indicated her desire to be discharged home and continue her rehabilitation on an outpatient basis. Plans were finalized in this regard. She was subsequently discharged on the second postoperative day, at which time she was noted to be making favorable progress with regard to her initial rehabilitation program. She was scheduled to be seen in office followup in approximately 4 weeks, but instructed to contact the office within 1 week to be evaluated for staple removal of her left hip. DISCHARGE MEDICATIONS: Include: 1. Hydrocodone 5/325 #30. 2. The patient was also to resume Eliquis 5 mg daily as taken preoperatively. MD JESSA Urbano/brittni , 06:51 AM , 07:02 AM
== END 2018-04-02 12:06 | disposition home health service (06) ==
LOC: HSDI 03-31 07:56 → N06 03-31 15:49
PROVIDERS: ADMIT Orthopaedic Surgery; ATTEND Orthopaedic Surgery

== ENCOUNTER 2018-04-21 15:40 | Inpatient (IN) ==
--- NOTE | 2018-04-21 19:31 | XR ---
EXAM DATE: 04/21/2018 7:26 PM EST AGE/SEX: 62 years / Female INDICATIONS: Fever. CLINICAL DATA: This is the patient's initial encounter. Patient reports that signs and symptoms have been present for 2 days and indicates a pain score of 0/10. MEDICAL/SURGICAL HISTORY: None. None. COMPARISON: [facility] [place] 1V SINGLE AP, 01/22/2018. . FINDINGS: Stable minimal linear opacities in the left lung base. No new focal pleural or parenchymal opacities. The cardiomediastinal contours are unremarkable. Osseous structures are intact. CONCLUSION: 1. Stable minimal left lung base atelectasis/scarring. 2. No acute abnormality. Electronically signed by: Khanh Klein MD 04/21/2018 7:30 PM EST
[2018-04-21 19:50] LABS: Baso # (Auto) 0.1 th/mm3 (0.0-0.2); Baso % (Auto) 0.8 % (0.0-2.0); Eos # (Auto) 0.3 th/mm3 (0.0-0.4); Eos % (Auto) 2.4 % (0.0-4.0); Hematocrit 34.9 % (35.0-46.0); Hemoglobin 11.1 gm/dL (11.6-15.3); Lymph # (Auto) 2.2 th/mm3 (1.0-4.8); Lymph % (Auto) 15.5 % (9.0-44.0); Mean Corpuscular HGB Conc 31.9 % (32.0-36.0); Mean Corpuscular Hemoglobin 26.5 pg (27.0-34.0); Mean Corpuscular Volume 82.9 fL (80.0-100.0); Mean Platelet Volume 7.6 fL (7.0-11.0); Mono # (Auto) 1.1 th/mm3 (0.0-0.9); Mono % (Auto) 7.9 % (0.0-8.0); Neut # (Auto) 10.4 th/mm3 (1.8-7.7); Neut % (Auto) 73.4 % (16.0-70.0); Platelet Count 356 th/mm3 (150-450); Red Blood Count 4.21 mil/mm3 (4.00-5.30); Red Cell Distribution Width 23.2 % (11.6-17.2); White Blood Count 14.1 th/mm3 (4.0-11.0)
--- NOTE | 2018-04-21 19:52 | ED ---
HPI General Chief Complaint: Fever Stated Complaint: fever Time Seen by Provider: 04/21/18 18:52 Source: patient and family Mode of arrival: wheelchair Limitations: no limitations History of Present Illness HPI Narrative: 62 yo female here for evaluation of fever. history of multiple infections to left hip after surgery. Has had hip redone about 3 times this year. Has had infection to it x 2 with spacer and surgical revisions by Dr Gonzalez. Infection improved and had surgery 3 weeks ago with placement of hip. Denies any discharge or redness from wound but states having chills and fever for 1 week with no other symptoms. No increase of pain. No trauma. No cough or congestion. No chest gonzalez or SOB. Takes eliquis. No pain currently but takes pain meds. His home nurse recommended he came here. Patient is concerned for hip infection again as both previous times she developed the infection about 3 weeks after the surgery. Related Data Home Medications Medication Instructions Recorded Confirmed apixaban [Eliquis] 5 mg PO HS 03/17/18 04/21/18 ascorbic acid (vitamin C) 1 g PO DAILY 03/31/18 04/21/18 ferrous sulfate [High Potency Iron] 3 mg/kg PO DAILY 03/31/18 04/21/18 Allergies Allergy/AdvReac Type Severity Reaction Status Date / Time daptomycin Allergy Intermediate rash Verified 04/21/18 16:02 Review of Systems ROS: all other systems reviewed are negative [facility] Medical History Medical History Arthritis (Acute) Diminished hearing (Acute) Fluid collection of middle ear (Acute) Full dentures (Acute) History of MRSA infection (Acute) History of anesthesia reaction (Acute) Joint pain (Acute) Murmur, cardiac (Acute) Surgical History Surgical History H/O arthroscopy of right knee (Acute) History of bilateral carpal tunnel release (Acute) History of cholecystectomy (Acute) History of left hip replacement (Acute) History of tubal ligation (Acute) Family History Family History Other Colon cancer Diabetes Lung cancer Social History Social History Substance History: No History of Abuse Second Hand Smoke Exposure: No Smoking Status: Current every day smoker Tobacco Type: Cigarettes How Often Do You Have a Drink Containing Alcohol: Never Hx Recent Travel: No Recent Travel in [facility] within the Last 8 Weeks: No Recent Out of Country Travel within the Last 8 Weeks: No Immunization History Tetanus Immunization: >5 Years Exam Narrative Exam Narrative: GENERAL: SKIN: Warm and dry. HEAD: Atraumatic. Normocephalic. EYES: Pupils equal and round. No scleral icterus. No injection or drainage. ENT: No nasal bleeding or discharge. Mucous membranes pink and moist. Tongue is midline. No uvula deviation. TMs are clear with no sign of infection or perforation. NECK: Trachea midline. No JVD. CARDIOVASCULAR: Regular rate and rhythm. RESPIRATORY: No accessory muscle use. Clear to auscultation. Breath sounds equal bilaterally. GASTROINTESTINAL: Abdomen soft, non-tender, nondistended. Hepatic and splenic margins not palpable. MUSCULOSKELETAL: Extremities without clubbing, cyanosis, or edema. No obvious deformities. Full ROM of the upper and lower extremities bilaterally. has a healing surgical scar on the left hip with some swelling, but no redness or discharge. 2+ pulses bilaterally. NEUROLOGICAL: Awake and alert. No obvious cranial nerve deficits. Motor grossly within normal limits. Five out of 5 muscle strength in the arms and legs. Normal speech. PSYCHIATRIC: Appropriate mood and affect; insight and judgment normal. Course Initial Documented Vital Signs Temperature 99.9 F H 04/21/18 16:00 Pulse Rate 107 H 04/21/18 16:00 Respiratory Rate 20 04/21/18 16:00 Blood Pressure 152/67 H 04/21/18 16:00 Pulse Oximetry 96 04/21/18 16:00 Last Documented Vital Signs Temperature 100.6 F H 04/21/18 19:48 Pulse Rate 98 H 04/21/18 19:48 Respiratory Rate 16 04/21/18 19:48 Blood Pressure 136/61 04/21/18 19:48 Pulse Oximetry 97 04/21/18 19:48 Medical Decision Making [facility] Narrative Medical decision making narrative: 62 yo female here for fever. Labs and imaging ordered. Unclear source but concerning due to history of infected hip. My attending recommends I speak with Dr Gonzalez. Labs and imaging showed signs of infection and sepsis. Unclear source but because of history of previous septic joint cannot exclude this. Dr Gonzalez consulted and recommended we start patient on antibiotics as per our protocol. My attending Dr Larsen evaluated the patient and recommends admission. Fluids started. Vancomycin started. YENIFER cordova and Dr Smith agrees to admission. She recommends starting her on the same meds she was on last time. Will start also on meropenem IV per her recommendations. Patient agrees with admission plan. Medical Screen Exam Complete: Yes Emergency Medical Condition: Yes Differential Diagnosis Differential Diagnosis: septic joint vs sepsis vs cellulitis vs UTI vs pneumonia vs fever Medical Records Medical records reviewed: Yes I reviewed the patient's medical records. Lab Data Lab results reviewed: Yes I reviewed the patient's lab results. Result diagrams: 04/21/18 19:24 04/21/18 19:24 Lab Results 04/21/18 04/21/18 04/21/18 Range/Units 19:20 19:24 19:24 WBC 14.1 H (4.0-11.0) th/mm3 RBC 4.21 (4.00-5.30) mil/mm3 Hgb 11.1 L (11.6-15.3) gm/dL Hct 34.9 L (35.0-46.0) % MCV 82.9 (80.0-100.0) fL MCH 26.5 L (27.0-34.0) pg MCHC 31.9 L (32.0-36.0) % RDW 23.2 H (11.6-17.2) % Plt Count 356 D (150-450) th/mm3 MPV 7.6 (7.0-11.0) fL Neut % (Auto) 73.4 H (16.0-70.0) % Lymph % (Auto) 15.5 (9.0-44.0) % Centre % (Auto) 7.9 (0.0-8.0) % Eos % (Auto) 2.4 (0.0-4.0) % Baso % (Auto) 0.8 (0.0-2.0) % Neut # (Auto) 10.4 H (1.8-7.7) th/mm3 Lymph # (Auto) 2.2 (1.0-4.8) th/mm3 Centre # (Auto) 1.1 H (0.0-0.9) th/mm3 Eos # (Auto) 0.3 (0.0-0.4) th/mm3 Baso # (Auto) 0.1 (0.0-0.2) th/mm3 WBC Differential . Differential Comment Auto diff final ESR (0-30) mm/hr PT 9.7 L (9.8-11.6) sec INR 1.0 Ratio APTT 25.7 (23.4-31.7) sec Sodium (136-145) meq/L Potassium (3.5-5.1) meq/L Chloride (98-107) meq/L Carbon Dioxide (21.0-32.0) meq/L Anion Gap (5-15) meq/L BUN (7-18) mg/dL Creatinine (0.50-1.00) mg/dL Estimated GFR (>89) mL/min Random Glucose (74-106) mg/dL Lactic Acid (0.4-2.0) mmol/L Calcium (8.5-10.1) mg/dL Magnesium (1.5-2.5) mg/dL C-Reactive Protein (0.00-0.30) mg/dL Urine Color Yellow (Yellw/Straw) Urine Clarity Hazy H (Clear) Urine pH 5.0 (5.0-8.5) Ur Specific [place] 1.030 (1.002-1.035) Urine Protein 30 H (Neg-Trace) mg/dL Urine Glucose (UA) Negative (Negative) mg/dL Urine Ketones Trace H (Negative) mg/dL Urine Occult Blood Negative (Negative) Urine Nitrate Negative (Negative) Urine Bilirubin Negative (Negative) Urine Urobilinogen 2.0 H (Less than 2) mg/dL Ur Leukocyte Esterase Negative (Negative) Urine RBC 2 (0-3) /hpf Urine WBC 2 (0-5) /hpf Ur Squamous Epith Cells 1 (0-5) /hpf Calcium Oxalate Crystal Moderate H (None) /hpf Urine Bacteria Rare H (None) /hpf Hyaline Casts 4 (0-3) /lpf Urine Mucus Few H (Occasional) /lpf Micro UA Comment Culture not ind Ur Microscopic Review Not Reportable Urine Culture Comments Culture not ind 04/21/18 04/21/18 04/21/18 Range/Units 19:24 19:24 19:24 WBC (4.0-11.0) th/mm3 RBC (4.00-5.30) mil/mm3 Hgb (11.6-15.3) gm/dL Hct (35.0-46.0) % MCV (80.0-100.0) fL MCH (27.0-34.0) pg MCHC (32.0-36.0) % RDW (11.6-17.2) % Plt Count (150-450) th/mm3 MPV (7.0-11.0) fL Neut % (Auto) (16.0-70.0) % Lymph % (Auto) (9.0-44.0) % Centre % (Auto) (0.0-8.0) % Eos % (Auto) (0.0-4.0) % Baso % (Auto) (0.0-2.0) % Neut # (Auto) (1.8-7.7) th/mm3 Lymph # (Auto) (1.0-4.8) th/mm3 Centre # (Auto) (0.0-0.9) th/mm3 Eos # (Auto) (0.0-0.4) th/mm3 Baso # (Auto) (0.0-0.2) th/mm3 WBC Differential Differential Comment ESR 27 (0-30) mm/hr PT (9.8-11.6) sec INR Ratio APTT (23.4-31.7) sec Sodium 134 L (136-145) meq/L Potassium 5.0 (3.5-5.1) meq/L Chloride 104 (98-107) meq/L Carbon Dioxide 23.4 (21.0-32.0) meq/L Anion Gap 7 (5-15) meq/L BUN 9 (7-18) mg/dL Creatinine 0.86 (0.50-1.00) mg/dL Estimated GFR 67 L (>89) mL/min Random Glucose 165 H (74-106) mg/dL Lactic Acid (0.4-2.0) mmol/L Calcium 8.8 (8.5-10.1) mg/dL Magnesium 1.9 (1.5-2.5) mg/dL C-Reactive Protein 11.00 H (0.00-0.30) mg/dL Urine Color (Yellw/Straw) Urine Clarity (Clear) Urine pH (5.0-8.5) Ur Specific [place] (1.002-1.035) Urine Protein (Neg-Trace) mg/dL Urine Glucose (UA) (Negative) mg/dL Urine Ketones (Negative) mg/dL Urine Occult Blood (Negative) Urine Nitrate (Negative) Urine Bilirubin (Negative) Urine Urobilinogen (Less than 2) mg/dL Ur Leukocyte Esterase (Negative) Urine RBC (0-3) /hpf Urine WBC (0-5) /hpf Ur Squamous Epith Cells (0-5) /hpf Calcium Oxalate Crystal (None) /hpf Urine Bacteria (None) /hpf Hyaline Casts (0-3) /lpf Urine Mucus (Occasional) /lpf Micro UA Comment Ur Microscopic Review Urine Culture Comments 04/21/18 Range/Units 19:29 WBC (4.0-11.0) th/mm3 RBC (4.00-5.30) mil/mm3 Hgb (11.6-15.3) gm/dL Hct (35.0-46.0) % MCV (80.0-100.0) fL MCH (27.0-34.0) pg MCHC (32.0-36.0) % RDW (11.6-17.2) % Plt Count (150-450) th/mm3 MPV (7.0-11.0) fL Neut % (Auto) (16.0-70.0) % Lymph % (Auto) (9.0-44.0) % Centre % (Auto) (0.0-8.0) % Eos % (Auto) (0.0-4.0) % Baso % (Auto) (0.0-2.0) % Neut # (Auto) (1.8-7.7) th/mm3 Lymph # (Auto) (1.0-4.8) th/mm3 Centre # (Auto) (0.0-0.9) th/mm3 Eos # (Auto) (0.0-0.4) th/mm3 Baso # (Auto) (0.0-0.2) th/mm3 WBC Differential Differential Comment ESR (0-30) mm/hr PT (9.8-11.6) sec INR Ratio APTT (23.4-31.7) sec Sodium (136-145) meq/L Potassium (3.5-5.1) meq/L Chloride (98-107) meq/L Carbon Dioxide (21.0-32.0) meq/L Anion Gap (5-15) meq/L BUN (7-18) mg/dL Creatinine (0.50-1.00) mg/dL Estimated GFR (>89) mL/min Random Glucose (74-106) mg/dL Lactic Acid 2.2 H (0.4-2.0) mmol/L Calcium (8.5-10.1) mg/dL Magnesium (1.5-2.5) mg/dL C-Reactive Protein (0.00-0.30) mg/dL Urine Color (Yellw/Straw) Urine Clarity (Clear) Urine pH (5.0-8.5) Ur Specific [place] (1.002-1.035) Urine Protein (Neg-Trace) mg/dL Urine Glucose (UA) (Negative) mg/dL Urine Ketones (Negative) mg/dL Urine Occult Blood (Negative) Urine Nitrate (Negative) Urine Bilirubin (Negative) Urine Urobilinogen (Less than 2) mg/dL Ur Leukocyte Esterase (Negative) Urine RBC (0-3) /hpf Urine WBC (0-5) /hpf Ur Squamous Epith Cells (0-5) /hpf Calcium Oxalate Crystal (None) /hpf Urine Bacteria (None) /hpf Hyaline Casts (0-3) /lpf Urine Mucus (Occasional) /lpf Micro UA Comment Ur Microscopic Review Urine Culture Comments Imaging Data Attestation: I personally reviewed and interpreted this imaging study as follows : Radiologist's impression: Chest X-Ray 04/21/18 19:02 CONCLUSION: 1. Stable minimal left lung base atelectasis/scarring. 2. No acute abnormality. Hip CT 04/21/18 19:02 CONCLUSION: 1. Collection posterior to the hip joint with a large collection decompressing into the subcutaneous fat. No acute fracture is identified. No lytic or blastic lesions are seen. Hip X-Ray 04/21/18 20:56 CONCLUSION: 1. Left hip arthroplasty in anatomic alignment without significant fracture or definitive evidence for hardware failure. Discharge Plan Discharge Disposition Patient Disposition: 30 Still Patient Discharge Details Diagnosis: Sepsis, Septic hip Physicians Team ED Provider: Austyn Larsen ED Midlevel Provider: Davonte Myers Primary Care Provider: Parisa Bundy Rxs /Orders / Referrals /Forms Prescriptions: No Action apixaban [Eliquis] 5 mg Tablet 5 mg PO HS RF: 0 ascorbic acid (vitamin C) 1,000 mg Tablet 1 g PO DAILY RF: 0 ferrous sulfate [High Potency Iron] 27 mg iron Tablet 3 mg/kg PO DAILY RF: 0 Discharge Interventions Interventions: Vital Signs Last Done: 04/21/18 19:48 Status ED Status: Admitted Patient
[2018-04-21 19:53] LABS: Bacteria,Urine Rare /hpf; Bilirubin,Urine Negative (Negative); Calcium Oxalate Crystals,Urine Moderate /hpf; Clarity,Urine Hazy (Clear); Color,Urine Yellow (Yellw/Straw); Glucose,Urine (UA) Negative (Negative); Hyaline Casts,Urine 4 /lpf (0-3); Leukocyte Esterase,Urine Negative (Negative); Mucus,Urine Few /lpf (Occasional); Nitrite,Urine Negative (Negative); Squamous Epithelial Cell,Urine 1 /hpf (0-5)
[2018-04-21] MEDS ORDERED: Acetaminophen 325 MG Tablet PO ONE ×2 (20:00→21:58)
[2018-04-21 20:03] LABS: Activated Partial Thrombo Time 25.7 sec (23.4-31.7); Prothrombin Time 9.7 sec (9.8-11.6)
[2018-04-21 20:05] LABS: Magnesium 1.9 mg/dL (1.5-2.5)
[2018-04-21] MEDS ORDERED: Sod Chloride 0.9% Inj 1,000 ML IV.SIG SCH (20:15)
[2018-04-21] MEDS ORDERED: Vancomycin Inj 1,000 MG in Sodium Chlor 0.9% Inj 250 ML IV.SIG ONE (21:05)
--- NOTE | 2018-04-21 21:24 | XR ---
EXAM DATE: 04/21/2018 9:19 PM EST AGE/SEX: 62 years / Female INDICATIONS: Left hip pain, post surgery three weeks ago. CLINICAL DATA: This is the patient's initial encounter. Patient reports that signs and symptoms have been present for 3 weeks and indicates a pain score of 10/10. MEDICAL/SURGICAL HISTORY: None. . Multiple hip surgeries. COMPARISON: No prior exams available for comparison. FINDINGS: Left hip arthroplasty in place. Arthroplasty components are in anatomic alignment without significant acute fracture. No perihardware loosening or radiographic evidence for hardware failure. Soft tissue s are unremarkable. CONCLUSION: 1. Left hip arthroplasty in anatomic alignment without significant fracture or definitive evidence f or hardware failure. Electronically signed by: Khanh Klein MD 04/21/2018 9:22 PM EST
[2018-04-21 21:34] LABS: Calcium 8.8 mg/dL (8.5-10.1); Carbon Dioxide 23.4 meq/L (21.0-32.0)
--- NOTE | 2018-04-21 22:13 | CT ---
EXAM DATE: 04/21/2018 10:06 PM EST AGE/SEX: 62 years / Female INDICATIONS: Left hip pain. CLINICAL DATA: This is the patient's initial encounter. Patient reports that signs and symptoms have been present for 1 day and indicates a pain score of 3/10. MEDICAL/SURGICAL HISTORY: Carcinoma, colon. Carcinoma, lung. MRSA. Tubal ligation. Left hip repla cement. RADIATION DOSE: 40.61 CTDI (mGy) ; Patient body habitus COMPARISON: [facility], CT HIP W/O CONTRAST, LEFT, 11/13/2017. . TECHNIQUE: Multiple contiguous axial images were acquired using a multirow detector CT scanner withou t contrast and after intravenous administration of 94 ml Omnipaque 350 (iohexol) nonionic water-solu ble contrast as a single exam dose. Multiplanar reconstruction was performed in the sagittal and cor onal planes. Using automated exposure control and adjustment of the mA and/or kV according to patien t size, radiation dose was kept as low as reasonably achievable to obtain optimal diagnostic quality images. DICOM format image data is available electronically for review and comparison. FINDINGS: Bones: The patient's had a left total hip arthroplasty. No obvious complication or fracture. Joints: There does appear to be a joint effusion posteriorly which is decompressing laterally into t he subcutaneous fat where there is a 8.2 by 3.8 cm collection. Lobulated fluid collection measures at least 7.8 cm in height Other: No foreign bodies seen. Post Contrast: No abnormal areas of enhancement are seen in the marrow or soft tissues. CONCLUSION: 1. Collection posterior to the hip joint with a large collection decompressing into the subcutaneous fat. No acute fracture is identified. No lytic or blastic lesions are seen. Electronically signed by: Kit Hall MD 04/21/2018 10:12 PM EST
[2018-04-21] MEDS ORDERED: Vancomycin Inj 1,500 MG in Sodium Chlor 0.9% Inj 500 ML IV.SIG ONE (23:00)
[2018-04-21] MEDS ORDERED: Vancomycin Consult Pharmacy OTHER PRN (23:37)
[2018-04-21] MEDS ORDERED: Naloxone Inj 0.4 MG/ML Vial IV.PUSH PRN (23:40)
[2018-04-21] MEDS ORDERED: Bisacodyl 10 MG Supp RECTAL PRN (23:40)
[2018-04-21] MEDS ORDERED: Zolpidem Tartrate 5 MG Tablet PO PRN (23:40)
[2018-04-21] MEDS ORDERED: Aztreonam Inj 2 GM in Sodium Chloride 0.9% Inj 100 ML IV.SIG SCH (23:45)
[2018-04-21] MEDS: Sod Chloride 0.9% Inj 1,000 ML IV.CONT SCH (23:46)
--- NOTE | 2018-04-22 01:06 | P.HP ---
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 The patient has a complicated history which began in June 2017 when she underwent a left total hip arthroplasty without complications. She developed a subsequent septic joint requiring a resection of the arthroplasty with insertion of a cement spacer and a complete course of IV antibiotic management. In November, the patient had a second reimplantation of the left hip. All cultures at that time were negative for residual bacterial contamination. Following her second arthroplasty, the patient developed a recurrent infection of her left hip underwent another resection arthroplasty with reinsertion of cement spacer. She was followed by infectious disease and completed another course of treatment with IV antibiotics. The patient was readmitted to the hospital on 03/31/18 who had second at which time she underwent second stage reimplantation of the left hip. The patient tolerated the procedure and was discharged home on postoperative day 2. Patient returns to the emergency department today for the evaluation of fevers that began this afternoon. T-max at home was 101.4. The patient had not had any left-sided hip pain until her arrival at the hospital. Now she complains of a sharp, stabbing left hip pain that she describes as being in the center of the joint. Her hip is warm to the touch. She denies any chest pain or shortness of breath. No abdominal pain. No nausea/vomiting/diarrhea. No cough. No dysuria. Review of Systems All other systems reviewed negative except as stated in HPI PMFSH - History History Provided By: Patient - Medical History Medical History: Medical History (Last Updated 04/22/18 @ 00:59 by Jocelynn Smith MD) History of DVT (deep vein thrombosis) Arthritis Diminished hearing Fluid collection of middle ear Full dentures History of MRSA infection History of anesthesia reaction Joint pain Murmur, cardiac - Surgical History Surgical History: Surgical History (Last Reviewed 04/22/18 @ 00:59 by Jocelynn Smith MD) H/O arthroscopy of right knee History of bilateral carpal tunnel release History of cholecystectomy History of left hip replacement History of tubal ligation - Family History Family History: Family History (Last Reviewed 04/22/18 @ 00:59 by Jocelynn Smith MD) Other Colon cancer Diabetes Lung cancer - Social History I have reviewed the patient's Social History: Yes - Tobacco History Second Hand Smoke Exposure: No Tobacco Use In Past 30 Days: Yes Smoking Status: Current every day smoker Tobacco Type: Cigarettes - Alcohol History How Often Do You Have a Drink Containing Alcohol: Never - Substance Use History Substance History: No History of Abuse - Travel History History of Recent Travel: No Recent Travel in the [place] Within the Last 8 Weeks: No Recent Travel Out of the Country Within the Last 8 Weeks: No - Immunization History Tetanus Immunization: >5 Years Medications and Allergies Active Medications: Active Medications Acetaminophen (Tylenol) 650 mg PO Q4H PRN PRN Reason: Temp > 100.4 Bisacodyl (Dulcolax Supp) 10 mg RECTAL DAILY PRN PRN Reason: SEVERE CONSITIPATION Sodium Chloride (Ns Inj) 1,000 mls @ 100 mls/hr IV.CONT .Q10H ERNESTINE Last Admin: 04/21/18 23:46 Dose: 100 mls/hr Vancomycin HCl 1,500 mg/ (Sodium Chloride) 515 mls @ 257.5 mls/hr IV.SIG ONCE ONE Stop: 04/22/18 00:59 Naloxone HCl (Narcan Inj) 0.4 mg IV.PUSH UNSCH PRN PRN Reason: SEE LABEL COMMENTS Ondansetron HCl (Zofran Inj) 4 mg IV.PUSH Q6H PRN PRN Reason: NAUSEA OR VOMITING Pharmacy Profile Note (Vancomycin Consult Pharmacy) 1 each OTHER UNSCH PRN PRN Reason: Pharmacy to dose Sennosides (Senokot) 17.2 mg PO Q12H PRN PRN Reason: Moderate Constipation Zolpidem Tartrate (Ambien) 5 mg PO HS PRN PRN Reason: INSOMNIA Allergies Allergy/AdvReac Type Severity Reaction Status Date / Time daptomycin Allergy Intermediate rash Verified 04/21/18 16:02 vancomycin Allergy Itching Verified 04/22/18 00:40 Home Medications Medication Instructions Recorded Confirmed Type apixaban [Eliquis] 5 mg PO HS 03/17/18 04/21/18 History ascorbic acid (vitamin C) 1 g PO DAILY 03/31/18 04/21/18 History ferrous sulfate [High Potency Iron] 3 mg/kg PO DAILY 03/31/18 04/21/18 History Exam Vital signs: Vital Signs 04/21/18 16:00 04/21/18 19:12 04/21/18 19:48 Temperature 99.9 F H 100.6 F H Pulse Rate 107 H 98 H Respiratory Rate 20 16 Blood Pressure 152/67 H 136/61 Pulse Oximetry 96 98 97 04/21/18 23:53 Temperature 102.3 F H Pulse Rate 103 H Respiratory Rate 16 Blood Pressure 119/56 L Pulse Oximetry 93 L Intake & Output 04/21/18 04/21/18 04/22/18 06:59 18:59 06:59 Intake Total 1350 / 1350 Balance 1350 / 1350 Weight 97.976 kg Intake: IV 1350 / 1350 Merrem Inj 1,000 MG In NS Inj 100 / 100 100 ML @ 200 mls/hr IV.SIG ONCE ONE Rx#:[id number] NS Inj 1,000 ML @ 1000 mls/hr 1000 / 1000 IV.SIG BOLUS ERNESTINE Rx#:[id number] Vancomycin Inj 1,000 MG In NS 250 / 250 Inj 250 ML @ 250 mls/hr IV.SIG ONCE ONE Rx#:[id number] Narrative: Gen.: No acute distress Head: Normocephalic. Atraumatic. EENT: Pupils equal round and reactive to light. Nose without drainage. Airway intact. Throat without injection. Cardiovascular: Regular rate and rhythm. No murmurs, rubs or gallops. Respiratory: Lungs clear to auscultation bilaterally. No wheezes or rhonchi. Abdomen: Soft, nontender, nondistended. No peritoneal signs. Musculoskeletal: No gross deformities. No edema. Skin: Mild erythema surrounding distal portion of well-healed incision of left hip. Warm to the touch Neuro: Sensory and motor grossly intact. Cranial nerves II through XII grossly intact. Results - Labs CBC & Chem 7: 04/21/18 19:24 04/21/18 19:24 Labs: Laboratory Results - last 24 hr 04/21/18 04/21/18 04/21/18 19:20 19:24 19:24 WBC 14.1 H RBC 4.21 Hgb 11.1 L Hct 34.9 L MCV 82.9 MCH 26.5 L MCHC 31.9 L RDW 23.2 H Plt Count 356 D MPV 7.6 Neut % (Auto) 73.4 H Lymph % (Auto) 15.5 [place] % (Auto) 7.9 Eos % (Auto) 2.4 Baso % (Auto) 0.8 Neut # (Auto) 10.4 H Lymph # (Auto) 2.2 [place] # (Auto) 1.1 H Eos # (Auto) 0.3 Baso # (Auto) 0.1 WBC Differential . Differential Comment Auto diff final ESR PT 9.7 L INR 1.0 APTT 25.7 Sodium Potassium Chloride Carbon Dioxide Anion Gap BUN Creatinine Estimated GFR Random Glucose Lactic Acid Calcium Magnesium C-Reactive Protein Urine Color Yellow Urine Clarity Hazy H Urine pH 5.0 Ur Specific [place] 1.030 Urine Protein 30 H Urine Glucose (UA) Negative Urine Ketones Trace H Urine Occult Blood Negative Urine Nitrate Negative Urine Bilirubin Negative Urine Urobilinogen 2.0 H Ur Leukocyte Esterase Negative Urine RBC 2 Urine WBC 2 Ur Squamous Epith Cells 1 Calcium Oxalate Crystal Moderate H Urine Bacteria Rare H Hyaline Casts 4 Urine Mucus Few H Micro UA Comment Culture not ind Ur Microscopic Review Not Reportable Urine Culture Comments Culture not ind 04/21/18 04/21/18 04/21/18 19:24 19:24 19:24 WBC RBC Hgb Hct MCV MCH MCHC RDW Plt Count MPV Neut % (Auto) Lymph % (Auto) [place] % (Auto) Eos % (Auto) Baso % (Auto) Neut # (Auto) Lymph # (Auto) [place] # (Auto) Eos # (Auto) Baso # (Auto) WBC Differential Differential Comment ESR 27 PT INR APTT Sodium 134 L Potassium 5.0 Chloride 104 Carbon Dioxide 23.4 Anion Gap 7 BUN 9 Creatinine 0.86 Estimated GFR 67 L Random Glucose 165 H Lactic Acid Calcium 8.8 Magnesium 1.9 C-Reactive Protein 11.00 H Urine Color Urine Clarity Urine pH Ur Specific [place] Urine Protein Urine Glucose (UA) Urine Ketones Urine Occult Blood Urine Nitrate Urine Bilirubin Urine Urobilinogen Ur Leukocyte Esterase Urine RBC Urine WBC Ur Squamous Epith Cells Calcium Oxalate Crystal Urine Bacteria Hyaline Casts Urine Mucus Micro UA Comment Ur Microscopic Review Urine Culture Comments 04/21/18 04/21/18 19:29 22:37 WBC RBC Hgb Hct MCV MCH MCHC RDW Plt Count MPV Neut % (Auto) Lymph % (Auto) [place] % (Auto) Eos % (Auto) Baso % (Auto) Neut # (Auto) Lymph # (Auto) [place] # (Auto) Eos # (Auto) Baso # (Auto) WBC Differential Differential Comment ESR PT INR APTT Sodium Potassium Chloride Carbon Dioxide Anion Gap BUN Creatinine Estimated GFR Random Glucose Lactic Acid 2.2 H 2.0 Calcium Magnesium C-Reactive Protein Urine Color Urine Clarity Urine pH Ur Specific [place] Urine Protein Urine Glucose (UA) Urine Ketones Urine Occult Blood Urine Nitrate Urine Bilirubin Urine Urobilinogen Ur Leukocyte Esterase Urine RBC Urine WBC Ur Squamous Epith Cells Calcium Oxalate Crystal Urine Bacteria Hyaline Casts Urine Mucus Micro UA Comment Ur Microscopic Review Urine Culture Comments - Imaging Impressions Chest X-Ray 04/21/18 19:02 CONCLUSION: 1. Stable minimal left lung base atelectasis/scarring. 2. No acute abnormality. Hip CT 04/21/18 19:02 CONCLUSION: 1. Collection posterior to the hip joint with a large collection decompressing into the subcutaneous fat. No acute fracture is identified. No lytic or blastic lesions are seen. Hip X-Ray 04/21/18 20:56 CONCLUSION: 1. Left hip arthroplasty in anatomic alignment without significant fracture or definitive evidence for hardware failure. Caprini VTE Risk Assessment Caprini VTE Risk Assessment: Moderate/High Risk (score >= 2) Caprini Risk Assessment Model: Point Value = 1 Point Value = 2 Point Value = 3 Point Value = 5 Age 41-60 Minor surgery BMI > 25 kg/m2 Swollen legs Varicose veins or History of unexplained or recurrent spontaneous Oral contraceptives or hormone replacement Sepsis (< 1 month) Serious lung disease, including pneumonia (< 1 month) Abnormal pulmonary function Acute myocardial infarction Congestive heart failure (< 1 month) History of inflammatory bowel disease Medical patient at bed rest Age 61-74 Arthroscopic surgery Major open surgery (> 45 min) Laparoscopic surgery (> 45 min) Malignancy Confined to bed (> 72 hours) Immobilizing plaster cast Central venous access Age >= 75 History of VTE Family history of VTE Factor V Leiden Prothrombin [id number] Lupus anticoagulant Anticardiolipin antibodies Elevated serum homocysteine Heparin-induced thrombocytopenia Other congenital or acquired thrombophilia Stroke (< 1 month) Elective arthroplasty Hip, pelvis, or leg fracture Acute spinal cord injury (< 1 month) Prophylaxis Regimen: Total Risk Factor Score Risk Level Prophylaxis Regimen 0-1 Low Early ambulation 2 Moderate Order ONE of the following: *Sequential Compression Device (SCD) *Heparin 5000 units SQ BID 3-4 Higher Order ONE of the following medications: *Heparin 5000 units SQ TID *Enoxaparin/Lovenox 40 mg SQ daily (WT < 150 kg, CrCl > 30 mL/min) *Enoxaparin/Lovenox 30 mg SQ daily (WT < 150 kg, CrCl > 10-29 mL/min) *Enoxaparin/Lovenox 30 mg SQ BID (WT < 150 kg, CrCl > 30 mL/min) AND/OR *Sequential Compression Device (SCD) 5 or more Highest Order ONE of the following medications: *Heparin 5000 units SQ TID (Preferred with Epidurals) *Enoxaparin/Lovenox 40 mg SQ daily (WT < 150 kg, CrCl > 30 mL/min) *Enoxaparin/Lovenox 30 mg SQ daily (WT < 150 kg, CrCl > 10-29 mL/min) *Enoxaparin/Lovenox 30 mg SQ BID (WT < 150 kg, CrCl > 30 mL/min) AND *Sequential Compression Device (SCD) Assessment and Plan - Plan Assessment/plan: 1. Septic left hip/sepsis Patient with fever, leukocytosis, elevated lactic acid History of MRSA septic joint Chest x-ray/UA within normal limits CT of the left hip significant for collection posterior to the hip joint with a large collection depressing into the subcutaneous fat Vancomycin and meropenem based on patient's history and previous culture results Blood cultures pending Infectious disease consulted, appreciate assistance Orthopedic surgery consulted, appreciate assistance 2. History of DVT Patient had a DVT associated with her PICC line Anticoagulated on Eliquis Holding Eliquis for possible procedure FEN N.p.o. Electrolytes: Monitor and replete prn NS at 100 cc/hour Holding pharmacologic anticoagulation in anticipation of operative intervention
[2018-04-22 04:24] LABS: Baso # (Auto) 0.1 th/mm3 (0.0-0.2); Baso % (Auto) 0.8 % (0.0-2.0); Eos # (Auto) 0.2 th/mm3 (0.0-0.4); Eos % (Auto) 1.3 % (0.0-4.0); Hematocrit 33.7 % (35.0-46.0); Hemoglobin 10.6 gm/dL (11.6-15.3); Lymph # (Auto) 2.4 th/mm3 (1.0-4.8); Lymph % (Auto) 13.3 % (9.0-44.0); Mean Corpuscular HGB Conc 31.3 % (32.0-36.0); Mean Corpuscular Hemoglobin 26.3 pg (27.0-34.0); Mean Corpuscular Volume 84.1 fL (80.0-100.0); Mean Platelet Volume 7.4 fL (7.0-11.0); Mono # (Auto) 1.3 th/mm3 (0.0-0.9); Mono % (Auto) 7.3 % (0.0-8.0); Neut # (Auto) 14.1 th/mm3 (1.8-7.7); Neut % (Auto) 77.3 % (16.0-70.0); Platelet Count 311 th/mm3 (150-450); Red Blood Count 4.01 mil/mm3 (4.00-5.30); Red Cell Distribution Width 23.6 % (11.6-17.2); White Blood Count 18.2 th/mm3 (4.0-11.0)
[2018-04-22 04:43] LABS: Calcium 8.7 mg/dL (8.5-10.1); Carbon Dioxide 24.2 meq/L (21.0-32.0)
[2018-04-22] MEDS: Acetaminophen 325 MG Tablet PO PRN ×2 (05:27→20:17)
[2018-04-22] MEDS: Sod Chloride 0.9% Inj 1,000 ML IV.CONT SCH ×2 (09:42→20:18)
[2018-04-22] MEDS ORDERED: HYDROmorphone PF Inj 1 MG/ML Ampul IV.PUSH PRN (09:45)
--- NOTE | 2018-04-22 14:48 | P.CONID ---
History of Present Illness Service: ID Consult date: 04/22/18 Requesting Physician: Robbin Gonzalez Reason for Consult: sepsis, infected prosthetic L hip Primary Care Provider: Parisa Bundy DO History of Present Illness: 62 yo female, known to me with recurrent L prosthetic hip infections that required removal and IV abx twise She initially has MRSA required removal and IV abx twice Then in December shortly after her last surgery she developped viridace strep L prosthetic hip infection with sepsis and underwent removal of prosthesis with prolonged treatment and spacer She has 2 mos off abx and underwent new her 2nd stage on 04/01 Intra op cultures were negative She was doing fine untill yday She had no hip pain and healed nicely when she developped fever, chills shakes She now recalls low grade fever in preceding 2 weeks She presented with above smx to the hospital and thenm she started to have pain CT showed alrge loculated fluid collection On presentation fever up to 102.3 leukocytosis, 18K leukocytosis blood clx NGTD @ 1 day Pt's past med history includes: Medical History (Last Reviewed 04/22/18 @ 06:56 by Barbara Garner) History of DVT (deep vein thrombosis) Arthritis Diminished hearing Fluid collection of middle ear Full dentures History of MRSA infection History of anesthesia reaction Joint pain Murmur, cardiac Pt was started on empiric meropnem , vancomycin Review of Systems All other systems reviewed negative except as stated in HPI PMFSH - History History Provided By: Family Member - Medical History Medical History: Medical History (Last Reviewed 04/22/18 @ 15:11 by Kim Crawford MD) History of DVT (deep vein thrombosis) Arthritis Diminished hearing Fluid collection of middle ear Full dentures History of MRSA infection History of anesthesia reaction Joint pain Murmur, cardiac - Surgical History Surgical History: Surgical History (Last Reviewed 04/22/18 @ 15:11 by Kim Crawford MD) H/O arthroscopy of right knee History of bilateral carpal tunnel release History of cholecystectomy History of left hip replacement History of tubal ligation - Family History Family History: Family History (Last Reviewed 04/22/18 @ 15:11 by Kim Crawford MD) Other Colon cancer Diabetes Lung cancer - Social History I have reviewed the patient's Social History: Yes - Tobacco History Second Hand Smoke Exposure: No Tobacco Use In Past 30 Days: Yes Smoking Status: Current every day smoker Tobacco Type: Cigarettes - Alcohol History How Often Do You Have a Drink Containing Alcohol: Never - Substance Use History Substance History: No History of Abuse - Travel History History of Recent Travel: No Recent Travel in the [place] Within the Last 8 Weeks: No Recent Travel Out of the Country Within the Last 8 Weeks: No - Immunization History Tetanus Immunization: >5 Years Medications and Allergies Active Medications: Active Medications Acetaminophen (Tylenol) 650 mg PO Q4H PRN PRN Reason: Temp > 100.4 Last Admin: 04/22/18 05:27 Dose: 650 mg Hydrocodone Bitart/Acetaminophen ([place] 10/325) 1 tab PO Q4H PRN PRN Reason: Pain 7 to 10 Last Admin: 04/22/18 12:09 Dose: 1 tab Hydrocodone Bitart/Acetaminophen ([place] 5/325) 1 tab PO Q4H PRN PRN Reason: Pain 3 to 6 Bisacodyl (Dulcolax Supp) 10 mg RECTAL DAILY PRN PRN Reason: SEVERE CONSITIPATION Hydromorphone HCl (Dilaudid Pf Inj) 0.5 mg IV.PUSH Q4H PRN PRN Reason: BREAKTHROUGH PAIN Last Admin: 04/22/18 09:42 Dose: 0.5 mg Hydroxyzine Pamoate (Vistaril) 50 mg PO Q8H PRN PRN Reason: itching Last Admin: 04/22/18 01:20 Dose: 50 mg Sodium Chloride (Ns Inj) 1,000 mls @ 100 mls/hr IV.CONT .Q10H ERNESTINE Last Admin: 04/22/18 09:42 Dose: 100 mls/hr Meropenem 1,000 mg/ Sodium (Chloride) 100 mls @ 200 mls/hr IV.SIG Q8H ERNESTINE Last Infusion: 04/22/18 05:53 Dose: Infused Vancomycin HCl 1,500 mg/ (Sodium Chloride) 515 mls @ 257.5 mls/hr IV.SIG Q18H [facility] Miscellaneous Information ([facility] Ordered Lab Info) 0 each OTHER ONCE ONE Stop: 04/24/18 19:46 Naloxone HCl (Narcan Inj) 0.4 mg IV.PUSH UNSCH PRN PRN Reason: SEE LABEL COMMENTS Ondansetron HCl (Zofran Inj) 4 mg IV.PUSH Q6H PRN PRN Reason: NAUSEA OR VOMITING Pharmacy Profile Note (Vancomycin Consult Pharmacy) 1 each OTHER UNSCH PRN PRN Reason: Pharmacy to dose Sennosides (Senokot) 17.2 mg PO Q12H PRN PRN Reason: Moderate Constipation Zolpidem Tartrate (Ambien) 5 mg PO HS PRN PRN Reason: INSOMNIA Allergies Allergy/AdvReac Type Severity Reaction Status Date / Time daptomycin Allergy Intermediate rash Verified 04/22/18 10:28 vancomycin AdvReac Itching Verified 04/22/18 10:14 Home Medications Medication Instructions Recorded Confirmed Type apixaban [Eliquis] 5 mg PO HS 03/17/18 04/21/18 History ascorbic acid (vitamin C) 1 g PO DAILY 03/31/18 04/21/18 History ferrous sulfate [High Potency Iron] 3 mg/kg PO DAILY 03/31/18 04/21/18 History Exam Vital signs: Vital Signs 04/21/18 16:00 04/21/18 19:12 04/21/18 19:48 Temperature 99.9 F H 100.6 F H Pulse Rate 107 H 98 H Respiratory Rate 20 16 Blood Pressure 152/67 H 136/61 Pulse Oximetry 96 98 97 04/21/18 23:53 04/22/18 02:42 04/22/18 03:30 Temperature 102.3 F H 99.9 F H 100.6 F H Pulse Rate 103 H 88 95 H Respiratory Rate 16 14 20 Blood Pressure 119/56 L 128/78 137/64 Pulse Oximetry 93 L 97 96 04/22/18 07:35 04/22/18 11:45 Temperature 99.3 F 98.2 F Pulse Rate 91 H 92 H Respiratory Rate 18 20 Blood Pressure 124/58 L 103/52 L Pulse Oximetry 91 L 95 Intake & Output 04/21/18 04/22/18 04/22/18 18:59 06:59 18:59 Intake Total 2064 1000 / 1000 Balance 2064 1000 / 1000 Weight 97.976 kg 97.976 kg Intake: IV 2064 1000 / 1000 NS Inj 1,000 ML @ 100 mls/hr IV 1000 / 1000 .CONT .Q10H ERNESTINE Rx#:[id number] Azactam Inj 2 GM In NS Inj 100 100 / 100 ML @ 200 mls/hr IV.SIG Q6H [facility] Rx#:[id number] Merrem Inj 1,000 MG In NS Inj 200 / 200 100 ML @ 200 mls/hr IV.SIG Q8H [facility] Rx#:[id number] NS Inj 1,000 ML @ 1000 mls/hr 1000 / 1000 IV.SIG BOLUS [facility] Rx#:[id number] Vancomycin Inj 1,000 MG In NS 250 / 250 Inj 250 ML @ 250 mls/hr IV.SIG ONCE ONE Rx#:[id number] Vancomycin Inj 1,500 MG In NS 515 / 515 Inj 500 ML @ 257.5 mls/hr IV. SIG ONCE ONE Rx#:[id number] Other: # Voids 1 Date of Last Bowel Movement 04/21/18 Weight On Admission 97.976 kg - Constitutional no acute distress, obese - Routine HEENT Exam Head: Present: normocephalic, atraumatic Eye: Present: EOMI, PERRL. Absent: conjunctival icterus - Routine Neck Exam Present: supple. Absent: JVD - Routine Respiratory Exam Present: decreased breath sounds, CTA bilaterally - Routine Cardiovascular Exam Present: RRR, S1, S2. Absent: murmur, gallop, rubs - Routine Abdominal Exam Present: soft, normoactive bowel sounds. Absent: tenderness, distended, organomegaly, mass - Routine Extremities Exam Present: edema (L hip area ). Absent: cyanosis, clubbing Comments: + erythema, edema L hip well healed scar - Routine Skin Exam Present: dry, warm. Absent: rash - Routine Neurological Exam Present: alert, oriented X3, CN II-XII intact. Absent: sensory deficit, motor deficit - Routine Psychiatric Exam Present: normal affect, cooperative Results - Labs CBC & Chem 7: 04/22/18 04:07 04/22/18 04:07 Labs: Laboratory Results - last 24 hr 04/21/18 04/21/18 04/21/18 19:20 19:24 19:24 WBC 14.1 H RBC 4.21 Hgb 11.1 L Hct 34.9 L MCV 82.9 MCH 26.5 L MCHC 31.9 L RDW 23.2 H Plt Count 356 D MPV 7.6 Neut % (Auto) 73.4 H Lymph % (Auto) 15.5 Real % (Auto) 7.9 Eos % (Auto) 2.4 Baso % (Auto) 0.8 Neut # (Auto) 10.4 H Lymph # (Auto) 2.2 Real # (Auto) 1.1 H Eos # (Auto) 0.3 Baso # (Auto) 0.1 WBC Differential . Differential Comment Auto diff final ESR PT 9.7 L INR 1.0 APTT 25.7 Sodium Potassium Chloride Carbon Dioxide Anion Gap BUN Creatinine Estimated GFR Random Glucose Lactic Acid Calcium Magnesium C-Reactive Protein Urine Color Yellow Urine Clarity Hazy H Urine pH 5.0 Ur Specific [place] 1.030 Urine Protein 30 H Urine Glucose (UA) Negative Urine Ketones Trace H Urine Occult Blood Negative Urine Nitrate Negative Urine Bilirubin Negative Urine Urobilinogen 2.0 H Ur Leukocyte Esterase Negative Urine RBC 2 Urine WBC 2 Ur Squamous Epith Cells 1 Calcium Oxalate Crystal Moderate H Urine Bacteria Rare H Hyaline Casts 4 Urine Mucus Few H Micro UA Comment Culture not ind Ur Microscopic Review Not Reportable Urine Culture Comments Culture not ind 04/21/18 04/21/18 04/21/18 19:24 19:24 19:24 WBC RBC Hgb Hct MCV MCH MCHC RDW Plt Count MPV Neut % (Auto) Lymph % (Auto) Real % (Auto) Eos % (Auto) Baso % (Auto) Neut # (Auto) Lymph # (Auto) Real # (Auto) Eos # (Auto) Baso # (Auto) WBC Differential Differential Comment ESR 27 PT INR APTT Sodium 134 L Potassium 5.0 Chloride 104 Carbon Dioxide 23.4 Anion Gap 7 BUN 9 Creatinine 0.86 Estimated GFR 67 L Random Glucose 165 H Lactic Acid Calcium 8.8 Magnesium 1.9 C-Reactive Protein 11.00 H Urine Color Urine Clarity Urine pH Ur Specific [place] Urine Protein Urine Glucose (UA) Urine Ketones Urine Occult Blood Urine Nitrate Urine Bilirubin Urine Urobilinogen Ur Leukocyte Esterase Urine RBC Urine WBC Ur Squamous Epith Cells Calcium Oxalate Crystal Urine Bacteria Hyaline Casts Urine Mucus Micro UA Comment Ur Microscopic Review Urine Culture Comments 04/21/18 04/21/18 04/22/18 19:29 22:37 04:07 WBC 18.2 H RBC 4.01 Hgb 10.6 L Hct 33.7 L MCV 84.1 MCH 26.3 L MCHC 31.3 L RDW 23.6 H Plt Count 311 MPV 7.4 Neut % (Auto) 77.3 H Lymph % (Auto) 13.3 Real % (Auto) 7.3 Eos % (Auto) 1.3 Baso % (Auto) 0.8 Neut # (Auto) 14.1 H Lymph # (Auto) 2.4 Real # (Auto) 1.3 H Eos # (Auto) 0.2 Baso # (Auto) 0.1 WBC Differential . Differential Comment Auto diff final ESR PT INR APTT Sodium Potassium Chloride Carbon Dioxide Anion Gap BUN Creatinine Estimated GFR Random Glucose Lactic Acid 2.2 H 2.0 Calcium Magnesium C-Reactive Protein Urine Color Urine Clarity Urine pH Ur Specific [place] Urine Protein Urine Glucose (UA) Urine Ketones Urine Occult Blood Urine Nitrate Urine Bilirubin Urine Urobilinogen Ur Leukocyte Esterase Urine RBC Urine WBC Ur Squamous Epith Cells Calcium Oxalate Crystal Urine Bacteria Hyaline Casts Urine Mucus Micro UA Comment Ur Microscopic Review Urine Culture Comments 04/22/18 04:07 WBC RBC Hgb Hct MCV MCH MCHC RDW Plt Count MPV Neut % (Auto) Lymph % (Auto) Real % (Auto) Eos % (Auto) Baso % (Auto) Neut # (Auto) Lymph # (Auto) Real # (Auto) Eos # (Auto) Baso # (Auto) WBC Differential Differential Comment ESR PT INR APTT Sodium 134 L Potassium 4.0 D Chloride 104 Carbon Dioxide 24.2 Anion Gap 6 BUN 7 Creatinine 0.72 Estimated GFR 82 L Random Glucose 129 H Lactic Acid Calcium 8.7 Magnesium C-Reactive Protein Urine Color Urine Clarity Urine pH Ur Specific [place] Urine Protein Urine Glucose (UA) Urine Ketones Urine Occult Blood Urine Nitrate Urine Bilirubin Urine Urobilinogen Ur Leukocyte Esterase Urine RBC Urine WBC Ur Squamous Epith Cells Calcium Oxalate Crystal Urine Bacteria Hyaline Casts Urine Mucus Micro UA Comment Ur Microscopic Review Urine Culture Comments - Imaging Impressions Chest X-Ray 04/21/18 19:02 CONCLUSION: 1. Stable minimal left lung base atelectasis/scarring. 2. No acute abnormality. Hip CT 04/21/18 19:02 CONCLUSION: 1. Collection posterior to the hip joint with a large collection decompressing into the subcutaneous fat. No acute fracture is identified. No lytic or blastic lesions are seen. Hip X-Ray 04/21/18 20:56 CONCLUSION: 1. Left hip arthroplasty in anatomic alignment without significant fracture or definitive evidence for hardware failure. Assessment and Plan - Plan Recurrent prosthetic L hip infection - neg preop cultures from last surgery Prior infections 2 times with different bactreria Large collection decompressing into the subcutaneous fat. Presented with sepsis cont current abx Needs I+D dw Dr Gonzalez: - CT guided aspiraton
[2018-04-22] MEDS ORDERED: Sodium Chloride 0.9% 2 ML Flush PRN IV.FLUSH (16:00)
[2018-04-22] MEDS: Sodium Chloride 0.9% 2 ML Flush BID IV.FLUSH SCH (20:18)
[2018-04-23] MEDS: Sod Chloride 0.9% Inj 1,000 ML IV.CONT SCH ×2 (05:34→14:55)
[2018-04-23 07:16] LABS: Baso # (Auto) 0.1 th/mm3 (0.0-0.2); Eos # (Auto) 0.4 th/mm3 (0.0-0.4); Hemoglobin 9.1 gm/dL (11.6-15.3); Lymph # (Auto) 1.9 th/mm3 (1.0-4.8); Lymph % (Auto) 13.4 % (9.0-44.0); Mean Corpuscular HGB Conc 31.4 % (32.0-36.0); Mean Corpuscular Hemoglobin 26.6 pg (27.0-34.0); Mean Corpuscular Volume 84.7 fL (80.0-100.0); Mean Platelet Volume 7.4 fL (7.0-11.0); Mono % (Auto) 7.4 % (0.0-8.0); Neut # (Auto) 10.6 th/mm3 (1.8-7.7); Neut % (Auto) 75.2 % (16.0-70.0); Platelet Count 266 th/mm3 (150-450); Red Blood Count 3.43 mil/mm3 (4.00-5.30); Red Cell Distribution Width 22.7 % (11.6-17.2); White Blood Count 14.1 th/mm3 (4.0-11.0)
[2018-04-23 07:44] LABS: Anion Gap 7 meq/L (5-15); Blood Urea Nitrogen 7 mg/dL (7-18); Calcium 8.2 mg/dL (8.5-10.1); Carbon Dioxide 23.6 meq/L (21.0-32.0); Chloride 107 meq/L (98-107); Glomerular Filtration Rate Greater Than 89 mL/min (>89); Glucose,Random 128 mg/dL (74-106); Sodium 138 meq/L (136-145)
[2018-04-23] MEDS: Vancomycin Inj 1,500 MG in Sodium Chlor 0.9% Inj 500 ML IV.SIG SCH (08:11)
[2018-04-23] MEDS: Sodium Chloride 0.9% 2 ML Flush BID IV.FLUSH SCH ×2 (09:00→21:51)
[2018-04-23] MEDS ORDERED: Lidocaine PF 1% Inj 30 ML Vial ONE (09:20)
--- NOTE | 2018-04-23 09:32 | P.PN ---
Subjective Interval history: Follow up for recurrent left prosthetic hip infection, septic joint. The patient reports continued diffuse left lateral hip pain, temporarily relieved by pain medications. She reports continued fevers and sweats overnight with Tmax 102.4. Denies any chest pain, shortness of breath, or abdominal complaints. Last BM was Saturday 04/21. She is tolerating oral intake. Physical Exam Vital signs: Vital Signs 04/22/18 11:45 04/22/18 16:51 04/22/18 19:29 Temperature 98.2 F 99.7 F H 102.4 F H Pulse Rate 92 H 91 H 104 H Respiratory Rate 20 20 18 Blood Pressure 103/52 L 114/56 L 132/61 Pulse Oximetry 95 96 94 L 04/22/18 23:47 04/23/18 03:42 04/23/18 07:19 Temperature 99.4 F 98.8 F 99.6 F Pulse Rate 97 H 88 87 Respiratory Rate 19 18 18 Blood Pressure 132/61 125/58 L 125/63 Pulse Oximetry 93 L 92 L 90 L Intake & Output 04/22/18 04/23/18 04/23/18 18:59 06:59 18:59 Intake Total 1100 / 1100 2200 / 2200 Balance 1100 / 1100 2200 / 2200 Intake: IV 1100 / 1100 2200 / 2200 NS Inj 1,000 ML @ 100 mls/hr IV 1000 / 1000 2000 / 2000 .CONT .Q10H ERNESTINE Rx#:[id number] Merrem Inj 1,000 MG In NS Inj 100 / 100 200 / 200 100 ML @ 200 mls/hr IV.SIG Q8H ERNESTINE Rx#:[id number] Other: # Voids 1 Date of Last Bowel Movement 04/21/18 Narrative: GENERAL: Well-nourished, well-developed pleasant middle aged female patient in [facility]. SKIN: Warm and dry. No rash. HEENT: Normocephalic. Atraumatic. Pupils equal and round. Mucous membranes pink and moist. CARDIOVASCULAR: Regular rate and rhythm. No murmur appreciated. RESPIRATORY: No accessory muscle use. Clear to auscultation. Breath sounds equal bilaterally. GASTROINTESTINAL: Abdomen soft, non-tender, nondistended. Normoactive bowel sounds x4. MUSCULOSKELETAL: No obvious deformities. Extremities without clubbing, cyanosis , or edema. Left lateral hip with well-healing surgical incision, however with diffuse surrounding erythema, edema, and induration, very warm and tender to touch. NEUROLOGICAL: Awake and alert. No obvious cranial nerve deficits. Moving all extremities spontaneously. Normal speech. PSYCHIATRIC: Appropriate mood and affect; insight and judgment normal. Results - Labs CBC & Chem 7: 04/23/18 07:01 04/23/18 07:01 Laboratory Results - last 24 hr 04/23/18 04/23/18 04/23/18 07:01 07:01 07:01 WBC 14.1 H RBC 3.43 L Hgb 9.1 L Hct 29.0 L MCV 84.7 MCH 26.6 L MCHC 31.4 L RDW 22.7 H Plt Count 266 MPV 7.4 Neut % (Auto) 75.2 H Lymph % (Auto) 13.4 [place] % (Auto) 7.4 Eos % (Auto) 3.0 Baso % (Auto) 1.0 Neut # (Auto) 10.6 H Lymph # (Auto) 1.9 [place] # (Auto) 1.0 H Eos # (Auto) 0.4 Baso # (Auto) 0.1 WBC Differential . Differential Comment Auto diff final Sodium 138 Potassium 4.0 Chloride 107 Carbon Dioxide 23.6 Anion Gap 7 BUN 7 Creatinine 0.55 Estimated GFR Greater than 89 Random Glucose 128 H Lactic Acid 1.1 Calcium 8.2 L Microbiology 04/21/18 19:29 Blood - Peripheral Aerobic Blood Culture - Preliminary No growth in 1 day 04/21/18 19:29 Blood - Peripheral Anaerobic Blood Culture - Preliminary No growth in 1 day 04/21/18 19:24 Blood - Peripheral Aerobic Blood Culture - Preliminary No growth in 1 day 04/21/18 19:24 Blood - Peripheral Anaerobic Blood Culture - Preliminary No growth in 1 day - Imaging Chest X-Ray 04/21/18 19:02 CONCLUSION: 1. Stable minimal left lung base atelectasis/scarring. 2. No acute abnormality. Hip CT 04/21/18 19:02 CONCLUSION: 1. Collection posterior to the hip joint with a large collection decompressing into the subcutaneous fat. No acute fracture is identified. No lytic or blastic lesions are seen. Hip X-Ray 04/21/18 20:56 CONCLUSION: 1. Left hip arthroplasty in anatomic alignment without significant fracture or definitive evidence for hardware failure. 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 Sepsis with Recurrent infect prosthetic left hip: acute. Meets sepsis criteria with Tmax 102.3, tachycardic HR 107, leukocytosis WBC 18.2K, lactic acid 2.2, with source-septic hip. History of MRSA septic joint. -CXR/UA reviewed and unremarkable -Hip xray reviewed, shows Left hip arthroplasty in anatomic alignment without significant fracture or definitive evidence for hardware failure. -CT left hip reviewed, shows Collection posterior to the hip joint with a large collection decompressing into the subcutaneous fat. -Continue antibiotics with IV Vancomycin and IV meropenem based on patient's history and previous culture results -Blood cultures with NGTD -Continue IVF hydration -Infectious disease Dr. Crawford consulted, appreciate assistance -Orthopedic surgery Dr. Gonzalez consulted, appreciate assistance -Plan for CT guided drainage today -sepsis improving, WBC 14K and lactic acid 1.1 today History of DVT: patient had a DVT associated with her PICC line -Anticoagulated on Eliquis, however holding Eliquis for procedure DVT Prophylaxis: teds/SCDs, holding chemical prophylaxis with upcoming procedure
--- NOTE | 2018-04-23 09:40 | P.RAD ---
Post Procedure Progress Note - Procedure Information Procedure Date: 04/23/18 Supervising Radiologist: Khanh Klein MD Estimated blood loss (mL): 5 Anesthesia: Local - Plan of Activity Patient to Unit: Nursing Unit Patient Condition: Good See PACS Report for procedural detail/treatment.
[2018-04-23 11:16] LABS: Appearance,Synovial Fluid Bloody (Clear); Color,Synovial Fluid Red (Straw)
[2018-04-23 11:19] LABS: Lymphocytes,Synovial Fluid 4 %; Neutrophils,Synovial Fluid 89 % (0-25)
--- NOTE | 2018-04-23 13:22 | IR ---
EXAM DATE: 04/23/2018 10:18 AM EST AGE/SEX: 62 years / Female INDICATIONS: Patient with history of left hip fluid collection. Post surgery fluid collection to be aspirated. CLINICAL DATA: This is the patient's initial encounter. Patient reports that signs and symptoms have been present for 3 days and indicates a pain score of 3/10. MEDICAL/SURGICAL HISTORY: Deep venous thrombosis. Carcinoma, colon. MRSA,joint pain. Arthrosc opy. Cholecystectomy. Carpal tunnel syndrome. lt hip replacement. COMPARISON: No prior exams available for comparison. IMAGE SERIES: 1 ACCESS SITE: lt h ip DEVICE(S): 18 g 15 cm daniels blunt . . PROCEDURE : 1. Ultrasound guidance for abscess drainage. 2. Left hip fluid aspiration. The risks, benefits and alternatives to the procedure were explained and verbal and written consent w as obtained. The site was prepped in sterile fashion. Full sterile technique was used, including cap, mask, sterile gloves and gown and a large sterile sheet. Hand hygiene and 2% chlorhexidine and/or be tadine/alcohol prep was utilized per protocol for cutaneous antisepsis. The skin and subcutaneous tis sues were infiltrated with local anesthetic solution. Sterile gel and sterile probe cover were utiliz ed for ultrasound guidance. Ultrasound examination of the left gluteal region confirms a subcutaneous fluid collection in continu ity with a deeper collection extending posteriorly. Skin overlying the collection was prepped and libra ped in usual sterile fashion. 1% lidocaine solution was injected for local anesthesia. An 18-gauge Hi nck needle was subsequently advanced into the gluteal fluid collections. Approximately 270 mL of dark serosanguineous fluid was removed. No additional fluid could be removed and the needle was withdrawn . Postprocedural scanning demonstrates near resolution of the fluid collection. CONCLUSION: 1. Uncomplicated ultrasound-guided aspiration of left gluteal fluid collections, as above. Electronically signed by: Khanh Klein MD 04/23/2018 1:20 PM EST
[2018-04-24] MEDS: Vancomycin Inj 1,500 MG in Sodium Chlor 0.9% Inj 500 ML IV.SIG SCH ×2 (01:48→21:03)
[2018-04-24] MEDS: Sod Chloride 0.9% Inj 1,000 ML IV.CONT SCH ×3 (01:48→11:45)
[2018-04-24 07:05] LABS: Baso # (Auto) 0.1 th/mm3 (0.0-0.2); Baso % (Auto) 0.8 % (0.0-2.0); Eos # (Auto) 0.8 th/mm3 (0.0-0.4); Eos % (Auto) 8.3 % (0.0-4.0); Hematocrit 27.4 % (35.0-46.0); Hemoglobin 8.7 gm/dL (11.6-15.3); Lymph # (Auto) 1.3 th/mm3 (1.0-4.8); Lymph % (Auto) 13.2 % (9.0-44.0); Mean Corpuscular HGB Conc 31.7 % (32.0-36.0); Mean Corpuscular Hemoglobin 26.7 pg (27.0-34.0); Mean Corpuscular Volume 84.4 fL (80.0-100.0); Mean Platelet Volume 7.7 fL (7.0-11.0); Mono # (Auto) 0.7 th/mm3 (0.0-0.9); Mono % (Auto) 7.3 % (0.0-8.0); Neut # (Auto) 6.8 th/mm3 (1.8-7.7); Neut % (Auto) 70.4 % (16.0-70.0); Platelet Count 265 th/mm3 (150-450); Red Blood Count 3.24 mil/mm3 (4.00-5.30); Red Cell Distribution Width 22.1 % (11.6-17.2); White Blood Count 9.7 th/mm3 (4.0-11.0)
[2018-04-24 07:20] LABS: Anion Gap 4 meq/L (5-15); Blood Urea Nitrogen 10 mg/dL (7-18); Calcium 8.2 mg/dL (8.5-10.1); Carbon Dioxide 25.9 meq/L (21.0-32.0); Chloride 108 meq/L (98-107); Glomerular Filtration Rate Greater Than 89 mL/min (>89); Glucose,Random 117 mg/dL (74-106); Sodium 138 meq/L (136-145)
[2018-04-24] MEDS: Sodium Chloride 0.9% 2 ML Flush BID IV.FLUSH SCH ×2 (08:59→22:54)
--- NOTE | 2018-04-24 11:02 | P.PN ---
Subjective Interval history: Follow-up for recurrent left hip infection. Patient seen sitting upright on the side of bed, eating breakfast. She reports her left hip pain is improved. Denies any fevers or chills overnight. She has been ambulating around her room and to the bathroom without much difficulty. She has no other medical complaints at this time. Physical Exam Vital signs: Vital Signs 04/23/18 11:41 04/23/18 16:00 04/23/18 20:00 Temperature 98.7 F 98.7 F 99.9 F H Pulse Rate 85 86 95 H Respiratory Rate 16 18 16 Blood Pressure 115/58 L 113/53 L 118/57 L Pulse Oximetry 94 L 93 L 96 04/24/18 00:00 04/24/18 03:43 04/24/18 08:00 Temperature 97.3 F L 99.4 F 98.7 F Pulse Rate 88 91 H 80 Respiratory Rate 16 16 18 Blood Pressure 116/55 L 111/53 L 118/57 L Pulse Oximetry 98 92 L 92 L Intake & Output 04/23/18 04/24/18 04/24/18 18:59 06:59 18:59 Intake Total 1615 / 1615 1615 / 1615 1000 / 1000 Balance 1615 / 1615 1615 / 1615 1000 / 1000 Intake: IV 1615 / 1615 1615 / 1615 1000 / 1000 NS Inj 1,000 ML @ 100 mls/hr IV 1000 / 1000 1000 / 1000 1000 / 1000 .CONT .Q10H ERNESTINE Rx#:[id number] Merrem Inj 1,000 MG In NS Inj 100 / 100 100 / 100 100 ML @ 200 mls/hr IV.SIG Q8H ERNESTINE Rx#:[id number] Vancomycin Inj 1,500 MG In NS 515 / 515 515 / 515 Inj 500 ML @ 257.5 mls/hr IV. SIG Q18H ERNESTINE Rx#:[id number] Other: Date of Last Bowel Movement 04/21/18 Narrative: GENERAL: Well-nourished, well-developed pleasant middle aged female patient in [facility]. SKIN: Warm and dry. No rash. HEENT: Normocephalic. Atraumatic. Pupils equal and round. Mucous membranes pink and moist. CARDIOVASCULAR: Regular rate and rhythm. No murmur appreciated. RESPIRATORY: No accessory muscle use. Clear to auscultation. Breath sounds equal bilaterally. GASTROINTESTINAL: Abdomen soft, non-tender, nondistended. Normoactive bowel sounds x4. MUSCULOSKELETAL: No obvious deformities. 1+ BLE edema. Left lateral hip with well-healing surgical incision, however with diffuse surrounding erythema, edema , and induration, warm and tender to touch. NEUROLOGICAL: Awake and alert. No obvious cranial nerve deficits. Moving all extremities spontaneously. Normal speech. PSYCHIATRIC: Appropriate mood and affect; insight and judgment normal. Results - Labs CBC & Chem 7: 04/24/18 06:28 04/24/18 06:28 Laboratory Results - last 24 hr 04/23/18 04/24/18 04/24/18 09:26 06:28 06:28 WBC 9.7 RBC 3.24 L Hgb 8.7 L Hct 27.4 L MCV 84.4 MCH 26.7 L MCHC 31.7 L RDW 22.1 H Plt Count 265 MPV 7.7 Neut % (Auto) 70.4 H Lymph % (Auto) 13.2 [place] % (Auto) 7.3 Eos % (Auto) 8.3 H Baso % (Auto) 0.8 Neut # (Auto) 6.8 Lymph # (Auto) 1.3 [place] # (Auto) 0.7 Eos # (Auto) 0.8 H Baso # (Auto) 0.1 WBC Differential . Differential Comment Auto diff final Sodium 138 Potassium 4.0 Chloride 108 H Carbon Dioxide 25.9 Anion Gap 4 L BUN 10 Creatinine 0.64 Estimated GFR Greater than 89 Random Glucose 117 H Calcium 8.2 L Synovial Color Red H Synovial Appearance Bloody H Synovial RBC 583937 H Synovial Nuc Cells 35776 H Synovial Neutrophils 89 H Synovial Lymphocytes 4 Synovial Eosinophils 3 Synovial Histocytes 4 Microbiology 04/21/18 19:29 Blood - Peripheral Aerobic Blood Culture - Preliminary No growth in 3 days 04/21/18 19:29 Blood - Peripheral Anaerobic Blood Culture - Preliminary No growth in 3 days 04/21/18 19:24 Blood - Peripheral Aerobic Blood Culture - Preliminary No growth in 3 days 04/21/18 19:24 Blood - Peripheral Anaerobic Blood Culture - Preliminary No growth in 3 days 04/23/18 09:26 Fluid - Other Gram Stain - Final 04/23/18 09:26 Fluid - Other Body Fluid Culture - Preliminary No growth in 24 hours 04/23/18 09:26 Other Fungal Smear - Final No fungal elements seen - Imaging Impressions Guidance Needle Placement Ultrasound 04/23/18 17:15 CONCLUSION: 1. Uncomplicated ultrasound-guided aspiration of left gluteal fluid collections , as above. - Procedures 04/23/18 - IR - Uncomplicated ultrasound-guided aspiration of left gluteal fluid collections, as above. 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 Sepsis with Recurrent infect prosthetic left hip: acute. Meets sepsis criteria with Tmax 102.3, tachycardic HR 107, leukocytosis WBC 18.2K, lactic acid 2.2, with source-septic hip. History of MRSA septic joint. -CXR/UA reviewed and unremarkable -Hip xray reviewed, shows Left hip arthroplasty in anatomic alignment without significant fracture or definitive evidence for hardware failure. -CT left hip reviewed, shows Collection posterior to the hip joint with a large collection decompressing into the subcutaneous fat. -Continue antibiotics with IV Vancomycin and IV meropenem based on patient's history and previous culture results -Blood cultures with NGTD -Continue IVF hydration -Pain control with [place] prn and IV dilaudid prn -Infectious disease Dr. Crawford consulted, appreciate assistance -Orthopedic surgery Dr. Gonzalez consulted, appreciate assistance -04/23 s/p U/S guided aspiration of left gluteal fluid collections by IR. -Cultures pending -sepsis improving, WBC 9.7K today -Ortho plans to take patient to OR tomorrow 04/25 for I&D History of DVT: patient had a DVT associated with her PICC line -Anticoagulated on Eliquis, however holding Eliquis for procedure DVT Prophylaxis: teds/SCDs, holding chemical prophylaxis with upcoming procedure
--- NOTE | 2018-04-24 12:30 | MB ---
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 Her history is significant in that in 06/2017 she did undergo a left total hip arthroplasty, which was completed in an uncomplicated manner. Unfortunately, she subsequently developed drainage from her wound site that has necessitated additional intervention, which included an initial resection arthroplasty with insertion of a cement spacer for a history of a MRSA infection. She was carried through a complete course of antibiotic intervention and subsequent demonstrated what appeared to be resolution of her infectious process and was subsequently readmitted to the hospital undergoing a second-stage reimplantation. Once again, she seemed to be doing initially well, having been able to resume ambulatory activities, but once again began to experience drainage from her wound site for which she was diagnosed as having a recurrent infection that at this time was diagnosed as being a Streptococcus viridans in origin. Once again, she underwent resection arthroplasty with an insertion of a new cement spacer and carried through a complete course of antibiotic intervention while being monitored on an outpatient basis. She seemed to be improving well in this regard, and her subsequent laboratory values were all within normal limits. Because of discomfort of the hip that the patient related to the irritation of the temporary prosthesis, she had indicated her desire to proceed with reimplantation of a permanent prosthesis. Given the overall clinical picture and what appeared to be resolution of her infectious process, she was recently readmitted to the hospital on 03/31/2018 of this year and at that time, underwent repeat second-stage reimplantation of her hip prosthesis. All cultures obtained at the time of that surgery were negative for any evidence of any residual bacterial contamination, and once again the patient appeared to be doing quite well in this regard. Within the past week, she began to develop a fever that became more pronounced, initially not associated with any soreness of her left hip. Within the past several days, she presented to the emergency room at [facility], at which time she was noted to be febrile with a temperature in the 102 range. Her white blood count was elevated at 14.1. The patient was admitted to the hospital at that time and begun on a course of intravenous antibiotic treatment. Her white count continued to elevate to 18.2. Infectious disease consultation was completed with Dr. Leno Crawford who recommended proceeding with an ultrasound-guided aspiration of a localized fluid accumulation about the hip area. The patient did complete treatment in this regard, which yielded 270 mL of dark serosanguineous fluid. Initial studies of this fluid have not demonstrated any obvious bacterial contamination. Aerobic blood cultures were without evidence of any growth at 3 days, and the initial fungal stain of the fluid was negative. Additional cultures are pending at this time. The patient's clinical picture has improved from the standpoint that her white blood count has dropped to 9.7 and she is now afebrile. She has noted a lingering soreness about her hip area. Based upon the overall findings, Dr. Crawford had recommended proceeding with an I and D procedure as additional intervention at this time. PHYSICAL EXAMINATION: Currently reveals an intact surgical wound about the posterolateral aspect of the left hip. A very mild degree of tenderness is associated. There is no erythema or drainage appreciated. There is a slight limitation of mobility at the extremes of motion, but no sensation of instability. The patient has been able to ambulate independently full weightbearing on the left side. IMPRESSION: Suspected recurrent sepsis of the left hip following reimplantation total hip arthroplasty. PLAN: I completed a lengthy and detailed discussion with the patient in the presence of her son at this time. I have expressed my lack of understanding and/or ability to explain to the patient in a reasonable manner the sequence of events that have elapsed over these many months since she had undergone her initial operative intervention. Given the current findings and her course of treatment to date, I have expressed some reservation with regard to what the future might hold for her. Given the current clinical picture and the recommendation of Dr. Crawford, it has been suggested that she proceed with a current I and D procedure as additional intervention in the hope that we might be able to salvage her current prosthesis with additional antibiotic intervention thereafter. I have indicated to the patient that based upon her record to date, there is some element of uncertainty as to how successful this intervention might be and whether or not she would be able to experience resolution of her current process as opposed to going through a current operative procedure, only due to note a recurrence of the condition thereafter. In this setting, I have recommended that we proceed with additional consultation for which the patient indicates her intent that she would request an evaluation at the [facility] in [place] in the unlikely event that such an occurrence was noted. Presently, she is being scheduled to proceed with an I and D procedure in the a.m., for which I have outlined the potential risks and complications associated with same. The patient is in full agreement to this recommendation and thus agrees to proceed accordingly. All parties will remain optimistic with regard to the outcome of current treatment, and Dr. Crawford we will continue to monitor and advise regarding antibiotic intervention. MD JESSA Urbano/sudhakar , 11:53 AM , 12:08 PM
--- NOTE | 2018-04-24 17:10 | P.PNADD ---
Addendum to Inpatient Note Additional information: Fluid results noted 58K WBC NG @ 24 hrs cont current abx
[2018-04-24] MEDS ORDERED: Pharmacy Ordered Lab Info OTHER ONE (19:45)
[2018-04-25] MEDS: Sod Chloride 0.9% Inj 1,000 ML IV.CONT SCH ×3 (01:58→18:29)
[2018-04-25] MEDS: Vancomycin Inj 1,750 MG in Sodium Chlor 0.9% Inj 500 ML IV.SIG SCH ×2 (04:41→17:34)
[2018-04-25] MEDS ORDERED: fentaNYL Citrate Inj 100 MCG/2 ML Ampul ONE ×2 (07:00→10:16)
[2018-04-25] MEDS ORDERED: Dexmedetomidine Inj 200 MCG/2 ML Vial ONE (07:44)
[2018-04-25 09:08] LABS: Glomerular Filtration Rate Greater Than 89 mL/min (>89)
[2018-04-25] MEDS ORDERED: Aluminum/Magnesium/Simethacone Susp 30 ML UDC PO PRN (10:31)
[2018-04-25] MEDS ORDERED: Acetaminophen 325 MG Tablet PO PRN (10:31)
[2018-04-25] MEDS ORDERED: Post-op Orders (for Pharmacy) OTHER STA (10:31)
[2018-04-25] MEDS ORDERED: Morphine Inj 4 MG/ML Vial IV.PUSH PRN (10:31)
[2018-04-25] MEDS ORDERED: Bisacodyl 10 MG Supp RECTAL PRN (10:31)
[2018-04-25] MEDS ORDERED: Zolpidem Tartrate 5 MG Tablet PO PRN (10:31)
[2018-04-25] MEDS ORDERED: *morphine SULFATE 10 MG/ML PERIprocedure ONLY ONE (10:47)
--- NOTE | 2018-04-25 12:35 | MP ---
cc: Robbin Gonzalez MD DATE OF OPERATION: 04/25/2018 PREOPERATIVE DIAGNOSIS: Sepsis, left hip, status post total hip arthroplasty. POSTOPERATIVE DIAGNOSIS: Sepsis, left hip, status post total hip arthroplasty. PROCEDURE PERFORMED: Incision and drainage, left hip. SURGEON: Robbin Gonzalez MD ANESTHESIA: General endotracheal. FORMAT: Following the induction of satisfactory general anesthesia by endotracheal intubation as completed per the Department of Anesthesia, the patient was positioned upon the operating table in a right lateral decubitus fashion. The left hip and lower extremity proper were isolated with a U-drape, thereafter being prepped with Betadine solution and draped into a sterile field in a routine manner. Prior to initiation of the actual procedure, the standard timeout protocol was completed. All parameters were appropriately addressed and confirmed by operating room personnel. The previous surgical scar about the left hip was sharply excised and thereafter by deepening dissection, the underlying subcutaneous tissue was explored. With progressive dissection an obvious residual fluid accumulation was encountered of which Gram stain specimen was obtained. Progressive dissection facilitated exposure into the deeper soft tissue structures. There was an obvious inflammatory reaction throughout the subcutaneous region extending in a deeper fashion and with progressive dissection, the area of reaction extended all the way to the joint space. The hip components were identified. An aggressive and thorough debridement of what appeared to be all reactive tissue was accomplished throughout the wound utilizing both sharp and blunt dissection. Upon completion of this aggressive and thorough debridement, a thorough irrigation was accomplished with 9 liters of antibiotic irrigation solution. Upon completion of same, the wound was inspected and hemostasis maintained. Closure was thereafter accomplished in layers with the deeper tissues posterior to the capsular region reapproximated with a 0 PDS suture. The remaining portion of the wound was closed in layers with a 2-0 PDS suture, and skin margins with metallic claudette. Xeroform gauze and a bulky dry sterile dressing were placed. Anesthesia was discontinued and the patient was transferred to a hospital bed and returned to the recovery room in satisfactory condition, having tolerated her operative procedure well. Estimated blood loss was approximately 200 mL as determined per Anesthesia. Robbin Gonzalez MD NBS/ct , 10:22 AM , 10:30 AM
--- NOTE | 2018-04-25 13:30 | P.PN ---
Subjective Interval history: Patient with recurrent prosthetic left hip infection. Patient seen and examined. Patient is just returned from having I&D procedure of left hip. Patient states she feels well. She does not voice any concerns or complaints. She denies any fever or chills. She denies any cough, shortness of breath or chest pain. She denies any nausea, vomiting or abdominal pain. She states her postoperative pain is managed at this time. Physical Exam Vital signs: Vital Signs 04/24/18 16:00 04/24/18 20:00 04/25/18 00:00 Temperature 98.2 F 98.8 F 99.8 F H Pulse Rate 73 76 87 Respiratory Rate 16 14 16 Blood Pressure 114/61 114/58 L 123/54 L Pulse Oximetry 99 95 95 04/25/18 04:00 04/25/18 07:18 04/25/18 10:10 Temperature 99.3 F 98.4 F 97.6 F Pulse Rate 80 75 81 Respiratory Rate 15 20 19 Blood Pressure 112/54 L 119/58 L 114/60 Pulse Oximetry 95 96 100 04/25/18 10:27 04/25/18 10:45 04/25/18 10:49 Temperature Pulse Rate 78 78 Respiratory Rate 17 18 18 Blood Pressure 117/56 L 118/58 L Pulse Oximetry 97 95 04/25/18 11:00 04/25/18 11:53 Temperature 97.6 F 97.6 F Pulse Rate 76 78 Respiratory Rate 17 18 Blood Pressure 104/53 L 96/53 L Pulse Oximetry 94 L 95 Intake & Output 04/24/18 04/25/18 04/25/18 18:59 06:59 18:59 Intake Total 1300 / 1300 1095 / 1095 1617.5 / 1617.5 Output Total 250 / 250 Balance 1300 / 1300 1095 / 1095 1367.5 / 1367.5 Intake: IV 1300 / 1300 615 / 615 617.5 / 617.5 NS Inj 1,000 ML @ 100 mls/hr IV 1200 / 1200 .CONT .Q10H ERNESTINE Rx#:[id number] Merrem Inj 1,000 MG In NS Inj 100 / 100 100 / 100 100 / 100 100 ML @ 200 mls/hr IV.SIG Q8H ERNESTINE Rx#:[id number] Vancomycin Inj 1,750 MG In NS 515 / 515 517.5 / 517.5 Inj 500 ML @ 250 mls/hr IV.SIG Q12H ERNESTINE Rx#:[id number] Oral 480 / 480 Anesthesia Amount 1000 / 1000 Output: Urine 50 / 50 Estimated Blood Loss 200 / 200 Other: # Voids 5 1 Date of Last Bowel Movement 04/24/18 # Bowel Movements 0 Narrative: GENERAL: Well-nourished, well-developed pleasant middle aged female patient in NAD. Awake and alert. SKIN: Warm and dry. No rash. HEENT: Normocephalic. Atraumatic. EOMI. bilateral sclera anicteric. No nasal drainage. Mucous membranes pink and moist. CARDIOVASCULAR: Regular rate and rhythm. No murmur appreciated. RESPIRATORY: No accessory muscle use. Clear to auscultation. Breath sounds equal bilaterally. GASTROINTESTINAL: Abdomen soft, non-tender, nondistended. Normoactive bowel sounds x4. MUSCULOSKELETAL: No obvious deformities. 1+ BLE edema. s/p I&D left hip, postop dressing in place, clean, dry, intact LLE NV intact distally. NEUROLOGICAL: Awake and alert. No obvious cranial nerve deficits. Moving all extremities spontaneously. Normal speech. PSYCHIATRIC: Appropriate mood and affect; insight and judgment normal. Results - Labs CBC & Chem 7: 04/24/18 06:28 04/25/18 07:17 Laboratory Results - last 24 hr 04/24/18 04/25/18 20:40 07:17 Creatinine 0.54 Estimated GFR Greater than 89 Vancomycin Trough 7.0 Microbiology 04/21/18 19:29 Blood - Peripheral Aerobic Blood Culture - Preliminary No growth in 4 days 04/21/18 19:29 Blood - Peripheral Anaerobic Blood Culture - Preliminary No growth in 4 days 04/21/18 19:24 Blood - Peripheral Aerobic Blood Culture - Preliminary No growth in 4 days 04/21/18 19:24 Blood - Peripheral Anaerobic Blood Culture - Preliminary No growth in 4 days 04/23/18 09:26 Fluid - Other Gram Stain - Final 04/23/18 09:26 Fluid - Other Body Fluid Culture - Preliminary No growth in 48 hours 04/23/18 09:26 Wound - Hip Acid Fast Bacilli Smear - Final No acid fast bacilli seen - Procedures 04/23/18 - IR - Uncomplicated ultrasound-guided aspiration of left gluteal fluid collections, as above. 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 Sepsis with Recurrent infected prosthetic left hip: acute. Meets sepsis criteria with Tmax 102.3, tachycardic HR 107, leukocytosis WBC 18.2K, lactic acid 2.2, with source-septic hip, resolving. History of MRSA septic joint CXR/UA reviewed and unremarkable Hip xray reviewed, shows Left hip arthroplasty in anatomic alignment without significant fracture or definitive evidence for hardware failure. CT left hip reviewed, shows Collection posterior to the hip joint with a large collection decompressing into the subcutaneous fat. CRP 11, ESR 27 -repeat white count now 9.7 -04/23 s/p CT guided aspiration with 58K WBC. CX with no growth x 48hrs. -Continue antibiotics with IV Vancomycin and IV meropenem based on patient's history and previous culture results -Blood cultures with NGTD -Continue IVF hydration -Pain control with [place] prn and IV dilaudid prn -Infectious disease Dr. Crawford following, appreciate assistance -Orthopedic surgery Dr. Gonzalez following, appreciate assistance/ s/p Left hip I&D. Await intraoperative culture results. History of DVT: patient had a DVT associated with her PICC line -Anticoagulated on Eliquis. DW Dr. Gonzalez, patient may be resumed on Eliquis today. Confirmed with patient she is only taking Eliquis 5mg once a day as prescribed by her photographic reproduction technician Dr. Camp. Hypotensive, asymptomatic Suspect secondary to anesthesia/pain medication side effect -Continue to monitor BP -fall precautions Anemia, chronic -Hgb appears stable -no e/o active bleeding -repeat H/H ordered for tomorrow am DVT Prophylaxis: teds/SCDs. Resume home Eliquis dosing Code Status: Full Discussed Condition With: patient, nursing staff, Dr. Gonzalez Discharge Planning: Not ready for discharge. D/C pending orthopedic surgery and infectious disease clearance
[2018-04-25] MEDS: Senna/Docusate Sodium 8.6/50 MG Tablet PO SCH (22:06)
[2018-04-26] MEDS: Sod Chloride 0.9% Inj 1,000 ML IV.CONT SCH ×2 (02:48→16:38)
[2018-04-26] MEDS: Vancomycin Inj 1,750 MG in Sodium Chlor 0.9% Inj 500 ML IV.SIG SCH ×2 (06:10→19:34)
[2018-04-26] MEDS: Senna/Docusate Sodium 8.6/50 MG Tablet PO SCH ×2 (10:30→20:13)
[2018-04-26 10:37] LABS: Hematocrit 25.8 % (35.0-46.0); Hemoglobin 8.2 gm/dL (11.6-15.3)
--- NOTE | 2018-04-26 10:44 | P.PNOP ---
Subjective Interval history: Postop day #1 She indicates that she is doing well. She has minimal complaints related to the hip at this time. She has no pain. She is anxious to go home. Physical Exam Vital signs: Vital Signs 04/25/18 10:45 04/25/18 10:49 04/25/18 11:00 Temperature 97.6 F Pulse Rate 78 76 Respiratory Rate 18 18 17 Blood Pressure 118/58 L 104/53 L Pulse Oximetry 95 94 L 04/25/18 11:53 04/25/18 16:00 04/25/18 20:00 Temperature 97.6 F 99.1 F 98.6 F Pulse Rate 78 84 86 Respiratory Rate 18 20 20 Blood Pressure 96/53 L 122/61 121/56 L Pulse Oximetry 95 97 94 L 04/26/18 00:00 04/26/18 04:00 04/26/18 07:55 Temperature 98.1 F 98.4 F 98.6 F Pulse Rate 84 82 84 Respiratory Rate 20 20 16 Blood Pressure 96/51 L 101/49 L 91/51 L Pulse Oximetry 94 L 93 L 94 L Intake & Output 04/25/18 04/26/18 04/26/18 18:59 06:59 18:59 Intake Total 2957.5 / 2957.5 1717.5 / 1717.5 Output Total 1050 / 1050 Balance 1907.5 / 1907.5 1717.5 / 1717.5 Intake: IV 1717.5 / 1717.5 1717.5 / 1717.5 NS Inj 1,000 ML @ 100 mls/hr IV 1000 / 1000 1000 / 1000 .CONT .Q10H ERNESTINE Rx#:[id number] Merrem Inj 1,000 MG In NS Inj 200 / 200 200 / 200 100 ML @ 200 mls/hr IV.SIG Q8H ERNESTINE Rx#:[id number] Vancomycin Inj 1,750 MG In NS 517.5 / 517.5 517.5 / 517.5 Inj 500 ML @ 250 mls/hr IV.SIG Q12H ERNESTINE Rx#:[id number] Oral 240 / 240 Anesthesia Amount 1000 / 1000 Output: Urine 850 / 850 Estimated Blood Loss 200 / 200 Other: # Voids 1 Date of Last Bowel Movement 04/24/18 Narrative: She is sitting out of bed in the chair, resting comfortably. Her neurovascular status is intact. Results - Labs CBC & Chem 7: 04/26/18 09:03 04/25/18 07:17 Laboratory Results - last 24 hr 04/26/18 09:03 Hgb 8.2 L Hct 25.8 L Microbiology 04/23/18 09:26 Fluid - Other Gram Stain - Final 04/23/18 09:26 Fluid - Other Body Fluid Culture - Final No growth in 72 hours (aerobically and anaerobically ) 04/25/18 08:48 Abscess - Hip Gram Stain - Final (no bacteria seen; few WBCs. From the operating room.) 04/21/18 19:29 Blood - Peripheral Aerobic Blood Culture - Preliminary No growth in 4 days 04/21/18 19:29 Blood - Peripheral Anaerobic Blood Culture - Preliminary No growth in 4 days 04/21/18 19:24 Blood - Peripheral Aerobic Blood Culture - Preliminary No growth in 4 days 04/21/18 19:24 Blood - Peripheral Anaerobic Blood Culture - Preliminary No growth in 4 days - Procedures 04/23/18 - IR - Uncomplicated ultrasound-guided aspiration of left gluteal fluid collections, as above. Assessment and Plan - Ortho Post Op Day # 1 - Assessment and Plan Condition: Good. Orthopedically stable. Discharge plans: Home with home health care. Follow-up will be with Robbin Gonzalez MD. He has indicated to me that the patient should be able to go home today.
--- NOTE | 2018-04-26 16:19 | P.DCO ---
Post Hospital Infusion Therapy - Infusion Therapy Location of Infusion Therapy: Home Health Care IV Infusion Order - Patient Information Patient Weight: 97.976 kg - Diagnosis (1) Septic hip Code(s): M00.9 - Pyogenic arthritis, unspecified - Administer Medication Vancomycin Dose: 1.5 grams IV Directions: q 12 hours Start Treatment: 04/26/18 Stop Treatment: 06/06/18 - Additional Information Venous Access: PICC Line Additional Instructions: [x] Peripheral flush and dressing changes per protocol [x] Implanted port and central a class lineman: * Implanted port: 10 ml Normal Saline followed by 5 ml Heparin 100 units/ml Heparin flush after each use and monthly to maintain. [] May leave port accessed during therapy. [] May leave peripheral site accessed for duration of therapy. [x] If patient has SOB or respiratory distress, check oxygen saturation. If less than 90% or clinical signs of respiratory distress, administer oxygen at 2 L/min. via nasal cannula and notify physician. [x] Anaphylaxis/Reaction orders: * Stop infusion. * Keep IV line open with saline flush. * Notify physician. * Monitor vital signs every 15 minutes until symptoms resolve. * Check Oxygen saturation; Oxygen at 2 L/min. via nasal cannula if less than 90% or clinical signs of respiratory distress. * Administer diphenhydramine (Benadryl) 25 mg IV STAT, (unless patient has received as pre-med). May repeat once, if necessary. * Solu-Cortef 250 mg IVP over 30-60 seconds, use 100 mg vials for each dissolution. * Epinephrine (1mg/1 ml) 0.3 mg subcutaneously or IVP now with any signs of respiratory distress. * Check with physician for new additional pre-med orders if patient is re- challenged or re-treated. [x] May remove PICC line when treatment complete, after confirming with Physician. [x] If the patient is admitted to the hospital, the ED, or transferred via [facility] , complete transfer form including medication reconciliation order sheet. Weekly Labs: CBC w/diff, Creatinine, CRP, SED Rate, Vancomycin Trough - Case Management Consult Case Management Consult-IVF: Yes - Patient Information Allergies daptomycin Allergy (Intermediate, Verified 04/22/18 10:28) rash vancomycin Adverse Reaction (Verified 04/22/18 10:14) Itching
[2018-04-26] MEDS ORDERED: Pharmacy Ordered Lab Info OTHER ONE (16:45)
--- NOTE | 2018-04-26 17:03 | P.DCO ---
- Diagnosis (1) Septic hip Status: Acute (2) S/P total hip arthroplasty Status: Acute - Physical Therapy Order: Evaluate and treat, Improve ambulation - Home Health Nursing Order: Medical education, Nursing assessment with vital signs, IV medication administration - Case Management Consult Case Management Consult-Home Health: Yes - Certification I have seen patient Ana Cristina Patino on 04/26/18. My clinical findings support the need for the requested home health care services because: Infection with risk of complications I certify that my clinical findings support that this patient is homebound because: Unable to use public transportation (2) S/P total hip arthroplasty Qualifiers: Laterality: left Qualified Code(s): Z96.642 - Presence of left artificial hip joint
--- NOTE | 2018-04-26 17:22 | P.DS ---
Date of admission: 04/21/18 22:20 Primary care physician: Parisa Bundy DO Brief History from admission: HPI as documented by the admitting physician: 62-year-old female with a past medical history significant for previous DVT anticoagulated on Eliquis and multiple recurrent hip infections following left hip replacement presents to the emergency department for the evaluation of fever and left hip pain. The patient has a complicated history which began in June 2017 when she underwent a left total hip arthroplasty without complications. She developed a subsequent septic joint requiring a resection of the arthroplasty with insertion of a cement spacer and a complete course of IV antibiotic management. In November, the patient had a second reimplantation of the left hip. All cultures at that time were negative for residual bacterial contamination. Following her second arthroplasty, the patient developed a recurrent infection of her left hip underwent another resection arthroplasty with reinsertion of cement spacer. She was followed by infectious disease and completed another course of treatment with IV antibiotics. The patient was readmitted to the hospital on 03/31/18 who had second at which time she underwent second stage reimplantation of the left hip. The patient tolerated the procedure and was discharged home on postoperative day 2. Patient returns to the emergency department today for the evaluation of fevers that began this afternoon. T-max at home was 101.4. The patient had not had any left-sided hip pain until her arrival at the hospital. Now she complains of a sharp, stabbing left hip pain that she describes as being in the center of the joint. Her hip is warm to the touch. She denies any chest pain or shortness of breath. No abdominal pain. No nausea/vomiting/diarrhea. No cough. No dysuria. Patient update on day of discharge: Patient reports she is feeling great. She is requesting to go home. Cleared by orthopedic surgery for discharge. DS: Diagnosis - Discharge Diagnosis (1) Septic hip Status: Acute (2) S/P total hip arthroplasty Status: Acute DS: Summary Hospital Course: 62-year-old female with a past medical history significant for previous DVT anticoagulated on Eliquis and multiple recurrent hip infections following left hip replacement presents to the emergency department for the evaluation of fever and left hip pain. Evaluation and treatment course detailed below: Sepsis with Recurrent infected prosthetic left hip: acute. Meets sepsis criteria with Tmax 102.3, tachycardic HR 107, leukocytosis WBC 18.2K, lactic acid 2.2, with source-septic hip, resolving. History of MRSA septic joint CXR/UA reviewed and unremarkable Hip xray reviewed, shows Left hip arthroplasty in anatomic alignment without significant fracture or definitive evidence for hardware failure. CT left hip reviewed, shows Collection posterior to the hip joint with a large collection decompressing into the subcutaneous fat. CRP 11, ESR 27 -11/29 s/p CT guided aspiration with 58K WBC. CX with no growth x 48hrs. -Continue antibiotics with IV Vancomycin and IV meropenem based on patient's history and previous culture results -Blood cultures with NGTD -Orthopedic surgery Dr. Gonzalez followed the patient and she underwent I&D. The patient is discharged home on IV antibiotics per infectious disease History of DVT: patient had a DVT associated with her PICC line -Anticoagulated on Eliquis. Hypotensive, asymptomatic Suspect secondary to anesthesia/pain medication side effect -Blood pressure remains stable. Anemia, chronic -no e/o active bleeding -H&H stable - Time Spent with Patient Total time spent providing and/or coordinating discharge services: Greater than 30 minutes - Quality: VTE Deep Vein Thrombosis/Pulmonary Embolism Present on Admission: No Exam Vital signs: Vital Signs 04/25/18 20:00 04/26/18 00:00 04/26/18 04:00 Temperature 98.6 F 98.1 F 98.4 F Pulse Rate 86 84 82 Respiratory Rate 20 20 20 Blood Pressure 121/56 L 96/51 L 101/49 L Pulse Oximetry 94 L 94 L 93 L 04/26/18 07:55 04/26/18 11:56 04/26/18 15:27 Temperature 98.6 F 98.1 F 98.1 F Pulse Rate 84 80 86 Respiratory Rate 16 18 18 Blood Pressure 91/51 L 108/51 L 114/55 L Pulse Oximetry 94 L 98 97 Intake & Output 04/25/18 04/26/18 04/26/18 18:59 06:59 18:59 Intake Total 2957.5 / 2957.5 1717.5 / 1717.5 1317.5 / 1317.5 Output Total 1050 / 1050 Balance 1907.5 / 1907.5 1717.5 / 1717.5 1317.5 / 1317.5 Weight 97.976 kg Intake: IV 1717.5 / 1717.5 1717.5 / 1717.5 617.5 / 617.5 NS Inj 1,000 ML @ 100 mls/hr IV 1000 / 1000 1000 / 1000 .CONT .Q10H ERNESTINE Rx#:[id number] Merrem Inj 1,000 MG In NS Inj 200 / 200 200 / 200 100 / 100 100 ML @ 200 mls/hr IV.SIG Q8H ERNESTINE Rx#:[id number] Vancomycin Inj 1,750 MG In NS 517.5 / 517.5 517.5 / 517.5 517.5 / 517.5 Inj 500 ML @ 250 mls/hr IV.SIG Q12H ERNESTINE Rx#:[id number] Oral 240 / 240 700 / 700 Anesthesia Amount 1000 / 1000 Output: Urine 850 / 850 Estimated Blood Loss 200 / 200 Other: # Voids 1 6 Date of Last Bowel Movement 04/24/18 04/24/18 Narrative: GENERAL: This is a well-nourished, well-developed patient, in no apparent distress. CARDIOVASCULAR: Normal rate and regular rhythm without murmurs, gallops, or rubs. RESPIRATORY: Good respiratory efforts. Breath sounds equal and clear to auscultation bilaterally. GASTROINTESTINAL: Abdomen soft, non-tender, non-distended. Normal active bowel sounds MUSCULOSKELETAL: Extremities without cyanosis, or edema. Left hip postop dressing is clean and dry. Neurovascularly intact distally. NEURO: Alert & Oriented x4 to person, place, time, situation. Moves all ext x4 PSYCH: Appropriate mood and affect. Results Procedures completed during hospitalization: 04/23/18 - IR - Uncomplicated ultrasound-guided aspiration of left gluteal fluid collections, as above. 04/25/18: Left hip I&D by orthopedic surgery. Pending studies at discharge: Pending at discharge 04/25/18 Surgical [PTH] Routine Labs on day of discharge: Labs from last 24 hours 04/26/18 09:03 Hgb 8.2 L Hct 25.8 L Preliminary micro results at discharge 04/25/18 08:48 Wound Culture - Preliminary Abscess - Hip No growth in 24 hours - Impressions ITS Impressions Chest X-Ray 04/21/18 19:02 CONCLUSION: 1. Stable minimal left lung base atelectasis/scarring. 2. No acute abnormality. Hip CT 04/21/18 19:02 CONCLUSION: 1. Collection posterior to the hip joint with a large collection decompressing into the subcutaneous fat. No acute fracture is identified. No lytic or blastic lesions are seen. Hip X-Ray 04/21/18 20:56 CONCLUSION: 1. Left hip arthroplasty in anatomic alignment without significant fracture or definitive evidence for hardware failure. Guidance Needle Placement Ultrasound 04/23/18 17:15 CONCLUSION: 1. Uncomplicated ultrasound-guided aspiration of left gluteal fluid collections , as above. Discharge Plan - Discharge Disposition Patient Disposition: W/Home Health Service - Discharge Condition Condition: Good - Discharge Order Discharge Orders: Discharge Order (Routine); Ordered 04/26/18 Ordered By: Vamsi Lewis - Discharge Details Discharge Comment: My discharge home Sun, 2 Dec or thereafter whenever cleared per admitting physician and continued antibiotic coverage has been arranged as recommended per Dr. Efe Crawford; Patient should contact office once home to schedule RTO appointment for 3 weeks. [facility] nurse may remove claudette from left hip wound approximately POD 10 and apply steri strips thereafter. - Physicians Team Primary Care Provider: Parisa Bundy Attending Provider: Vamsi Lewis Other Providers: Robbin Gonzalez MD ; [employer]Insurance ; [facility],[place] ; Kim Crawford MD
--- NOTE | 2018-04-26 18:26 | CT ---
EXAM DATE: 04/26/2018 6:19 PM EST AGE/SEX: 62 years / Female INDICATIONS: Left hip pain status post left hip replacement. CLINICAL DATA: This is the patient's initial encounter. Patient reports that signs and symptoms have been present for 1 day and indicates a pain score of 5/10. MEDICAL/SURGICAL HISTORY: Deep venous thrombosis. Cholecystectomy. Tubal ligation. left hip replac ement RADIATION DOSE: 39.72 CTDI (mGy) ; Patient body habitus COMPARISON: [facility], CT HIP LEFT W CONTRAST, 04/21/2018. [facility], CT HIP W/O CONTRAST, LEFT, 11/13/2017. . TECHNIQUE: Multiple contiguous axial images were acquired using a multirow detector CT scanner witho ut contrast. Multiplanar reconstruction was performed in the sagittal and coronal planes. Using aut omated exposure control and adjustment of the mA and/or kV according to patient size, radiation dose was kept as low as reasonably achievable to obtain optimal diagnostic quality images. DICOM format i mage data is available electronically for review and comparison. FINDINGS: Bones: The bony structures about the hip are in normal alignment. The trabecular pattern of the fem oral neck is intact. No fracture is seen. The bony pelvic ring is intact. Joints: The left hip joint prosthesis is stable in appearance compared to previous examination. Soft Tissues: The large subcutaneous collection is again noted lateral and superior to the left hip and contains both fluid and air. The collection extends approximately 17 cm in length and is relative ly stable in overall size compared to the previous examination dated 04/21/2018. The air in this bari ection is either postoperative in etiology or related to gas-forming organism. Clinical correlation i s recommended. Other: No foreign bodies seen. CONCLUSION: 1. Large subcutaneous collection is again noted lateral and superior to the left hip and contains eitan th fluid and air. The collection extends approximately 17 cm in length and is relatively stable in ov erall size compared to the previous examination dated 04/21/2018. The air in this collection is eithe r postoperative in etiology or related to gas-forming organism. Clinical correlation is recommended. Electronically signed by: Marco A Lr MD 04/26/2018 6:24 PM EST
--- NOTE | 2018-04-26 19:26 | P.PNID ---
Subjective Remarks: pt adamantly insistes on being dc Growing nothing so far @ 24 hrs no fever nl WBC Antibiotics: vanco meropenem Allergies/Adverse Reactions: Allergies daptomycin Allergy (Intermediate, Verified 04/22/18 10:28) rash vancomycin Adverse Reaction (Verified 04/22/18 10:14) Itching Objective Vital Signs 04/25/18 20:00 04/26/18 00:00 04/26/18 04:00 Temperature 98.6 F 98.1 F 98.4 F Pulse Rate 86 84 82 Respiratory Rate 20 20 20 Blood Pressure 121/56 L 96/51 L 101/49 L Pulse Oximetry 94 L 94 L 93 L 04/26/18 07:55 04/26/18 11:56 04/26/18 15:27 Temperature 98.6 F 98.1 F 98.1 F Pulse Rate 84 80 86 Respiratory Rate 16 18 18 Blood Pressure 91/51 L 108/51 L 114/55 L Pulse Oximetry 94 L 98 97 Intake & Output 04/26/18 04/26/18 04/27/18 06:59 18:59 06:59 Intake Total 1717.5 / 1717.5 1317.5 / 1317.5 Balance 1717.5 / 1717.5 1317.5 / 1317.5 Weight 97.976 kg Intake: IV 1717.5 / 1717.5 617.5 / 617.5 NS Inj 1,000 ML @ 100 mls/hr IV 1000 / 1000 .CONT .Q10H ERNESTINE Rx#:[id number] Merrem Inj 1,000 MG In NS Inj 200 / 200 100 / 100 100 ML @ 200 mls/hr IV.SIG Q8H ERNESTINE Rx#:[id number] Vancomycin Inj 1,750 MG In NS 517.5 / 517.5 517.5 / 517.5 Inj 500 ML @ 250 mls/hr IV.SIG Q12H ERNESTINE Rx#:[id number] Oral 700 / 700 Other: # Voids 6 Date of Last Bowel Movement 04/24/18 04/24/18 04/25/18 08:48 Abscess - Hip Gram Stain - Final 04/25/18 08:48 Abscess - Hip Wound Culture - Preliminary No growth in 24 hours 04/21/18 19:29 Blood - Peripheral Aerobic Blood Culture - Final No growth in 5 days 04/21/18 19:29 Blood - Peripheral Anaerobic Blood Culture - Final No growth in 5 days 04/21/18 19:24 Blood - Peripheral Aerobic Blood Culture - Final No growth in 5 days 04/21/18 19:24 Blood - Peripheral Anaerobic Blood Culture - Final No growth in 5 days 04/23/18 09:26 Fluid - Other Gram Stain - Final 04/23/18 09:26 Fluid - Other Body Fluid Culture - Final No growth in 72 hours (aerobically and anaerobically ) 04/25/18 08:48 Abscess - Hip Acid Fast Bacilli Smear - Pending 04/25/18 08:48 Abscess - Hip Mycobacterial Culture - Pending 04/25/18 08:48 Abscess - Hip Fungal Smear - Pending 04/25/18 08:48 Abscess - Hip Fungal Culture - Pending 04/23/18 09:26 Wound - Hip Acid Fast Bacilli Smear - Final No acid fast bacilli seen 04/23/18 09:26 Wound - Hip Mycobacterial Culture - Pending 04/23/18 09:26 Other Fungal Smear - Final No fungal elements seen 04/23/18 09:26 Other Fungal Culture - Pending Lab - Hematology Results 04/26/18 09:03 Hgb 8.2 L Hct 25.8 L Lab - Chemistry Results 04/25/18 07:17 Creatinine 0.54 Estimated GFR Greater than 89 Imaging: ITS Impressions Chest X-Ray 04/21/18 19:02 CONCLUSION: 1. Stable minimal left lung base atelectasis/scarring. 2. No acute abnormality. Hip X-Ray 04/21/18 20:56 CONCLUSION: 1. Left hip arthroplasty in anatomic alignment without significant fracture or definitive evidence for hardware failure. Guidance Needle Placement Ultrasound 04/23/18 17:15 CONCLUSION: 1. Uncomplicated ultrasound-guided aspiration of left gluteal fluid collections , as above. Hip CT 04/26/18 00:00 CONCLUSION: 1. Large subcutaneous collection is again noted lateral and superior to the left hip and contains both fluid and air. The collection extends approximately 17 cm in length and is relatively stable in overall size compared to the previous examination dated 04/21/2018. The air in this collection is either postoperative in etiology or related to gas-forming organism. Clinical correlation is recommended. Physical Exam: GENERAL: NAD OOB in a chair SKIN: Warm and dry. No rash CARDIOVASCULAR: Regular rate and rhythm. RESPIRATORY: No accessory muscle use. Clear to auscultation. Breath sounds equal bilaterally. GASTROINTESTINAL: Abdomen soft, non-tender, nondistended. MUSCULOSKELETAL: Extremities without clubbing, cyanosis, or edema. No obvious deformities. LArge area of fluctuance over L hip Incision witrh minimal serous draiange NEUROLOGICAL: Awake and alert. Non focal PSYCHIATRIC: Appropriate mood and affect; insight and judgment normal. Assessment and Plan (1) Septic hip Status: Acute Code(s): M00.9 - Pyogenic arthritis, unspecified - Plan Recurrent prosthetic L hip infection - neg preop cultures from last surgery sp I+D with newly reaccumulated fluid and gas collection CT showed new 17 cm collection with air in it Prior infections 2 times with different bactreria Presented with sepsis cont merropenm, vancomycin can not be discharged with this new finding fu routin and AFB clx untill final will karishma Gonzalez in am karishma RN karishma Lewis
[2018-04-27] MEDS: Senna/Docusate Sodium 8.6/50 MG Tablet PO SCH (08:01)
[2018-04-27 08:21] LABS: Glomerular Filtration Rate Greater Than 89 mL/min (>89)
[2018-04-27] MEDS ORDERED: Vancomycin Inj 1,750 MG in Sodium Chlor 0.9% Inj 500 ML IV.SIG SCH ×2 (10:00→16:00)
--- NOTE | 2018-04-27 11:45 | P.PNIM ---
Subjective Interval history: Discharge held yesterday due to CT findings. KONSTANTIN ID today who discussed the case with Orthopedics. Patient will have PICC placed and DC home with antibiotics. She will be referred to [place] by Orthopedics. She reports she is feeling great and is anxious to go home. Physical Exam Vital signs: Vital Signs 04/26/18 11:56 04/26/18 15:27 04/26/18 21:06 Temperature 98.1 F 98.1 F 97.8 F Pulse Rate 80 86 85 Respiratory Rate 18 18 20 Blood Pressure 108/51 L 114/55 L 107/55 L Pulse Oximetry 98 97 95 04/27/18 00:00 04/27/18 04:00 04/27/18 07:00 Temperature 99.4 F 97.6 F Pulse Rate 88 71 Respiratory Rate 20 20 12 Blood Pressure 101/50 L 106/52 L Pulse Oximetry 94 L 95 04/27/18 07:57 04/27/18 11:35 Temperature 98.4 F 98.1 F Pulse Rate 73 76 Respiratory Rate 20 20 Blood Pressure 107/53 L 109/54 L Pulse Oximetry 95 98 Intake & Output 04/26/18 04/27/18 04/27/18 18:59 06:59 18:59 Intake Total 1317.5 / 1317.5 Balance 1317.5 / 1317.5 Weight 97.976 kg 104.1 kg Intake: IV 617.5 / 617.5 Merrem Inj 1,000 MG In NS Inj 100 / 100 100 ML @ 200 mls/hr IV.SIG Q8H ERNESTINE Rx#:[id number] Vancomycin Inj 1,750 MG In NS 517.5 / 517.5 Inj 500 ML @ 250 mls/hr IV.SIG Q12H ERNESTINE Rx#:[id number] Oral 700 / 700 Other: # Voids 6 Date of Last Bowel Movement 04/24/18 04/24/18 04/26/18 Narrative: GENERAL: This is a well-nourished, well-developed patient, in no apparent distress. CARDIOVASCULAR: Normal rate and regular rhythm without murmurs, gallops, or rubs. RESPIRATORY: Good respiratory efforts. Breath sounds equal and clear to auscultation bilaterally. GASTROINTESTINAL: Abdomen soft, non-tender, non-distended. Normal active bowel sounds MUSCULOSKELETAL: Extremities without cyanosis, or edema. Left hip postop dressing is clean and dry. Neurovascularly intact distally. NEURO: Alert & Oriented x4 to person, place, time, situation. Moves all ext x4 PSYCH: Appropriate mood and affect. Results - Labs CBC & Chem 7: 04/26/18 09:03 04/27/18 07:07 Laboratory Results - last 24 hr 04/26/18 04/27/18 16:00 07:07 Creatinine 0.49 L Estimated GFR Greater than 89 Vancomycin Trough 18.7 H Microbiology 04/25/18 08:48 Abscess - Hip Gram Stain - Final 04/25/18 08:48 Abscess - Hip Wound Culture - Preliminary No growth in 48 hours 04/21/18 19:29 Blood - Peripheral Aerobic Blood Culture - Final No growth in 5 days 04/21/18 19:29 Blood - Peripheral Anaerobic Blood Culture - Final No growth in 5 days 04/21/18 19:24 Blood - Peripheral Aerobic Blood Culture - Final No growth in 5 days 04/21/18 19:24 Blood - Peripheral Anaerobic Blood Culture - Final No growth in 5 days 04/23/18 09:26 Fluid - Other Gram Stain - Final 04/23/18 09:26 Fluid - Other Body Fluid Culture - Final No growth in 72 hours (aerobically and anaerobically ) - Imaging Impressions Hip CT 04/26/18 00:00 CONCLUSION: 1. Large subcutaneous collection is again noted lateral and superior to the left hip and contains both fluid and air. The collection extends approximately 17 cm in length and is relatively stable in overall size compared to the previous examination dated 04/21/2018. The air in this collection is either postoperative in etiology or related to gas-forming organism. Clinical correlation is recommended. - Procedures 04/23/18 - IR - Uncomplicated ultrasound-guided aspiration of left gluteal fluid collections, as above. 04/25/18: Left hip I&D by orthopedic surgery. Assessment and Plan - Assessment (1) Septic hip Code(s): M00.9 - Pyogenic arthritis, unspecified Status: Acute (2) S/P total hip arthroplasty Code(s): Z96.649 - Presence of unspecified artificial hip joint Status: Acute - Plan 62-year-old female with a past medical history significant for previous DVT anticoagulated on Eliquis and multiple recurrent hip infections following left hip replacement presents to the emergency department for the evaluation of fever and left hip pain. Evaluation and treatment course detailed below: Sepsis with Recurrent infected prosthetic left hip: acute. Meets sepsis criteria with Tmax 102.3, tachycardic HR 107, leukocytosis WBC 18.2K, lactic acid 2.2, with source-septic hip, resolving. History of MRSA septic joint CXR/UA reviewed and unremarkable Hip xray reviewed, shows Left hip arthroplasty in anatomic alignment without significant fracture or definitive evidence for hardware failure. CT left hip reviewed, shows Collection posterior to the hip joint with a large collection decompressing into the subcutaneous fat. CRP 11, ESR 27 -04/23 s/p CT guided aspiration with 58K WBC. CX with no growth x 48hrs. -Continue antibiotics with IV Vancomycin and IV meropenem based on patient's history and previous culture results -Blood cultures with NGTD -Orthopedic surgery Dr. Gonzalez followed the patient and she underwent I&D. The patient is discharged home on IV antibiotics per infectious disease. She will follow-up outpatient with orthopedic surgery who plans to refer her to the [facility]. History of DVT: patient had a DVT associated with her PICC line -Anticoagulated on Eliquis. Hypotensive, asymptomatic Suspect secondary to anesthesia/pain medication side effect -Blood pressure remains stable. Anemia, chronic -no e/o active bleeding -H&H stable Discharge Planning: OK to DC today (2) S/P total hip arthroplasty Qualifiers: Laterality: left Qualified Code(s): Z96.642 - Presence of left artificial hip joint
[2018-04-27] MEDS ORDERED: Heparin Central Flush 100 UNIT/ML 5 ML Vial IV.FLUSH PRN (15:17)
[2018-04-28] MEDS ORDERED: Heparin Central Flush 100 UNIT/ML 5 ML Vial IV.FLUSH SCH (09:00)
[2018-04-28] MEDS ORDERED: Pharmacy Ordered Lab Info OTHER ONE (09:45)
[2018-04-29] MEDS ORDERED: Pharmacy Ordered Lab Info OTHER ONE (03:45)
== END 2018-04-27 20:15 | disposition home health service (06) ==
LOC: NEPE 15:40 → INTOOBSV 22:20 → NEDA 22:20 → OBSVTOIN 23:40 → NEDA 04-22 02:59 → NEPHCDU 04-22 02:59 → N05 04-25 07:55
PROVIDERS: ADMIT Family Medicine; ATTEND Family Medicine